=== PATIENT | male | born 1950 | race Caucasian/White ===

== ENCOUNTER 2024-01-02 09:14 | Inpatient (IN) | payer MEDICARE ==
--- NOTE | 2024-01-02 10:50 | ED ---
General Adult HPI - General Chief complaint: Wound/Laceration Stated complaint: L Toe Infection Time Seen by Provider: 01/02/24 10:29 Source: patient, RN notes reviewed Mode of arrival: ambulatory Limitations: no limitations - History of Present Illness Initial comments: 73-year-old male sent in by his bi data architect for left second toe ulcer. He states it has been there for 10 to 11 days. He reports that he has been on Keflex for the past 3 to 4 days. He was evaluated at his bi data architect today and was sent in as X-ray preformed showed possible osteomyelitis of the toe. He denies pain to the area, denies fever, chills. Admits to history of DM. - Related Data Home Medications Medication Instructions Recorded Confirmed Apixaban [Eliquis] 5 mg PO BID 01/02/24 01/02/24 Aspirin EC [Ecotrin Low Dose] 81 mg PO DAILY 01/02/24 01/02/24 Atorvastatin [Lipitor] 80 mg PO HS 01/02/24 01/02/24 Cephalexin [Keflex] 250 mg PO QID 01/02/24 01/02/24 Empagliflozin [Jardiance] 25 mg PO DAILY 01/02/24 01/02/24 Metoprolol Tartrate [Lopressor] 25 mg PO BID 01/02/24 01/02/24 Mirabegron [Myrbetriq] 50 mg PO DAILY 01/02/24 01/02/24 PARoxetine [Paxil] 10 mg PO DAILY 01/02/24 01/02/24 hydroCHLOROthiazide 12.5 mg PO DAILY 01/02/24 01/02/24 Allergies Allergy/AdvReac Type Severity Reaction Status Date / Time No Known Allergies Allergy Verified 01/02/24 14:35 Review of Systems ROS Statement: Those systems with pertinent positive or pertinent negative responses have been documented in the HPI. ROS Other: All systems not noted in ROS Statement are negative. Past Medical History Past Medical History: Cancer, CVA/TIA, Diabetes Mellitus, Myocardial Infarction ([place]), Skin Disorder Additional Past Medical History / Comment(s): prostate cancer, melenoma, Past Surgical History: Heart Catheterization With Stent Additional Past Surgical History / Comment(s): Tripple bypass, 2 heart attacks, 4 stents that failed, radical prostectomy, skin cancer removal, Past Psychological History: No Psychological Hx Reported Smoking Status: Never smoker Past Alcohol Use History: Daily Past Drug Use History: None Reported General Exam Limitations: no limitations General appearance: alert, in no apparent distress Head exam: Present: atraumatic, normocephalic, normal inspection Eye exam: Present: normal appearance, PERRL, EOMI. Absent: scleral icterus, conjunctival injection, periorbital swelling ENT exam: Present: normal exam, mucous membranes moist Respiratory exam: Present: normal lung sounds bilaterally. Absent: respiratory distress, wheezes, rales, rhonchi, stridor Cardiovascular Exam: Present: regular rate, normal rhythm, normal heart sounds. Absent: systolic murmur, diastolic murmur, rubs, gallop, clicks Extremities exam: Present: full ROM, normal capillary refill, other (ulcer left 2nd toe ). Absent: tenderness, pedal edema, joint swelling, calf tenderness Neurological exam: Present: alert, oriented X3 Psychiatric exam: Present: normal affect, normal mood Skin exam: Present: warm, dry, other (Ulcer to the left second toe on the medial aspect). Absent: intact Course Vital Signs 01/02/24 01/02/24 01/02/24 09:25 18:00 20:39 Temperature 97.9 F 98.4 F 98.6 F Pulse Rate 92 82 74 Respiratory 18 17 18 Rate Blood Pressure 151/82 145/86 124/73 O2 Sat by Pulse 99 100 99 Oximetry Medical Decision Making - Medical Decision Making Was pt. sent in by a medical professional or institution (, PA, BEAD SUPERVISOR, urgent care, hospital, or [facility]...) When possible be specific @ -No Did you speak to anyone other than the patient for history (EMS, parent, family, police, friend...)? What history was obtained from this source @ -No Did you review nursing and triage notes (agree or disagree)? Why? @ -I reviewed and agree with nursing and triage notes Were old charts reviewed (outside hosp., previous admission, EMS record, old EKG, old radiological studies, urgent care reports/EKG's, [facility] records)? Report findings @ -No old charts were reviewed Differential Diagnosis (chest pain, altered mental status, abdominal pain women, abdominal pain men, vaginal bleeding, weakness, fever, dyspnea, syncope, headache, dizziness, GI bleed, back pain, seizure, CVA, palpatations, mental health, musculoskeletal)? @ -Differential Musculoskeletal Muscular strain, contusion, ligament sprain, fracture, arthritis, septic arthritis, bursitis, cellulitis, muscle spasm, nerve compression, DVT, arterial occlusion, herpes zoster, electrolyte abnormality, tumor.... This is not meant to be in all inclusive list EKG interpreted by me (3pts min.). @ -None X-rays interpreted by me (1pt min.). @ -X-rays of the toes obtained show poor visualization of the medial proximal portion of the left second digit phalanx which would correlate with osteomyelitis CT interpreted by me (1pt min.). @ -None done U/S interpreted by me (1pt. min.). @ -None done What testing was considered but not performed or refused? (CT, X-rays, U/S, labs)? Why? @ -None What meds were considered but not given or refused? Why? @ -None Did you discuss the management of the patient with other professionals (professionals i.e. , PA, BEAD SUPERVISOR, lab, RT, psych nurse, certified social workers in health care, wireless technician, teacher, real estate officer, catalytic case operator)? Give summary @ -Case discussed with Dr. Rain with [facility] who is accepting of the admission Was smoking cessation discussed for >3mins.? @ -No Was critical care preformed (if so, how long)? @ -No Were there social determinants of health that impacted care today? How? (H omelessness, low income, unemployed, alcoholism, drug addiction, transportation, low edu. Level, literacy, decrease access to med. care, snf, rehab)? @ -No Was there de-escalation of care discussed even if they declined (Discuss DNR or withdrawal of care, Hospice)? DNR status @ -No What co-morbidities impacted this encounter? (DM, HTN, Smoking, COPD, CAD, Cancer, CVA, ARF, Chemo, Hep., AIDS, mental health diagnosis, sleep apnea, morbid obesity)? @ -Vascular disease, diabetes Was patient admitted / discharged? Hospital course, mention meds given and route, prescriptions, significant lab abnormalities, going to OR and other pertinent info. @ -Admitted. Patient presented to the emergency department for evaluation of left second toe ulcer. X-rays obtained which show findings that could be concerning for osteomyelitis. Laboratory studies obtained which showed normal white blood cell count, no lactic acidosis. Patient will be admitted, blood cultures obtained, patient started on vancomycin. Infectious disease and vascular surgery were consulted for the patient. Case was discussed with Dr. Rain who is accepting of the admission. Case discussed with my attending, Dr. Kinsey. Undiagnosed new problem with uncertain prognosis? @ -No Drug Therapy requiring intensive monitoring for toxicity (Heparin, Nitro, Insulin, Cardizem)? @ -No Were any procedures done? @ -No Diagnosis/symptom? @ -Osteomyelitis Acute, or Chronic, or Acute on Chronic? @ -Acute Uncomplicated (without systemic symptoms) or Complicated (systemic symptoms)? @ -Default Side effects of treatment? @ -No Exacerbation, Progression, or Severe Exacerbation? @ -No Poses a threat to life or bodily function? How? (Chest pain, [place], [place], pneumonia, PE, COPD, DKA, ARF, appy, cholecystitis, CVA, Diverticulitis, Homicidal, Suicidal, threat to staff... and all critical care pts) @ -No - Lab Data Result diagrams: 01/02/24 10:22 01/02/24 10:22 Lab Results 01/02/24 01/02/24 01/02/24 Range/Units 10:22 10:22 10:22 WBC 5.9 (3.8-10.6) k/uL RBC 4.65 (4.30-5.90) m/uL Hgb 14.9 (13.0-17.5) gm/dL Hct 45.5 (39.0-53.0) % MCV 97.9 (80.0-100.0) fL MCH 32.1 (25.0-35.0) pg MCHC 32.7 (31.0-37.0) g/dL RDW 12.9 (11.5-15.5) % Plt Count 253 (150-450) k/uL MPV 8.1 Neutrophils % 67 % Lymphocytes % 19 % Monocytes % 9 % Eosinophils % 2 % Basophils % 1 % Neutrophils # 3.9 (1.3-7.7) k/uL Lymphocytes # 1.1 (1.0-4.8) k/uL Monocytes # 0.5 (0-1.0) k/uL Eosinophils # 0.1 (0-0.7) k/uL Basophils # 0.0 (0-0.2) k/uL Sodium 136 L (137-145) mmol/L Potassium 4.9 (3.5-5.1) mmol/L Chloride 102 (98-107) mmol/L Carbon Dioxide 23 (22-30) mmol/L Anion Gap 11 mmol/L BUN 30 H (9-20) mg/dL Creatinine 1.77 H (0.66-1.25) mg/dL Est GFR (CKD-EPI)AfAm 43 (>60 ml/min/1.73 sqM) Est GFR (CKD-EPI)NonAf 37 (>60 ml/min/1.73 sqM) Glucose 338 H (74-99) mg/dL Plasma Lactic Acid Riley 1.1 (0.7-2.0) mmol/L Calcium 9.3 (8.4-10.2) mg/dL Total Bilirubin 1.0 (0.2-1.3) mg/dL AST 22 (17-59) U/L ALT 17 (4-49) U/L Alkaline Phosphatase 215 H (38-126) U/L C-Reactive Protein 6.6 H (<1.0) mg/dL Total Protein 6.8 (6.3-8.2) g/dL Albumin 4.3 (3.5-5.0) g/dL Disposition Clinical Impression: Toe ulcer due to DM, Osteomyelitis Disposition: ADMITTED IP TO THIS HOSP Condition: Stable Is patient prescribed a controlled substance at d/c from ED?: No
[2024-01-02] MEDS ORDERED: VANCOMYCIN IV PER PHARMACY 1 EACH MISC MISCELLANE PRN (10:53)
[2024-01-02 10:55] LABS: ALT 17 U/L (4-49); AST 22 U/L (17-59); African American GFR (CKD) 43 (>60 ml/min/1.73 sqM); Albumin 4.3 g/dL (3.5-5.0); Alkaline Phosphatase 215 U/L (38-126); Anion Gap 11 mmol/L; Blood Urea Nitrogen 30 mg/dL (9-20); Calcium 9.3 mg/dL (8.4-10.2); Carbon Dioxide 23 mmol/L (22-30); Chloride 102 mmol/L (98-107); Glucose 338 mg/dL (74-99); Non-African American GFR(CKD) 37 (>60 ml/min/1.73 sqM); Potassium 4.9 mmol/L (3.5-5.1); Sodium 136 mmol/L (137-145); Total Protein 6.8 g/dL (6.3-8.2)
[2024-01-02 10:59] LABS: Basophils % (A) 1 %; Eosinophils # (A) 0.1 k/uL (0-0.7); Eosinophils % (A) 2 %; HCT 45.5 % (39.0-53.0); HGB 14.9 gm/dL (13.0-17.5); Lymphocytes # (A) 1.1 k/uL (1.0-4.8); Lymphocytes % (A) 19 %; MCH 32.1 pg (25.0-35.0); MCHC 32.7 g/dL (31.0-37.0); MCV 97.9 fL (80.0-100.0); Mean Platelet Volume 8.1; Monocytes # (A) 0.5 k/uL (0-1.0); Monocytes % (A) 9 %; Neutrophils # (A) 3.9 k/uL (1.3-7.7); Neutrophils % (A) 67 %; Platelet Count 253 k/uL (150-450); RBC 4.65 m/uL (4.30-5.90); RDW 12.9 % (11.5-15.5); WBC 5.9 k/uL (3.8-10.6)
--- NOTE | 2024-01-02 11:20 | XR ---
EXAMINATION TYPE: XR toes LT DATE OF EXAM: 01/02/2024 COMPARISON: None HISTORY: Second toe ulcer TECHNIQUE: 3 views second digit left foot FINDINGS: There is some thinning and loss of the cortical margin along the medial aspect proximal por tion distal phalanx second digit. Underlying osteomyelitis should be considered. There is prior fixation through the first metatarsal phalangeal joint space. Diffuse degenerative singh nt changes are within the digits. IMPRESSION: 1. There is poor visualization of the medial proximal portion distal left second digit phalanx which could correlate with osteomyelitis in the proper clinical setting. 3 phase bone scan may be useful f or confirmation.
[2024-01-02] MEDS: VANCOMYCIN 1,500 MG in SODIUM CHLORIDE 0.9% 500 ML 500 ML IVPB STA (11:40)
[2024-01-02] MEDS ORDERED: HYDROmorphone 0.5 MG/0.5 ML SYRINGE IVP PRN (12:26)
[2024-01-02] MEDS ORDERED: ONDANSETRON 4 MG/2 ML VIAL IVP PRN (12:26)
[2024-01-02] MEDS ORDERED: HYDROmorphone 1 MG/ML 1 ML SYRINGE IVP PRN (12:26)
[2024-01-02] MEDS ORDERED: NALOXONE 0.4 MG/ML 1 ML VIAL IV PRN (12:26)
[2024-01-02] MEDS ORDERED: ACETAMINOPHEN TAB 325 MG TAB PO PRN (12:26)
--- NOTE | 2024-01-02 15:53 | P.GSCN ---
History of Present Illness Consult date: 01/02/24 Reason for Consult: Foot ulcer Requesting physician: Tiarra Woods History of present illness: This is a pleasant 73-year-old male with a history of diabetes mellitus who presented to the emergency department with concerns of a wound to his left second toe which she states had started about 10 to 11 days ago and progr essively has gotten worse. He denies any injury to the toe. Denies any pain to the toe. No fever, chills, body aches, nausea or vomiting. No previous diabetic wounds to either of his feet. States he can walk multiple miles without any pain. He does report having some poor blood flow in his lower extremities and has had that monitored while he was living in [place]. States last arterial ultrasound was about a year ago. He has history of bilateral great toe fusions with prior screw in the great toe. Vascular surgery was consulted for foot ulcer. He states he has not seen anybody recently other than [employer] police sergeant who sent him in. He has not had any formal wound care to the toe. States he has been caring for it at home with [facility]. Review of Systems A 14 point review systems was completed all pertinent positives and negatives as stated in the HPI. Past Medical History Past Medical History: Cancer, CVA/TIA, Diabetes Mellitus, Myocardial Infarction ([place]), Skin Disorder Additional Past Medical History / Comment(s): prostate cancer, melenoma, Past Surgical History: Heart Catheterization With Stent Additional Past Surgical History / Comment(s): Tripple bypass, 2 heart attacks, 4 stents that failed, radical prostectomy, skin cancer removal, Past Psychological History: No Psychological Hx Reported Smoking Status: Never smoker Past Alcohol Use History: Daily Past Drug Use History: None Reported Medications and Allergies Home Medications Medication Instructions Recorded Confirmed Type Apixaban [Eliquis] 5 mg PO BID 01/02/24 01/02/24 History Aspirin EC [Ecotrin Low Dose] 81 mg PO DAILY 01/02/24 01/02/24 History Atorvastatin [Lipitor] 80 mg PO HS 01/02/24 01/02/24 History Cephalexin [Keflex] 250 mg PO QID 01/02/24 01/02/24 History Empagliflozin [Jardiance] 25 mg PO DAILY 01/02/24 01/02/24 History Metoprolol Tartrate [Lopressor] 25 mg PO BID 01/02/24 01/02/24 History Mirabegron [Myrbetriq] 50 mg PO DAILY 01/02/24 01/02/24 History PARoxetine [Paxil] 10 mg PO DAILY 01/02/24 01/02/24 History hydroCHLOROthiazide 12.5 mg PO DAILY 01/02/24 01/02/24 History Allergies Allergy/AdvReac Type Severity Reaction Status Date / Time No Known Allergies Allergy Verified 01/02/24 14:35 Surgical - Exam Vital Signs Temp Pulse Resp BP Pulse Ox 97.9 F 92 18 151/82 99 01/02/24 09:25 01/02/24 09:25 01/02/24 09:25 01/02/24 09:25 01/02/24 09:25 General appearance: The patient is alert, oriented, appears in no acute distress. HET: Head is normocephalic and atraumatic. Pupils are equal and reactive. Neck: Supple. Heart: Regular. Lungs: Equal expansion, normal respiratory effort. Abdomen: Soft, nontender, nondistended. Extremities: Normal skin color and turgor. Left lower extremity palpable femoral pulse, popliteal and PT pulse. Nonpalpable DP pulse. Good capillary refill. Left second toe medial aspect with ulcer and open wound to fat layer without any visible bone. Neurological: No focal deficits. Strength and sensation are grossly intact. Results - Labs 01/02/24 10:22 01/02/24 10:22 Abnormal Lab Results - Last 24 Hours (Table) 01/02/24 Range/Units 10:22 Sodium 136 L (137-145) mmol/L BUN 30 H (9-20) mg/dL Creatinine 1.77 H (0.66-1.25) mg/dL Glucose 338 H (74-99) mg/dL Alkaline Phosphatase 215 H (38-126) U/L Diabetes panel 01/02/24 Range/Units 10:22 Sodium 136 L (137-145) mmol/L Potassium 4.9 (3.5-5.1) mmol/L Chloride 102 (98-107) mmol/L Carbon Dioxide 23 (22-30) mmol/L BUN 30 H (9-20) mg/dL Creatinine 1.77 H (0.66-1.25) mg/dL Glucose 338 H (74-99) mg/dL Calcium 9.3 (8.4-10.2) mg/dL AST 22 (17-59) U/L ALT 17 (4-49) U/L Alkaline Phosphatase 215 H (38-126) U/L Total Protein 6.8 (6.3-8.2) g/dL Albumin 4.3 (3.5-5.0) g/dL Calcium panel 01/02/24 Range/Units 10:22 Calcium 9.3 (8.4-10.2) mg/dL Albumin 4.3 (3.5-5.0) g/dL Pituitary panel 01/02/24 Range/Units 10:22 Sodium 136 L (137-145) mmol/L Potassium 4.9 (3.5-5.1) mmol/L Chloride 102 (98-107) mmol/L Carbon Dioxide 23 (22-30) mmol/L BUN 30 H (9-20) mg/dL Creatinine 1.77 H (0.66-1.25) mg/dL Glucose 338 H (74-99) mg/dL Calcium 9.3 (8.4-10.2) mg/dL Adrenal panel 01/02/24 Range/Units 10:22 Sodium 136 L (137-145) mmol/L Potassium 4.9 (3.5-5.1) mmol/L Chloride 102 (98-107) mmol/L Carbon Dioxide 23 (22-30) mmol/L BUN 30 H (9-20) mg/dL Creatinine 1.77 H (0.66-1.25) mg/dL Glucose 338 H (74-99) mg/dL Calcium 9.3 (8.4-10.2) mg/dL Total Bilirubin 1.0 (0.2-1.3) mg/dL AST 22 (17-59) U/L ALT 17 (4-49) U/L Alkaline Phosphatase 215 H (38-126) U/L Total Protein 6.8 (6.3-8.2) g/dL Albumin 4.3 (3.5-5.0) g/dL - Imaging Comments: Left toes x-ray reports poor visualization of the medial proximal portion distal left second digit phalanx which could correlate with osteomyelitis in proper clinical setting. Three-phase bone scan may be useful confirmation. This was independently reviewed by Dr. Baron who states appears just inflammation at the site of the actual wound without evidence of osteomyelitis on x-ray. Assessment and Plan Assessment: 1. Left second toe diabetic ulcer 2. Diabetes mellitus Plan: 1. Recommend formal wound care, will consult [facility] wound [facility] 2. No plans on surgical debridement or amputation at this time 3. Lower extremity arterial ultrasound ordered 4. Continue with recommendations from infectious disease 5. Rest of medical management per primary medical team Thank you for this consultation, we will continue to follow. The impression and plan of care has been dictated as directed. I performed a history and examination of this patient, discussed the same with the dictator. I agree with the dictator's note ,documented as a scribe. Any additional findings or plans will be noted.
[2024-01-02] MEDS: SODIUM CHLORIDE 0.9% 1,000 ML IV SCH (16:19)
[2024-01-02] MEDS ORDERED: DEXTROSE 50% SYRINGE 50 ML IVP PRN ×2 (17:20)
--- NOTE | 2024-01-02 17:22 | P.HPIM ---
History of Present Illness H&P Date: 01/02/24 73 year old M with PMH of CVA, CAD post CABG, DM, Prostate CA, Melanoma presents to the ED for left second toe ulcer after being sent in by his Bridge Expert. Wound has been ongoing for the past 7-10 days. Attempted trial of Keflex without much improvement. Foot XR was ordered which showed concerns of OM. He reports no other complaints. In the ED he underwent extensive evaluation. BP 151/82, HR 92, RR 18, T 97.9F, 99% on RA. CBC, CMP performed significant for Na 136, BUN 30, Cr 1.77, glu 338, alk phos 215. Lactic acid 1.1. Toe XR shows poor visualization of the medial proximal portion distal left second digit. Patient is admitted for further workup and management. General: no distress, appears at stated age Derm: warm, dry Head: atraumatic, normocephalic, symmetric Eyes: EOMI, no lid lag, anicteric sclera Mouth: no lip lesion, mucus membranes moist Cardiovascular: S1S2 reg, no murmur Lungs: CTA bilateral, no rhonchi, no rales , no accessory muscle use Abdominal: soft, nontender to palpation, no guarding, no appreciable organomegaly Ext: no gross muscle atrophy, no edema, no contractures, L 2nd toe medial wound with surrounding erythema no discharge Neuro: no focal neuro deficits Psych: Alert, oriented, appropriate affect Based on my assessment of this patient, this patient meets a high complexity level of care. Left second toe OM: Continue Vancomycin dosed per pharmacy. Monitor renal function and trough. Obtain CRP, ESR, BCx. Vascular Sx recommends arterial duplex. Bone scan would be useful, will discuss with Dr. Alexis. WCx collected by Dr. Alexis. ZAIN versus CKD: No baseline to compare. Start NS at 50 cc/hr. DM with hyperglycemia: ISS. Accuchecks ACHS. Hypoglycemic precautions. CAD status post CABG: ASA 81 mg PO QD. Lipitor 80 mg PO QHS. Metoprolol 25 mg PO BID. h/o CVA: ASA and Lipitor as above. h/o prostate CA: Outpatient follow up. h/o melenoma: Outpatient follow up. CODE STATUS: FULL CODE DVT Prophylaxis: Eliquis. GI Prophylaxis: Designated medical POA if patient is not able to make medical decisions for themselves: I have reviewed the following telesales consultant notes: Vascular, ED note. I have reviewed the results of the following tests: As above I have ordered the following tests: As above I have discussed the care of this patient with the following independent historian: I have independently interpreted the following test below: I have discussed the management of this patient with the following physician: Past Medical History Past Medical History: Cancer, CVA/TIA, Diabetes Mellitus, Myocardial Infarction ([place]), Skin Disorder Additional Past Medical History / Comment(s): prostate cancer, melenoma, Past Surgical History: Heart Catheterization With Stent Additional Past Surgical History / Comment(s): Tripple bypass, 2 heart attacks, 4 stents that failed, radical prostectomy, skin cancer removal, Past Psychological History: No Psychological Hx Reported Smoking Status: Never smoker Past Alcohol Use History: Daily Past Drug Use History: None Reported Medications and Allergies Home Medications Medication Instructions Recorded Confirmed Type Apixaban [Eliquis] 5 mg PO BID 01/02/24 01/02/24 History Aspirin EC [Ecotrin Low Dose] 81 mg PO DAILY 01/02/24 01/02/24 History Atorvastatin [Lipitor] 80 mg PO HS 01/02/24 01/02/24 History Cephalexin [Keflex] 250 mg PO QID 01/02/24 01/02/24 History Empagliflozin [Jardiance] 25 mg PO DAILY 01/02/24 01/02/24 History Metoprolol Tartrate [Lopressor] 25 mg PO BID 01/02/24 01/02/24 History Mirabegron [Myrbetriq] 50 mg PO DAILY 01/02/24 01/02/24 History PARoxetine [Paxil] 10 mg PO DAILY 01/02/24 01/02/24 History hydroCHLOROthiazide 12.5 mg PO DAILY 01/02/24 01/02/24 History Allergies Allergy/AdvReac Type Severity Reaction Status Date / Time No Known Allergies Allergy Verified 01/02/24 14:35 Physical Exam Vitals: Vital Signs Temp Pulse Resp BP Pulse Ox 01/02/24 09:25 97.9 F 92 18 151/82 99 Intake and Output 01/02/24 01/02/24 01/02/24 06:59 14:59 22:59 Other: Weight 90.718 kg Results CBC & Chem 7: 01/02/24 10:22 01/02/24 10:22 Labs: Abnormal Lab Results - Last 24 Hours (Table) 01/02/24 Range/Units 10:22 Sodium 136 L (137-145) mmol/L BUN 30 H (9-20) mg/dL Creatinine 1.77 H (0.66-1.25) mg/dL Glucose 338 H (74-99) mg/dL Alkaline Phosphatase 215 H (38-126) U/L
[2024-01-02] MEDS: INSULIN ASPART (NovoLOG) 100 UNIT/ML VIAL SQ SCH (17:52)
--- NOTE | 2024-01-02 19:38 | US ---
EXAMINATION TYPE: US arterial LE single level DATE OF EXAM: 01/02/2024 4:20 PM CLINICAL INDICATION: Male, 73 years old with history of Left 2nd toe wound, non-palpable DP pulse; No nhealing wound at left toe. Portable inpatient. History of: Smoker: No Hypertension: Yes Diabetic: Yes Hyperlipidemia: Yes TIA/CVA: Yes Previous Vascular Surgery: Yes, vein harvest for bypass CAD: Yes [place]: Yes Vascular Ulcers: Left Claudication: No Gangrene: No Doppler Waveforms: Right: Monophasic waveforms present Left: Monophasic waveforms present Pressure Gradients: Right Brachial Pressure: 151 Left Brachial Pressure: Deferred due to IV Ankle-Brachial Indices: Right: 0.4 Left: 0.7 (Vessel hardening > 1.4; Normal 0.9 - 1.4, Moderate 0.7 - 0.9, Severe 0.5-0.7) Toe Brachial Indices: Right: 0.5 Left: 0.1 IMPRESSION: 1. Very low ratios within the dorsalis pedis and digital arteries compatible with severe arterial nader nosis. Posterior tibial arteries likewise have severe stenosis on the right and more moderate on the left.
[2024-01-02 19:54] LABS: C Reactive Protein 6.6 mg/dL (<1.0)
[2024-01-02 20:24] LABS: Glucose,Whole Blood 238 mg/dL (70-110)
[2024-01-02 21:05] LABS: Glucose,Whole Blood 259 mg/dL (70-110)
[2024-01-02] MEDS: ATORVASTATIN 80 MG TAB PO SCH (21:16)
[2024-01-02] MEDS: APIXABAN 5 MG TAB PO SCH (21:16)
[2024-01-02] MEDS: METOPROLOL TARTRATE 25 MG TAB PO SCH (21:16)
[2024-01-02] MEDS: AMPICILLIN-SULBACTAM 3 GM in SODIUM CHLORIDE 0.9% 100 ML IVPB SCH (23:44)
[2024-01-03 06:02] LABS: Glucose,Whole Blood 170 mg/dL (70-110)
[2024-01-03 08:25] LABS: African American GFR (CKD) 46 (>60 ml/min/1.73 sqM); Non-African American GFR(CKD) 40 (>60 ml/min/1.73 sqM)
[2024-01-03] MEDS: ASPIRIN 81 MG PO SCH (09:04)
[2024-01-03] MEDS: hydroCHLOROthiazide 12.5 MG CAP PO SCH (09:05)
[2024-01-03] MEDS: PARoxetine 10 MG TAB PO SCH (09:05)
[2024-01-03] MEDS: NON FORMULARY DRUG (Mirabegron [Myrbetriq] 50 MG Tab.Er.24h) PO SCH (09:20)
--- NOTE | 2024-01-03 09:46 | P.CONS ---
History of Present Illness - Reason for Consult Consult date: 01/02/24 - History of Present Illness Patient is a 73-year-old male with a past medical history significant for diabetes mellitus [place] CVA TIA history of prostate cancer and melanoma presenting to the hospital for left second toe ulcer with the patient has noticed for about 10 to 11 days before presentation to the hospital patient has been evaluated in the outpatient setting with a podiatry and has been treated with oral Keflex however did not have any improvement patient was reevaluated in the podiatry office today with the patient did have x-ray suggestive of osteomyelitis for the patient was sent to the hospital patient mention possibly the left big toe question on the second toe causing this ulceration on the left second toe patient did have neuropathy denies significant pain to the toe area mostly feels like a pressure main concern is her nonhealing of this second toe with some yellowish slough did have some surrounding swelling redness which seems to be extending to the left foot denies any foul-smelling drainage denies high-grade fever patient on presentation to the hospital was afebrile and no fever has been recorded subsequently patient was not tachycardic hypotensive or hypoxic and no need for supplemental oxygen he did have a white count of 5.9 BUN and creatinine mildly elevated with a creatinine 1.77 liver enzymes are normal CRP 6.6 patient did have 2 x-ray done at this facility showed poor visualization of the medial proximal portion distal left second digit phalanx correlate with osteomyelitis in the proper setting patient was started on vancomycin infectious disease was consulted for further management of antibiotic therapy Past Medical History Past Medical History: Cancer, CVA/TIA, Diabetes Mellitus, Myocardial Infarction ([place]), Skin Disorder Additional Past Medical History / Comment(s): prostate cancer, melenoma, Past Surgical History: Heart Catheterization With Stent Additional Past Surgical History / Comment(s): Tripple bypass, 2 heart attacks, 4 stents that failed, radical prostectomy, skin cancer removal, Past Psychological History: No Psychological Hx Reported Smoking Status: Never smoker Past Alcohol Use History: Daily Past Drug Use History: None Reported Medications and Allergies Home Medications Medication Instructions Recorded Confirmed Type Apixaban [Eliquis] 5 mg PO BID 01/02/24 01/02/24 History Aspirin EC [Ecotrin Low Dose] 81 mg PO DAILY 01/02/24 01/02/24 History Atorvastatin [Lipitor] 80 mg PO HS 01/02/24 01/02/24 History Cephalexin [Keflex] 250 mg PO QID 01/02/24 01/02/24 History Empagliflozin [Jardiance] 25 mg PO DAILY 01/02/24 01/02/24 History Metoprolol Tartrate [Lopressor] 25 mg PO BID 01/02/24 01/02/24 History Mirabegron [Myrbetriq] 50 mg PO DAILY 01/02/24 01/02/24 History PARoxetine [Paxil] 10 mg PO DAILY 01/02/24 01/02/24 History hydroCHLOROthiazide 12.5 mg PO DAILY 01/02/24 01/02/24 History Allergies Allergy/AdvReac Type Severity Reaction Status Date / Time No Known Allergies Allergy Verified 01/02/24 14:35 Physical Exam Vitals: Vital Signs Temp Pulse Resp BP Pulse Ox 01/02/24 09:25 97.9 F 92 18 151/82 99 Intake and Output 01/01/24 01/02/24 01/02/24 22:59 06:59 14:59 Other: Weight 90.718 kg Results CBC & Chem 7: 01/02/24 10:22 01/04/24 06:15 Labs: Abnormal Lab Results - Last 24 Hours (Table) 01/02/24 Range/Units 10:22 Sodium 136 L (137-145) mmol/L BUN 30 H (9-20) mg/dL Creatinine 1.77 H (0.66-1.25) mg/dL Glucose 338 H (74-99) mg/dL Alkaline Phosphatase 215 H (38-126) U/L Assessment and Plan Plan: 1patient presented to hospital with a left second toe ulcer nonhealing that has failed to respond to outpatient oral Keflex therapy with outpatient as well as inpatient x-ray suspicious for osteomyelitis will need to cover for the gram- positive as well as gram-negative pathogen. 2patient with renal insufficiency high risk of nephrotoxicity from vancomycin kidney function need to monitor closely. 3local culture has been obtained to guide further antibiotic therapy. 4patient to continue with the vancomycin however will watch his Vanco trough an d kidney function closely and Unasyn 3 g every 6 hours. We will follow on clinical condition and cultures to further adjust medication if needed Thank you for this consultation we will follow the patient along with you Dictation was produced using [facility] [employer] dictation software. please excuse any grammatical, word or spelling errors. Time with Patient: Greater than 30
--- NOTE | 2024-01-03 11:11 | P.CONS ---
History of Present Illness - Reason for Consult Consult date: 01/03/24 wound care - History of Present Illness This is a 73-year-old patient being seen on 4 S. for nonhealing ulceration to the second digit of the left foot. Patient has ulcerations to the medial and lateral aspect of the second digit. Significant amount of bruising nonviable tissue and slough noted. Minimal granulation. Patient x-ray showed possible osteomyelitis recommendation for a bone scan. Patient does have history of diabetes with neuropathy. He was evaluated by vascular surgery with no surgical debridement or amputation discussed at this time. Patient is recommended to continue with advanced wound care to promote healing. Review Of Systems: Constitutional: No fever, no chills, no night sweats. No weight change. No weakness, fatigue or lethargy. No daytime sleepiness. Integumentary:reports wounds, no lesions. No rash or pruritus. No unusual bruising. No change in hair or nails. Physical exam: General Appearance: Alert, cooperative, no distress, appears stated age. Skin: See HPI all other Skin color, texture, tugor normal, no rashes or lesions. Neurologic: Alert oriented x3 Assessment: 1. Nonhealing ulceration of other part of left foot with bone involvement without necrosis 2. Diabetic foot ulcer Plan: 1. Apply absorptive silver rope moistened cover with gauze secure with tape. Change Saturday. Patient would benefit from advanced wound care and wound care setting. Will be happy to see him upon discharge. Thank you for the consultation any questions please contact the wound care center. DNP note has been reviewed and discussed with Dr. Aguilar and the impression and plan of care has been directed as dictated. Past Medical History Past Medical History: Cancer, CVA/TIA, Diabetes Mellitus, Myocardial Infarction ([place]), Skin Disorder Additional Past Medical History / Comment(s): prostate cancer, melenoma, Last Myocardial Infarction Date:: 2011 History of Any Multi-Drug Resistant Organisms: None Reported Past Surgical History: Heart Catheterization With Stent Additional Past Surgical History / Comment(s): Tripple bypass, 2 heart attacks, 4 stents that failed, radical prostectomy, skin cancer removal, Past Anesthesia/Blood Transfusion Reactions: No Reported Reaction Date of Last Stent Placement:: 2011 Past Psychological History: No Psychological Hx Reported Smoking Status: Never smoker Past Alcohol Use History: Daily Past Drug Use History: None Reported Medications and Allergies Home Medications Medication Instructions Recorded Confirmed Type Apixaban [Eliquis] 5 mg PO BID 01/02/24 01/02/24 History Aspirin EC [Ecotrin Low Dose] 81 mg PO DAILY 01/02/24 01/02/24 History Atorvastatin [Lipitor] 80 mg PO HS 01/02/24 01/02/24 History Cephalexin [Keflex] 250 mg PO QID 01/02/24 01/02/24 History Empagliflozin [Jardiance] 25 mg PO DAILY 01/02/24 01/02/24 History Metoprolol Tartrate [Lopressor] 25 mg PO BID 01/02/24 01/02/24 History Mirabegron [Myrbetriq] 50 mg PO DAILY 01/02/24 01/02/24 History PARoxetine [Paxil] 10 mg PO DAILY 01/02/24 01/02/24 History hydroCHLOROthiazide 12.5 mg PO DAILY 01/02/24 01/02/24 History Allergies Allergy/AdvReac Type Severity Reaction Status Date / Time No Known Allergies Allergy Verified 01/02/24 14:35 Physical Exam Vitals: Vital Signs Temp Pulse Pulse Pulse Resp BP BP 01/03/24 07:29 98.2 F 71 19 01/03/24 01:01 98.9 F 73 15 126/45 01/02/24 20:59 98.2 F 93 16 149/85 01/02/24 20:39 98.6 F 74 18 124/73 01/02/24 18:00 98.4 F 82 17 145/86 BP Pulse Ox 01/03/24 07:29 125/69 100 01/03/24 01:01 98 01/02/24 20:59 100 01/02/24 20:39 99 01/02/24 18:00 100 Intake and Output 01/02/24 01/03/24 01/03/24 22:59 06:59 14:59 Other: Voiding Method Toilet # Voids 1 Weight 90.718 kg Results CBC & Chem 7: 01/02/24 10:22 01/03/24 07:52 Labs: Abnormal Lab Results - Last 24 Hours (Table) 01/02/24 01/02/24 01/02/24 Range/Units 10:22 20:19 21:04 Sodium 136 L (137-145) mmol/L BUN 30 H (9-20) mg/dL Creatinine 1.77 H (0.66-1.25) mg/dL Glucose 338 H (74-99) mg/dL POC Glucose (mg/dL) 238 H 259 H (70-110) mg/dL Alkaline Phosphatase 215 H (38-126) U/L C-Reactive Protein 6.6 H (<1.0) mg/dL 01/03/24 01/03/24 Range/Units 06:00 07:52 Sodium (137-145) mmol/L BUN (9-20) mg/dL Creatinine 1.65 H (0.66-1.25) mg/dL Glucose (74-99) mg/dL POC Glucose (mg/dL) 170 H (70-110) mg/dL Alkaline Phosphatase (38-126) U/L C-Reactive Protein (<1.0) mg/dL Microbiology - Last 24 Hours (Table) 01/02/24 14:45 Gram Stain - Preliminary Foot - Left Assessment and Plan (1) Non-pressure chronic ulcer of other part of left foot with bone involvement without evidence of necrosis Current Visit: Yes Status: Acute Code(s): L97.526 - NON-PRS CHR ULC OTH PRT L FOOT WITH BNE INVL W/O EVD OF NECR SNOMED Code(s): 84153704084094500 (2) Type 2 diabetes mellitus with foot ulcer Current Visit: Yes Status: Acute Code(s): E11.621 - TYPE 2 DIABETES MELLITUS WITH FOOT ULCER; L97.509 - NON-PRESSURE CHRONIC ULCER OTH PRT UNSP FOOT W UNSP SEVERITY SNOMED Code(s): 095381531 (3) Osteomyelitis Current Visit: Yes Status: Acute Code(s): M86.9 - OSTEOMYELITIS, UNSPECIFIED SNOMED Code(s): 01593404
--- NOTE | 2024-01-03 12:10 | P.PN ---
Subjective Progress Note Date: 01/03/24 Principal diagnosis: Diabetic ulcer Patient seen and examined today as a follow-up. He denies any pain in his left foot or toe. He has no fevers, chills or bodyaches. He underwent arterial duplex yesterday which reported RAMBO right 0.4 and left 0.7. Decreased waveforms. Objective - Vital Signs Vital signs: Vital Signs Temp 98.9 F 01/03/24 01:01 Pulse 73 01/03/24 01:01 Resp 15 01/03/24 01:01 BP 126/45 01/03/24 01:01 Pulse Ox 98 01/03/24 01:01 FiO2 Intake & Output 01/02/24 01/03/24 01/03/24 18:59 06:59 18:59 Weight 90.718 kg 90.718 kg Other: Voiding Method Toilet # Voids 1 - Exam General appearance: The patient is alert, oriented, appears in no acute distress. HET: Head is normocephalic and atraumatic. Neck: Supple. Abdomen: Soft, nondistended. Extremities: Normal skin color and turgor. Good capillary refill. Left second toe medial aspect with ulcer and open wound to fat layer without any visible stella ne. Neurological: No focal deficits. Strength and sensation are grossly intact. - Labs CBC & Chem 7: 01/02/24 10:22 01/03/24 07:52 Labs: Abnormal Lab Results - Last 24 Hours (Table) 01/02/24 01/02/24 01/02/24 Range/Units 10:22 20:19 21:04 Sodium 136 L (137-145) mmol/L BUN 30 H (9-20) mg/dL Creatinine 1.77 H (0.66-1.25) mg/dL Glucose 338 H (74-99) mg/dL POC Glucose (mg/dL) 238 H 259 H (70-110) mg/dL Alkaline Phosphatase 215 H (38-126) U/L C-Reactive Protein 6.6 H (<1.0) mg/dL 01/03/24 Range/Units 06:00 Sodium (137-145) mmol/L BUN (9-20) mg/dL Creatinine (0.66-1.25) mg/dL Glucose (74-99) mg/dL POC Glucose (mg/dL) 170 H (70-110) mg/dL Alkaline Phosphatase (38-126) U/L C-Reactive Protein (<1.0) mg/dL Assessment and Plan Assessment: 1. Left second toe diabetic ulcer 2. Diabetes mellitus 3. Peripheral arterial disease Plan: 1. Recommend formal wound care, will consult [facility] wound clinic 2. Local wound care per recommendations from wound care clinic 3. No plans on surgical debridement or amputation at this time 4. Lower extremity arterial ultrasound ordered and reviewed 5. Outpatient follow-up with vascular surgery Thank you for this consultation, patient is cleared from vascular surgery for discharge. The impression and plan of care has been dictated as directed. I performed a history and examination of this patient, discussed the same with the dictator. I agree with the dictator's note ,documented as a scribe. Any additional findings or plans will be noted.
[2024-01-03 12:16] LABS: Glucose,Whole Blood 305 mg/dL (70-110)
[2024-01-03] MEDS: VANCOMYCIN 1,500 MG in SODIUM CHLORIDE 0.9% 500 ML 500 ML IVPB SCH (13:04)
--- NOTE | 2024-01-03 13:14 | P.PN ---
Subjective Progress Note Date: 01/03/24 73 year old M with PMH of CVA, CAD post CABG, DM, Prostate CA, Melanoma presents to the ED for left second toe ulcer after being sent in by his Cad Manager. Wound has been ongoing for the past 7-10 days. Attempted trial of Keflex without much improvement. Foot XR was ordered which showed concerns of OM. He reports no other complaints. In the ED he underwent extensive evaluation. BP 151/82, HR 92, RR 18, T 97.9F, 99% on RA. CBC, CMP performed significant for Na 136, BUN 30, Cr 1.77, glu 338, alk phos 2 15. Lactic acid 1.1. Toe XR shows poor visualization of the medial proximal portion distal left seco nd digit. Patient is admitted for further workup and management. 01/02 Patient was seen and examined. Well controlled pain. Currently on Unasyn and Vancomycin. Discussed with Dr. Baron, plans for no surgery. ID recommends continued antibiotics. Patient will likely need IV antibiotics on discharge. Arterial duplex shows severe PAD. Renal function shows Cr 1.65. General: no distress, appears at stated age Derm: warm, dry Head: atraumatic, normocephalic, symmetric Eyes: EOMI, no lid lag, anicteric sclera Cardiovascular: S1S2 reg, no murmur Lungs: CTA bilateral, no rhonchi, no rales , no accessory muscle use Ext: no gross muscle atrophy, no edema, no contractures, L 2nd toe medial wound with surrounding erythema no discharge Neuro: no focal neuro deficits Psych: Alert, oriented, appropriate affect Based on my assessment of this patient, this patient meets a high complexity level of care. Left second toe OM: Continue Unasyn 3g IV TID and Vancomycin dosed per pharmacy. Monitor renal function and trough. Obtain CRP, ESR, BCx. Vascular Sx recommends arterial duplex. Bone scan would be useful, will discuss with Dr. Alexis. WCx collected by Dr. Alexis. ZAIN versus CKD: No baseline to compare. NS at 50 cc/hr. DM with hyperglycemia: ISS. Accuchecks ACHS. Hypoglycemic precautions. CAD status post CABG: ASA 81 mg PO QD. Lipitor 80 mg PO QHS. Metoprolol 25 mg PO BID. h/o CVA: ASA and Lipitor as above. h/o prostate CA: Outpatient follow up. h/o melenoma: Outpatient follow up. CODE STATUS: FULL CODE DVT Prophylaxis: Eliquis. GI Prophylaxis: Designated medical POA if patient is not able to make medical decisions for themselves: I have reviewed the following organizational development consultant notes: Vascular, ED note. I have reviewed the results of the following tests: Renal function I have ordered the following tests: Renal function I have discussed the care of this patient with the following independent historian: , RN. I have independently interpreted the following test below: I have discussed the management of this patient with the following physician: Dr. Baron Objective - Vital Signs Vital signs: Vital Signs Temp 98.2 F 01/03/24 07:29 Pulse 71 01/03/24 07:29 Resp 19 01/03/24 07:29 BP 125/69 01/03/24 07:29 Pulse Ox 100 01/03/24 07:29 FiO2 Intake & Output 01/02/24 01/03/24 01/03/24 18:59 06:59 18:59 Weight 90.718 kg 90.718 kg Other: Voiding Method Toilet # Voids 1 - Labs CBC & Chem 7: 01/02/24 10:22 01/03/24 07:52 Labs: Abnormal Lab Results - Last 24 Hours (Table) 01/02/24 01/02/24 01/02/24 Range/Units 10:22 20:19 21:04 Creatinine (0.66-1.25) mg/dL POC Glucose (mg/dL) 238 H 259 H (70-110) mg/dL C-Reactive Protein 6.6 H (<1.0) mg/dL 01/03/24 01/03/24 01/03/24 Range/Units 06:00 07:52 12:11 Creatinine 1.65 H (0.66-1.25) mg/dL POC Glucose (mg/dL) 170 H 305 H (70-110) mg/dL C-Reactive Protein (<1.0) mg/dL Microbiology - Last 24 Hours (Table) 01/02/24 14:45 Gram Stain - Preliminary Foot - Left
[2024-01-03] MEDS: AMPICILLIN-SULBACTAM 3 GM in SODIUM CHLORIDE 0.9% 100 ML IVPB SCH (14:30)
[2024-01-03 16:41] LABS: Glucose,Whole Blood 291 mg/dL (70-110)
[2024-01-03 20:50] LABS: Glucose,Whole Blood 283 mg/dL (70-110)
[2024-01-04 06:02] LABS: Glucose,Whole Blood 190 mg/dL (70-110)
[2024-01-04 07:37] LABS: Glucose,Whole Blood 187 mg/dL (70-110)
[2024-01-04 08:13] LABS: African American GFR (CKD) 50 (>60 ml/min/1.73 sqM); Non-African American GFR(CKD) 43 (>60 ml/min/1.73 sqM)
[2024-01-04 11:43] LABS: Glucose,Whole Blood 344 mg/dL (70-110)
--- NOTE | 2024-01-04 12:34 | P.PN ---
Subjective Progress Note Date: 01/04/24 73 year old M with PMH of CVA, CAD post CABG, DM, Prostate CA, Melanoma presents to the ED for left second toe ulcer after being sent in by his Bench Jeweler. Wound has been ongoing for the past 7-10 days. Attempted trial of Keflex without much improvement. Foot XR was ordered which showed concerns of OM. He reports no other complaints. In the ED he underwent extensive evaluation. BP 151/82, HR 92, RR 18, T 97.9F, 99% on RA. CBC, CMP performed significant for Na 136, BUN 30, Cr 1.77, glu 338, alk phos 2 15. Lactic acid 1.1. Toe XR shows poor visualization of the medial proximal portion distal left seco nd digit. Patient is admitted for further workup and management. ID and Vascular Sx consulted, started on Vancomycin and Unasyn. Arterial doppler showed severe PAD. Vascular recommended conservative management with IV antibiotics. 01/02 Patient was seen and examined. Well controlled pain. Currently on Unasyn and Vancomycin. Renal function shows Cr 1.55. BCx negative. WCx group D enterococcus. CRP 6.6. POC glucose 170-291 over the past 24H. General: no distress, appears at stated age Derm: warm, dry Head: atraumatic, normocephalic, symmetric Eyes: EOMI, no lid lag, anicteric sclera Cardiovascular: S1S2 reg, no murmur Lungs: CTA bilateral, no rhonchi, no rales , no accessory muscle use Ext: no gross muscle atrophy, no edema, no contractures, L 2nd toe medial wound with surrounding erythema no discharge Neuro: no focal neuro deficits Psych: Alert, oriented, appropriate affect Based on my assessment of this patient, this patient meets a high complexity level of care. Left second toe OM: Continue Unasyn 3g IV TID and Vancomycin dosed per pharmacy. Monitor renal function and trough. BCx negative. WCx group D enterococcus. Vascular Sx recommends conservative management. Discussed with Dr. Alexis, clinically OM. WCx collected by Dr. Alexis. ZAIN versus CKD: No baseline to compare. NS at 50 cc/hr. DM with hyperglycemia: ISS increased from low dose to medium dose. Accuchecks ACHS. Hypoglycemic precautions. CAD status post CABG: ASA 81 mg PO QD. Lipitor 80 mg PO QHS. Metoprolol 25 mg PO BID. h/o CVA: ASA and Lipitor as above. h/o prostate CA: Outpatient follow up. h/o melenoma: Outpatient follow up. CODE STATUS: FULL CODE DVT Prophylaxis: Eliquis. GI Prophylaxis: Designated medical POA if patient is not able to make medical decisions for themselves: I have reviewed the following salon sales consultant notes: Vascular, Wound care note. I have reviewed the results of the following tests: POC glucose, Renal function, WCx, BCx. I have ordered the following tests: Renal function I have discussed the care of this patient with the following independent historian: I have independently interpreted the following test below: I have discussed the management of this patient with the following physician: Dr. Alexis Objective - Vital Signs Vital signs: Vital Signs Temp 97.6 F 01/04/24 08:00 Pulse 59 L 01/04/24 08:00 Resp 16 01/04/24 08:00 BP 154/91 01/04/24 08:00 Pulse Ox 98 01/04/24 08:00 FiO2 Intake & Output 01/03/24 01/04/24 01/04/24 18:59 06:59 18:59 Intake Total 1200 120 Balance 1200 120 Intake: Intake, IV Titration 1200 Amount Ampicillin-Sulbactam 3 gm 100 In Sodium Chloride 0.9% 100 ml @ 200 mls/hr IVPB Q8H BRUNO Rx#:[id number] Sodium Chloride 0.9% 1, 600 000 ml @ 50 mls/hr IV . Q20H BRUNO Rx#:[id number] Vancomycin 1,500 mg In 500 Sodium Chloride 0.9% 500 ml 500 ml @ 167 mls/hr IVPB Q24H BRUNO Rx#: [id number] Oral 120 Other: Voiding Method Toilet Toilet # Voids 3 1 - Labs CBC & Chem 7: 01/02/24 10:22 01/04/24 06:15 Labs: Abnormal Lab Results - Last 24 Hours (Table) 01/03/24 01/03/24 01/03/24 Range/Units 12:11 16:39 20:48 Creatinine (0.66-1.25) mg/dL POC Glucose (mg/dL) 305 H 291 H 283 H (70-110) mg/dL 01/04/24 01/04/24 01/04/24 Range/Units 06:01 06:15 07:36 Creatinine 1.55 H (0.66-1.25) mg/dL POC Glucose (mg/dL) 190 H 187 H (70-110) mg/dL Microbiology - Last 24 Hours (Table) 01/02/24 14:45 Gram Stain - Preliminary Foot - Left Wound Culture - Preliminary Group D Enterococcus 01/02/24 10:22 Blood Culture - Preliminary Blood 01/02/24 10:22 Blood Culture - Preliminary Blood
[2024-01-04] MEDS: DAPAGLIFLOZIN PROPANEDIOL 10 MG TABLET PO SCH (12:55)
--- NOTE | 2024-01-04 14:58 | P.PN ---
Subjective Progress Note Date: 01/03/24 Principal diagnosis: Reason for follow-up is left second toe wound and osteomyelitis Patient is a 73-year-old male with a past medical history significant for diabetes mellitus [place] CVA TIA history of prostate cancer and melanoma presenting to the hospital for left second toe ulcer with the patient has noticed for about 10 to 11 days before presentation to the hospital with outpatient as well as inpatient x-ray suspicious for osteomyelitis involving the medial border of the second toe. On today's evaluation 01/03/2024,the patient denies any fever or any chills, pat ient is breathing comfortably on room air, the patient denies chest pain shortness of breath and no significant cough, patient denies abdominal pain, no nausea vomiting or diarrhea. Patient denies any worsening pain to his left second toe patient did have a creatinine 1.65 cultures currently pending Objective - Vital Signs Vital signs: Vital Signs Temp 97.6 F 01/03/24 14:00 Pulse 59 L 01/03/24 14:00 Resp 17 01/03/24 14:00 BP 179/68 01/03/24 14:00 Pulse Ox 100 01/03/24 14:00 FiO2 Intake & Output 01/02/24 01/03/24 01/03/24 18:59 06:59 18:59 Weight 90.718 kg 90.718 kg Other: Voiding Method Toilet Toilet # Voids 1 - Exam GENERAL DESCRIPTION: An elderly male up in the chair in no distress RESPIRATORY SYSTEM: Unlabored breathing , decreased breath sounds at bases HEART: S1 S2 regular rate and rhythm , ABDOMEN: Soft , no tenderness EXTREMITIES: Left foot is currently dressed - Labs CBC & Chem 7: 01/02/24 10:22 01/04/24 06:15 Labs: Abnormal Lab Results - Last 24 Hours (Table) 01/02/24 01/02/24 01/02/24 Range/Units 10:22 20:19 21:04 Creatinine (0.66-1.25) mg/dL POC Glucose (mg/dL) 238 H 259 H (70-110) mg/dL C-Reactive Protein 6.6 H (<1.0) mg/dL 01/03/24 01/03/24 01/03/24 Range/Units 06:00 07:52 12:11 Creatinine 1.65 H (0.66-1.25) mg/dL POC Glucose (mg/dL) 170 H 305 H (70-110) mg/dL C-Reactive Protein (<1.0) mg/dL Microbiology - Last 24 Hours (Table) 01/02/24 14:45 Gram Stain - Preliminary Foot - Left Assessment and Plan (1) Toe osteomyelitis, left Current Visit: Yes Status: Acute Code(s): M86.9 - OSTEOMYELITIS, UNSPECIFIED SNOMED Code(s): 092899431 (2) Type 2 diabetes mellitus with foot ulcer Current Visit: Yes Status: Acute Code(s): E11.621 - TYPE 2 DIABETES MELLITUS WITH FOOT ULCER; L97.509 - NON-PRESSURE CHRONIC ULCER OTH PRT UNSP FOOT W UNSP SEVERITY SNOMED Code(s): 556258133 Plan: 1patient presented to hospital with a left second toe ulcer nonhealing that has failed to respond to outpatient oral Keflex therapy with outpatient as well as inpatient x-ray suspicious for osteomyelitis will need to cover for the gram- positive as well as gram-negative pathogen. 2patient with renal insufficiency high risk of nephrotoxicity from vancomycin kidney function need to monitor closely. 3local culture has been obtained which are currently pending 4patient to continue with the vancomycin however will watch his Vanco trough and kidney function closely along with Unasyn 3 g every 8 hours dose adjusted to the kidney function while waiting for the culture to finalize. Dictation was produced using [employer] dictation software. please excuse any grammatical, word or spelling errors. Time with Patient: Less than 30
--- NOTE | 2024-01-04 14:59 | P.PN ---
Subjective Progress Note Date: 01/04/24 Principal diagnosis: Reason for follow-up is left second toe wound and osteomyelitis Patient is a 73-year-old male with a past medical history significant for diabetes mellitus [place] CVA TIA history of prostate cancer and melanoma presenting to the hospital for left second toe ulcer with the patient has noticed for about 10 to 11 days before presentation to the hospital with outpatient as well as inpatient x-ray suspicious for osteomyelitis involving the medial border of the second toe. On today's evaluation 01/04/2024,the patient remains to be afebrile, patient is on room air not requiring supplemental oxygen and denies any shortness of breath no chest pain or cough.Patient denies having any nausea or vomiting, no abdominal pain and no diarrhea has been reported, family reported improvement in his left second toe at the time of dressing change this morning. Patient creatinine is 1.55 local culture growing Enterococcus with sensitivities pending Objective - Vital Signs Vital signs: Vital Signs Temp 97.6 F 01/04/24 08:00 Pulse 59 L 01/04/24 08:00 Resp 16 01/04/24 08:00 BP 154/91 01/04/24 08:00 Pulse Ox 98 01/04/24 08:00 FiO2 Intake & Output 01/03/24 01/04/24 01/04/24 18:59 06:59 18:59 Intake Total 1200 120 Balance 1200 120 Intake: Intake, IV Titration 1200 Amount Ampicillin-Sulbactam 3 gm 100 In Sodium Chloride 0.9% 100 ml @ 200 mls/hr IVPB Q8H BRUNO Rx#:[id number] Sodium Chloride 0.9% 1, 600 000 ml @ 50 mls/hr IV . Q20H BRUNO Rx#:[id number] Vancomycin 1,500 mg In 500 Sodium Chloride 0.9% 500 ml 500 ml @ 167 mls/hr IVPB Q24H BRUNO Rx#: [id number] Oral 120 Other: Voiding Method Toilet Toilet # Voids 3 1 - Exam GENERAL DESCRIPTION: An elderly male up in the chair in no distress RESPIRATORY SYSTEM: Unlabored breathing , decreased breath sounds at bases HEART: S1 S2 regular rate and rhythm , ABDOMEN: Soft , no tenderness EXTREMITIES: Left foot is just got dressed family mention improvement to the left second toe no drainage - Labs CBC & Chem 7: 01/02/24 10:22 01/04/24 06:15 Labs: Abnormal Lab Results - Last 24 Hours (Table) 01/03/24 01/03/24 01/04/24 Range/Units 16:39 20:48 06:01 Creatinine (0.66-1.25) mg/dL POC Glucose (mg/dL) 291 H 283 H 190 H (70-110) mg/dL 01/04/24 01/04/24 01/04/24 Range/Units 06:15 07:36 11:41 Creatinine 1.55 H (0.66-1.25) mg/dL POC Glucose (mg/dL) 187 H 344 H (70-110) mg/dL Microbiology - Last 24 Hours (Table) 01/02/24 14:45 Gram Stain - Preliminary Foot - Left Wound Culture - Preliminary Group D Enterococcus 01/02/24 10:22 Blood Culture - Preliminary Blood 01/02/24 10:22 Blood Culture - Preliminary Blood Assessment and Plan (1) Toe osteomyelitis, left Current Visit: Yes Status: Acute Code(s): M86.9 - OSTEOMYELITIS, UNSPECIFIED SNOMED Code(s): 490877145 (2) Type 2 diabetes mellitus with foot ulcer Current Visit: Yes Status: Acute Code(s): E11.621 - TYPE 2 DIABETES MELLITUS WITH FOOT ULCER; L97.509 - NON-PRESSURE CHRONIC ULCER OTH PRT UNSP FOOT W UNSP SEVERITY SNOMED Code(s): 764154060 Plan: 1patient presented to hospital with a left second toe ulcer nonhealing that has failed to respond to outpatient oral Keflex therapy with outpatient as well as inpatient x-ray suspicious for osteomyelitis will need to cover for the gram- positive as well as gram-negative pathogen. 2patient with renal insufficiency high risk of nephrotoxicity from vancomycin kidney function need to monitor closely. 3local culture has been obtained which are currently growing group D En terococcus with sensitivities pending 4patient to continue with the Unasyn 3 g every 8 hours dose however discontinue vancomycin to decrease risk of nephrotoxicity discharge antibiotics on the basis of final culture and will likely need a PICC line Family the bedside questions were answered Dictation was produced using [employer] dictation software. please excuse any grammatical, word or spelling errors. Time with Patient: Less than 30
[2024-01-04 16:47] LABS: Glucose,Whole Blood 374 mg/dL (70-110)
[2024-01-04 20:06] LABS: Glucose,Whole Blood 305 mg/dL (70-110)
--- NOTE | 2024-01-05 01:15 | P.PN ---
Progress Note - Text Progress Note Date: 01/04/24 Diabetic ulcer Patient seen and examined today. He denies any pain in his left foot or toe. H e has no fevers, chills or bodyaches. States toe looks better today. Objective General appearance: The patient is alert, oriented, appears in no acute distress. HET: Head is normocephalic and atraumatic. Neck: Supple. Abdomen: Soft, nondistended. Extremities: Normal skin color and turgor. Good capillary refill. Left second toe medial aspect with ulcer and open wound to fat layer without any visible bone. Neurological: No focal deficits. Strength and sensation are grossly intact. Assessment and Plan Assessment: 1. Left second toe diabetic ulcer 2. Diabetes mellitus 3. Peripheral arterial disease Plan: 1. Continue local wound care 2. ID recs appreciated. PICC line likely for Saturday 3. Outpatient follow-up with vascular surgery
[2024-01-05 05:05] LABS: African American GFR (CKD) 46 (>60 ml/min/1.73 sqM); Non-African American GFR(CKD) 40 (>60 ml/min/1.73 sqM)
[2024-01-05 06:04] LABS: Glucose,Whole Blood 212 mg/dL (70-110)
[2024-01-05] MEDS ORDERED: VANCOMYCIN TROUGH DUE 1 EACH MISC MISCELLANE ONE (11:00)
--- NOTE | 2024-01-05 12:06 | US ---
EXAMINATION TYPE: US kidneys/renal and bladder DATE OF EXAM: 01/05/2024 COMPARISON: NONE CLINICAL INDICATION: Male, 73 years old with history of elevated scr; diabetic, abn labs, no h/o fiordaliza l issues EXAM MEASUREMENTS: Right Kidney: 11.0 x 5.0 x 5.0 cm Left Kidney: 12.4 x 5.1 x 5.4 cm Right Kidney: No hydronephrosis or masses seen Left Kidney: No hydronephrosis or masses seen Bladder: wnl IMPRESSION: Unremarkable renal ultrasound.
[2024-01-05 12:14] LABS: Glucose,Whole Blood 196 mg/dL (70-110)
--- NOTE | 2024-01-05 14:15 | P.PN ---
Subjective Progress Note Date: 01/05/24 Principal diagnosis: OM was seen and examined. No fever or chills. Pain is controlled. Long discussion was had with him and his , appears he has baseline CKD as he saw [facility]istics [facility] in the past. They are not quite clear of his exact numbers. Objective - Vital Signs Vital signs: Vital Signs Temp 97.9 F 01/05/24 08:00 Pulse 57 L 01/05/24 08:00 Resp 17 01/05/24 08:00 BP 111/62 01/05/24 08:00 Pulse Ox 100 01/05/24 08:00 FiO2 Intake & Output 01/04/24 01/05/24 01/05/24 18:59 06:59 18:59 Intake Total 360 Balance 360 Intake: Oral 360 Other: # Voids 1 1 - Exam Vitals: Reviewed General: No acute distress Cardiovascular: RRR, S1-S2 Lungs: Breath sounds equal and clear to auscultation bilaterally. No wheezing, rhonchi or rales Extremities: No lower extremity edema - Labs CBC & Chem 7: 01/02/24 10:22 01/05/24 04:21 Labs: Abnormal Lab Results - Last 24 Hours (Table) 01/04/24 01/04/24 01/05/24 Range/Units 16:45 20:01 04:21 Creatinine 1.67 H (0.66-1.25) mg/dL POC Glucose (mg/dL) 374 H 305 H (70-110) mg/dL 01/05/24 01/05/24 Range/Units 06:01 12:12 Creatinine (0.66-1.25) mg/dL POC Glucose (mg/dL) 212 H 196 H (70-110) mg/dL Microbiology - Last 24 Hours (Table) 01/02/24 14:45 Gram Stain - Final Foot - Left Wound Culture - Final Enterococcus faecalis 01/02/24 10:22 Blood Culture - Preliminary Blood 01/02/24 10:22 Blood Culture - Preliminary Blood Assessment and Plan Plan: # Left second toe osteomyelitis Blood cultures negative thus far. Wound culture positive for Enterococcus. Previously on Vanco and Unasyn. Now on just Unasyn. Bone scan ordered. ID following. Bone scan ordered. # Elevated creatinine Appears he has known history of CKD. Renal ultrasound unremarkable. Unknown baseline. # DM2 SGLT2 inhibitor and insulin scale insulin. Will make adjustments accordingly. Hemoglobin A1c in AM. # CAD s/p CABG Aspirin, statin and beta-bartolo # History of CVA Aspirin and statin # History of prostate cancer # History of melanoma VTE prophylaxis: On Eliquis
[2024-01-05 17:01] LABS: Glucose,Whole Blood 356 mg/dL (70-110)
[2024-01-05 20:31] LABS: Glucose,Whole Blood 261 mg/dL (70-110)
[2024-01-06 04:29] LABS: African American GFR (CKD) 56 (>60 ml/min/1.73 sqM); Anion Gap 9 mmol/L; Blood Urea Nitrogen 30 mg/dL (9-20); Calcium 8.4 mg/dL (8.4-10.2); Carbon Dioxide 20 mmol/L (22-30); Chloride 107 mmol/L (98-107); Glucose 186 mg/dL (74-99); Non-African American GFR(CKD) 48 (>60 ml/min/1.73 sqM); Potassium 3.6 mmol/L (3.5-5.1); Sodium 136 mmol/L (137-145)
[2024-01-06 06:17] LABS: Glucose,Whole Blood 245 mg/dL (70-110)
[2024-01-06 07:45] VITALS: TEMP 97.8
[2024-01-06 08:24] LABS: Basophils # (A) 0.03 X 10*3/uL (0.00-0.10); Basophils % (A) 0.6 %; Eosinophils # (A) 0.17 X 10*3/uL (0.04-0.35); Eosinophils % (A) 3.6 %; HCT 37.5 % (39.6-50.0); HGB 12.9 g/dL (13.0-17.0); Lymphocytes % (A) 25.5 %; MCH 32.8 pg (27.0-32.0); MCHC 34.4 g/dL (32.0-37.0); MCV 95.4 FL (80.0-97.0); Mean Platelet Volume 10.4 FL (9.5-12.2); Monocytes # (A) 0.61 X 10*3/uL (0.20-1.00); NRBC Per 100 WBC 0 X 10*3/uL (0.00-0.01); Neutrophils # (A) 2.69 X 10*3/uL (1.80-7.70); Neutrophils % (A) 57.1 %; Platelet Count 230 X 10*3/uL (140-440); RBC 3.93 X 10*6/uL (4.40-5.60); RDW 12.4 % (11.5-14.5); WBC 4.71 X 10*3/uL (4.50-10.00)
--- NOTE | 2024-01-06 11:29 | P.PN ---
Subjective Progress Note Date: 01/06/24 Principal diagnosis: OM was seen and examined. No acute complaints. Plan of care discussed with him. Objective - Vital Signs Vital signs: Vital Signs Temp 97.8 F 01/06/24 07:06 Pulse 48 L 01/06/24 07:06 Resp 19 01/06/24 07:06 BP 132/67 01/06/24 07:06 Pulse Ox 96 01/06/24 07:06 FiO2 Intake & Output 01/05/24 01/06/24 01/06/24 18:59 06:59 18:59 Other: # Voids 2 1 # Bowel Movements 1 - Exam Vitals: Reviewed General: No acute distress Cardiovascular: RRR, S1-S2 Lungs: Breath sounds equal and clear to auscultation bilaterally. No wheezing, rhonchi or rales Extremities: No lower extremity edema - Labs CBC & Chem 7: 01/06/24 03:34 01/06/24 03:34 Labs: Abnormal Lab Results - Last 24 Hours (Table) 01/05/24 01/05/24 01/05/24 Range/Units 12:12 16:58 20:29 RBC (4.40-5.60) X 10*6/uL Hgb (13.0-17.0) g/dL Hct (39.6-50.0) % MCH (27.0-32.0) pg Sodium (137-145) mmol/L Carbon Dioxide (22-30) mmol/L BUN (9-20) mg/dL Creatinine (0.66-1.25) mg/dL Glucose (74-99) mg/dL POC Glucose (mg/dL) 196 H 356 H 261 H (70-110) mg/dL Hemoglobin A1c (<=6.0) % 01/06/24 01/06/24 01/06/24 Range/Units 03:34 03:34 03:34 RBC 3.93 L (4.40-5.60) X 10*6/uL Hgb 12.9 L (13.0-17.0) g/dL Hct 37.5 L (39.6-50.0) % MCH 32.8 H (27.0-32.0) pg Sodium 136 L (137-145) mmol/L Carbon Dioxide 20 L (22-30) mmol/L BUN 30 H (9-20) mg/dL Creatinine 1.42 H (0.66-1.25) mg/dL Glucose 186 H (74-99) mg/dL POC Glucose (mg/dL) (70-110) mg/dL Hemoglobin A1c 10.5 H (<=6.0) % 01/06/24 Range/Units 06:15 RBC (4.40-5.60) X 10*6/uL Hgb (13.0-17.0) g/dL Hct (39.6-50.0) % MCH (27.0-32.0) pg Sodium (137-145) mmol/L Carbon Dioxide (22-30) mmol/L BUN (9-20) mg/dL Creatinine (0.66-1.25) mg/dL Glucose (74-99) mg/dL POC Glucose (mg/dL) 245 H (70-110) mg/dL Hemoglobin A1c (<=6.0) % Microbiology - Last 24 Hours (Table) 01/02/24 10:22 Blood Culture - Preliminary Blood 01/02/24 10:22 Blood Culture - Preliminary Blood Assessment and Plan Plan: # Left second toe osteomyelitis Blood cultures negative thus far. Wound culture positive for Enterococcus. Previously on Vanco and Unasyn. Now on just Unasyn. Bone scan ordered. ID following. Bone scan ordered. # Elevated creatinine Appears he has known history of CKD. Renal ultrasound unremarkable. Unknown baseline. # DM2 SGLT2 inhibitor and insulin scale insulin. Will make adjustments accordingly. Hemoglobin A1c above 10 therefore will likely need insulin on discharge. # CAD s/p CABG Aspirin, statin and beta-bartolo # History of CVA Aspirin and statin # History of prostate cancer # History of melanoma # History of A-fib/flutter He is rate controlled but has tendency to go bradycardic into the 40s. Decrease beta-bartolo dose to 12.5 twice daily. Continue with Eliquis. VTE prophylaxis: On Eliquis
[2024-01-06 11:43] VITALS: BMI 28.7
[2024-01-06 12:02] LABS: Glucose,Whole Blood 206 mg/dL (70-110)
[2024-01-06] MEDS: INSULIN DETEMIR (LEVEMIR) 100 UNIT/ML SYR SQ SCH (12:13)
--- NOTE | 2024-01-06 13:11 | P.PN ---
Subjective Progress Note Date: 01/06/24 Principal diagnosis: Diabetic ulcer Patient seen and examined as a follow-up this morning. He is sitting up in the bedside chair. Wound cultures finalized with growth of Enterococcus faecalis. Apparently primary medical team ordered a bone scan this morning. Patient has been afebrile. No leukocytosis. He remains on Unasyn. Objective - Vital Signs Vital signs: Vital Signs Temp 97.8 F 01/06/24 07:06 Pulse 48 L 01/06/24 07:06 Resp 19 01/06/24 07:06 BP 132/67 01/06/24 07:06 Pulse Ox 96 01/06/24 07:06 FiO2 Intake & Output 01/05/24 01/06/24 01/06/24 18:59 06:59 18:59 Other: # Voids 2 1 # Bowel Movements 1 - Exam General appearance: The patient is alert, oriented, appears in no acute distress. HET: Head is normocephalic and atraumatic. Neck: Supple. Abdomen: Soft, nondistended. Extremities: Left lower extremity warm to the touch good capillary refill. Second toe with dressing clean dry and intact. Neurological: No focal deficits. Strength and sensation are grossly intact. - Labs CBC & Chem 7: 01/06/24 03:34 01/06/24 03:34 Labs: Abnormal Lab Results - Last 24 Hours (Table) 01/05/24 01/05/24 01/05/24 Range/Units 12:12 16:58 20:29 RBC (4.40-5.60) X 10*6/uL Hgb (13.0-17.0) g/dL Hct (39.6-50.0) % MCH (27.0-32.0) pg Sodium (137-145) mmol/L Carbon Dioxide (22-30) mmol/L BUN (9-20) mg/dL Creatinine (0.66-1.25) mg/dL Glucose (74-99) mg/dL POC Glucose (mg/dL) 196 H 356 H 261 H (70-110) mg/dL Hemoglobin A1c (<=6.0) % 01/06/24 01/06/24 01/06/24 Range/Units 03:34 03:34 03:34 RBC 3.93 L (4.40-5.60) X 10*6/uL Hgb 12.9 L (13.0-17.0) g/dL Hct 37.5 L (39.6-50.0) % MCH 32.8 H (27.0-32.0) pg Sodium 136 L (137-145) mmol/L Carbon Dioxide 20 L (22-30) mmol/L BUN 30 H (9-20) mg/dL Creatinine 1.42 H (0.66-1.25) mg/dL Glucose 186 H (74-99) mg/dL POC Glucose (mg/dL) (70-110) mg/dL Hemoglobin A1c 10.5 H (<=6.0) % 01/06/24 Range/Units 06:15 RBC (4.40-5.60) X 10*6/uL Hgb (13.0-17.0) g/dL Hct (39.6-50.0) % MCH (27.0-32.0) pg Sodium (137-145) mmol/L Carbon Dioxide (22-30) mmol/L BUN (9-20) mg/dL Creatinine (0.66-1.25) mg/dL Glucose (74-99) mg/dL POC Glucose (mg/dL) 245 H (70-110) mg/dL Hemoglobin A1c (<=6.0) % Microbiology - Last 24 Hours (Table) 01/02/24 10:22 Blood Culture - Preliminary Blood 01/02/24 10:22 Blood Culture - Preliminary Blood Assessment and Plan Assessment: 1. Left second toe diabetic ulcer 2. Diabetes mellitus 3. Peripheral arterial disease Plan: 1. Recommend formal wound care, will consult [facility] wound clinic 2. Local wound care per recommendations from wound care clinic 3. No plans on surgical debridement or amputation at this time 4. Lower extremity arterial ultrasound ordered and reviewed 5. Outpatient follow-up with vascular surgery Thank you for this consultation, patient is cleared from vascular surgery for discharge. The impression and plan of care has been dictated as directed. Dr. Winn I performed a history and examination of this patient, discussed the same with the dictator. I agree with the dictator's note ,documented as a scribe. Any additional findings or plans will be noted.
--- NOTE | 2024-01-06 15:08 | NM ---
EXAMINATION TYPE: NM bone 3 phase DATE OF EXAM: 01/06/2024 COMPARISON: Radiographs 01/02/2024 CLINICAL INDICATION: Male, 73 years old with history of r/o left toe OM; Technique: Triple phase bone scintigraphy was performed following the injection of 23.3 mCi Tc 99m MD P. Immediate images and 3 hours post injection images acquired. Images centered at the distal bilate ral lower cavities. Additional delayed whole body bone scan. FINDINGS: Flow images show asymmetric hyperemia distal aspect of the left lower extremity. This persists on por javi images with focal increased activity at the second toe. Delayed scan also shows focal increased a ctivity distal aspect of the second toe. Whole body scan shows some degenerative tracer activity scattered posteriorly in the thoracic spine. Also at the right shoulder and right sternoclavicular joint. IMPRESSION: Three-phase bone scan positive findings at the left forefoot. Unable to exclude osteomyelitis based o n these findings.
[2024-01-06 15:25] VITALS: BP 197/89; PULSE 80; RESP 17
--- NOTE | 2024-01-06 16:52 | XR ---
EXAMINATION TYPE: XR chest 1V DATE OF EXAM: 01/06/2024 4:34 PM CLINICAL INDICATION:Male, 73 years old with history of For placement of PICC line; [facility] COMPARISON: None TECHNIQUE: XR chest 1V Frontal view of the chest. FINDINGS: Lungs/Pleura: There is no evidence of pleural effusion, focal consolidation, or pneumothorax. Pulmonary vascularity: Unremarkable. Heart/mediastinum: Cardiomediastinal silhouette is unremarkable. Musculoskeletal: No acute osseous pathology. Midline sternotomy wires are noted. Radiopaque is poorly visualized due to overlapping soft tissues. PICC is thought to terminate in the area of the superior vena cava. IMPRESSION: Poor visualization of the right PICC distal tip thought to be terminating at the superior vena cava.
[2024-01-06 17:15] LABS: Glucose,Whole Blood 246 mg/dL (70-110)
--- NOTE | 2024-01-06 17:38 | P.DS ---
Providers Date of admission: 01/02/24 12:01 Attending physician: Joon Rain MD Consults: 01/02/24 12:26 Consult Physician Routine Consulting Provider: Herman Winn Consult Reason/Comments: foot ulcer Do you want consulting provider notified?: Yes Consult Physician Routine Consulting Provider: Lashell Alexis Consult Reason/Comments: osteomyelitis Do you want consulting provider notified?: Yes Primary care physician: [facility] Clinic Assessment: Mr. Del Angel presented with a left toe wound. He has a medical history significant for diabetes mellitus, CAD status post CABG, CVA, prostate cancer, melanoma and A-fib/flutter. Foot x-ray had findings concerning for osteomyelitis. This was followed up with a bone scan which was inconclusive for osteomyelitis. Discussed with ID and felt clinically this is osteomyelitis therefore wish to treat with IV Unasyn for 6 weeks. Wound cultures returned positive for Enterococcus. Blood cultures have been negative. He is to receive 6 weeks of antibiotics and follow-up with surgery and ID outpatient. His blood sugars have been slightly elevated throughout his hospital stay. Hemoglobin A1c returned above 10. I have recommended insulin therapy for home. Him and his are refusing insulin therapy at this time and wish to continue to trial oral agents. Therefore, I have added Januvia. I recommended he keep a log of his blood sugars and follow-up with his PCP outpatient within 1 week. Home care services have been set up for tomorrow. He still has a dose of antibiotics tonight, I have recommended discharge after the dose of antibiotics, he is adamant he is not going to wait in the hospital and wishes to be discharged immediately. Him and his wish to skip tonight's dose. He is visibly upset and states he can no longer stay in the hospital. He has had episodes of bradycardia throughout his hospital stay therefore his metoprolol dose has been decreased to 12.5 mg twice daily. His hydrochlorothiazide has been discontinued as he likely has CKD, amlodipine 5 mg daily has been added. Discharge diagnoses Left second toe osteomyelitis Suspected CKD Diabetes mellitus type 2 CAD status post CABG History of CVA History of prostate cancer History of melanoma History of A-fib/flutter, rate controlled with periods of bradycardia Discharge time greater than 30 minutes Patient Condition at Discharge: Stable Plan - Discharge Summary Discharge Rx Participant: No New Discharge Prescriptions: New sitaGLIPtin [Januvia] 50 mg PO DAILY #30 tab Metoprolol Tartrate [Lopressor] 12.5 mg PO BID tab Acetaminophen Tab [Tylenol] 650 mg PO Q6HR PRN tab PRN Reason: Mild Pain Or Fever > 100.5 Ampicillin-Sulbactam [Unasyn 3 gm vial] 3 gm IVPB Q8H each amLODIPine [Norvasc] 5 mg PO DAILY #30 tab Continue PARoxetine [Paxil] 10 mg PO DAILY Mirabegron [Myrbetriq] 50 mg PO DAILY Atorvastatin [Lipitor] 80 mg PO HS Apixaban [Eliquis] 5 mg PO BID Empagliflozin [Jardiance] 25 mg PO DAILY Aspirin EC [Ecotrin Low Dose] 81 mg PO DAILY Discontinued hydroCHLOROthiazide 12.5 mg PO DAILY Metoprolol Tartrate [Lopressor] 25 mg PO BID Cephalexin [Keflex] 250 mg PO QID Discharge Medication List Apixaban [Eliquis] 5 mg PO BID 01/02/24 [History] Aspirin EC [Ecotrin Low Dose] 81 mg PO DAILY 01/02/24 [History] Atorvastatin [Lipitor] 80 mg PO HS 01/02/24 [History] Empagliflozin [Jardiance] 25 mg PO DAILY 01/02/24 [History] Mirabegron [Myrbetriq] 50 mg PO DAILY 01/02/24 [History] PARoxetine [Paxil] 10 mg PO DAILY 01/02/24 [History] Acetaminophen Tab [Tylenol] 650 mg PO Q6HR PRN tab 01/06/24 [Rx] Ampicillin-Sulbactam [Unasyn 3 gm vial] 3 gm IVPB Q8H each 01/06/24 [Rx] Metoprolol Tartrate [Lopressor] 12.5 mg PO BID tab 01/06/24 [Rx] amLODIPine [Norvasc] 5 mg PO DAILY #30 tab 01/06/24 [Rx] sitaGLIPtin [Januvia] 50 mg PO DAILY #30 tab 01/06/24 [Rx] Follow up Appointment(s)/Referral(s): Patria Baron DO [STAFF PHYSICIAN] - 2 Weeks [facility] [NON-STAFF] - 1 Week Lashell Alexis MD [STAFF PHYSICIAN] - 1 Week [facility] [Primary Care Provider] - 1-2 days Patient Instructions/Handouts: Osteomyelitis (ED) Discharge Disposition: HOME WITH HOME HEALTH SERVICES Plan of Treatment: As we discussed, please keep a log of your blood sugars and presented to your PCP within 1 week Since you do not prefer insulin I have added a new diabetic oral agent called Januvia, please take 50 mg once daily You have been diagnosed with osteomyelitis therefore will receive IV Unasyn for 6 weeks Please return with any fever, chills, worsening pain or any other associated symptoms Please follow-up with infectious disease outpatient Please only take half tablet of your metoprolol 25 mg twice daily therefore you will now be taking 12.5 mg twice daily Please stop taking your hydrochlorothiazide
--- NOTE | 2024-01-06 17:58 | P.PN ---
Subjective Progress Note Date: 01/06/24 Principal diagnosis: Reason for follow-up is left second toe wound and osteomyelitis Patient is a 73-year-old male with a past medical history significant for diabetes mellitus MT CVA TIA history of prostate cancer and melanoma presenting to the hospital for left second toe ulcer with the patient has noticed for about 10 to 11 days before presentation to the hospital with outpatient as well as inpatient x-ray suspicious for osteomyelitis involving the medial border of the second toe. On today's evaluation 01/06/2024, Patient is afebrile patient is currently on ro om air and denies having any shortness of breath, the patient denies any chest pain or cough, the patient denies any nausea vomiting did not have any abdominal pain and no diarrhea, patient feeling better insisting on going home. Patient white count is 4.71, there is 1.42 blood culture negative patient did have a bowel scan unable to exclude osteomyelitis left second toe s Objective - Vital Signs Vital signs: Vital Signs Temp 97.8 F 01/06/24 07:06 Pulse 48 L 01/06/24 07:06 Resp 19 01/06/24 07:06 BP 132/67 01/06/24 07:06 Pulse Ox 96 01/06/24 07:06 FiO2 Intake & Output 01/05/24 01/06/24 01/06/24 18:59 06:59 18:59 Weight 90.718 kg Other: Voiding Method Toilet # Voids 2 1 # Bowel Movements 1 - Exam GENERAL DESCRIPTION: An elderly male up in the chair in no distress RESPIRATORY SYSTEM: Unlabored breathing , decreased breath sounds at bases HEART: S1 S2 regular rate and rhythm , ABDOMEN: Soft , no tenderness EXTREMITIES: Left second toe with a wound overall swelling redness has improved no drainage - Labs CBC & Chem 7: 01/06/24 03:34 01/06/24 03:34 Labs: Abnormal Lab Results - Last 24 Hours (Table) 01/05/24 01/05/24 01/06/24 Range/Units 16:58 20:29 03:34 RBC (4.40-5.60) X 10*6/uL Hgb (13.0-17.0) g/dL Hct (39.6-50.0) % MCH (27.0-32.0) pg Sodium (137-145) mmol/L Carbon Dioxide (22-30) mmol/L BUN (9-20) mg/dL Creatinine (0.66-1.25) mg/dL Glucose (74-99) mg/dL POC Glucose (mg/dL) 356 H 261 H (70-110) mg/dL Hemoglobin A1c 10.5 H (<=6.0) % 01/06/24 01/06/24 01/06/24 Range/Units 03:34 03:34 06:15 RBC 3.93 L (4.40-5.60) X 10*6/uL Hgb 12.9 L (13.0-17.0) g/dL Hct 37.5 L (39.6-50.0) % MCH 32.8 H (27.0-32.0) pg Sodium 136 L (137-145) mmol/L Carbon Dioxide 20 L (22-30) mmol/L BUN 30 H (9-20) mg/dL Creatinine 1.42 H (0.66-1.25) mg/dL Glucose 186 H (74-99) mg/dL POC Glucose (mg/dL) 245 H (70-110) mg/dL Hemoglobin A1c (<=6.0) % 01/06/24 Range/Units 12:00 RBC (4.40-5.60) X 10*6/uL Hgb (13.0-17.0) g/dL Hct (39.6-50.0) % MCH (27.0-32.0) pg Sodium (137-145) mmol/L Carbon Dioxide (22-30) mmol/L BUN (9-20) mg/dL Creatinine (0.66-1.25) mg/dL Glucose (74-99) mg/dL POC Glucose (mg/dL) 206 H (70-110) mg/dL Hemoglobin A1c (<=6.0) % Microbiology - Last 24 Hours (Table) 01/02/24 10:22 Blood Culture - Preliminary Blood 01/02/24 10:22 Blood Culture - Preliminary Blood Assessment and Plan (1) Toe osteomyelitis, left Current Visit: Yes Status: Acute Code(s): M86.9 - OSTEOMYELITIS, UNSPECIFIED SNOMED Code(s): 137952110 (2) Type 2 diabetes mellitus with foot ulcer Current Visit: Yes Status: Acute Code(s): E11.621 - TYPE 2 DIABETES MELLITUS WITH FOOT ULCER; L97.509 - NON-PRESSURE CHRONIC ULCER OTH PRT UNSP FOOT W UNSP SEVERITY SNOMED Code(s): 334520784 Plan: 1patient presented to hospital with a left second toe ulcer nonhealing that has failed to respond to outpatient oral Keflex therapy with outpatient as well as inpatient x-ray suspicious for osteomyelitis will need to cover for the gram- positive as well as gram-negative pathogen. 2patient with renal insufficiency high risk of nephrotoxicity from vancomycin kidney function need to monitor closely. 3local culture has been obtained which are currently growing group D Enterococcus which is penicillin sensitive blood culture has been negative, bone scan suspicious for osteomyelitis 4patient scheduled to get a PICC line plan is for a 6-week course of Unasyn 3 g every 8 hours prescription provided to the case management rn and close outpatient follow-up Dictation was produced using [employer] dictation software. please excuse any grammatical, word or spelling errors. Time with Patient: Less than 30
--- NOTE | 2024-01-06 17:58 | P.PN ---
Subjective Progress Note Date: 01/05/24 Principal diagnosis: Reason for follow-up is left second toe wound and osteomyelitis Patient is a 73-year-old male with a past medical history significant for diabetes mellitus [place] CVA TIA history of prostate cancer and melanoma presenting to the hospital for left second toe ulcer with the patient has noticed for about 10 to 11 days before presentation to the hospital with outpatient as well as inpatient x-ray suspicious for osteomyelitis involving the medial border of the second toe. On today's evaluation 01/05/2024, the patient continues to be afebrile, the mary ann ent is on room air and breathing comfortably, the Pt denies having any chest pain or cough, the patient denies having any abdominal pain no vomiting or any diarrhea, but denies pain to the left second toe. Patient did have a creatinine 1.67 culture with Enterococcus faecalis sensitive to penicillin blood culture negative Objective - Vital Signs Vital signs: Vital Signs Temp 97.9 F 01/05/24 08:00 Pulse 57 L 01/05/24 08:00 Resp 17 01/05/24 08:00 BP 111/62 01/05/24 08:00 Pulse Ox 100 01/05/24 08:00 FiO2 Intake & Output 01/04/24 01/05/24 01/05/24 18:59 06:59 18:59 Intake Total 360 Balance 360 Intake: Oral 360 Other: # Voids 1 1 - Exam GENERAL DESCRIPTION: An elderly male up in the chair in no distress RESPIRATORY SYSTEM: Unlabored breathing , decreased breath sounds at bases HEART: S1 S2 regular rate and rhythm , ABDOMEN: Soft , no tenderness EXTREMITIES: Left second toe with a wound overall swelling redness has improved no drainage - Labs CBC & Chem 7: 01/06/24 03:34 01/06/24 03:34 Labs: Abnormal Lab Results - Last 24 Hours (Table) 01/04/24 01/04/24 01/05/24 Range/Units 16:45 20:01 04:21 Creatinine 1.67 H (0.66-1.25) mg/dL POC Glucose (mg/dL) 374 H 305 H (70-110) mg/dL 01/05/24 01/05/24 Range/Units 06:01 12:12 Creatinine (0.66-1.25) mg/dL POC Glucose (mg/dL) 212 H 196 H (70-110) mg/dL Microbiology - Last 24 Hours (Table) 01/02/24 14:45 Gram Stain - Final Foot - Left Wound Culture - Final Enterococcus faecalis 01/02/24 10:22 Blood Culture - Preliminary Blood 01/02/24 10:22 Blood Culture - Preliminary Blood Assessment and Plan (1) Toe osteomyelitis, left Current Visit: Yes Status: Acute Code(s): M86.9 - OSTEOMYELITIS, UNSPECIFIED SNOMED Code(s): 894545137 (2) Type 2 diabetes mellitus with foot ulcer Current Visit: Yes Status: Acute Code(s): E11.621 - TYPE 2 DIABETES MELLITUS WITH FOOT ULCER; L97.509 - NON-PRESSURE CHRONIC ULCER OTH PRT UNSP FOOT W UNSP SEVERITY SNOMED Code(s): 112476151 Plan: 1patient presented to hospital with a left second toe ulcer nonhealing that has failed to respond to outpatient oral Keflex therapy with outpatient as well as inpatient x-ray suspicious for osteomyelitis will need to cover for the gram- positive as well as gram-negative pathogen. 2patient with renal insufficiency high risk of nephrotoxicity from vancomycin kidney function need to monitor closely. 3local culture has been obtained which are currently growing group D Enterococcus which is penicillin sensitive blood culture has been negative 4patient to continue with the Unasyn 3 g every 8 hours dose will get a PICC line outpatient IV antibiotic therapy Dictation was produced using [employer] dictation software. please excuse any grammatical, word or spelling errors. Time with Patient: Less than 30
[2024-01-06] MEDS ORDERED: METOPROLOL TARTRATE 12.5 MG TAB PO SCH (21:00)
== END 2024-01-06 18:54 | disposition home health service (06) | DRG 638 ==
LOC: EC 09:14 → 5NMEDONC 12:01 → 4SSUR 19:24
PROVIDERS: ADMIT Student in an Organized Health Care Education/Training Program; ATTEND Student in an Organized Health Care Education/Training Program
PROC: 02HV33Z Insertion of Infusion Device into Superior Vena Cava, Percutaneous Approach (ICD-10-PCS; principal; 2024-01-06 15:00)
DX: E11.69 Type 2 diabetes mellitus with other specified complication (principal); L97.526 Non-pressure chronic ulcer of other part of left foot with bone involvement without evidence of necrosis; M86.8X7 Other osteomyelitis, ankle and foot; N17.9 Acute kidney failure, unspecified; E11.22 Type 2 diabetes mellitus with diabetic chronic kidney disease; E11.51 Type 2 diabetes mellitus with diabetic peripheral angiopathy without gangrene; E11.621 Type 2 diabetes mellitus with foot ulcer; E11.622 Type 2 diabetes mellitus with other skin ulcer; E11.65 Type 2 diabetes mellitus with hyperglycemia; L97.529 Non-pressure chronic ulcer of other part of left foot with unspecified severity; I25.10 Atherosclerotic heart disease of native coronary artery without angina pectoris; I48.91 Unspecified atrial fibrillation; N18.9 Chronic kidney disease, unspecified; I25.2 Old myocardial infarction; Z79.01 Long term (current) use of anticoagulants; Z79.82 Long term (current) use of aspirin; Z79.84 Long term (current) use of oral hypoglycemic drugs; Z79.899 Other long term (current) drug therapy; Z85.46 Personal history of malignant neoplasm of prostate; Z85.820 Personal history of malignant melanoma of skin; Z85.828 Personal history of other malignant neoplasm of skin; Z86.73 Personal history of transient ischemic attack (TIA), and cerebral infarction without residual deficits; Z95.1 Presence of aortocoronary bypass graft
CPT/HCPCS: 36415; 36573; 71045; 76770; 78315; 80048; 80053; 82565; 83036; 83605; 85025; 86140; 87040; 87070; 87077; 87186; 87205; 93005; 93923; 96361; 96365; 96366; 99285

== ENCOUNTER → 2024-02-07 | Outpatient (CLI) | payer MEDICARE ==
[2024-02-07 10:24] LABS: ALT 24 U/L (10-49); AST 30 U/L (14-35); Albumin 4.6 g/dL (3.8-4.9); Albumin/Globulin Ratio 2.19 Ratio (1.60-3.17); Alkaline Phosphatase 175 U/L (41-126); BUN/Creat Ratio 15.59 Ratio (12.00-20.00); Blood Urea Nitrogen 26.5 mg/dL (9.0-27.0); Calcium 8.9 mg/dL (8.7-10.3); Carbon Dioxide 24.9 mmol/L (21.6-31.8); Chloride 104 mmol/L (96-109); Chol/HDL Ratio 4.01 Ratio; Globulin 2.1 g/dL (1.6-3.3); Glucose 171 mg/dL (70-110); LDL Cholesterol,Calculated 61.5 mg/dL (0.0-131.0); Potassium 4.2 mmol/L (3.5-5.5); Sodium 141 mmol/L (135-145); Total Bilirubin 0.5 mg/dL (0.3-1.2); Total Protein 6.7 g/dL (6.2-8.2)
== END | disposition home or self-care (01) ==
LOC: LABWHC1 07:30
PROVIDERS: ATTEND Internal Medicine Interventional Cardiology
DX: E78.2 Mixed hyperlipidemia (principal)
CPT/HCPCS: 36415; 80053; 80061

== ENCOUNTER → 2024-02-14 | Outpatient (CLI) | payer OTHER | END | disposition home or self-care (01) | LOC: LABWHC1 11:16 | PROVIDERS: ATTEND Podiatrist | DX: L97.524 Non-pressure chronic ulcer of other part of left foot with necrosis of bone (principal) | CPT/HCPCS: 36415; 84134 ==

== ENCOUNTER → 2024-02-20 07:25 | Day surgery (SDC) | payer MEDICARE, OTHER ==
[~2024-02-20 07:25] MED LIST: HEPARIN SODIUM,PORCINE 10,000 UNIT/ML 1 ML VIAL ONE; IOPAMIDOL-250 50ML BTL ONE; LIDOCAINE 1% INJ 10MG/ML (20 ML MDV) ONE; METOPROLOL TARTRATE 25 MG TAB ONE; MIDAZOLAM 2 MG/2 ML VIAL ONE; SODIUM CHLORIDE 0.9% 1,000 ML BAG ONE; VERAPAMIL 2.5 MG/ML 4 ML VIAL ONE; fentaNYL (PF) 50 MCG/ML 2 ML AMP ONE
[2024-02-20] MEDS: IOPAMIDOL-250 100ML BTL INTRAARTER ONE (10:52)
--- NOTE | 2024-04-13 10:33 | P.OP ---
Date of Procedure: 02/20/24 Description of Procedure: Date of procedure 02/20/2024 preoperative diagnosis: Nonhealing wound lower extremity Postoperative diagnosis: Same Procedure: Ultrasound-guided [left] radial artery access Left upper extremity angiogram Placement of catheter in infrarenal abdominal aorta, selective second order, fro m radial approach Aortogram with bilateral lower extremity runoffs Moderate conscious sedation with personal monitoring certified RN administration and personal hemodynamic monitoring for [33] minutes Surgeon: Patria Baron D.O. EBL: Less than 5 cc IV fluids: See records Urine output: Not measured Drains: None Complications: None immediately apparent Condition: Stable to recovery Operative indication and findings: Patient is [73] a-year-old with peripheral vascular disease and small wounds. On workup and evaluation was found to have abnormal ABIs prompting recommendations for an angiogram. Risks and benefits including but not limited to bleeding, infection, injury to the vessel, stroke, cardiopulmonary risks and ischemic changes to the extremities were discussed. They seemingly understood this willing to proceed. Procedure in detail: Patient was taken to the special suite and placed in supine position. The [left] upper extremity was prepped and draped in usual sterile fashion. A preprocedural timeout was performed, all parties were in agreement. Using the ultrasound, the radial artery was identified. The skin overlying was anesthetized with 1% lidocaine plain. The artery was patent without significant calcific disease and a permanent image was stored. Under direct visualization, the artery was accessed and Seldinger technique was used to place a 5 slender sheath. There was some mild hang up of the wire therefore a left upper extremity angiogram was performed showing widely patent radial and radial arteries. Catheters and wires were then used to selectively place a catheter across the subclavian, into the aortic arch and then selectively in the descending thoracic aorta and down into the abdominal aorta. Aortogram was performed. Catheter was then advanced to the level of the iliac bifurcation. A bilateral lower extremity step-off was performed. After satisfactory images, catheters and wires were removed. The sheath was removed and a TR band was lesly astrid. Angiographic interpretation: The aorta appeared normal in course and caliber. Visualized portions of the celiac, superior mesenteric renal arteries and lumbars were patent without significant disease. Flow did appear sluggish throughout consistent with potential cardiac source. The bilateral common internal and external iliacs appeared widely patent without significant disease. Very minimal calcium identified. Bilateral common femoral arteries appeared patent without significant disease. Bilateral superficial femoral and profundus femoris arteries appeared patent without significant disease. The superficial femoral arteries appeared patent with mild disease. The popliteal arteries appeared patent with mild disease. The infrapopliteal vessels have significant issue bilaterally. On the right, the anterior tibial artery is visualized at its takeoff but no further beyond. Due to this poor visualization selective angiogram performed, catheter was then placed and the catheter and wires in the iliac vessels. An angiogram on the left was performed showing a patent popliteal artery and below-knee pop. There was no visualization of the takeoff of the anterior tibial, the peroneal vessel appeared at the mid calf. No visualized posterior tibial artery. On the right, flow was visualized at the popliteal artery without evidence of significant disease. The anterior tibial again was visualized but occluded shortly after its takeoff. At the level of the mid calf, there is reconstitution of the peroneal vessel. No significant other vessels visualized.
--- NOTE | 2024-04-15 23:51 | IR ---
EXAMINATION TYPE: IR angio abdominal w runoff Intraoperative/procedural fluoroscopic services were pr ovided. CLINICAL INDICATION:Male, 73 years old with history of bilateral leg pain, 7.3min fluoro, 63.8Gycm2; , [facility] Total fluoroscopy time is 7.3 min. DAP: 63.8 Gycm2 uGym2 Please see the operative/procedural note for further details. [facility], , 04/15/2024 11:49 PM
== END | disposition home or self-care (01) ==
LOC: CATHCVL 07:25
PROVIDERS: ATTEND Surgery
DX: I73.9 Peripheral vascular disease, unspecified
CPT/HCPCS: 36247; 75625; 75716

== ENCOUNTER 2024-04-24 16:10 | Inpatient (IN) | payer OTHER, MEDICARE ==
--- NOTE | 2024-04-24 16:39 | ED ---
Skin/Abscess/FB HPI - General Chief complaint: Skin/Abscess/Foreign Body Stated complaint: Diabetic issue Time Seen by Provider: 04/24/24 16:39 Source: patient, family, RN/MD Mode of arrival: ambulatory Limitations: no limitations - History of Present Illness Initial comments: 73-year-old male who presented the ER with a chief complaint of right foot infection. Patient was seen by Dr. Johnson. Patient has a past medical history significant of diabetes, triple bypass, CVA/TIA, and cancer. Patient is not undergoing currently chemo treatments. Patient reports approximately 1 year ago he had a nail go through his shoe injuring his right second MTP joint. He states wound healed and on Saturday he started to notice a wound on the bottom of his foot. It has now spread to include his right second toe. Patient was seen at the [facility] on Saturday and started on Augmentin. Today he followed up with podiatry and was sent to the ER for admission and IV antibiotics. Patient denies any fevers or chills. Denies any paresthesias. No new injuries or complaints. No other complaints. - Related Data Home Medications Medication Instructions Recorded Confirmed Apixaban [Eliquis] 5 mg PO BID 01/02/24 04/24/24 Aspirin EC [Ecotrin Low Dose] 81 mg PO DAILY 01/02/24 04/24/24 Atorvastatin [Lipitor] 80 mg PO HS 01/02/24 04/24/24 Empagliflozin [Jardiance] 25 mg PO DAILY 01/02/24 04/24/24 Mirabegron [Myrbetriq] 50 mg PO DAILY 01/02/24 04/24/24 PARoxetine [Paxil] 10 mg PO DAILY 01/02/24 04/24/24 Amoxic-Pot Clav 875-125Mg 1 tab PO BID 04/24/24 04/24/24 [Augmentin 875-125] Insulin Glargine,Hum.rec.anlog 10 units SQ HS 04/24/24 04/24/24 [Lantus Solostar Pen] Metoprolol Tartrate [Lopressor] 25 mg PO BID 04/24/24 04/24/24 glipiZIDE [Glucotrol] 5 mg PO BID-W/MEALS 04/24/24 04/24/24 hydroCHLOROthiazide 12.5 mg PO DAILY 04/24/24 04/24/24 Allergies Allergy/AdvReac Type Severity Reaction Status Date / Time No Known Allergies Allergy Verified 04/24/24 17:31 Review of Systems ROS Statement: Those systems with pertinent positive or pertinent negative responses have been documented in the HPI. ROS Other: All systems not noted in ROS Statement are negative. Past Medical History Past Medical History: Cancer, CVA/TIA, Diabetes Mellitus, Myocardial Infarction (OR), Skin Disorder Additional Past Medical History / Comment(s): prostate cancer, melenoma, Last Myocardial Infarction Date:: 2011 History of Any Multi-Drug Resistant Organisms: None Reported Past Surgical History: Heart Catheterization With Stent Additional Past Surgical History / Comment(s): Tripple bypass, 2 heart attacks, 4 stents that failed, radical prostectomy, skin cancer removal, Past Anesthesia/Blood Transfusion Reactions: No Reported Reaction Date of Last Stent Placement:: 2011 Past Psychological History: No Psychological Hx Reported Smoking Status: Never smoker Past Alcohol Use History: Daily Past Drug Use History: None Reported General Exam Limitations: no limitations General appearance: alert, in no apparent distress Respiratory exam: Present: normal lung sounds bilaterally. Absent: respiratory distress, wheezes, rales, rhonchi, stridor Cardiovascular Exam: Present: regular rate, normal rhythm, normal heart sounds. Absent: systolic murmur, diastolic murmur, rubs, gallop, clicks Extremities exam: Present: other (There is a 1.5 cm wound to bottom of right foot overlying second MTP joint.) Course Vital Signs 04/24/24 16:16 Temperature 98.6 F Pulse Rate 85 Respiratory 18 Rate Blood Pressure 135/83 O2 Sat by Pulse 99 Oximetry - Reevaluation(s) Reevaluation #1: 04/24/24 18:47 Discussed with sound physician, Dr. Rain, for admission. Medical Decision Making - Medical Decision Making Was pt. sent in by a medical professional or institution (, PA, LIFE SCIENCE RESEARCH ASSISTANT, urgent ca re, hospital, or penitentiary...) When possible be specific @ -Patient sent by Dr. Johnson for evaluation of right foot infection. Did you speak to anyone other than the patient for history (EMS, parent, family, police, friend...)? What history was obtained from this source @ -No Did you review nursing and triage notes (agree or disagree)? Why? @ -I reviewed and agree with nursing and triage notes Were old charts reviewed (outside hosp., previous admission, EMS record, old EKG, old radiological studies, urgent care reports/EKG's, penitentiary records)? Report findings @ -No old charts were reviewed Differential Diagnosis (chest pain, altered mental status, abdominal pain women, abdominal pain men, vaginal bleeding, weakness, fever, dyspnea, syncope, headache, dizziness, GI bleed, back pain, seizure, CVA, palpatations, mental health, musculoskeletal)? @ -Differential Musculoskeletal Muscular strain, contusion, ligament sprain, fracture, arthritis, septic arthritis, bursitis, cellulitis, muscle spasm, nerve compression, DVT, arterial occlusion, herpes zoster, electrolyte abnormality, tumor.... This is not meant to be in all inclusive list EKG interpreted by me (3pts min.). @ -None done X-rays interpreted by me (1pt min.). @ -Right foot x-ray negative for acute evidence of osteolytic changes. No other acute process. CT interpreted by me (1pt min.). @ -None done U/S interpreted by me (1pt. min.). @ -None done What testing was considered but not performed or refused? (CT, X-rays, U/S, labs)? Why? @ -None What meds were considered but not given or refused? Why? @ -None Did you discuss the management of the patient with other professionals (professionals i.e. , PA, LIFE SCIENCE RESEARCH ASSISTANT, lab, RT, psych nurse, adoption social worker, grants specialist, teacher, soil science technical officer, employment evaluator/case manager)? Give summary @ -Yes, case discussed with sound physician, Dr. Rain, for admission. Was smoking cessation discussed for >3mins.? @ -No Was critical care preformed (if so, how long)? @ -No Were there social determinants of health that impacted care today? How? (Homelessness, low income, unemployed, alcoholism, drug addiction, transportation, low edu. Level, literacy, decrease access to med. care, detention, rehab)? @ -No Was there de-escalation of care discussed even if they declined (Discuss DNR or withdrawal of care, Hospice)? DNR status @ -No What co-morbidities impacted this encounter? (DM, HTN, Smoking, COPD, CAD, Cancer, CVA, ARF, Chemo, Hep., AIDS, mental health diagnosis, sleep apnea, morb id obesity)? @ -DM, CKD, cancer Was patient admitted / discharged? Hospital course, mention meds given and route, prescriptions, significant lab abnormalities, going to OR and other pertinent info. @ -Admitted. 73-year-old male presented to ER with a chief complaint of right foot infection. Patient was sent by Dr. Johnson. Recently started on Augmentin without improvement. History physical exam completed. Vitals within normal limits. Patient no signs of acute distress and nontoxic-appearing. Right lower extremity neurovascular intact. There is a 1.5 cm wound to bottom of foot over second MTP joint. Second digit has erythema with purulent drainage present. Proximally spreading erythema to foot. Laboratory studies obtained showing WBC 6.5 lactic of 1.0. Chronic kidney disease with GFR 36 (BUN 36, creatinine 1.80). X-ray negative for acute osseous process. Admission considered and discussed with for IV antibiotics with failed outpatient treatment of diabetic ulcer and infection. Blood cultures and wound cultures obtained. Patient started on IV Zosyn. Admission discussed with Dr. Rain, [facility] physician. ID on consult. Patient is agreeable. Patient admitted in stable condition for further evaluation and treatment. Case discussed with ED attending, Dr. Erwin. Undiagnosed new problem with uncertain prognosis? @ -No Drug Therapy requiring intensive monitoring for toxicity (Heparin, Nitro, Insulin, Cardizem)? @ -No Were any procedures done? @ -No Diagnosis/symptom? @ -Diabetic ulcer/toe infection/failed outpatient treatment Acute, or Chronic, or Acute on Chronic? @ -Acute Uncomplicated (without systemic symptoms) or Complicated (systemic symptoms)? @ -Complicated Side effects of treatment? @ -No Exacerbation, Progression, or Severe Exacerbation? @ -No Poses a threat to life or bodily function? How? (Chest pain, USA, OR, pneumonia, PE, COPD, DKA, ARF, appy, cholecystitis, CVA, Diverticulitis, Homicidal, Suicidal, threat to staff... and all critical care pts) @ -Yes, infection can lead to sepsis and endorgan dysfunction. - Lab Data Result diagrams: 04/24/24 17:40 04/24/24 17:40 Lab Results 04/24/24 04/24/24 04/24/24 Range/Units 17:40 17:40 17:40 WBC 6.5 (3.8-10.6) k/uL RBC 4.67 (4.30-5.90) m/uL Hgb 14.8 (13.0-17.5) gm/dL Hct 44.5 (39.0-53.0) % MCV 95.1 (80.0-100.0) fL MCH 31.8 (25.0-35.0) pg MCHC 33.4 (31.0-37.0) g/dL RDW 13.2 (11.5-15.5) % Plt Count 245 (150-450) k/uL MPV 7.6 Neutrophils % 63 % Lymphocytes % 20 % Monocytes % 11 % Eosinophils % 2 % Basophils % 0 % Neutrophils # 4.1 (1.3-7.7) k/uL Lymphocytes # 1.3 (1.0-4.8) k/uL Monocytes # 0.7 (0-1.0) k/uL Eosinophils # 0.2 (0-0.7) k/uL Basophils # 0.0 (0-0.2) k/uL Sodium 137 (137-145) mmol/L Potassium 4.3 (3.5-5.1) mmol/L Chloride 102 (98-107) mmol/L Carbon Dioxide 23 (22-30) mmol/L Anion Gap 12 mmol/L BUN 36 H (9-20) mg/dL Creatinine 1.80 H (0.66-1.25) mg/dL Est GFR (CKD-EPI)AfAm 42 (>60 ml/min/1.73 sqM) Est GFR (CKD-EPI)NonAf 36 (>60 ml/min/1.73 sqM) Glucose 236 H (74-99) mg/dL Plasma Lactic Acid Riley 1.0 (0.7-2.0) mmol/L Calcium 9.1 (8.4-10.2) mg/dL Total Bilirubin 0.8 (0.2-1.3) mg/dL AST 32 (17-59) U/L ALT 23 (4-49) U/L Alkaline Phosphatase 190 H (38-126) U/L Total Protein 7.2 (6.3-8.2) g/dL Albumin 4.5 (3.5-5.0) g/dL - Radiology Data Radiology results: report reviewed, image reviewed Disposition Clinical Impression: Diabetic ulcer of right foot, CKD (chronic kidney disease), Toe infection, Failure of outpatient treatment Disposition: ADMITTED IP TO THIS HOSP Condition: Stable Time of Disposition: 18:48
--- NOTE | 2024-04-24 17:29 | XR ---
EXAMINATION TYPE: XR foot complete RT DATE OF EXAM: 04/24/2024 CLINICAL HISTORY: pain TECHNIQUE: Frontal, lateral and oblique images of the right foot are obtained. COMPARISON: None. FINDINGS: There is no acute fracture/dislocation evident. The joint spaces appear within normal gusman its. Postoperative fusion at the first metatarsal phalangeal joint screw fixation noted. No bony selwyn tructive process to suggest osteomyelitis. IMPRESSION: There is no acute fracture or dislocation. ICD 10 NO FRACTURE, INITIAL EVALUATION [facility], , 04/24/2024 5:27 PM
[2024-04-24 18:09] LABS: Basophils % (A) 0 %; Eosinophils # (A) 0.2 k/uL (0-0.7); Eosinophils % (A) 2 %; HCT 44.5 % (39.0-53.0); HGB 14.8 gm/dL (13.0-17.5); Lymphocytes # (A) 1.3 k/uL (1.0-4.8); Lymphocytes % (A) 20 %; MCH 31.8 pg (25.0-35.0); MCHC 33.4 g/dL (31.0-37.0); MCV 95.1 fL (80.0-100.0); Mean Platelet Volume 7.6; Monocytes # (A) 0.7 k/uL (0-1.0); Monocytes % (A) 11 %; Neutrophils # (A) 4.1 k/uL (1.3-7.7); Neutrophils % (A) 63 %; Platelet Count 245 k/uL (150-450); RBC 4.67 m/uL (4.30-5.90); RDW 13.2 % (11.5-15.5); WBC 6.5 k/uL (3.8-10.6)
[2024-04-24 18:21] LABS: Potassium 4.3 mmol/L (3.5-5.1)
[2024-04-24 18:22] LABS: ALT 23 U/L (4-49); AST 32 U/L (17-59); African American GFR (CKD) 42 (>60 ml/min/1.73 sqM); Albumin 4.5 g/dL (3.5-5.0); Alkaline Phosphatase 190 U/L (38-126); Anion Gap 12 mmol/L; Blood Urea Nitrogen 36 mg/dL (9-20); Calcium 9.1 mg/dL (8.4-10.2); Carbon Dioxide 23 mmol/L (22-30); Chloride 102 mmol/L (98-107); Glucose 236 mg/dL (74-99); Non-African American GFR(CKD) 36 (>60 ml/min/1.73 sqM); Sodium 137 mmol/L (137-145); Total Bilirubin 0.8 mg/dL (0.2-1.3); Total Protein 7.2 g/dL (6.3-8.2)
[2024-04-24] MEDS ORDERED: NALOXONE 0.4 MG/ML 1 ML VIAL IV PRN (18:41)
[2024-04-24] MEDS ORDERED: ACETAMINOPHEN TAB 325 MG TAB PO PRN (18:41)
[2024-04-24] MEDS: SODIUM CHLORIDE 0.9% 1,000 ML IV SCH (19:28)
[2024-04-24] MEDS: PIPERACILLIN-TAZOBACTAM 3.375 GM in SODIUM CHLORIDE 0.9% 100 ML IVPB ONE (19:29)
[2024-04-24] MEDS: METOPROLOL TARTRATE 25 MG TAB PO SCH (21:12)
[2024-04-24] MEDS ORDERED: DEXTROSE 50% SYRINGE 50 ML IVP PRN ×2 (22:29)
--- NOTE | 2024-04-24 22:38 | P.HPIM ---
History of Present Illness H&P Date: 04/24/24 Patient is a 73-year-old male with a history of insulin-dependent type 2 diabetes, osteomyelitis of left second toe, CAD ([place] x 3 with CABG x 3 caths x 4 that failed), A-fib (on Eliquis 5 mg p.o. twice daily), CKD IIIB, CVA, who came in for assessment of right foot ulcer. Patient recalled 1 year ago he had a nail go through his shoe that injured his right second MTP joint that healed on its own. However on Thursday 04/19, patient noticed foot ulcer on his right foot that started to become red. He was not aware of the ulcer as he did not feel any pain. The following day on 04/20, he sought care from his PCP and prescribed him antibiotics and sent him for podiatry referral. Today, he was sent to the ER by pyrometer operator for further evaluation and for IV antibiotics for the the right foot ulcer. He denied fever, cough, chills, sweats, shortness of breath, or calf pain. In the emergency room, x-ray of foot is negative for fractures, dislocation, or signs of osteomyelitis. WBC 6.5, hemoglobin 14.8, platelet count 245, sodium 137, potassium 4.3, BUN 36, creatinine 1.8, glucose 236, lactic 1, bilirubin 0.8, AST 32, ALT 23, alk phos 190, albumin 4.5. On admission patient was afebrile at 98.6 Fahrenheit heart rate 85 respiratory rate 18 BP 135/83 oxygen saturation 99% on room air ED documentation reviewed. Review of systems: Pertinent positives and negatives as discussed in HPI, a complete review of systems was performed and all other systems are negative. Family history: Mother is with no known significant medical history. Father is from liver cancer Social history: Tobacco: Denies tobacco use Alcohol: 2 beers daily for 55 years Recreational drugs: Denies illicit drug Travel: No recent travel Occupation: Retired Physical examination: Vital signs reviewed General: non toxic, no distress, appears at stated age, normal weight Derm: no unusual rashes/lesions, warm Head: atraumatic, normocephalic, symmetric Eyes: EOMI, no lid lag, anicteric sclera, pupils equal round reactive to light ENT: Nose and ears atraumatic Neck: No cervical lymphadenopathy, trachea midline, supple Mouth: no lip lesion, mucus membranes moist Cardiovascular: S1S2 reg, no murmur Lungs: CTA bilateral, no rhonchi, no rales, no accessory muscle use Abdominal: soft, nontender to palpation, no guarding Ext: muscle strength 5 out of 5 in all 4 extremities grossly, no gross muscle atrophy, range of motion intact for all extremities no contractures, positive dorsalis pedis pulse bilateral, no edema, ulcerated wound below second toe and plantar area with purulent base with discharge, erythema on dorsal area of the right foot that spreads to the toes, dried healed ulcerated wound on right first toe, no crepitus of the right foot Neuro: CN II-XI grossly intact, no gross focal neuro deficits Psych: Alert, oriented, appropriate affect and mood Assessment/Plan: #. R foot diabetic ulcer with surrounding cellulitis -C/w Zosyn 3.375 gm q8h -F/u wound and blood cultures -Tylenol 650 mg p.o. every 6 hours as needed for fever and pain -CBC at a.m. -Consult wound care -Consult infectious disease #. Insulin-dependent diabetes mellitus Glucose 236. Patient on 10 units Lantus daily and glipizide 5 mg p.o. twice daily -Insulin sliding scale low-dose > 70 kg -Levemir 10 units daily -Glucose POC checks ACHS -BMP and A1c at a.m. #. CKD stage IIIb, at baseline -BMP at a.m. Chronic: #. A-fib, controlled - Eliquis 5 mg p.o. twice daily, Lopressor 25 mg p.o. twice daily #. History of CVA - Lipitor 80 mg p.o. OD, aspirin 81 mg p.o. OD DVT prophylaxis: Eliquis 5 mg p.o. twice daily The patient is admitted with an anticipated greater than 2 midnight stay for evaluation of cellulitis of the foot Discussed with: Patient Anticipated discharge place: Home Past Medical History Past Medical History: Cancer, CVA/TIA, Diabetes Mellitus, Myocardial Infarction ([place]), Skin Disorder Additional Past Medical History / Comment(s): prostate cancer, melenoma, Last Myocardial Infarction Date:: 2011 History of Any Multi-Drug Resistant Organisms: None Reported Past Surgical History: Heart Catheterization With Stent Additional Past Surgical History / Comment(s): Tripple bypass, 2 heart attacks, 4 stents that failed, radical prostectomy, skin cancer removal, Past Anesthesia/Blood Transfusion Reactions: No Reported Reaction Date of Last Stent Placement:: 2011 Past Psychological History: No Psychological Hx Reported Smoking Status: Never smoker Past Alcohol Use History: Daily Past Drug Use History: None Reported Medications and Allergies Home Medications Medication Instructions Recorded Confirmed Type Apixaban [Eliquis] 5 mg PO BID 01/02/24 04/24/24 History Aspirin EC [Ecotrin Low Dose] 81 mg PO DAILY 01/02/24 04/24/24 History Atorvastatin [Lipitor] 80 mg PO HS 01/02/24 04/24/24 History Empagliflozin [Jardiance] 25 mg PO DAILY 01/02/24 04/24/24 History Mirabegron [Myrbetriq] 50 mg PO DAILY 01/02/24 04/24/24 History PARoxetine [Paxil] 10 mg PO DAILY 01/02/24 04/24/24 History Amoxic-Pot Clav 875-125Mg 1 tab PO BID 04/24/24 04/24/24 History [Augmentin 875-125] Insulin Glargine,Hum.rec.anlog 10 units SQ HS 04/24/24 04/24/24 History [Lantus Solostar Pen] Metoprolol Tartrate [Lopressor] 25 mg PO BID 04/24/24 04/24/24 History glipiZIDE [Glucotrol] 5 mg PO BID-W/MEALS 04/24/24 04/24/24 History hydroCHLOROthiazide 12.5 mg PO DAILY 04/24/24 04/24/24 History Allergies Allergy/AdvReac Type Severity Reaction Status Date / Time No Known Allergies Allergy Verified 04/24/24 17:31 Physical Exam Vitals: Vital Signs Temp Pulse Resp BP Pulse Ox 04/24/24 19:24 60 16 153/79 100 04/24/24 16:16 98.6 F 85 18 135/83 99 Intake and Output 04/24/24 04/24/24 04/24/24 06:59 14:59 22:59 Other: Weight 90.718 kg Results CBC & Chem 7: 04/24/24 17:40 04/24/24 17:40 Labs: Abnormal Lab Results - Last 24 Hours (Table) 04/24/24 Range/Units 17:40 BUN 36 H (9-20) mg/dL Creatinine 1.80 H (0.66-1.25) mg/dL Glucose 236 H (74-99) mg/dL Alkaline Phosphatase 190 H (38-126) U/L
[2024-04-24] MEDS: PIPERACILLIN-TAZOBACTAM 3.375 GM in SODIUM CHLORIDE 0.9% 100 ML IVPB SCH (23:39)
[2024-04-25 07:21] LABS: Glucose,Whole Blood 142 mg/dL (70-110)
[2024-04-25 08:03] LABS: African American GFR (CKD) 41 (>60 ml/min/1.73 sqM); Anion Gap 7 mmol/L; Blood Urea Nitrogen 32 mg/dL (9-20); Calcium 8.6 mg/dL (8.4-10.2); Carbon Dioxide 26 mmol/L (22-30); Chloride 106 mmol/L (98-107); Glucose 139 mg/dL (74-99); Non-African American GFR(CKD) 36 (>60 ml/min/1.73 sqM); Potassium 4.1 mmol/L (3.5-5.1); Sodium 139 mmol/L (137-145)
[2024-04-25 08:13] LABS: Basophils % (A) 0 %; Eosinophils # (A) 0.1 k/uL (0-0.7); Eosinophils % (A) 3 %; Lymphocytes % (A) 17 %; MCH 30.7 pg (25.0-35.0); MCHC 32.4 g/dL (31.0-37.0); MCV 94.8 fL (80.0-100.0); Mean Platelet Volume 7.4; Monocytes # (A) 0.5 k/uL (0-1.0); Monocytes % (A) 9 %; Neutrophils # (A) 3.8 k/uL (1.3-7.7); Neutrophils % (A) 68 %; Platelet Count 209 k/uL (150-450); RBC 4.22 m/uL (4.30-5.90); RDW 13.3 % (11.5-15.5); WBC 5.6 k/uL (3.8-10.6)
[2024-04-25] MEDS: INSULIN ASPART (NovoLOG) 100 UNIT/ML VIAL SQ SCH (08:43)
[2024-04-25] MEDS: APIXABAN 5 MG TAB PO SCH (08:45)
[2024-04-25] MEDS: PARoxetine 10 MG TAB PO SCH (08:46)
[2024-04-25] MEDS: ASPIRIN 81 MG PO SCH (08:46)
[2024-04-25] MEDS: hydroCHLOROthiazide 12.5 MG CAP PO SCH (08:46)
[2024-04-25] MEDS: NON FORMULARY DRUG (Mirabegron [Myrbetriq] 50 MG Tab.Er.24h) PO SCH (08:46)
[2024-04-25 12:21] LABS: Glucose,Whole Blood 209 mg/dL (70-110)
[2024-04-25] MEDS: AMPICILLIN-SULBACTAM 3 GM in SODIUM CHLORIDE 0.9% 100 ML IVPB SCH ×2 (13:52→23:36)
--- NOTE | 2024-04-25 16:05 | P.PN ---
Subjective Progress Note Date: 04/25/24 HPI: Patient is a 73-year-old male with a history of insulin-dependent type 2 diabetes, osteomyelitis of left second toe, CAD ([place] x 3 with CABG x 3 caths x 4 that failed), A-fib (on Eliquis 5 mg p.o. twice daily), CKD IIIB, CVA, who came in for assessment of right foot ulcer. Patient recalled 1 year ago he had a nail go through his shoe that injured his right second MTP joint that healed on its own. However on Thursday 04/19, patient noticed foot ulcer on his right foot that started to become red. He was not aware of the ulcer as he did not feel any pain. The following day on 04/20, he sought care from his PCP and prescribed him antibiotics and sent him for podiatry referral. Today, he was sent to the ER by window air conditioner installer for further evaluation and for IV antibiotics for the the right foot ulcer. He denied fever, cough, chills, sweats, shortness of breath, or calf pain. In the emergency room, x-ray of foot is negative for fractures, dislocation, or signs of osteomyelitis. WBC 6.5, hemoglobin 14.8, platelet count 245, sodium 137, potassium 4.3, BUN 36, creatinine 1.8, glucose 236, lactic 1, bilirubin 0.8, AST 32, ALT 23, alk phos 190, albumin 4.5. On admission patient was afebrile at 98.6 Fahrenheit heart rate 85 respiratory rate 18 BP 135/83 oxygen saturation 99% on room air Progress note 04/25/2024 No acute events overnight. Patient seen and examined at bedside. Patient with no complaints of pain. Review of systems: Pertinent positives and negatives as discussed in HPI, a complete review of systems was performed and all other systems are negative. Physical examination: Vital signs reviewed General: non toxic, no distress, appears at stated age, normal weight Derm: no unusual rashes/lesions, warm Head: atraumatic, normocephalic, symmetric Eyes: EOMI, no lid lag, anicteric sclera, pupils equal round reactive to light ENT: Nose and ears atraumatic Neck: No cervical lymphadenopathy, trachea midline, supple Mouth: no lip lesion, mucus membranes moist Cardiovascular: S1S2 reg, no murmur Lungs: CTA bilateral, no rhonchi, no rales, no accessory muscle use Abdominal: soft, nontender to palpation, no guarding Ext: muscle strength 5 out of 5 in all 4 extremities grossly, no gross muscle atrophy, range of motion intact for all extremities no contractures, positive dorsalis pedis pulse bilateral, no edema, ulcerated wound below second toe and plantar area with purulent base with discharge, erythema on dorsal area of the right foot that spreads to the toes, dried healed ulcerated wound on right first toe, no crepitus of the right foot Neuro: CN II-XI grossly intact, no gross focal neuro deficits Psych: Alert, oriented, appropriate affect and mood Labs reviewed today WBC 5.6, hemoglobin 13.0, platelets 209, sodium 139, potassium 4.1, bicarb 26, BUN 32, creatinine 1.81, glucose 805179, HbA1c 7.9 Assessment/Plan: #. R foot diabetic ulcer with surrounding cellulitis -C/w Zosyn 3.375 gm q8h, recommended to de-escalate to Unasyn given no prior history of Pseudomonas -F/u wound and blood cultures -Tylenol 650 mg p.o. every 6 hours as needed for fever and pain -CBC at a.m. -Wound care following -ID following #. Insulin-dependent diabetes mellitus Glucose 236. Patient on 10 units Lantus daily and glipizide 5 mg p.o. twice da rub[place] -Insulin sliding scale low-dose > 70 kg -Continue long-acting Levemir 10 units daily -Glucose POC checks ACHS - HbA1c 7.9 -Monitor BMP #. CKD stage IIIb, at baseline -BMP at a.m. Chronic: #. A-fib, controlled - Eliquis 5 mg p.o. twice daily, Lopressor 25 mg p.o. twice daily #. History of CVA - Lipitor 80 mg p.o. OD, aspirin 81 mg p.o. OD DVT prophylaxis: Eliquis 5 mg p.o. twice daily Discussed with: Patient Anticipated discharge place: Home I have seen and evaluated the patient today. Discussed with the resident and agree with the residents finding and plan as documented in the resident's note. Changes highlighted in blue font. Objective - Vital Signs Vital signs: Vital Signs Temp 97.8 F 04/25/24 13:45 Pulse 55 L 04/25/24 13:45 Resp 16 04/25/24 13:45 BP 145/73 04/25/24 13:45 Pulse Ox 99 04/25/24 13:45 FiO2 Intake & Output 04/24/24 04/25/24 04/25/24 18:59 06:59 18:59 Intake Total 590 Balance 590 Weight 90.718 kg 86.5 kg Intake: Oral 590 Other: Voiding Method Toilet Toilet # Voids 2 - Labs CBC & Chem 7: 04/25/24 07:18 04/25/24 07:18 Labs: Abnormal Lab Results - Last 24 Hours (Table) 04/24/24 04/25/24 04/25/24 Range/Units 17:40 07:18 07:18 RBC 4.22 L (4.30-5.90) m/uL BUN 36 H (9-20) mg/dL Creatinine 1.80 H (0.66-1.25) mg/dL Glucose 236 H (74-99) mg/dL POC Glucose (mg/dL) (70-110) mg/dL Hemoglobin A1c 7.9 H (<=6.0) % Alkaline Phosphatase 190 H (38-126) U/L 04/25/24 04/25/24 04/25/24 Range/Units 07:18 07:19 12:20 RBC (4.30-5.90) m/uL BUN 32 H (9-20) mg/dL Creatinine 1.81 H (0.66-1.25) mg/dL Glucose 139 H (74-99) mg/dL POC Glucose (mg/dL) 142 H 209 H (70-110) mg/dL Hemoglobin A1c (<=6.0) % Alkaline Phosphatase (38-126) U/L
[2024-04-25] MEDS: PIPERACILLIN-TAZOBACTAM 3.375 GM in SODIUM CHLORIDE 0.9% 100 ML IVPB SCH (17:27)
[2024-04-25 17:35] LABS: Glucose,Whole Blood 214 mg/dL (70-110)
[2024-04-25 20:17] LABS: Glucose,Whole Blood 131 mg/dL (70-110)
[2024-04-25] MEDS: ATORVASTATIN 80 MG TAB PO SCH (20:46)
[2024-04-25] MEDS: INSULIN DETEMIR (LEVEMIR) 100 UNIT/ML SYR SQ SCH (20:46)
--- NOTE | 2024-04-25 22:47 | P.CONS ---
History of Present Illness - Reason for Consult Consult date: 04/25/24 Foot infection Requesting physician: Nanci Lazo - Chief Complaint Right foot swelling and redness x days - History of Present Illness Patient is a 73-year-old male with a past medical history significant for diabetes mellitus CVA TIA [place] prostate cancer and melanoma patient was admitted to this facility back in December 2023 with a left second toe osteomyelitis local culture positive for Enterococcus faecalis and patient completed course of IV Unasyn and did have resolution of left second toe osteomyelitis patient now presenting to [facility] ER concerning for right foot swelling redness and a wound on the bottom of the right foot that apparently has open and involving his right second toe patient was seen at the [place] [facility] on Saturday and he was started on Augmentin patient did follow-up with podiatry on Saturday who advised the patient to go to the hospital for any antibiotic therapy patient denies high-grade fever or any chills patient did have some neuropathy denies significant pain to the right foot or second toe area he did have minimal bl oodstained drainage no significant purulence, patient on presentation to the hospital was afebrile and no fever have been called subsequently patient was not tachycardic hypotensive or hypoxic patient did have white count of 6.5 BUN and creatinine has been mildly elevated liver enzymes are normal patient did have a foot x-ray no acute fracture or dislocation patient was initially started on Zosyn that was switched over to Unasyn infectious he was consulted for further management of antibiotic therapy Review of Systems Positive point and negatives has been mentioned in the HPI, complete review of systems was performed and all other systems are negative Past Medical History Past Medical History: Cancer, CVA/TIA, Diabetes Mellitus, Myocardial Infarction ([place]), Skin Disorder Additional Past Medical History / Comment(s): prostate cancer, melenoma, Last Myocardial Infarction Date:: 2011 History of Any Multi-Drug Resistant Organisms: None Reported Past Surgical History: Heart Catheterization With Stent Additional Past Surgical History / Comment(s): Tripple bypass, 2 heart attacks, 4 stents that failed, radical prostectomy, skin cancer removal, Past Anesthesia/Blood Transfusion Reactions: No Reported Reaction Date of Last Stent Placement:: 2011 Past Psychological History: No Psychological Hx Reported Smoking Status: Never smoker Past Alcohol Use History: Daily Past Drug Use History: None Reported Medications and Allergies Home Medications Medication Instructions Recorded Confirmed Type Apixaban [Eliquis] 5 mg PO BID 01/02/24 04/24/24 History Aspirin EC [Ecotrin Low Dose] 81 mg PO DAILY 01/02/24 04/24/24 History Atorvastatin [Lipitor] 80 mg PO HS 01/02/24 04/24/24 History Empagliflozin [Jardiance] 25 mg PO DAILY 01/02/24 04/24/24 History Mirabegron [Myrbetriq] 50 mg PO DAILY 01/02/24 04/24/24 History PARoxetine [Paxil] 10 mg PO DAILY 01/02/24 04/24/24 History Amoxic-Pot Clav 875-125Mg 1 tab PO BID 04/24/24 04/24/24 History [Augmentin 875-125] Insulin Glargine,Hum.rec.anlog 10 units SQ HS 04/24/24 04/24/24 History [Lantus Solostar Pen] Metoprolol Tartrate [Lopressor] 25 mg PO BID 04/24/24 04/24/24 History glipiZIDE [Glucotrol] 5 mg PO BID-W/MEALS 04/24/24 04/24/24 History hydroCHLOROthiazide 12.5 mg PO DAILY 04/24/24 04/24/24 History Allergies Allergy/AdvReac Type Severity Reaction Status Date / Time No Known Allergies Allergy Verified 04/24/24 17:31 Physical Exam Vitals: Vital Signs Temp Pulse Pulse Resp BP BP Pulse Ox 04/25/24 08:40 53 L 17 04/25/24 07:18 98.3 F 53 L 17 150/80 96 04/25/24 01:45 98.7 F 65 16 138/69 95 04/24/24 20:22 59 L 18 151/84 99 04/24/24 19:24 60 16 153/79 100 04/24/24 16:16 98.6 F 85 18 135/83 99 Intake and Output 04/24/24 04/25/24 04/25/24 22:59 06:59 14:59 Intake Total 590 Balance 590 Intake: Oral 590 Other: Voiding Method Toilet Toilet # Voids 2 Weight 86.5 kg GENERAL DESCRIPTION: Middle-aged male up in wheelchair, no distress. No tachypnea or accessory muscle of respiration use. HEENT: Shows Pallor , no scleral icterus. Oral mucous membrane is dry. No pharyngeal erythema or thrush NECK: Trachea central, no thyromegaly. LUNGS: Unlabored breathing. Clear to auscultation anteriorly. No wheeze or crackle. HEART: S1, S2, regular rate and rhythm. No loud murmur ABDOMEN: Soft, no tenderness , guarding or rigidity, no organomegaly EXTREMITIES: Right second toe with significant swelling redness he did have a reported wound on the plantar aspect and erythema on the dorsal aspect of the right foot SKIN: No rash, no masses palpable. NEUROLOGICAL: The patient is awake, alert, oriented x3, mood and affect normal. Results CBC & Chem 7: 04/25/24 07:18 04/25/24 07:18 Labs: Abnormal Lab Results - Last 24 Hours (Table) 04/24/24 04/25/24 04/25/24 Range/Units 17:40 07:18 07:18 RBC 4.22 L (4.30-5.90) m/uL BUN 36 H 32 H (9-20) mg/dL Creatinine 1.80 H 1.81 H (0.66-1.25) mg/dL Glucose 236 H 139 H (74-99) mg/dL POC Glucose (mg/dL) (70-110) mg/dL Alkaline Phosphatase 190 H (38-126) U/L 04/25/24 Range/Units 07:19 RBC (4.30-5.90) m/uL BUN (9-20) mg/dL Creatinine (0.66-1.25) mg/dL Glucose (74-99) mg/dL POC Glucose (mg/dL) 142 H (70-110) mg/dL Alkaline Phosphatase (38-126) U/L Assessment and Plan (1) Diabetic ulcer of right foot Current Visit: Yes Status: Acute Code(s): E11.621 - TYPE 2 DIABETES MELLITUS WITH FOOT ULCER; L97.519 - NON-PRS CHRONIC ULCER OTH PRT RIGHT FOOT W UNSP SEVERITY SNOMED Code(s): 104510573 (2) Failure of outpatient treatment Current Visit: Yes Status: Acute Code(s): Z78.9 - OTHER SPECIFIED HEALTH STATUS SNOMED Code(s): 879591925 Plan: 1patient with right diabetic foot infection and this patient likely have infected callus on the bottom of the right foot at the base of the second toe with involvement of the second toe and did have a cellulitis on the dorsal aspect of the right foot likely will need to cover for the polymicrobial alfreda as stated with diabetic foot infection x-rays were negative however need to rule out deep infection. Patient recently did have admission to the hospital with left second toe osteomyelitis culture positive for Enterococcus faecalis that was sensitive to penicillin. 2local culture has been requested unfortunately only anaerobe culture were obtained by the ER physician nursing staff has been advised to obtain aerobic culture. 3we will check bones scan and check inflammatory markers. 4continue with Unasyn while waiting for the culture to finalize We will follow on clinical condition and cultures to further adjust medication if needed Thank you for this consultation we will follow the patient along with you Dictation was produced using [employer] dictation software. please excuse any grammatical, word or spelling errors. Time with Patient: Greater than 30
[2024-04-26 07:17] LABS: Glucose,Whole Blood 105 mg/dL (70-110)
[2024-04-26 09:55] LABS: Basophils # (A) 0.03 X 10*3/uL (0.00-0.10); Basophils % (A) 0.5 %; Eosinophils # (A) 0.16 X 10*3/uL (0.04-0.35); Eosinophils % (A) 2.7 %; HCT 40.6 % (39.6-50.0); HGB 13.7 g/dL (13.0-17.0); Lymphocytes # (A) 1.16 X 10*3/uL (0.90-5.00); Lymphocytes % (A) 19.7 %; MCH 31.6 pg (27.0-32.0); MCHC 33.7 g/dL (32.0-37.0); MCV 93.8 FL (80.0-97.0); Mean Platelet Volume 10.1 FL (9.5-12.2); Monocytes # (A) 0.71 X 10*3/uL (0.20-1.00); Monocytes % (A) 12.1 %; NRBC Per 100 WBC 0 X 10*3/uL (0.00-0.01); Neutrophils # (A) 3.81 X 10*3/uL (1.80-7.70); Neutrophils % (A) 64.8 %; Platelet Count 227 X 10*3/uL (140-440); RBC 4.33 X 10*6/uL (4.40-5.60); RDW 13.1 % (11.5-14.5); WBC 5.88 X 10*3/uL (4.50-10.00)
[2024-04-26 10:11] LABS: BUN/Creat Ratio 14.58 Ratio (12.00-20.00); Blood Urea Nitrogen 27.7 mg/dL (9.0-27.0); Calcium 8.4 mg/dL (8.7-10.3); Chloride 104 mmol/L (96-109); Glucose 106 mg/dL (70-110); Potassium 3.8 mmol/L (3.5-5.5); Sodium 140 mmol/L (135-145)
[2024-04-26 11:17] LABS: Erythrocyte Sedimentation Rate 56 mm/Hr (0-20)
[2024-04-26 12:16] LABS: Glucose,Whole Blood 216 mg/dL (70-110)
--- NOTE | 2024-04-26 13:38 | P.PN ---
Subjective Progress Note Date: 04/26/24 Patient is a 73-year-old male with a history of insulin-dependent type 2 diabetes, osteomyelitis of left second toe, CAD ([place] x 3 with CABG x 3 caths x 4 that failed), A-fib (on Eliquis 5 mg p.o. twice daily), CKD IIIB, CVA, who came in for assessment of right foot ulcer. Patient recalled 1 year ago he had a nail go through his shoe that injured his right second MTP joint that healed on its own. However on Thursday 04/19, patient noticed foot ulcer on his right foot that started to become red. He was not aware of the ulcer as he did not feel any pain. The following day on 04/20, he sought care from his PCP and prescribed him antibiotics and sent him for podiatry referral. Today, he was sent to the ER by deputy sheriff [id number] handler for further evaluation and for IV antibiotics for the the right foot ulcer. He denied fever, cough, chills, sweats, shortness of breath, or calf pain. In the emergency room, x-ray of foot is negative for fractures, dislocation, or signs of osteomyelitis. WBC 6.5, hemoglobin 14.8, platelet count 245, sodium 137, potassium 4.3, BUN 36, creatinine 1.8, glucose 236, lactic 1, bilirubin 0.8, AST 32, ALT 23, alk phos 190, albumin 4.5. On admission patient was afebrile at 98.6 Fahrenheit heart rate 85 respiratory rate 18 BP 135/83 oxygen saturation 99% on room air Subjective: Patient seen and examined at bedside. No acute events overnight. Review of systems: Pertinent positives and negatives as discussed in HPI, a complete review of systems was performed and all other systems are negative. Physical examination: Vital signs reviewed General: non toxic, no distress, appears at stated age, normal weight Derm: no unusual rashes/lesions, warm Head: atraumatic, normocephalic, symmetric Eyes: EOMI, no lid lag, anicteric sclera, pupils equal round reactive to light ENT: Nose and ears atraumatic Neck: No cervical lymphadenopathy, trachea midline, supple Mouth: no lip lesion, mucus membranes moist Cardiovascular: S1S2 reg, no murmur Lungs: CTA bilateral, no rhonchi, no rales, no accessory muscle use Abdominal: soft, nontender to palpation, no guarding Ext: muscle strength 5 out of 5 in all 4 extremities grossly, no gross muscle atrophy, range of motion intact for all extremities no contractures, positive dorsalis pedis pulse bilateral, no edema, ulcerated wound below second toe and plantar area with purulent base with discharge, erythema on dorsal area of the right foot that spreads to the toes, dried healed ulcerated wound on right first toe, no crepitus of the right foot Neuro: CN II-XI grossly intact, no gross focal neuro deficits Psych: Alert, oriented, appropriate affect and mood Labs reviewed today WBC 5.88, hemoglobin 13.7, ESR 56, CRP 6.9, creatinine 1.9, blood sugars range between 10 5-2 16 Assessment/Plan: #. R foot diabetic ulcer with surrounding cellulitis -Continue with Unasyn 3 g IV every 6 hours -ID following, bone scan pending -F/u wound and blood cultures -Tylenol 650 mg p.o. every 6 hours as needed for fever and pain -Wound care following #. Insulin-dependent diabetes mellitus -Continue sliding scale insulin ACH S, monitor for hypoglycemia -Continue long-acting Levemir 10 units daily - HbA1c 7.9 #. CKD stage IIIb, at baseline -BMP at a.m. Chronic: #. A-fib, controlled - Eliquis 5 mg p.o. twice daily, Lopressor 25 mg p.o. twice daily #. History of CVA - Lipitor 80 mg p.o. OD, aspirin 81 mg p.o. OD Depression-paroxetine 10 mg daily DVT prophylaxis: Eliquis 5 mg p.o. twice daily Discussed with: Patient Anticipated discharge place: Home Anticipated discharge time: Pending clinical course Objective - Vital Signs Vital signs: Vital Signs Temp 98.0 F 04/26/24 07:14 Pulse 57 L 04/26/24 08:45 Resp 18 04/26/24 08:45 BP 126/71 04/26/24 07:14 Pulse Ox 98 04/26/24 07:14 FiO2 Intake & Output 04/25/24 04/26/24 04/26/24 18:59 06:59 18:59 Intake Total 540 590 Balance 540 590 Intake: Oral 540 590 Other: Voiding Method Toilet Toilet Toilet # Voids 2 - Labs CBC & Chem 7: 04/26/24 06:18 04/26/24 06:18 Labs: Abnormal Lab Results - Last 24 Hours (Table) 04/25/24 04/25/24 04/25/24 Range/Units 07:18 17:34 20:16 RBC (4.40-5.60) X 10*6/uL ESR (0-20) mm/Hr BUN (9.0-27.0) mg/dL Creatinine (0.6-1.5) mg/dL Est GFR (CKD-EPI) (>=60) POC Glucose (mg/dL) 214 H 131 H (70-110) mg/dL Hemoglobin A1c 7.9 H (<=6.0) % Calcium (8.7-10.3) mg/dL C-Reactive Protein (0.00-0.80) mg/dL 04/26/24 04/26/24 04/26/24 Range/Units 06:18 06:18 12:15 RBC 4.33 L (4.40-5.60) X 10*6/uL ESR 56 H (0-20) mm/Hr BUN 27.7 H (9.0-27.0) mg/dL Creatinine 1.9 H (0.6-1.5) mg/dL Est GFR (CKD-EPI) 36 L (>=60) POC Glucose (mg/dL) 216 H (70-110) mg/dL Hemoglobin A1c (<=6.0) % Calcium 8.4 L (8.7-10.3) mg/dL C-Reactive Protein 6.90 H (0.00-0.80) mg/dL Microbiology - Last 24 Hours (Table) 04/24/24 17:45 Blood Culture - Preliminary Blood
--- NOTE | 2024-04-26 15:57 | P.PN ---
Subjective Progress Note Date: 04/26/24 Principal diagnosis: Reason for follow-up is right diabetic foot infection Patient is a 73-year-old male with a past medical history significant for diabetes mellitus CVA TIA [place] prostate cancer and melanoma recently treated for left second toe osteomyelitis secondary to Enterococcus faecalis presented to the hospital with right second toe and foot swelling redness being admitted to hospital for diabetic foot infection and cellulitis. On today's evaluation that is 04/26/2024,the patient remains to be afebrile, patient is on room air not requiring supplemental oxygen and denies any shortness of breath no chest pain or cough.Patient denies having any nausea or vomiting, no abdominal pain and no diarrhea, patient mention improvement in symptoms to the right foot area. Patient white count is 5.88, sed rate is 56 CRP 6.90 cultures are currently pending Objective - Vital Signs Vital signs: Vital Signs Temp 97.9 F 04/26/24 13:10 Pulse 40 L 04/26/24 13:10 Resp 17 04/26/24 13:10 BP 147/73 04/26/24 13:10 Pulse Ox 96 04/26/24 13:10 FiO2 Intake & Output 04/25/24 04/26/24 04/26/24 18:59 06:59 18:59 Intake Total 540 590 Balance 540 590 Intake: Oral 540 590 Other: Voiding Method Toilet Toilet Toilet # Voids 2 - Exam GENERAL DESCRIPTION: An elderly male lying in bed in no distress RESPIRATORY SYSTEM: Unlabored breathing , decreased breath sounds at bases HEART: S1 S2 regular rate and rhythm , ABDOMEN: Soft , no tenderness EXTREMITIES: Right second toe as well as redness on the dorsum aspect of the right foot is decreased - Labs CBC & Chem 7: 04/26/24 06:18 04/26/24 06:18 Labs: Abnormal Lab Results - Last 24 Hours (Table) 04/25/24 04/25/24 04/26/24 Range/Units 17:34 20:16 06:18 RBC 4.33 L (4.40-5.60) X 10*6/uL ESR 56 H (0-20) mm/Hr BUN (9.0-27.0) mg/dL Creatinine (0.6-1.5) mg/dL Est GFR (CKD-EPI) (>=60) POC Glucose (mg/dL) 214 H 131 H (70-110) mg/dL Calcium (8.7-10.3) mg/dL C-Reactive Protein (0.00-0.80) mg/dL 04/26/24 04/26/24 Range/Units 06:18 12:15 RBC (4.40-5.60) X 10*6/uL ESR (0-20) mm/Hr BUN 27.7 H (9.0-27.0) mg/dL Creatinine 1.9 H (0.6-1.5) mg/dL Est GFR (CKD-EPI) 36 L (>=60) POC Glucose (mg/dL) 216 H (70-110) mg/dL Calcium 8.4 L (8.7-10.3) mg/dL C-Reactive Protein 6.90 H (0.00-0.80) mg/dL Microbiology - Last 24 Hours (Table) 04/24/24 17:45 Blood Culture - Preliminary Blood Assessment and Plan (1) Diabetic ulcer of right foot Current Visit: Yes Status: Acute Code(s): E11.621 - TYPE 2 DIABETES MELLITUS WITH FOOT ULCER; L97.519 - NON-PRS CHRONIC ULCER OTH PRT RIGHT FOOT W UNSP SEVERITY SNOMED Code(s): 482634927 (2) Failure of outpatient treatment Current Visit: Yes Status: Acute Code(s): Z78.9 - OTHER SPECIFIED HEALTH STATUS SNOMED Code(s): 224119292 Plan: 1patient with right diabetic foot infection and this patient likely have infe cted callus on the bottom of the right foot at the base of the second toe with involvement of the second toe and did have a cellulitis on the dorsal aspect of the right foot likely will need to cover for the polymicrobial alfreda as stated with diabetic foot infection x-rays were negative however need to rule out deep infection. Patient recently did have admission to the hospital with left second toe osteomyelitis culture positive for Enterococcus faecalis that was sensitive to penicillin. 2local culture has been obtained and currently did have elevated inflammatory markers 3 bone scan hopefully will be completed tomorrow, for now.continue with Unasyn while waiting for the culture to finalize Dictation was produced using [employer] dictation software. please excuse any grammatical, word or spelling errors. Time with Patient: Less than 30
[2024-04-26 17:12] LABS: Glucose,Whole Blood 200 mg/dL (70-110)
[2024-04-26 20:08] LABS: Glucose,Whole Blood 219 mg/dL (70-110)
[2024-04-27 07:07] LABS: Glucose,Whole Blood 164 mg/dL (70-110)
[2024-04-27 08:35] LABS: HCT 38.3 % (39.6-50.0); MCH 31.9 pg (27.0-32.0); MCHC 33.9 g/dL (32.0-37.0); MCV 94.1 FL (80.0-97.0); Mean Platelet Volume 10.1 FL (9.5-12.2); NRBC Per 100 WBC 0 X 10*3/uL (0.00-0.01); Platelet Count 218 X 10*3/uL (140-440); RBC 4.07 X 10*6/uL (4.40-5.60); RDW 13.1 % (11.5-14.5); WBC 4.78 X 10*3/uL (4.50-10.00)
[2024-04-27 10:03] LABS: Blood Urea Nitrogen 27.9 mg/dL (9.0-27.0); Calcium 8.1 mg/dL (8.7-10.3); Chloride 105 mmol/L (96-109); Glucose 197 mg/dL (70-110); Potassium 3.7 mmol/L (3.5-5.5); Sodium 140 mmol/L (135-145)
--- NOTE | 2024-04-27 12:04 | P.PN ---
Subjective Progress Note Date: 04/27/24 Patient is a 73-year-old male with a history of insulin-dependent type 2 diabetes, osteomyelitis of left second toe, CAD ([place] x 3 with CABG x 3 caths x 4 that failed), A-fib (on Eliquis 5 mg p.o. twice daily), CKD IIIB, CVA, who came in for assessment of right foot ulcer. Patient recalled 1 year ago he had a nail go through his shoe that injured his right second MTP joint that healed on its own. However on Thursday 04/19, patient noticed foot ulcer on his right foot that started to become red. He was not aware of the ulcer as he did not feel any pain. The following day on 04/20, he sought care from his PCP and prescribed him antibiotics and sent him for podiatry referral. 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 He denied fever, cough, chills, sweats, shortness of breath, or calf pain. In the emergency room, x-ray of foot is negative for fractures, dislocation, or signs of osteomyelitis. WBC 6.5, hemoglobin 14.8, platelet count 245, sodium 137, potassium 4.3, BUN 36, creatinine 1.8, glucose 236, lactic 1, bilirubin 0.8, AST 32, ALT 23, alk phos 190, albumin 4.5. On admission patient was afebrile at 98.6 Fahrenheit heart rate 85 respiratory rate 18 BP 135/83 oxygen saturation 99% on room air. Patient continued on IV antibiotics. Pending bone scan today. Subjective: Patient seen and examined at bedside. No acute events overnight. Review of systems: Pertinent positives and negatives as discussed in HPI, a complete review of systems was performed and all other systems are negative. Physical examination: Vital signs reviewed General: non toxic, no distress, appears at stated age, normal weight Derm: no unusual rashes/lesions, warm Head: atraumatic, normocephalic, symmetric Eyes: EOMI, no lid lag, anicteric sclera, pupils equal round reactive to light ENT: Nose and ears atraumatic Neck: No cervical lymphadenopathy, trachea midline, supple Mouth: no lip lesion, mucus membranes moist Cardiovascular: S1S2 reg, no murmur Lungs: CTA bilateral, no rhonchi, no rales, no accessory muscle use Abdominal: soft, nontender to palpation, no guarding Ext: muscle strength 5 out of 5 in all 4 extremities grossly, no gross muscle atrophy, range of motion intact for all extremities no contractures, positive dorsalis pedis pulse bilateral, no edema, ulcerated wound below second toe and plantar area with purulent base with discharge, erythema on dorsal area of the right foot that spreads to the toes, dried healed ulcerated wound on right first toe, no crepitus of the right foot Neuro: CN II-XI grossly intact, no gross focal neuro deficits Psych: Alert, oriented, appropriate affect and mood Labs reviewed today WBC 4.78, hemoglobin 13, creatinine 1.8, blood sugars range between 1 64-2 19 Assessment/Plan: #. R foot diabetic ulcer with surrounding cellulitis -Continue with Unasyn 3 g IV every 6 hours -ID following, bone scan pending -F/u wound and blood cultures -Tylenol 650 mg p.o. every 6 hours as needed for fever and pain -Wound care following #. Insulin-dependent diabetes mellitus -Continue sliding scale insulin ACH S, monitor for hypoglycemia -Continue long-acting Levemir 10 units daily - HbA1c 7.9 #. CKD stage IIIb, at baseline -BMP at a.m. Chronic: #. A-fib, controlled - Eliquis 5 mg p.o. twice daily, Lopressor 25 mg p.o. twice daily #. History of CVA - Lipitor 80 mg p.o. OD, aspirin 81 mg p.o. OD Depression-paroxetine 10 mg daily DVT prophylaxis: Eliquis 5 mg p.o. twice daily Discussed with: Patient Anticipated discharge place: Home Anticipated discharge time: Pending clinical course Patient failed observation status. Will be switched to inpatient status given need for IV antibiotics, possible osteomyelitis. Needs further testing including bone scan. Objective - Vital Signs Vital signs: Vital Signs Temp 97.7 F 04/27/24 06:58 Pulse 58 L 04/27/24 06:58 Resp 16 04/27/24 06:58 BP 117/71 04/27/24 06:58 Pulse Ox 98 04/27/24 06:58 FiO2 Intake & Output 04/26/24 04/27/24 04/27/24 18:59 06:59 18:59 Intake Total 1080 540 Balance 1080 540 Intake: Oral 1080 540 Other: Voiding Method Toilet Toilet - Labs CBC & Chem 7: 04/27/24 04:27 04/27/24 04:27 Labs: Abnormal Lab Results - Last 24 Hours (Table) 04/26/24 04/26/24 04/26/24 Range/Units 12:15 17:10 20:07 RBC (4.40-5.60) X 10*6/uL Hct (39.6-50.0) % Anion Gap (4.00-12.00) mmol/L BUN (9.0-27.0) mg/dL Creatinine (0.6-1.5) mg/dL Est GFR (CKD-EPI) (>=60) Glucose (70-110) mg/dL POC Glucose (mg/dL) 216 H 200 H 219 H (70-110) mg/dL Calcium (8.7-10.3) mg/dL 04/27/24 04/27/24 04/27/24 Range/Units 04:27 04:27 07:06 RBC 4.07 L (4.40-5.60) X 10*6/uL Hct 38.3 L (39.6-50.0) % Anion Gap 13.00 H (4.00-12.00) mmol/L BUN 27.9 H (9.0-27.0) mg/dL Creatinine 1.8 H (0.6-1.5) mg/dL Est GFR (CKD-EPI) 39 L (>=60) Glucose 197 H (70-110) mg/dL POC Glucose (mg/dL) 164 H (70-110) mg/dL Calcium 8.1 L (8.7-10.3) mg/dL Microbiology - Last 24 Hours (Table) 04/24/24 17:45 Blood Culture - Preliminary Blood
[2024-04-27 12:07] LABS: Glucose,Whole Blood 157 mg/dL (70-110)
--- NOTE | 2024-04-27 13:27 | NM ---
EXAMINATION TYPE: NM bone 3 phase DATE OF EXAM: 04/27/2024 COMPARISON: Right foot radiograph 04/24/2024, 02/14/2024, nuclear medicine bone scan 01/06/2024 CLINICAL INDICATION: Male, 73 years old with history of Right diabetic foot ulcer cellulitis R/O oste omyelitis; Triple phase bone scintigraphy was performed following the injection of 25.7 mCi Tc 99m MDP. Immedia te images and 5.25 hours post injection images acquired. FINDINGS: Increased radiotracer uptake within the right foot on blood flow and blood pool imaging. Increased fo hilda uptake identified within the distal aspects of the first and second digits on delayed imaging. IMPRESSION: Three-phase positive bone scan with findings at the distal aspect of the first and second digits of t he right foot. Raises possibility of osteomyelitis. [facility], , 04/27/2024 1:25 PM
[2024-04-27] MEDS: CEFEPIME 2 GM in SODIUM CHLORIDE 0.9% 100 ML IVPB SCH (17:01)
[2024-04-27 17:04] LABS: Glucose,Whole Blood 173 mg/dL (70-110)
[2024-04-27 20:17] LABS: Glucose,Whole Blood 183 mg/dL (70-110)
--- NOTE | 2024-04-27 22:21 | P.PN ---
Subjective Progress Note Date: 04/27/24 Principal diagnosis: Reason for follow-up is right diabetic foot infection Patient is a 73-year-old male with a past medical history significant for diabetes mellitus CVA TIA [place] prostate cancer and melanoma recently treated for left second toe osteomyelitis secondary to Enterococcus faecalis presented to the hospital with right second toe and foot swelling redness being admitted to hospital for diabetic foot infection and cellulitis. On today's evaluation that is 04/27/2024, the patient continues to be afebrile, the patient is on room air and breathing comfortably, the Pt denies having any chest pain or cough, the patient denies having any abdominal pain no vomiting or any diarrhea denies any worsening pain to the right foot daily. Patient white count is 4.78, creatinine is 1.8 cultures are growing a drug- resistant Enterobacter both scan is currently in progress Objective - Vital Signs Vital signs: Vital Signs Temp 97.7 F 04/27/24 06:58 Pulse 58 L 04/27/24 06:58 Resp 16 04/27/24 06:58 BP 117/71 04/27/24 06:58 Pulse Ox 98 04/27/24 06:58 FiO2 Intake & Output 04/26/24 04/27/24 04/27/24 18:59 06:59 18:59 Intake Total 1080 540 Balance 1080 540 Intake: Oral 1080 540 Other: Voiding Method Toilet Toilet - Exam GENERAL DESCRIPTION: An elderly male lying in bed in no distress RESPIRATORY SYSTEM: Unlabored breathing , decreased breath sounds at bases HEART: S1 S2 regular rate and rhythm , ABDOMEN: Soft , no tenderness EXTREMITIES: Right second toe as well as redness on the dorsum aspect of the right foot is decreased - Labs CBC & Chem 7: 04/27/24 04:27 04/27/24 04:27 Labs: Abnormal Lab Results - Last 24 Hours (Table) 04/26/24 04/26/24 04/26/24 Range/Units 06:18 12:15 17:10 RBC (4.40-5.60) X 10*6/uL Hct (39.6-50.0) % ESR 56 H (0-20) mm/Hr Anion Gap (4.00-12.00) mmol/L BUN (9.0-27.0) mg/dL Creatinine (0.6-1.5) mg/dL Est GFR (CKD-EPI) (>=60) Glucose (70-110) mg/dL POC Glucose (mg/dL) 216 H 200 H (70-110) mg/dL Calcium (8.7-10.3) mg/dL 04/26/24 04/27/24 04/27/24 Range/Units 20:07 04:27 04:27 RBC 4.07 L (4.40-5.60) X 10*6/uL Hct 38.3 L (39.6-50.0) % ESR (0-20) mm/Hr Anion Gap 13.00 H (4.00-12.00) mmol/L BUN 27.9 H (9.0-27.0) mg/dL Creatinine 1.8 H (0.6-1.5) mg/dL Est GFR (CKD-EPI) 39 L (>=60) Glucose 197 H (70-110) mg/dL POC Glucose (mg/dL) 219 H (70-110) mg/dL Calcium 8.1 L (8.7-10.3) mg/dL 04/27/24 Range/Units 07:06 RBC (4.40-5.60) X 10*6/uL Hct (39.6-50.0) % ESR (0-20) mm/Hr Anion Gap (4.00-12.00) mmol/L BUN (9.0-27.0) mg/dL Creatinine (0.6-1.5) mg/dL Est GFR (CKD-EPI) (>=60) Glucose (70-110) mg/dL POC Glucose (mg/dL) 164 H (70-110) mg/dL Calcium (8.7-10.3) mg/dL Microbiology - Last 24 Hours (Table) 04/24/24 17:45 Blood Culture - Preliminary Blood Assessment and Plan (1) Diabetic ulcer of right foot Current Visit: Yes Status: Acute Code(s): E11.621 - TYPE 2 DIABETES MELLITUS WITH FOOT ULCER; L97.519 - NON-PRS CHRONIC ULCER OTH PRT RIGHT FOOT W UNSP SEVERITY SNOMED Code(s): 648829781 (2) Failure of outpatient treatment Current Visit: Yes Status: Acute Code(s): Z78.9 - OTHER SPECIFIED HEALTH STATUS SNOMED Code(s): 082493995 Plan: 1patient with right diabetic foot infection and this patient likely have infected callus on the bottom of the right foot at the base of the second toe with involvement of the second toe and did have a cellulitis on the dorsal aspect of the right foot likely will need to cover for the polymicrobial alfreda a s stated with diabetic foot infection x-rays were negative however need to rule out deep infection. Patient recently did have admission to the hospital with left second toe osteomyelitis culture positive for Enterococcus faecalis that was sensitive to penicillin. 2local culture currently growing drug-resistant Enterobacter bone scan is currently pending 3we will discontinue Unasyn start the patient on cefepime await bone scan, will likely need IV antibiotics keeping in mind the sensitivity of this pathogen Dictation was produced using [employer] dictation software. please excuse any grammatical, word or spelling errors. Time with Patient: Less than 30
[2024-04-28 07:06] LABS: Glucose,Whole Blood 134 mg/dL (70-110)
[2024-04-28 09:29] LABS: BUN/Creat Ratio 16.12 Ratio (12.00-20.00); Blood Urea Nitrogen 27.4 mg/dL (9.0-27.0); Calcium 8.1 mg/dL (8.7-10.3); Carbon Dioxide 22.6 mmol/L (21.6-31.8); Chloride 104 mmol/L (96-109); Glucose 134 mg/dL (70-110); Potassium 3.8 mmol/L (3.5-5.5); Sodium 139 mmol/L (135-145)
[2024-04-28 09:34] LABS: HCT 36.7 % (39.6-50.0); HGB 12.5 g/dL (13.0-17.0); MCHC 34.1 g/dL (32.0-37.0); MCV 91.1 FL (80.0-97.0); Mean Platelet Volume 9.8 FL (9.5-12.2); NRBC Per 100 WBC 0 X 10*3/uL (0.00-0.01); Platelet Count 226 X 10*3/uL (140-440); RBC 4.03 X 10*6/uL (4.40-5.60); RDW 13.1 % (11.5-14.5); WBC 4.84 X 10*3/uL (4.50-10.00)
--- NOTE | 2024-04-28 11:00 | P.GSCN ---
History of Present Illness Consult date: 04/28/24 Reason for Consult: Right foot osteomyelitis Requesting physician: Joon Rain History of present illness: This is a pleasant 73-year-old man known to vascular surgery with a history of peripheral vascular disease, diabetes mellitus, and nonhealing lower extremity wounds. He was recommended come to the emergency department for concerns of right foot infection. He underwent a bone scan reporting possible osteomyelitis in the second and third toes on the right foot. Vascular surgery was consulted for osteomyelitis. He was recently seen in the office with Dr. Baron. He had a recent lower extremity angiogram with decreased blood flow bilaterally below popliteal. Apparently about a week ago patient states he had gone hunting he had noticed that his right toe was sore. Continue to get worse then he noted that there was some redness. He was seen at the [facility] where they started him on some oral antibiotics. He then had a follow-up appointment with Dr. Johnson who sent him in for further evaluation and IV antibiotics. He has been seen by infectious disease started on IV antibiotics. Wound cultures growing Enterobacter Cloacae. Patient states his foot is improving. Redness and swelling improving. He is currently on IV cefepime. patient has been afebrile. Patient denies any shortness of breath, chest pain, abdominal pain, nausea or vomiting. No fever, chills, or bodyaches. Review of Systems A 14 point review systems was completed all pertinent positives and negatives as stated in the HPI. Past Medical History Past Medical History: Cancer, CVA/TIA, Diabetes Mellitus, Myocardial Infarction ([place]), Skin Disorder Additional Past Medical History / Comment(s): prostate cancer, melenoma, Last Myocardial Infarction Date:: 2011 History of Any Multi-Drug Resistant Organisms: None Reported Past Surgical History: Heart Catheterization With Stent Additional Past Surgical History / Comment(s): Tripple bypass, 2 heart attacks, 4 stents that failed, radical prostectomy, skin cancer removal, Past Anesthesia/Blood Transfusion Reactions: No Reported Reaction Date of Last Stent Placement:: 2011 Past Psychological History: No Psychological Hx Reported Smoking Status: Never smoker Past Alcohol Use History: Daily Past Drug Use History: None Reported Medications and Allergies Home Medications Medication Instructions Recorded Confirmed Type Apixaban [Eliquis] 5 mg PO BID 01/02/24 04/24/24 History Aspirin EC [Ecotrin Low Dose] 81 mg PO DAILY 01/02/24 04/24/24 History Atorvastatin [Lipitor] 80 mg PO HS 01/02/24 04/24/24 History Empagliflozin [Jardiance] 25 mg PO DAILY 01/02/24 04/24/24 History Mirabegron [Myrbetriq] 50 mg PO DAILY 01/02/24 04/24/24 History PARoxetine [Paxil] 10 mg PO DAILY 01/02/24 04/24/24 History Amoxic-Pot Clav 875-125Mg 1 tab PO BID 04/24/24 04/24/24 History [Augmentin 875-125] Insulin Glargine,Hum.rec.anlog 10 units SQ HS 04/24/24 04/24/24 History [Lantus Solostar Pen] Metoprolol Tartrate [Lopressor] 25 mg PO BID 04/24/24 04/24/24 History glipiZIDE [Glucotrol] 5 mg PO BID-W/MEALS 04/24/24 04/24/24 History hydroCHLOROthiazide 12.5 mg PO DAILY 04/24/24 04/24/24 History Allergies Allergy/AdvReac Type Severity Reaction Status Date / Time No Known Allergies Allergy Verified 04/24/24 17:31 Surgical - Exam Vital Signs Temp Pulse Resp BP Pulse Ox 98.6 F 85 18 135/83 99 04/24/24 16:16 04/24/24 16:16 04/24/24 16:16 04/24/24 16:16 04/24/24 16:16 General appearance: The patient is alert, oriented, appears in no acute distre ss. HET: Head is normocephalic and atraumatic. Pupils are equal and reactive. Neck: Supple. Heart: Regular. Lungs: Equal expansion, normal respiratory effort. Abdomen: Soft, nontender, nondistended. Extremities: Right foot with cellulitis, second toe wounds, with cracking between first and second and second and third toes. Callus on plantar aspect but needs second toe, does not appear infected. Good capillary refill. PT Doppler signal. Left foot previous wound healed. Neurological: No focal deficits. Strength and sensation are grossly intact. Results - Labs 04/28/24 05:00 04/28/24 05:00 Abnormal Lab Results - Last 24 Hours (Table) 04/27/24 04/27/2404/27/24 Range/Units 04:27 12:06 17:02 Anion Gap 13.00 H (4.00-12.00) mmol/L BUN 27.9 H (9.0-27.0) mg/dL Creatinine 1.8 H (0.6-1.5) mg/dL Est GFR (CKD-EPI) 39 L (>=60) Glucose 197 H (70-110) mg/dL POC Glucose (mg/dL) 157 H 173 H (70-110) mg/dL Calcium 8.1 L (8.7-10.3) mg/dL 04/27/24 04/28/24 Range/Units 20:16 07:05 Anion Gap (4.00-12.00) mmol/L BUN (9.0-27.0) mg/dL Creatinine (0.6-1.5) mg/dL Est GFR (CKD-EPI) (>=60) Glucose (70-110) mg/dL POC Glucose (mg/dL) 183 H 134 H (70-110) mg/dL Calcium (8.7-10.3) mg/dL Microbiology - Last 24 Hours (Table) 04/24/24 17:45 Blood Culture - Preliminary Blood 04/24/24 17:40 Anaerobic Culture - Preliminary Foot - Right 04/24/24 17:40 Gram Stain - Final Foot - Right Wound Culture - Final Enterobacter cloacae Diabetes panel 04/27/24 Range/Units 04:27 Sodium 140 (135-145) mmol/L Potassium 3.7 (3.5-5.5) mmol/L Chloride 105 (96-109) mmol/L Carbon Dioxide 22.0 (21.6-31.8) mmol/L BUN 27.9 H (9.0-27.0) mg/dL Creatinine 1.8 H (0.6-1.5) mg/dL Glucose 197 H (70-110) mg/dL Calcium 8.1 L (8.7-10.3) mg/dL Calcium panel 04/27/24 Range/Units 04:27 Calcium 8.1 L (8.7-10.3) mg/dL Pituitary panel 04/27/24 Range/Units 04:27 Sodium 140 (135-145) mmol/L Potassium 3.7 (3.5-5.5) mmol/L Chloride 105 (96-109) mmol/L Carbon Dioxide 22.0 (21.6-31.8) mmol/L BUN 27.9 H (9.0-27.0) mg/dL Creatinine 1.8 H (0.6-1.5) mg/dL Glucose 197 H (70-110) mg/dL Calcium 8.1 L (8.7-10.3) mg/dL Adrenal panel 04/27/24 Range/Units 04:27 Sodium 140 (135-145) mmol/L Potassium 3.7 (3.5-5.5) mmol/L Chloride 105 (96-109) mmol/L Carbon Dioxide 22.0 (21.6-31.8) mmol/L BUN 27.9 H (9.0-27.0) mg/dL Creatinine 1.8 H (0.6-1.5) mg/dL Glucose 197 H (70-110) mg/dL Calcium 8.1 L (8.7-10.3) mg/dL - Imaging Comments: Three-phase bone scan reports positive bone scan with findings at the distal aspect of the first and second digits of the right foot. Raises possibility of osteomyelitis. Assessment and Plan Assessment: 1. Right foot diabetic infection 2. Cellulitis right foot 3. Possible osteomyelitis second/third toes right foot 4. Peripheral arterial disease 5. Diabetes mellitus Plan: 1. Continue with antibiotics per recommendations from infectious disease 2. No plans on any vascular surgical intervention at this time 3. Recommend continued local wound care 4. Recommend outpatient follow-up with vascular surgery in a couple weeks Thank you for this consultation, we will continue to follow. The impression and plan of care has been dictated as directed. Dr. Baron I performed a history and examination of this patient, discussed the same with the dictator. I agree with the dictator's note ,documented as a scribe. Any additional findings or plans will be noted.
--- NOTE | 2024-04-28 11:12 | P.CONS ---
History of Present Illness - Reason for Consult Consult date: 04/28/24 wound care - History of Present Illness This is a pleasant 73-year-old man known to wound care with Dr. Johnson with a history of peripheral vascular disease, diabetes mellitus, and nonhealing lower extremity wounds. He was recommended come to the emergency department for concerns of right foot infection. He underwent a bone scan reporting possible osteomyelitis in the second and third toes on the right foot. Patient has a right plantar ulceration measuring approximately 0.5 x 0.4 x 0.3 cm with undermining noted no tunneling. Slough and nonviable tissue present with minimal granulation seen to the wound bed. Patient also has excoriation and multiple abrasions to the dorsal foot related to swelling and drainage. The distal third digit shows ecchymosis edema and deformity. Review Of Systems: Constitutional: No fever, no chills, no night sweats. No weight change. No weakness, fatigue or lethargy. No daytime sleepiness. Integumentary:reports wounds, no lesions. No rash or pruritus. No unusual bruising. No change in hair or nails. Physical exam: General Appearance: Alert, cooperative, no distress, appears stated age. Skin: See HPI all other Skin color, texture, tugor normal, no rashes or lesions. Neurologic: Alert oriented x3 Assessment: 1. Nonhealing ulceration with bone involvement without necrosis 2. Diabetic foot ulcer 3. Osteomyelitis Plan: 1.Right plantar foot apply absorptive silver, saline moist gauze, dry gauze, rolled gauze and secure with paper tape. Right dorsal foot apply zinc barrier cream. Change Saturday. Patient would benefit from advanced wound care and wound care setting. Would be happy to see him upon discharge. Thank for the consultation any questions please contact the wound care center DNP note has been reviewed and discussed with Dr. Aguilar and the impression and plan of care has been directed as dictated. Past Medical History Past Medical History: Cancer, CVA/TIA, Diabetes Mellitus, Myocardial Infarction ([place]), Skin Disorder Additional Past Medical History / Comment(s): prostate cancer, melenoma, Last Myocardial Infarction Date:: 2011 History of Any Multi-Drug Resistant Organisms: None Reported Past Surgical History: Heart Catheterization With Stent Additional Past Surgical History / Comment(s): Tripple bypass, 2 heart attacks, 4 stents that failed, radical prostectomy, skin cancer removal, Past Anesthesia/Blood Transfusion Reactions: No Reported Reaction Date of Last Stent Placement:: 2011 Past Psychological History: No Psychological Hx Reported Smoking Status: Never smoker Past Alcohol Use History: Daily Past Drug Use History: None Reported Medications and Allergies Home Medications Medication Instructions Recorded Confirmed Type Apixaban [Eliquis] 5 mg PO BID 01/02/24 04/24/24 History Aspirin EC [Ecotrin Low Dose] 81 mg PO DAILY 01/02/24 04/24/24 History Atorvastatin [Lipitor] 80 mg PO HS 01/02/24 04/24/24 History Empagliflozin [Jardiance] 25 mg PO DAILY 01/02/24 04/24/24 History Mirabegron [Myrbetriq] 50 mg PO DAILY 01/02/24 04/24/24 History PARoxetine [Paxil] 10 mg PO DAILY 01/02/24 04/24/24 History Amoxic-Pot Clav 875-125Mg 1 tab PO BID 04/24/24 04/24/24 History [Augmentin 875-125] Insulin Glargine,Hum.rec.anlog 10 units SQ HS 04/24/24 04/24/24 History [Lantus Solostar Pen] Metoprolol Tartrate [Lopressor] 25 mg PO BID 04/24/24 04/24/24 History glipiZIDE [Glucotrol] 5 mg PO BID-W/MEALS 04/24/24 04/24/24 History hydroCHLOROthiazide 12.5 mg PO DAILY 04/24/24 04/24/24 History Allergies Allergy/AdvReac Type Severity Reaction Status Date / Time No Known Allergies Allergy Verified 04/24/24 17:31 Physical Exam Vitals: Vital Signs Temp Pulse Resp BP Pulse Ox 04/28/24 07:01 98 F 56 L 16 142/79 97 04/28/24 02:00 98.5 F 50 L 14 122/60 98 04/27/24 20:59 63 04/27/24 20:00 98.0 F 48 L 14 170/67 99 04/27/24 12:00 98.5 F 77 16 132/77 96 Intake and Output 04/27/24 04/28/24 04/28/24 22:59 06:59 14:59 Intake Total 540 Balance 540 Intake: Oral 540 Other: Voiding Method Toilet # Voids 2 Results CBC & Chem 7: 04/28/24 05:00 04/28/24 05:00 Labs: Abnormal Lab Results - Last 24 Hours (Table) 04/27/24 04/27/24 04/27/24 Range/Units 12:06 17:02 20:16 RBC (4.40-5.60) X 10*6/uL Hgb (13.0-17.0) g/dL Hct (39.6-50.0) % Anion Gap (4.00-12.00) mmol/L BUN (9.0-27.0) mg/dL Creatinine (0.6-1.5) mg/dL Est GFR (CKD-EPI) (>=60) Glucose (70-110) mg/dL POC Glucose (mg/dL) 157 H 173 H 183 H (70-110) mg/dL Calcium (8.7-10.3) mg/dL 04/28/24 04/28/24 04/28/24 Range/Units 05:00 05:00 07:05 RBC 4.03 L (4.40-5.60) X 10*6/uL Hgb 12.5 L (13.0-17.0) g/dL Hct 36.7 L (39.6-50.0) % Anion Gap 12.40 H (4.00-12.00) mmol/L BUN 27.4 H (9.0-27.0) mg/dL Creatinine 1.7 H (0.6-1.5) mg/dL Est GFR (CKD-EPI) 42 L (>=60) Glucose 134 H (70-110) mg/dL POC Glucose (mg/dL) 134 H (70-110) mg/dL Calcium 8.1 L (8.7-10.3) mg/dL Microbiology - Last 24 Hours (Table) 04/24/24 17:45 Blood Culture - Preliminary Blood 04/24/24 17:40 Anaerobic Culture - Preliminary Foot - Right 04/24/24 17:40 Gram Stain - Final Foot - Right Wound Culture - Final Enterobacter cloacae Assessment and Plan (1) Non-pressure chronic ulcer of other part of right foot with necrosis of bone Current Visit: Yes Status: Acute Code(s): L97.514 - NON-PRS CHRONIC ULCER OTH PRT RIGHT FOOT W NECROSIS OF BONE SNOMED Code(s): 47524962900256107 (2) Osteomyelitis Current Visit: No Status: Acute Code(s): M86.9 - OSTEOMYELITIS, UNSPECIFIED SNOMED Code(s): 69392967 (3) Type 2 diabetes mellitus with foot ulcer Current Visit: No Status: Acute Code(s): E11.621 - TYPE 2 DIABETES MELLITUS WITH FOOT ULCER; L97.509 - NON-PRESSURE CHRONIC ULCER OTH PRT UNSP FOOT W UNSP SEVERITY SNOMED Code(s): 7516818619953
[2024-04-28 12:03] LABS: Glucose,Whole Blood 158 mg/dL (70-110)
[2024-04-28] MEDS: ZINC OXIDE PASTE (Z-GUARD) 1 APPLIC TOPICAL SCH (13:10)
--- NOTE | 2024-04-28 13:32 | P.PN ---
Subjective Progress Note Date: 04/28/24 Patient is a 73-year-old male with a history of insulin-dependent type 2 diabetes, osteomyelitis of left second toe, CAD (OH x 3 with CABG x 3 caths x 4 that failed), A-fib (on Eliquis 5 mg p.o. twice daily), CKD IIIB, CVA, who came in for assessment of right foot ulcer. Patient recalled 1 year ago he had a nail go through his shoe that injured his right second MTP joint that healed on its own. However on Thursday 04/19, patient noticed foot ulcer on his right foot that started to become red. He was not aware of the ulcer as he did not feel any pain. The following day on 04/20, he sought care from his PCP and prescribed him antibiotics and sent him for podiatry referral. Today, he was sent to the ER by tar leveler for further evaluation and for IV antibiotics for the the right foot ulcer. He denied fever, cough, chills, sweats, shortness of breath, or calf pain. In the emergency room, x-ray of foot is negative for fractures, dislocation, or signs of osteomyelitis. WBC 6.5, hemoglobin 14.8, platelet count 245, sodium 137, potassium 4.3, BUN 36, creatinine 1.8, glucose 236, lactic 1, bilirubin 0.8, AST 32, ALT 23, alk phos 190, albumin 4.5. On admission patient was afebrile at 98.6 Fahrenheit heart rate 85 respiratory rate 18 BP 135/83 oxygen saturation 99% on room air. Patient continued on IV antibiotics. Bone scan showed possibility of osteomyelitis. Vascular surgery not recommending any intervention. Subjective: Patient seen and examined at bedside. No acute events overnight. Review of systems: Pertinent positives and negatives as discussed in HPI, a complete review of systems was performed and all other systems are negative. Physical examination: Vital signs reviewed General: non toxic, no distress, appears at stated age, normal weight Derm: no unusual rashes/lesions, warm Head: atraumatic, normocephalic, symmetric Eyes: EOMI, no lid lag, anicteric sclera, pupils equal round reactive to light ENT: Nose and ears atraumatic Neck: No cervical lymphadenopathy, trachea midline, supple Mouth: no lip lesion, mucus membranes moist Cardiovascular: S1S2 reg, no murmur Lungs: CTA bilateral, no rhonchi, no rales, no accessory muscle use Abdominal: soft, nontender to palpation, no guarding Ext: muscle strength 5 out of 5 in all 4 extremities grossly, no gross muscle atrophy, range of motion intact for all extremities no contractures, positive dorsalis pedis pulse bilateral, no edema, ulcerated wound below second toe and plantar area with purulent base with discharge, erythema on dorsal area of the right foot that spreads to the toes, dried healed ulcerated wound on right first toe, no crepitus of the right foot Neuro: CN II-XI grossly intact, no gross focal neuro deficits Psych: Alert, oriented, appropriate affect and mood Labs reviewed today WBC 4.84, hemoglobin 12.5, creatinine 1.7, blood sugars range between 1 34-1 83 Assessment/Plan: R foot diabetic ulcer with surrounding cellulitis Osteomyelitis -Started on cefepime 2 g IV every 12 hours -Discussed management with ID, 6 weeks of IV antibiotics, PICC line pending -Tylenol 650 mg p.o. every 6 hours as needed for fever and pain -Wound care following -Vascular surgery note reviewed, no interventions planned Insulin-dependent diabetes mellitus -Continue sliding scale insulin ACH S, monitor for hypoglycemia -Continue long-acting Levemir 10 units daily - HbA1c 7.9 CKD stage IIIb, at baseline -BMP at a.m. Chronic: A-fib, controlled - Eliquis 5 mg p.o. twice daily, Lopressor 25 mg p.o. twice daily History of CVA - Lipitor 80 mg p.o. OD, aspirin 81 mg p.o. OD Depression-paroxetine 10 mg daily DVT prophylaxis: Eliquis 5 mg p.o. twice daily Discussed with: Patient Anticipated discharge place: Home Anticipated discharge time: Pending clinical course Objective - Vital Signs Vital signs: Vital Signs Temp 97.7 F 04/28/24 11:56 Pulse 76 04/28/24 11:56 Resp 16 04/28/24 11:56 BP 115/66 04/28/24 11:56 Pulse Ox 97 04/28/24 11:56 FiO2 Intake & Output 04/27/24 04/28/24 04/28/24 18:59 06:59 18:59 Intake Total 540 Balance 540 Intake: Oral 540 Other: Voiding Method Toilet # Voids 2 - Labs CBC & Chem 7: 04/28/24 05:00 04/28/24 05:00 Labs: Abnormal Lab Results - Last 24 Hours (Table) 04/27/24 04/27/24 04/28/24 Range/Units 17:02 20:16 05:00 RBC 4.03 L (4.40-5.60) X 10*6/uL Hgb 12.5 L (13.0-17.0) g/dL Hct 36.7 L (39.6-50.0) % Anion Gap (4.00-12.00) mmol/L BUN (9.0-27.0) mg/dL Creatinine (0.6-1.5) mg/dL Est GFR (CKD-EPI) (>=60) Glucose (70-110) mg/dL POC Glucose (mg/dL) 173 H 183 H (70-110) mg/dL Calcium (8.7-10.3) mg/dL 04/28/24 04/28/24 04/28/24 Range/Units 05:00 07:05 12:02 RBC (4.40-5.60) X 10*6/uL Hgb (13.0-17.0) g/dL Hct (39.6-50.0) % Anion Gap 12.40 H (4.00-12.00) mmol/L BUN 27.4 H (9.0-27.0) mg/dL Creatinine 1.7 H (0.6-1.5) mg/dL Est GFR (CKD-EPI) 42 L (>=60) Glucose 134 H (70-110) mg/dL POC Glucose (mg/dL) 134 H 158 H (70-110) mg/dL Calcium 8.1 L (8.7-10.3) mg/dL Microbiology - Last 24 Hours (Table) 04/24/24 17:45 Blood Culture - Preliminary Blood 04/24/24 17:40 Anaerobic Culture - Preliminary Foot - Right 04/24/24 17:40 Gram Stain - Final Foot - Right Wound Culture - Final Enterobacter cloacae
--- NOTE | 2024-04-28 16:07 | P.PN ---
Subjective Progress Note Date: 04/28/24 Principal diagnosis: Reason for follow-up is right diabetic foot infection Patient is a 73-year-old male with a past medical history significant for diabetes mellitus CVA TIA [place] prostate cancer and melanoma recently treated for left second toe osteomyelitis secondary to Enterococcus faecalis presented to the hospital with right second toe and foot swelling redness being admitted to hospital for diabetic foot infection and cellulitis. On today's evaluation that is 04/28/2024, Patient is afebrile patient is currently on room air and denies having any shortness of breath, the patient denies any chest pain or cough, the patient denies any nausea vomiting did not have any abdominal pain and no diarrhea, denies pain to the right foot. Patient white count is 4.84, creatinine is 1.7 blood culture has been negative both scan has been suspicious for osteomyelitis Objective - Vital Signs Vital signs: Vital Signs Temp 97.8 F 04/28/24 13:48 Pulse 60 04/28/24 13:48 Resp 18 04/28/24 13:48 BP 136/85 04/28/24 13:48 Pulse Ox 99 04/28/24 13:48 FiO2 Intake & Output 04/27/24 04/28/24 04/28/24 18:59 06:59 18:59 Intake Total 540 Balance 540 Intake: Oral 540 Other: Voiding Method Toilet # Voids 2 - Exam GENERAL DESCRIPTION: An elderly male lying in bed in no distress RESPIRATORY SYSTEM: Unlabored breathing , decreased breath sounds at bases HEART: S1 S2 regular rate and rhythm , ABDOMEN: Soft , no tenderness EXTREMITIES: Right second toe as well as redness on the dorsum aspect of the right foot is decreased - Labs CBC & Chem 7: 04/28/24 05:00 04/28/24 05:00 Labs: Abnormal Lab Results - Last 24 Hours (Table) 04/27/24 04/27/24 04/28/24 Range/Units 17:02 20:16 05:00 RBC 4.03 L (4.40-5.60) X 10*6/uL Hgb 12.5 L (13.0-17.0) g/dL Hct 36.7 L (39.6-50.0) % Anion Gap (4.00-12.00) mmol/L BUN (9.0-27.0) mg/dL Creatinine (0.6-1.5) mg/dL Est GFR (CKD-EPI) (>=60) Glucose (70-110) mg/dL POC Glucose (mg/dL) 173 H 183 H (70-110) mg/dL Calcium (8.7-10.3) mg/dL 04/28/24 04/28/24 04/28/24 Range/Units 05:00 07:05 12:02 RBC (4.40-5.60) X 10*6/uL Hgb (13.0-17.0) g/dL Hct (39.6-50.0) % Anion Gap 12.40 H (4.00-12.00) mmol/L BUN 27.4 H (9.0-27.0) mg/dL Creatinine 1.7 H (0.6-1.5) mg/dL Est GFR (CKD-EPI) 42 L (>=60) Glucose 134 H (70-110) mg/dL POC Glucose (mg/dL) 134 H 158 H (70-110) mg/dL Calcium 8.1 L (8.7-10.3) mg/dL Microbiology - Last 24 Hours (Table) 04/24/24 17:45 Blood Culture - Preliminary Blood 04/24/24 17:40 Anaerobic Culture - Preliminary Foot - Right 04/24/24 17:40 Gram Stain - Final Foot - Right Wound Culture - Final Enterobacter cloacae Assessment and Plan (1) Diabetic ulcer of right foot Current Visit: Yes Status: Acute Code(s): E11.621 - TYPE 2 DIABETES MELLITUS WITH FOOT ULCER; L97.519 - NON-PRS CHRONIC ULCER OTH PRT RIGHT FOOT W UNSP SEVERITY SNOMED Code(s): 716019405 (2) Failure of outpatient treatment Current Visit: Yes Status: Acute Code(s): Z78.9 - OTHER SPECIFIED HEALTH STATUS SNOMED Code(s): 786731958 Plan: 1patient with right diabetic foot infection and this patient likely have infec magdy callus on the bottom of the right foot at the base of the second toe with involvement of the second toe and did have a cellulitis on the dorsal aspect of the right foot likely will need to cover for the polymicrobial alfreda as stated with diabetic foot infection x-rays were negative however need to rule out deep infection. Patient recently did have admission to the hospital with left second toe osteomyelitis culture positive for Enterococcus faecalis that was sensitive to penicillin. 2local culture currently growing drug-resistant Enterobacter bone scan is suspicious for osteomyelitis 3patient to get a PICC line plan is for 6-week course of IV cefepime 2 g every 12 hours and close outpatient follow-up discussed with the admitting physician working on discharge Dictation was produced using [employer] dictation software. please excuse any grammatical, word or spelling errors. Time with Patient: Less than 30
[2024-04-28 17:07] LABS: Glucose,Whole Blood 223 mg/dL (70-110)
--- NOTE | 2024-04-28 18:07 | P.NPCON ---
History of Present Illness - Reason for Consult chronic renal failure - History of Present Illness Patient is a 73-year-old male with chronic kidney disease stage IIIb with baseline creatinine around 1.6 mg/dL. Patient recently moved from [place] about 4 months ago. He stated that he had seen a bell valet in [place] previously. Patient was admitted to the hospital with right foot ulcer and is currently being treated for cellulitis and osteomyelitis. Patient needs a PICC line for outpatient antibiotics and therefore nephrology was consulted. Serum creatinine has been staying 1.6 to 1.8 mg/dL since December 2023. No significant urinary symptoms. No hypotension noted. Maintained on cefepime. Wound culture is growing Enterobacter cloacae. Past Medical History Past Medical History: Cancer, CVA/TIA, Diabetes Mellitus, Myocardial Infarction ([place]), Skin Disorder Additional Past Medical History / Comment(s): prostate cancer, melenoma, Last Myocardial Infarction Date:: 2011 History of Any Multi-Drug Resistant Organisms: None Reported Past Surgical History: Heart Catheterization With Stent Additional Past Surgical History / Comment(s): Tripple bypass, 2 heart attacks, 4 stents that failed, radical prostectomy, skin cancer removal, Past Anesthesia/Blood Transfusion Reactions: No Reported Reaction Date of Last Stent Placement:: 2011 Past Psychological History: No Psychological Hx Reported Smoking Status: Never smoker Past Alcohol Use History: Daily Past Drug Use History: None Reported Medications and Allergies Home Medications Medication Instructions Recorded Confirmed Type Apixaban [Eliquis] 5 mg PO BID 01/02/24 04/24/24 History Aspirin EC [Ecotrin Low Dose] 81 mg PO DAILY 01/02/24 04/24/24 History Atorvastatin [Lipitor] 80 mg PO HS 01/02/24 04/24/24 History Empagliflozin [Jardiance] 25 mg PO DAILY 01/02/24 04/24/24 History Mirabegron [Myrbetriq] 50 mg PO DAILY 01/02/24 04/24/24 History PARoxetine [Paxil] 10 mg PO DAILY 01/02/24 04/24/24 History Amoxic-Pot Clav 875-125Mg 1 tab PO BID 04/24/24 04/24/24 History [Augmentin 875-125] Insulin Glargine,Hum.rec.anlog 10 units SQ HS 04/24/24 04/24/24 History [Lantus Solostar Pen] Metoprolol Tartrate [Lopressor] 25 mg PO BID 04/24/24 04/24/24 History glipiZIDE [Glucotrol] 5 mg PO BID-W/MEALS 04/24/24 04/24/24 History hydroCHLOROthiazide 12.5 mg PO DAILY 04/24/24 04/24/24 History Cefepime [Maxipime] 2 gm IVPB Q12H #70 each 04/28/24 Rx Allergies Allergy/AdvReac Type Severity Reaction Status Date / Time No Known Allergies Allergy Verified 04/24/24 17:31 Physical Exam Vitals: Vital Signs Temp Pulse Resp BP BP Pulse Ox 04/28/24 17:37 44 L 18 142/68 99 04/28/24 13:48 97.8 F 60 18 136/85 99 04/28/24 11:56 97.7 F 76 16 115/66 97 04/28/24 07:01 98 F 56 L 16 142/79 97 04/28/24 02:00 98.5 F 50 L 14 122/60 98 04/27/24 20:59 63 04/27/24 20:00 98.0 F 48 L 14 170/67 99 Intake and Output 04/28/24 04/28/24 04/28/24 06:59 14:59 22:59 Intake Total 540 Balance 540 Intake: Oral 540 Other: # Voids 1 On examination patient is awake, comfortable, alert oriented x 3. No acute distress. Examination of the heart S1 and S2 Examination of the lungs bilateral breath sounds are heard Abdomen is soft nontender Examination of lower extremity shows no significant edema. Right foot is wrapped Results - Lab Results Most recent lab results Calcium 8.1 mg/dL (8.7-10.3) L 04/28/24 05:00 04/28/24 05:00 04/28/24 05:00 Assessment and Plan Assessment: 1. Chronic kidney disease stage IIIb with baseline creatinine 1.6 to 1.8 mg/dL, most likely secondary to diabetic kidney disease and nephrosclerosis. UA is not available. Ultrasound of the kidneys in December 2023 was unremarkable. 2. Right foot diabetic ulcer with osteomyelitis maintained on cefepime with plans for PICC line for outpatient antibiotics 3. Hypertension 4. Type 2 diabetes, maintained on insulin 5. Coronary artery disease with history of coronary stents and coronary artery bypass surgery Plan: Okay to proceed with PICC line Check UA Check ultrasound of the kidneys. Patient will need outpatient follow-up for CKD Thank you for the consultation. We will continue to follow the patient with you.
[2024-04-28 20:13] LABS: Glucose,Whole Blood 151 mg/dL (70-110)
[2024-04-28] MEDS: INSULIN DETEMIR (LEVEMIR) 100 UNIT/ML SYR SQ SCH (20:44)
[2024-04-28 21:28] LABS: Appearance,Urine Clear (Clear); Bilirubin,Urine Negative (Negative); Blood,Urine Negative (Negative); Color,Urine Colorless; Glucose,Urine (UA) 4+ (Negative); Ketones,Urine Negative (Negative); Leukocyte Esterase,Urine Negative (Negative); Nitrite,Urine Negative (Negative); PH, Urine 5.5 (5.0-8.0); Protein,Urine Trace (Negative); Specific Gravity,Urine 1.021 (1.001-1.035); Urobilinogen,Urine <2.0 mg/dL (<2.0)
[2024-04-29 07:01] LABS: Glucose,Whole Blood 118 mg/dL (70-110)
--- NOTE | 2024-04-29 10:09 | P.PN ---
Subjective Progress Note Date: 04/29/24 Principal diagnosis: Right diabetic foot wound Patient is seen and examined today as a follow-up. He is without any complaints. He was seen by nephrology who cleared him for PICC line placement. He is scheduled to get a PICC line placed today. Denies any fevers, chills, body aches. Objective - Vital Signs Vital signs: Vital Signs Temp 98.4 F 04/29/24 07:01 Pulse 50 L 04/29/24 07:01 Resp 18 04/29/24 07:01 BP 139/62 04/29/24 07:01 Pulse Ox 95 04/29/24 07:01 FiO2 Intake & Output 04/28/24 04/29/24 04/29/24 18:59 06:59 18:59 Other: Voiding Method Toilet # Voids 2 3 - Exam General appearance: The patient is alert, oriented, appears in no acute distress. HET: Head is normocephalic and atraumatic. Pupils are equal and reactive. Neck: Supple. Abdomen: Soft, nontender, nondistended. Extremities: Right foot with cellulitis. Dressing clean dry and intact. Good capillary refill. PT Doppler signal. Left foot previous wound healed. Neurological: No focal deficits. Strength and sensation are grossly intact. - Labs CBC & Chem 7: 04/28/24 05:00 04/28/24 05:00 Labs: Abnormal Lab Results - Last 24 Hours (Table) 04/28/24 04/28/24 04/28/24 Range/Units 05:00 05:00 12:02 RBC 4.03 L (4.40-5.60) X 10*6/uL Hgb 12.5 L (13.0-17.0) g/dL Hct 36.7 L (39.6-50.0) % Anion Gap 12.40 H (4.00-12.00) mmol/L BUN 27.4 H (9.0-27.0) mg/dL Creatinine 1.7 H (0.6-1.5) mg/dL Est GFR (CKD-EPI) 42 L (>=60) Glucose 134 H (70-110) mg/dL POC Glucose (mg/dL) 158 H (70-110) mg/dL Calcium 8.1 L (8.7-10.3) mg/dL Urine Protein (Negative) Urine Glucose (UA) (Negative) 04/28/24 04/28/24 04/28/24 Range/Units 17:06 20:12 20:45 RBC (4.40-5.60) X 10*6/uL Hgb (13.0-17.0) g/dL Hct (39.6-50.0) % Anion Gap (4.00-12.00) mmol/L BUN (9.0-27.0) mg/dL Creatinine (0.6-1.5) mg/dL Est GFR (CKD-EPI) (>=60) Glucose (70-110) mg/dL POC Glucose (mg/dL) 223 H 151 H (70-110) mg/dL Calcium (8.7-10.3) mg/dL Urine Protein Trace H (Negative) Urine Glucose (UA) 4+ H (Negative) 04/29/24 Range/Units 07:00 RBC (4.40-5.60) X 10*6/uL Hgb (13.0-17.0) g/dL Hct (39.6-50.0) % Anion Gap (4.00-12.00) mmol/L BUN (9.0-27.0) mg/dL Creatinine (0.6-1.5) mg/dL Est GFR (CKD-EPI) (>=60) Glucose (70-110) mg/dL POC Glucose (mg/dL) 118 H (70-110) mg/dL Calcium (8.7-10.3) mg/dL Urine Protein (Negative) Urine Glucose (UA) (Negative) Microbiology - Last 24 Hours (Table) 04/24/24 17:45 Blood Culture - Preliminary Blood Assessment and Plan Assessment: 1. Right foot diabetic infection 2. Cellulitis right foot 3. Possible osteomyelitis second/third toes right foot 4. Peripheral arterial disease 5. Diabetes mellitus Plan: 1. Continue with antibiotics per recommendations from infectious disease 2. No plans on any vascular surgical intervention at this time 3. Recommend continued local wound care 4. Recommend outpatient follow-up with vascular surgery in a couple weeks Thank you for this consultation, patient is cleared by vascular surgery for discharge. The impression and plan of care has been dictated as directed. Dr. Baron I performed a history and examination of this patient, discussed the same with the dictator. I agree with the dictator's note ,documented as a scribe. Any additional findings or plans will be noted.
--- NOTE | 2024-04-29 12:08 | P.DS ---
Providers Date of admission: 04/24/24 18:33 Expected date of discharge: 04/29/24 Attending physician: Joon Rain Consults: 04/24/24 18:41 Consult Physician Urgent Consulting Provider: Lashell Alexis Consult Reason/Comments: foot infection Do you want consulting provider notified?: Yes 04/27/24 14:51 Consult Physician Routine Consulting Provider: Patria Baron Consult Reason/Comments: right foot osteo Do you want consulting provider notified?: Yes 04/28/24 12:17 Consult Physician Routine Consulting Provider: Flako Frazier Consult Reason/Comments: picc arm clearance, GFR 42. Do you want consulting provider notified?: Yes Primary care physician: [facility] Hospital Course: Discharge Diagnosis: R foot diabetic ulcer with surrounding cellulitis Right foot osteomyelitis Insulin-dependent diabetes mellitus CKD stage IIIb, at baseline A-fib, controlled History of CVA Depression Hospital Course: Patient is a 73-year-old male with a history of insulin-dependent type 2 diabetes, osteomyelitis of left second toe, CAD ([place] x 3 with CABG x 3 caths x 4 that failed), A-fib (on Eliquis 5 mg p.o. twice daily), CKD IIIB, CVA, who came in for assessment of right foot ulcer. Patient recalled 1 year ago he had a nail go through his shoe that injured his right second MTP joint that healed on its own. However on Thursday 04/19, patient noticed foot ulcer on his right foot that started to become red. He was not aware of the ulcer as he did not feel any pain. The following day on 04/20, he sought care from his PCP and prescribed him antibiotics and sent him for podiatry referral. Today, he was sent to the ER by [facility] for further evaluation and for IV antibiotics for the the right foot ulcer. He denied fever, cough, chills, sweats, shortness of breath, or calf pain. In the emergency room, x-ray of foot is negative for fractures, dislocation, or signs of osteomyelitis. WBC 6.5, hemoglobin 14.8, platelet count 245, sodium 137, potassium 4.3, BUN 36, creatinine 1.8, glucose 236, lactic 1, bilirubin 0.8, AST 32, ALT 23, alk phos 190, albumin 4.5. On admission patient was afebrile at 98.6 Fahrenheit heart rate 85 respiratory rate 18 BP 135/83 oxygen saturation 99% on room air. Patient continued on IV antibiotics. Bone scan showed possibility of osteomyelitis. Vascular surgery not recommending any intervention. Patient being discharged on IV cefepime for 6 weeks. Follow-up with PCP, vascular surgery and ID. He will also need to see nephrology in the future. Patient seen and examined at bedside. Vital signs reviewed and stable. General: Nontoxic, no distress, appears at stated age Derm: Warm, dry, right foot covered in dressing clean, dry, intact Head: Atraumatic, normocephalic, symmetric Eyes: EOMI, no lid lag, anicteric sclera Mouth: No lip lesion, mucus membranes moist Cardiovascular: S1S2 reg, no murmur Lungs: CTA bilateral, no rhonchi, no rales, no accessory muscle use Abdominal: Soft, nontender to palpation, no guarding, no appreciable organomegaly Ext: No gross muscle atrophy, no edema, no contractures Neuro: CN II-XI grossly intact, no focal neuro deficits Psych: Alert, oriented, appropriate affect A total of 32 minutes of time were spent preparing this complex discharge summary. Patient was discharged on 04/29/2024 at 1049. Patient Condition at Discharge: Stable Plan - Discharge Summary Discharge Rx Participant: No New Discharge Prescriptions: New Cefepime [Maxipime] 2 gm IVPB Q12H #70 each Continue PARoxetine [Paxil] 10 mg PO DAILY Mirabegron [Myrbetriq] 50 mg PO DAILY Atorvastatin [Lipitor] 80 mg PO HS Apixaban [Eliquis] 5 mg PO BID hydroCHLOROthiazide 12.5 mg PO DAILY Insulin Glargine,Hum.rec.anlog [Lantus Solostar Pen] 10 units SQ HS Metoprolol Tartrate [Lopressor] 25 mg PO BID Empagliflozin [Jardiance] 25 mg PO DAILY Aspirin EC [Ecotrin Low Dose] 81 mg PO DAILY glipiZIDE [Glucotrol] 5 mg PO BID-W/MEALS Discontinued Amoxic-Pot Clav 875-125Mg [Augmentin 875-125] 1 tab PO BID Discharge Medication List Apixaban [Eliquis] 5 mg PO BID 01/02/24 [History] Aspirin EC [Ecotrin Low Dose] 81 mg PO DAILY 01/02/24 [History] Atorvastatin [Lipitor] 80 mg PO HS 01/02/24 [History] Empagliflozin [Jardiance] 25 mg PO DAILY 01/02/24 [History] Mirabegron [Myrbetriq] 50 mg PO DAILY 01/02/24 [History] PARoxetine [Paxil] 10 mg PO DAILY 01/02/24 [History] Insulin Glargine,Hum.rec.anlog [Lantus Solostar Pen] 10 units SQ HS 04/24/24 [History] Metoprolol Tartrate [Lopressor] 25 mg PO BID 04/24/24 [History] glipiZIDE [Glucotrol] 5 mg PO BID-W/MEALS 04/24/24 [History] hydroCHLOROthiazide 12.5 mg PO DAILY 04/24/24 [History] Cefepime [Maxipime] 2 gm IVPB Q12H #70 each 04/28/24 [Rx] Follow up Appointment(s)/Referral(s): Patria Baron DO [STAFF PHYSICIAN] - 05/13/24 1:45 pm [facility], [NON-STAFF] - As Needed (HOME CARE STAFF WILL CONTACT YOU WITH TIME THEY WILL ARRIVE FOR START OF CARE) [facility], [REFERRING] - 04/29/24 6:00 pm (DELIVERY TONIGHT BETWEEN 6PM AND 8PM) Lashell Alexis MD [STAFF PHYSICIAN] - 05/06/24 3:45 pm [facility] [Primary Care Provider] - 05/07/24 3:00 pm Ambulatory/Diagnostic Orders: Basic Metabolic Panel [LAB.AMB] Location: None Selected C Reactive Protein [LAB.AMB] Location: None Selected Complete Blood Count w/diff [LAB.AMB] Location: None Selected Erythrocyte Sedimentation Rate [LAB.AMB] Location: None Selected Patient Instructions/Handouts: Cefepime (By injection), Osteomyelitis (DC), Foot Care for People with Diabetes (DC), Complete Blood Count (GEN), Basic Metabolic Panel (GEN), Diabetic Foot Ulcers (DC), Diabetes and Your Skin (DC), Chronic Wounds (DC) Activity/Diet/Wound Care/Special Instructions: Please see vascular surgeon, PCP, and ID. Discharge Disposition: HOME WITH HOME HEALTH SERVICES
[2024-04-29 12:27] LABS: Glucose,Whole Blood 171 mg/dL (70-110)
[2024-04-29 14:17] VITALS: BP 138/62; PULSE 67; RESP 16; TEMP 97.7
--- NOTE | 2024-04-30 14:57 | P.PN ---
Subjective Progress Note Date: 04/29/24 Principal diagnosis: Reason for follow-up is right diabetic foot infection Patient is a 73-year-old male with a past medical history significant for diabetes mellitus CVA TIA NE prostate cancer and melanoma recently treated for left second toe osteomyelitis secondary to Enterococcus faecalis presented to the hospital with right second toe and foot swelling redness being admitted to hospital for diabetic foot infection and cellulitis. On today's evaluation that is 04/29/2024, patient has been afebrile, patient is breathing comfortably and is currently on room air, patient denies having any significant cough no chest pain, patient denies nausea vomiting or diarrhea and no abdominal pain patient denies pain to his right foot and no further drainage. No new lab has been obtained today blood culture has been negative Objective - Vital Signs Vital signs: Vital Signs Temp 98.4 F 04/29/24 07:01 Pulse 50 L 04/29/24 07:01 Resp 18 04/29/24 07:01 BP 139/62 04/29/24 07:01 Pulse Ox 95 04/29/24 07:01 FiO2 Intake & Output 04/28/24 04/29/24 04/29/24 18:59 06:59 18:59 Other: Voiding Method Toilet # Voids 2 3 - Exam GENERAL DESCRIPTION: An elderly male lying in bed in no distress RESPIRATORY SYSTEM: Unlabored breathing , decreased breath sounds at bases HEART: S1 S2 regular rate and rhythm , ABDOMEN: Soft , no tenderness EXTREMITIES: Right second toe as well as redness on the dorsum aspect of the right foot is decreased - Labs CBC & Chem 7: 04/28/24 05:00 04/28/24 05:00 Labs: Abnormal Lab Results - Last 24 Hours (Table) 04/28/24 04/28/24 04/28/24 Range/Units 12:02 17:06 20:12 POC Glucose (mg/dL) 158 H 223 H 151 H (70-110) mg/dL Urine Protein (Negative) Urine Glucose (UA) (Negative) 04/28/24 04/29/24 Range/Units 20:45 07:00 POC Glucose (mg/dL) 118 H (70-110) mg/dL Urine Protein Trace H (Negative) Urine Glucose (UA) 4+ H (Negative) Assessment and Plan (1) Diabetic ulcer of right foot Status: Acute Code(s): E11.621 - TYPE 2 DIABETES MELLITUS WITH FOOT ULCER; L97.519 - NON-PRS CHRONIC ULCER OTH PRT RIGHT FOOT W UNSP SEVERITY SNOMED Code(s): 997561172 (2) Failure of outpatient treatment Status: Acute Code(s): Z78.9 - OTHER SPECIFIED HEALTH STATUS SNOMED Code(s): 405180371 Plan: 1patient with right diabetic foot infection and this patient likely have infected callus on the bottom of the right foot at the base of the second toe with involvement of the second toe and did have a cellulitis on the dorsal aspect of the right foot likely will need to cover for the polymicrobial alfreda as stated with diabetic foot infection x-rays were negative however need to rule out deep infection. Patient recently did have admission to the hospital with left second toe osteomyelitis culture positive for Enterococcus faecalis that was sensitive to penicillin. 2local culture currently growing drug-resistant Enterobacter bone scan is suspicious for osteomyelitis 3patient to get a PICC line plan is for 6-week course of IV cefepime 2 g every 12 hours, with weekly monitoring of CRP and sed rate and close outpatient follow-up Dictation was produced using [employer] software. please excuse any grammatical, word or spelling errors. Time with Patient: Less than 30
== END 2024-04-29 17:48 | disposition home health service (06) | DRG 638 ==
LOC: EC 16:10 → 5NMEDONC 18:33 → OBSVTOIN 18:33 → 5NMEDONC 19:59
PROVIDERS: ADMIT Student in an Organized Health Care Education/Training Program; ATTEND Student in an Organized Health Care Education/Training Program
PROC: 05HB33Z Insertion of Infusion Device into Right Basilic Vein, Percutaneous Approach (ICD-10-PCS; principal; 2024-04-29 08:30)
DX: E11.621 Type 2 diabetes mellitus with foot ulcer (principal); I48.20 Chronic atrial fibrillation, unspecified; L03.115 Cellulitis of right lower limb; L98.496 Non-pressure chronic ulcer of skin of other sites with bone involvement without evidence of necrosis; M86.8X7 Other osteomyelitis, ankle and foot; E11.22 Type 2 diabetes mellitus with diabetic chronic kidney disease; E11.628 Type 2 diabetes mellitus with other skin complications; E11.69 Type 2 diabetes mellitus with other specified complication; L97.519 Non-pressure chronic ulcer of other part of right foot with unspecified severity; N18.32 Chronic kidney disease, stage 3b; E11.51 Type 2 diabetes mellitus with diabetic peripheral angiopathy without gangrene; L97.514 Non-pressure chronic ulcer of other part of right foot with necrosis of bone; Z95.5 Presence of coronary angioplasty implant and graft; F32.A Depression, unspecified; I25.10 Atherosclerotic heart disease of native coronary artery without angina pectoris; I25.2 Old myocardial infarction; B95.2 Enterococcus as the cause of diseases classified elsewhere; I12.9 Hypertensive chronic kidney disease with stage 1 through stage 4 chronic kidney disease, or unspecified chronic kidney disease; Z79.01 Long term (current) use of anticoagulants; Z79.4 Long term (current) use of insulin; Z79.82 Long term (current) use of aspirin; Z79.84 Long term (current) use of oral hypoglycemic drugs; Z79.899 Other long term (current) drug therapy; Z85.46 Personal history of malignant neoplasm of prostate; Z85.820 Personal history of malignant melanoma of skin; Z86.73 Personal history of transient ischemic attack (TIA), and cerebral infarction without residual deficits; Z95.1 Presence of aortocoronary bypass graft
CPT/HCPCS: 36415; 36573; 78315; 80048; 80053; 81003; 83036; 83605; 85025; 85027; 85652; 86140; 87040; 87070; 87075; 87077; 87186; 87205; 96365; 99285

== ENCOUNTER 2024-07-09 09:03 | Day surgery (SDC) | payer MEDICARE, OTHER ==
[2024-07-03 16:11] VITALS: BMI 28.7
[~2024-07-09 09:03] MED LIST changes: +DEXAMETHASONE SOD PHOSPHATE 4 MG/ML 1 ML VIAL IV ONE; -HEPARIN SODIUM,PORCINE 10,000 UNIT/ML 1 ML VIAL ONE; +HYDROmorphone 0.5 MG/0.5 ML SYRINGE IVP PRN; -IOPAMIDOL-250 50ML BTL ONE; +LIDOCAINE 1% (10MG/ML) FOR IV START INTRADERMA PRN; -LIDOCAINE 1% INJ 10MG/ML (20 ML MDV) ONE; -METOPROLOL TARTRATE 25 MG TAB ONE; -MIDAZOLAM 2 MG/2 ML VIAL ONE; +ONDANSETRON 4 MG/2 ML VIAL IVP ONE; -SODIUM CHLORIDE 0.9% 1,000 ML BAG ONE; -VERAPAMIL 2.5 MG/ML 4 ML VIAL ONE; -fentaNYL (PF) 50 MCG/ML 2 ML AMP ONE
[2024-07-09] MEDS: IV FLUID CONTINUATION 1,000 ML IV ONE (09:55)
[2024-07-09] MEDS: LACTATED RINGERS 1,000 ML IV SCH (09:56)
[2024-07-09 09:57] LABS: Glucose,Whole Blood 231 mg/dL (70-110)
[2024-07-09] MEDS: INSULIN ASPART (NovoLOG) 100 UNIT/ML VIAL SQ ONE (09:57)
[2024-07-09] MEDS ORDERED: PROPOFOL 10 MG/ML 20 ML VIAL IV ONE (10:31)
[2024-07-09] MEDS ORDERED: ePHEDrine 50 MG/ML 1 ML VIAL ONE (10:31)
[2024-07-09] MEDS ORDERED: fentaNYL (PF) 50 MCG/ML 2 ML AMP ONE (10:31)
[2024-07-09] MEDS ORDERED: SUCCINYLCHOLINE CHLORIDE 200 MG/10 ML VIAL IV ONE (10:31)
[2024-07-09] MEDS ORDERED: LIDOCAINE 1% INJ 10MG/ML (20 ML MDV) ONE (10:31)
--- NOTE | 2024-07-09 11:27 | P.OP ---
Date of Procedure: 07/09/24 Description of Procedure: SURGEON: Patria Baron DO MANAGER CLIENT SUPPORT: None PREOPERATIVE DIAGNOSIS: Right second toe nonhealing wound and infection,. POSTOPERATIVE DIAGNOSIS: Same, osteomyelitis with pathologic fracture of the metatarsal head. OPERATION: Right second toe ray amputation. ANESTHESIA: General ESTIMATED BLOOD LOSS: 10 cc SPECIMENS REMOVED: Right second toe COMPLICATIONS: None OPERATIVE FINDINGS: Patient is a 73-year-old male with a nonhealing ulceration on the plantar portion of his right second toe and subsequent second toe infection. Imaging did reveal potential osteomyelitis and due to continuing nonhealing, the options of going forward with a second toe imitation was presented. He seemingly understood and did wish to proceed. At the time of initiation of sedation, the patient did begin with nausea vomiting therefore was intubated to protect his airway. Per the anesthesia team there was no evidence of fluid at the level of the vocal cords. Also during the procedure the patient did begin having a atrial fibrillation versus flutter on the monitor intermittently. Cardiology will be consulted in recovery for this. DESCRIPTION OF PROCEDURE: This patient was brought to the operating room, and given local and IV sedation then transition to endotracheal tube due to above.. The operative foot was prepped and draped in sterile manner. An incision was made at the base of the second toe deep into skin and fascia on plantar and dorsal aspect until we reached the head of the metatarsal bone. This was done to include the plantar wound. This patient had osteomyelitis of the second toe as evidenced by the pathologic fracture at the metatarsal head. Initially the head of the metatarsal was from the second toe the periosteal tissue was then cleaned and after the fractured portion the metatarsal head was removed, rongeur was used to transect further the metatarsal to a point where appropriate feeling cortex was available. The tendons were divided in plantar and dorsal aspects. The second toe was removed. There were minimal bleeding points which were electrocoagulated. Base of the wound looked clean, and the wound was copiously irrigated with saline. Tissue was approximated with 3-0 Vicryl interrupted sutures and skin reapproximated with interrupted sutures of 3-0 nylon. Hemostasis was well controlled and pressure dressing was applied. The patient tolerated the procedure well.
[2024-07-09] MEDS ORDERED: ACETAMINOPHEN TAB 325 MG TAB PO PRN (11:35)
[2024-07-09] MEDS ORDERED: HYDROcodone/APAP 5-325MG 1 EACH TAB PO PRN (11:35)
[2024-07-09 11:56] VITALS: TEMP 97.8
[2024-07-09 12:22] LABS: Glucose,Whole Blood 206 mg/dL (70-110)
--- NOTE | 2024-07-09 12:28 | XR ---
EXAMINATION TYPE: XR chest 1V portable DATE OF EXAM: 07/09/2024 COMPARISON: 01/06/2024 CLINICAL INDICATION: Male, 73 years old with history of possibl aspiration; TECHNIQUE: Single frontal view of the chest is obtained. FINDINGS: There has been prior CABG surgery. There is no focal air space opacity, pleural effusion, or pneumothorax seen. The cardiac silhouette size is within normal limits. The osseous structures are intact. IMPRESSION: No acute cardiopulmonary disease. [facility], , 07/09/2024 12:26 PM
[2024-07-09 13:35] VITALS: RESP 16
[2024-07-09 13:50] VITALS: BP 136/65; PULSE 80
--- NOTE | 2024-07-09 14:20 | P.CRDCN ---
History of Present Illness Consult date: 07/09/24 History of present illness: HISTORY OF PRESENTING ILLNESS 73-year-old with past medical history of hypertension dyslipidemia type 2 diabetes, atrial flutter known to Dr. Herrera. He came in today for an outpatient right second toe amputation surgery for a nonhealing ulcer and concerns of osteomyelitis with Dr. Baron. Intraoperatively he was noticed to have atrial flutter with RVR. Due to this postoperatively he was admitted to 3 S. floor and cardiology was consulted. At the time of evaluation patient denies having any symptoms of palpitations lightheadedness or dizziness. His bedside ECG shows heart rate 80 bpm, 123 is 200 atrial flutter, nonspecific T wave inversions in V5 V6. He denies any symptoms of chest pain chest pressure. He appears euvolumic Social Hx: Family Hx: non contributary to current clinical scenario REVIEW OF SYSTEMS 14 point review of system is negative except what is mentioned above in HPI. PHYSICAL EXAMINATION Neck: Brisk carotid upstroke, no jugular venous distention. Lungs: Clear to auscultation. Heart: Regular rate and rhythm, S1-S2, no S3, no murmur or rub. Abdomen: Soft nontender, positive bowel sounds. Extremities: No edema, intact distal pulses. Neuro: Alert, oritented, no focal deficits. Detailed neuro exam was not performed. ASSESSMENT Atrial flutter, rate controlled at this time. Atrial flutter with RVR intraoperatively while getting right second great toe amputation Status post right second great toe amputation for osteomyelitis PAD Type 2 diabetes Dyslipidemia Essential hypertension Cardiac testing EKG shows atrial flutter with 3-1 conduction, nonspecific T wave inversions in inferolateral leads. Last stress test as per patient was September 2023 which was nonischemic PLAN Patient reports that he has been known about his atrial flutter and his last appointment with Dr. Herrera was in April 2024. He has been maintained on aspirin 81 mg, Eliquis 5 mg twice daily, metoprolol tartrate 25 mg twice daily, HCTZ 12.5 mg daily, Lipitor 80 mg daily, Jardiance 25 mg daily. I think he is on appropriate medical regimen at this time. He is hemodynamically stable at this time with no new cardiovascular symptoms with controlled heart rate with underlying rhythm being atrial flutter. Patient is very eager to go home. I will cleared the patient to go home from cardiovascular standpoint. Recommend outpatient follow-up with Dr. Herrera and consideration for an atrial flutter ablation procedure. No changes were made to his home medical regimen at this time. Also consider comparing old office ECGs from the ECG in the hospital which shows mild T wave inversions in V5 and V6. Joao Benites MD, [facility], [place] Thank you for allowing [facility] to participate in this patient's care. Feel free to reach out in case of any followup questions. Past Medical History Past Medical History: Cancer, CVA/TIA, Diabetes Mellitus, Myocardial Infarction ([place]), Skin Disorder Additional Past Medical History / Comment(s): prostate cancer, melenoma, Last Myocardial Infarction Date:: 2011 History of Any Multi-Drug Resistant Organisms: None Reported Past Surgical History: Heart Catheterization With Stent Additional Past Surgical History / Comment(s): Triple bypass, 2 heart attacks, 4 stents that failed, radical prostectomy, skin cancer removal, Past Anesthesia/Blood Transfusion Reactions: No Reported Reaction Date of Last Stent Placement:: 2011 Smoking Status: Never smoker - Past Family History Mother Family Medical History: No Reported History Father Family Medical History: Cancer Medications and Allergies Home Medications Medication Instructions Recorded Confirmed Type Apixaban [Eliquis] 5 mg PO BID 01/02/24 07/09/24 History Aspirin EC [Ecotrin Low Dose] 81 mg PO DAILY 01/02/24 07/09/24 History Atorvastatin [Lipitor] 80 mg PO HS 01/02/24 07/09/24 History Empagliflozin [Jardiance] 25 mg PO DAILY 01/02/24 07/09/24 History Mirabegron [Myrbetriq] 50 mg PO DAILY 01/02/24 07/09/24 History PARoxetine [Paxil] 10 mg PO DAILY 01/02/24 07/09/24 History Insulin Glargine,Hum.rec.anlog 10 units SQ HS 04/24/24 07/09/24 History [Lantus Solostar Pen] Metoprolol Tartrate [Lopressor] 25 mg PO BID 04/24/24 07/09/24 History glipiZIDE [Glucotrol] 5 mg PO BID-W/MEALS 04/24/24 07/09/24 History hydroCHLOROthiazide 12.5 mg PO HS 04/24/24 07/09/24 History Doxycycline [Vibramycin] 100 mg PO BID 07/03/24 07/09/24 History Doxycycline [Vibramycin] 100 mg PO BID 07/03/24 07/09/24 History Acetaminophen Tab [Tylenol] 650 mg PO Q6HR PRN tab 07/09/24 Rx HYDROcodone/APAP 5-325MG [Bodfish 1 each PO Q4HR PRN 3 Days #18 tab 07/09/24 Rx 5-325] Allergies Allergy/AdvReac Type Severity Reaction Status Date / Time No Known Allergies Allergy Verified 07/09/24 09:22 Physical Exam Vitals: Vital Signs Temp Pulse Pulse Resp BP Pulse Ox 07/09/24 13:48 80 16 136/65 100 07/09/24 13:32 82 16 129/76 100 07/09/24 13:17 80 17 128/75 100 07/09/24 13:02 81 17 118/69 100 07/09/24 12:47 80 17 122/71 100 07/09/24 12:32 81 18 123/72 100 07/09/24 12:18 80 16 117/64 100 07/09/24 12:03 80 16 134/63 100 07/09/24 11:48 80 16 135/66 100 07/09/24 11:33 97.8 F 83 16 150/73 100 07/09/24 09:31 98.1 F 82 18 107/66 99 Intake and Output 07/08/24 07/09/24 07/09/24 22:59 06:59 14:59 Intake Total 750 Output Total 10 Balance 740 Intake: IV 750 Output: Estimated Blood Loss 10 Other: Weight 86.8 kg Results Current Medications Generic Name Dose Route Start Last Admin Trade Name Freq PRN Reason Stop Dose Admin Acetaminophen 650 mg 07/09/24 11:35 Acetaminophen Tab 325 Mg Tab PO 08/08/24 11:34 Q6HR PRN Pain Scale 1 to 5 Hydrocodone Bitart/Acetaminophen 1 each 07/09/24 11:35 Hydrocodone/Apap 5-325mg 1 Each Tab PO 08/08/24 11:34 Q4HR PRN Pain Scale 6 to 7 Hydromorphone HCl 0.5 mg 07/09/24 07:47 Hydromorphone 0.5 Mg/0.5 Ml Syringe IVP 07/10/24 07:46 Q5M PRN Phase 1 or 2 - Pain Control Lactated Ringer's 1,000 mls @ 20 mls/hr 07/09/24 07:47 07/09/24 09:56 Lactated Ringers IV 08/08/24 07:46 20 mls/hr .Q24H BRUNO Administration Clindamycin Phosphate 900 mg/ 56 mls @ 50 mls/hr 07/09/24 16:00 Dextrose/Water IVPB 07/10/24 01:08 Q8HR BRUNO Protocol Lidocaine HCl 0.1 ml 07/09/24 07:47 Lidocaine 1% (10mg/Ml) For Iv Start INTRADERMA 08/08/24 07:46 PER PROTOCOL PRN IV Start Intake and Output 07/08/24 07/09/24 07/09/24 22:59 06:59 14:59 Intake Total 750 Output Total 10 Balance 740 Intake: IV 750 Output: Estimated Blood Loss 10 Other: Weight 86.8 kg Patient Weight 07/10/24 06:59 Weight 86.8 kg
[2024-07-09 15:12] LABS: Glucose,Whole Blood 267 mg/dL (70-110)
[2024-07-09] MEDS ORDERED: CLINDAMYCIN 900 MG in DEXTROSE 5% IN WATER 50 ML IVPB SCH (16:00)
== END 2024-07-09 16:11 | disposition home or self-care (01) ==
LOC: OR 09:03 → 3SCARD 11:33 → 6NMEDSUR 12:54 → 3SCARD 13:02 → OR 16:11
PROVIDERS: ATTEND Surgery
DX: E11.621 Type 2 diabetes mellitus with foot ulcer (principal); L97.519 Non-pressure chronic ulcer of other part of right foot with unspecified severity; M86.8X7 Other osteomyelitis, ankle and foot; M84.474A Pathological fracture, right foot, initial encounter for fracture; L08.9 Local infection of the skin and subcutaneous tissue, unspecified; I97.791 Other intraoperative cardiac functional disturbances during other surgery; I48.92 Unspecified atrial flutter; E11.51 Type 2 diabetes mellitus with diabetic peripheral angiopathy without gangrene; I10 Essential (primary) hypertension; I25.10 Atherosclerotic heart disease of native coronary artery without angina pectoris; E78.5 Hyperlipidemia, unspecified; I25.2 Old myocardial infarction; Z85.46 Personal history of malignant neoplasm of prostate; Z85.820 Personal history of malignant melanoma of skin; Z79.899 Other long term (current) drug therapy; Z79.01 Long term (current) use of anticoagulants; Z79.82 Long term (current) use of aspirin; Z79.4 Long term (current) use of insulin; Z79.84 Long term (current) use of oral hypoglycemic drugs; Z86.73 Personal history of transient ischemic attack (TIA), and cerebral infarction without residual deficits; Z95.5 Presence of coronary angioplasty implant and graft; Z95.1 Presence of aortocoronary bypass graft; Z90.79 Acquired absence of other genital organ(s)
CPT/HCPCS: 28810; 71045; J0690

== ENCOUNTER 2024-09-27 11:24 | Inpatient (IN) | payer OTHER, MEDICARE ==
[2024-09-27] MEDS ORDERED: VANCOMYCIN IV PER PHARMACY 1 EACH MISC MISCELLANE PRN (11:57)
[2024-09-27] MEDS: PIPERACILLIN-TAZOBACTAM 3.375 GM in SODIUM CHLORIDE 0.9% 100 ML IVPB STA (12:26)
[2024-09-27 12:29] LABS: Basophils % (A) 0 %; Eosinophils # (A) 0.1 k/uL (0-0.7); Eosinophils % (A) 1 %; HCT 42.5 % (39.0-53.0); HGB 13.6 gm/dL (13.0-17.5); Lymphocytes # (A) 1.2 k/uL (1.0-4.8); Lymphocytes % (A) 13 %; MCH 29.8 pg (25.0-35.0); MCHC 31.9 g/dL (31.0-37.0); MCV 93.3 fL (80.0-100.0); Mean Platelet Volume 8.6; Monocytes # (A) 0.8 k/uL (0-1.0); Monocytes % (A) 9 %; Neutrophils # (A) 6.7 k/uL (1.3-7.7); Neutrophils % (A) 75 %; Platelet Count 189 k/uL (150-450); RBC 4.55 m/uL (4.30-5.90); RDW 15.7 % (11.5-15.5); WBC 8.9 k/uL (3.8-10.6)
--- NOTE | 2024-09-27 12:34 | ED ---
Recheck HPI - General Chief Complaint: Recheck/Abnormal Lab/Rx Stated Complaint: R small toe blister Time Seen by Provider: 09/27/24 11:27 Source: patient, RN notes reviewed Mode of arrival: ambulatory Limitations: no limitations - History of Present Illness Initial Comments: 74-year-old male presents emergency department with chief complaint of right fo ot fifth digit toe pain, infection. Patient states started last few days. He just had his second toe amputated on the same foot by Dr. Baron. He is followed by Dr. Alexis is a known diabetic. Patient states toe is black, discoloration with spreading redness up his foot. Patient states his blood sugars have been up-and-down but nothing severely elevated. - Related Data Home Medications Medication Instructions Recorded Confirmed Apixaban [Eliquis] 5 mg PO BID 01/02/24 09/27/24 Aspirin EC [Ecotrin Low Dose] 81 mg PO DAILY 01/02/24 09/27/24 Atorvastatin [Lipitor] 80 mg PO HS 01/02/24 09/27/24 Empagliflozin [Jardiance] 25 mg PO DAILY 01/02/24 09/27/24 Mirabegron [Myrbetriq] 50 mg PO DAILY 01/02/24 09/27/24 PARoxetine [Paxil] 10 mg PO DAILY 01/02/24 09/27/24 Insulin Glargine,Hum.rec.anlog 10 units SQ HS 04/24/24 09/27/24 [Lantus Solostar Pen] Metoprolol Tartrate [Lopressor] 25 mg PO BID 04/24/24 09/27/24 glipiZIDE [Glucotrol] 5 mg PO BID-W/MEALS 04/24/24 09/27/24 hydroCHLOROthiazide 12.5 mg PO DAILY 04/24/24 09/27/24 Previous Rx's Medication Instructions Recorded Acetaminophen Tab [Tylenol] 650 mg PO Q6HR PRN tab 07/09/24 Allergies Allergy/AdvReac Type Severity Reaction Status Date / Time No Known Allergies Allergy Verified 09/27/24 15:22 Review of Systems ROS Statement: Those systems with pertinent positive or pertinent negative responses have been documented in the HPI. ROS Other: All systems not noted in ROS Statement are negative. Past Medical History Past Medical History: Cancer, CVA/TIA, Diabetes Mellitus, Myocardial Infarction ([place]), Skin Disorder Additional Past Medical History / Comment(s): prostate cancer, melenoma, Last Myocardial Infarction Date:: 2011 History of Any Multi-Drug Resistant Organisms: None Reported Past Surgical History: Heart Catheterization With Stent Additional Past Surgical History / Comment(s): Triple bypass, 2 heart attacks, 4 stents that failed, radical prostectomy, skin cancer removal, Amputtion of toe Past Anesthesia/Blood Transfusion Reactions: No Reported Reaction Date of Last Stent Placement:: 2011 Past Psychological History: No Psychological Hx Reported Smoking Status: Never smoker Past Alcohol Use History: Daily, Occasional Past Drug Use History: None Reported - Past Family History Mother Family Medical History: No Reported History Father Family Medical History: Cancer General Exam Limitations: no limitations General appearance: alert, in no apparent distress Head exam: Present: atraumatic, normocephalic, normal inspection Eye exam: Present: normal appearance, PERRL, EOMI. Absent: scleral icterus, conjunctival injection, periorbital swelling ENT exam: Present: normal exam, normal oropharynx, mucous membranes moist Neck exam: Present: normal inspection, full ROM. Absent: tenderness, meningismus, lymphadenopathy Respiratory exam: Present: normal lung sounds bilaterally. Absent: respiratory distress, wheezes, rales, rhonchi, stridor Cardiovascular Exam: Present: regular rate, normal rhythm, normal heart sounds. Absent: systolic murmur, diastolic murmur, rubs, gallop, clicks GI/Abdominal exam: Present: soft, normal bowel sounds. Absent: distended, tenderness, guarding, rebound, rigid Extremities exam: Present: other (Right foot fifth digit there is discoloration, gangrene noted, there is erythema to the midfoot and open sore.) Course Vital Signs 09/27/24 09/27/24 11:34 15:49 Temperature 97.3 F L 98.6 F Pulse Rate 82 79 Respiratory 20 18 Rate Blood Pressure 145/87 173/89 O2 Sat by Pulse 98 99 Oximetry Medical Decision Making - Medical Decision Making Was pt. sent in by a medical professional or institution (, PA, [employer]ER, urgent care, hospital, or group home...) When possible be specific @ -No Did you speak to anyone other than the patient for history (EMS, parent, family, police, friend...)? What history was obtained from this source @ -No Did you review nursing and triage notes (agree or disagree)? Why? @ -I reviewed and agree with nursing and triage notes Were old charts reviewed (outside hosp., previous admission, EMS record, old EKG, old radiological studies, urgent care reports/EKG's, group home records)? Report findings @ -No old charts were reviewed Differential Diagnosis (chest pain, altered mental status, abdominal pain women, abdominal pain men, vaginal bleeding, weakness, fever, dyspnea, syncope, headache, dizziness, GI bleed, back pain, seizure, CVA, palpatations, mental hea lth, musculoskeletal)? @ -Gangrene, diabetic foot infection, osteomyelitis, cellulitis EKG interpreted by me (3pts min.). @ -None X-rays interpreted by me (1pt min.). @ -X-ray right foot shows no evidence of osteomyelitis, soft tissue swelling, prior toe amputation CT interpreted by me (1pt min.). @ -None done U/S interpreted by me (1pt. min.). @ -None done What testing was considered but not performed or refused? (CT, X-rays, U/S, labs)? Why? @ -None What meds were considered but not given or refused? Why? @ -None Did you discuss the management of the patient with other professionals (naty guzman iluc Vyas, PA, [employer]ING FINISHER, lab, RT, psych nurse, social worker school, membership advisor, teacher, training systems officer, rehabilitation caseworker)? Give summary @ -Some physician for admission Was smoking cessation discussed for >3mins.? @ -No Was critical care preformed (if so, how long)? @ -No Were there social determinants of health that impacted care today? How? (Homelessness, low income, unemployed, alcoholism, drug addiction, t ransportation, low edu. Level, literacy, decrease access to med. care, half-way, rehab)? @ -No Was there de-escalation of care discussed even if they declined (Discuss DNR or withdrawal of care, Hospice)? DNR status @ -No What co-morbidities impacted this encounter? (DM, HTN, Smoking, COPD, CAD, Cancer, CVA, ARF, Chemo, Hep., AIDS, mental health diagnosis, sleep apnea, morbid obesity)? @ -Diabetes Was patient admitted / discharged? Hospital course, mention meds given and route, prescriptions, significant lab abnormalities, going to OR and other pertinent info. @ -Admitted patient's found to have diabetic ulceration, gangrene, cellulitis patient admitted for IV antibiotics, consult to his physician Dr. Alexis and vascular Undiagnosed new problem with uncertain prognosis? @ -No Drug Therapy requiring intensive monitoring for toxicity (Heparin, Nitro, Insulin, Cardizem)? @ -No Were any procedures done? @ -No Diagnosis/symptom? @ -[Diabetic foot infection, gangrene, cellulitis Acute, or Chronic, or Acute on Chronic? @ -Acute Uncomplicated (without systemic symptoms) or Complicated (systemic symptoms)? @ -Complicated Side effects of treatment? @ -No Exacerbation, Progression, or Severe Exacerbation? @ -No Poses a threat to life or bodily function? How? (Chest pain, [place], [place], pneumonia, PE, COPD, DKA, ARF, appy, cholecystitis, CVA, Diverticulitis, Homicidal, Suicidal, threat to staff... and all critical care pts) @ -Yes could lead to sepsis, endorgan failure - Lab Data Result diagrams: 09/27/24 12:20 09/27/24 12:20 Lab Results 09/27/24 09/27/24 09/27/24 Range/Units 12:20 12:20 12:20 WBC 8.9 (3.8-10.6) k/uL RBC 4.55 (4.30-5.90) m/uL Hgb 13.6 (13.0-17.5) gm/dL Hct 42.5 (39.0-53.0) % MCV 93.3 (80.0-100.0) fL MCH 29.8 (25.0-35.0) pg MCHC 31.9 (31.0-37.0) g/dL RDW 15.7 H (11.5-15.5) % Plt Count 189 (150-450) k/uL MPV 8.6 Neutrophils % 75 % Lymphocytes % 13 % Monocytes % 9 % Eosinophils % 1 % Basophils % 0 % Neutrophils # 6.7 (1.3-7.7) k/uL Lymphocytes # 1.2 (1.0-4.8) k/uL Monocytes # 0.8 (0-1.0) k/uL Eosinophils # 0.1 (0-0.7) k/uL Basophils # 0.0 (0-0.2) k/uL Sodium 135 L (137-145) mmol/L Potassium 4.6 (3.5-5.1) mmol/L Chloride 99 (98-107) mmol/L Carbon Dioxide 24 (22-30) mmol/L Anion Gap 12 mmol/L BUN 35 H (9-20) mg/dL Creatinine 1.48 H (0.66-1.25) mg/dL Est GFR (CKD-EPI)AfAm 53 (>60 ml/min/1.73 sqM) Est GFR (CKD-EPI)NonAf 45 (>60 ml/min/1.73 sqM) Glucose 245 H (74-99) mg/dL Plasma Lactic Acid Riley 1.1 (0.7-2.0) mmol/L Calcium 9.0 (8.4-10.2) mg/dL Total Bilirubin 1.1 (0.2-1.3) mg/dL AST 26 (17-59) U/L ALT 18 (4-49) U/L Alkaline Phosphatase 197 H (38-126) U/L C-Reactive Protein 17.6 H (<1.0) mg/dL Total Protein 6.7 (6.3-8.2) g/dL Albumin 3.9 (3.5-5.0) g/dL Disposition Clinical Impression: Diabetic ulcer of right foot, Toe infection, Cellulitis of foot Disposition: ADMITTED IP TO THIS [facility] Condition: Poor Time of Disposition: 13:56
--- NOTE | 2024-09-27 12:55 | XR ---
EXAMINATION TYPE: XR foot complete RT DATE OF EXAM: 09/27/2024 COMPARISON: Right foot radiograph 04/24/2024, medicine bone scan 04/27/2024 HISTORY: Fifth digit infection TECHNIQUE: Frontal, lateral and oblique images of the right foot are obtained. FINDINGS: No evidence of any acute osseous pathology. Postoperative fusion at the first metatarsophal angeal joint with screw fixation noted. Postamputation changes of the second digit at the distal seco nd metacarpal shaft. Soft tissue swelling of the fifth digit around the MTP joint. No osseous erosion s or subcutaneous gas identified. Incidental note is made of symphalangism of the fifth distal interp halangeal joint. Surgical clips within the distal right lower extremity soft tissues. Moderate size p lantar calcaneal enthesophyte. IMPRESSION: 1. No acute fracture or dislocation. 2. Postsurgical changes from first metatarsophalangeal joint screw fixation and second digit amputat ion changes. 3. Soft tissue swelling around the fifth digit MTP joint without evidence of osseous erosion to sugg est sesamoiditis. [facility], , 09/27/2024 12:53 PM
[2024-09-27 12:57] LABS: ALT 18 U/L (4-49); AST 26 U/L (17-59); African American GFR (CKD) 53 (>60 ml/min/1.73 sqM); Albumin 3.9 g/dL (3.5-5.0); Alkaline Phosphatase 197 U/L (38-126); Anion Gap 12 mmol/L; Blood Urea Nitrogen 35 mg/dL (9-20); Carbon Dioxide 24 mmol/L (22-30); Chloride 99 mmol/L (98-107); Glucose 245 mg/dL (74-99); Non-African American GFR(CKD) 45 (>60 ml/min/1.73 sqM); Potassium 4.6 mmol/L (3.5-5.1); Sodium 135 mmol/L (137-145); Total Bilirubin 1.1 mg/dL (0.2-1.3); Total Protein 6.7 g/dL (6.3-8.2)
[2024-09-27 13:08] LABS: C Reactive Protein 17.6 mg/dL (<1.0)
[2024-09-27] MEDS: VANCOMYCIN 1,500 MG in SODIUM CHLORIDE 0.9% 500 ML 500 ML IVPB ONE (13:14)
[2024-09-27] MEDS ORDERED: HYDROcodone/APAP 5-325MG 1 EACH TAB PO PRN (13:56)
[2024-09-27] MEDS ORDERED: ACETAMINOPHEN TAB 325 MG TAB PO PRN (13:56)
[2024-09-27] MEDS ORDERED: NALOXONE 0.4 MG/ML 1 ML VIAL IV PRN (13:56)
[2024-09-27] MEDS ORDERED: DEXTROSE 50% SYRINGE 50 ML IVP PRN ×2 (14:29)
--- NOTE | 2024-09-27 14:35 | P.HPIM ---
History of Present Illness H&P Date: 09/27/24 Patient is a 74-year-old male with past medical history of type II DM on insulin, history of osteomyelitis of the left second toe, history of right foot osteomyelitis requiring IV antibiotics and now status post right second toe amputation for nonhealing ulcer and osteomyelitis, CAD ([place] x 3 with CABG x 3 caths x 4 that failed), A-fib (on Eliquis 5 mg p.o. twice daily), CKD IIIB, CVA, who presents to the ER with right fifth toe blister, dark discoloration, worsening right foot redness that was present before, symptoms started on Saturday. Denies fever, chills, shortness of breath, chest pain, abdominal pain, changes in bowel habits, dysuria. He states that his blood glucose at home ranges around 120s. On arrival temperature 97.3, heart rate in 80s, BP elevated 145/87, satting well on room air. Lab work significant for unremarkable CBC, sodium 135, potassium and bicarb normal, creatinine 1.47, baseline around 1.7, blood glucose 245, AST and ALT normal, Right foot x-ray showed no acute fracture, postsurgical changes, soft tissue swelling around the fifth digit MTP joint without evidence of osseous erosion Patient will be admitted for right fifth gangrenous digit, diabetic foot infection, cellulitis, vascular surgery and infectious disease consulted. Based on previous cultures, patient will be started on Blood cultures obtained, MRSA swab pending Pertinent positives and negatives as discussed in HPI, a complete review of systems was performed and all other systems are negative. Patient seen and examined at bedside. Vital signs reviewed General: nontoxic, no distress, appears at stated age Derm: warm, dry Head: atraumatic, normocephalic, symmetric Eyes: EOMI, no lid lag, anicteric sclera, pupils equal round reactive to light ENT: Nose and ears atraumatic Neck: No thyromegaly, supple Mouth: no lip lesion, mucus membranes moist Cardiovascular: S1S2 reg, no murmur, no edema Lungs: clear to auscultation bilateral, no rhonchi, no rales, no wheeze, no accessory muscle use Abdominal: soft, nontender to palpation, no guarding, no appreciable organomegaly Ext: Right foot s/p second digit amputation, fifth digit dark blue discoloration, cold to touch, open blister with clear drainage, right foot dorsum with erythema, nontender, warm to touch, dorsalis pedis palpable but weak, Neuro: CN II-XII grossly intact Psych: Alert, oriented, appropriate affect Assessment/Plan: Gangrenous right 5th digit Right 5h digint adn foot cellulitis Status post right second toe amputation due to osteomyelitis 06/2024 PAD -Vascular surgery, ID consulted, appreciate recommendations -Pharmacy to dose vancomycin, currently on 1500 mg every 16 hours, monitor for nephrotoxicity, BMP daily, start cefepime 1 g daily, SOT 09/27. 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 -Hold Eliquis, resume per vascular surgery recommendations Type II DM on insulin -Will continue with Accu-Cheks, SSI, Lantus 8 units daily CAD ([place] x 3 with CABG x 3 caths x 4 that failed) Dyslipidemia Essential hypertension Atrial flutter on eliquis -Continue home medications once reconciled, per chart review patient is on a spirin 81 mg, hold Eliquis 5 mg twice daily for possible intervention, metoprolol tartrate 25 mg twice daily can becontinued, hydrochlorothiazide 12.5 mg daily, Lipitor 80 mg daily, Jardiance 25 mg daily continued CKD stage IIIb at baseline, monitor for BMP daily The patient is admitted with an anticipated [greater] than 2 midnight stay as [inpatient/] status for evaluation of gangrenous toe, cellulitis CODE STATUS: Full code DVT prophylaxis: Heparin Anticipated discharge date: TBD Anticipated discharge place: [facility] A total of 42 minutes was spent on the care of this complex patient more than 50% of the time was spent in counseling and care coordination. Past Medical History Past Medical History: Cancer, CVA/TIA, Diabetes Mellitus, Myocardial Infarction ([place]), Skin Disorder Additional Past Medical History / Comment(s): prostate cancer, melenoma, Last Myocardial Infarction Date:: 2011 History of Any Multi-Drug Resistant Organisms: None Reported Past Surgical History: Heart Catheterization With Stent Additional Past Surgical History / Comment(s): Triple bypass, 2 heart attacks, 4 stents that failed, radical prostectomy, skin cancer removal, Amputtion of toe Past Anesthesia/Blood Transfusion Reactions: No Reported Reaction Date of Last Stent Placement:: 2011 Past Psychological History: No Psychological Hx Reported Smoking Status: Never smoker Past Alcohol Use History: Daily, Occasional Past Drug Use History: None Reported - Past Family History Mother Family Medical History: No Reported History Father Family Medical History: Cancer Medications and Allergies Home Medications Medication Instructions Recorded Confirmed Type Apixaban [Eliquis] 5 mg PO BID 01/02/24 07/09/24 History Aspirin EC [Ecotrin Low Dose] 81 mg PO DAILY 01/02/24 07/09/24 History Atorvastatin [Lipitor] 80 mg PO HS 01/02/24 07/09/24 History Empagliflozin [Jardiance] 25 mg PO DAILY 01/02/24 07/09/24 History Mirabegron [Myrbetriq] 50 mg PO DAILY 01/02/24 07/09/24 History PARoxetine [Paxil] 10 mg PO DAILY 01/02/24 07/09/24 History Insulin Glargine,Hum.rec.anlog 10 units SQ HS 04/24/24 07/09/24 History [Lantus Solostar Pen] Metoprolol Tartrate [Lopressor] 25 mg PO BID 04/24/24 07/09/24 History glipiZIDE [Glucotrol] 5 mg PO BID-W/MEALS 04/24/24 07/09/24 History hydroCHLOROthiazide 12.5 mg PO HS 04/24/24 07/09/24 History Doxycycline [Vibramycin] 100 mg PO BID 07/03/24 07/09/24 History Doxycycline [Vibramycin] 100 mg PO BID 07/03/24 07/09/24 History Acetaminophen Tab [Tylenol] 650 mg PO Q6HR PRN tab 07/09/24 Rx HYDROcodone/APAP 5-325MG [Windfall 1 each PO Q4HR PRN 3 Days #18 tab 07/09/24 Rx 5-325] Allergies Allergy/AdvReac Type Severity Reaction Status Date / Time No Known Allergies Allergy Verified 09/27/24 11:37 Physical Exam Vitals: Vital Signs Temp Pulse Resp BP Pulse Ox 09/27/24 11:34 97.3 F L 82 20 145/87 98 Intake and Output 09/26/24 09/27/24 09/27/24 22:59 06:59 14:59 Other: Weight 86.183 kg Results CBC & Chem 7: 09/27/24 12:20 09/27/24 12:20 Labs: Abnormal Lab Results - Last 24 Hours (Table) 09/27/24 09/27/24 Range/Units 12:20 12:20 RDW 15.7 H (11.5-15.5) % Sodium 135 L (137-145) mmol/L BUN 35 H (9-20) mg/dL Creatinine 1.48 H (0.66-1.25) mg/dL Glucose 245 H (74-99) mg/dL Alkaline Phosphatase 197 H (38-126) U/L C-Reactive Protein 17.6 H (<1.0) mg/dL
[2024-09-27] MEDS: INSULIN LISPRO (HumaLOG) 100 UNIT/ML 10 mL VL SQ SCH (18:29)
[2024-09-27] MEDS: CEFEPIME 1 GM in SODIUM CHLORIDE 0.9% 50 ML IVPB SCH (18:44)
[2024-09-27 20:51] LABS: Glucose,Whole Blood 237 mg/dL (70-110)
[2024-09-27] MEDS: INSULIN GLARGINE (LANTUS) 100 UNIT/ML SYR SQ SCH (21:39)
[2024-09-27] MEDS: METOPROLOL TARTRATE 25 MG TAB PO SCH (21:39)
[2024-09-27] MEDS: ATORVASTATIN 80 MG TAB PO SCH (21:39)
[2024-09-27] MEDS: HEPARIN SODIUM,PORCINE 5,000 UNIT/ML 1 ML VIAL SQ SCH (21:39)
--- NOTE | 2024-09-27 23:16 | P.CONS ---
History of Present Illness - Reason for Consult Consult date: 09/27/24 Right fifth toe gangrene Requesting physician: Quoc Goode - Chief Complaint Discoloration and pain to the right fifth toe x 2 days - History of Present Illness Patient is a 74-year-old male with a past medical history significant for CVA TIA diabetes mellitus [place] prostate cancer history of diabetic foot infection requiring amputation of the second toe presenting to the hospital with a right fifth toe discoloration patient mentioned started on Saturday when he noticed there was a blister on the lateral aspect of the right fifth toe within 24-hour the area has becoming discolored blackish patient did have pain to the right fifth toe area mostly dull aching moderate intensity without radiation with associated swelling discoloration but no foul-smelling drainage on presentation to the hospital patient was afebrile no fever have been recorded subsequently patient was not tachycardic hypotensive or hypoxic did have white count of 8.9 BUN and creatinine has been mildly elevated liver isms are normal CRP 17.6 patient did have a x-ray of the foot no acute fracture postsurgical changes from first metatarsophalangeal joint score and second digit amputation changes soft tissue swelling around the fifth digit MTP joint without bony erosion patient has been started on cefepime and vancomycin infectious disease was consulted for further management of antibiotic therapy Review of Systems Positive point and negatives has been mentioned in the HPI, complete review of systems was performed and all other systems are negative Past Medical History Past Medical History: Cancer, CVA/TIA, Diabetes Mellitus, Myocardial Infarction ([place]), Skin Disorder Additional Past Medical History / Comment(s): prostate cancer, melenoma, Last Myocardial Infarction Date:: 2011 History of Any Multi-Drug Resistant Organisms: None Reported Past Surgical History: Heart Catheterization With Stent Additional Past Surgical History / Comment(s): Triple bypass, 2 heart attacks, 4 stents that failed, radical prostectomy, skin cancer removal, Amputtion of toe Past Anesthesia/Blood Transfusion Reactions: No Reported Reaction Date of Last Stent Placement:: 2011 Past Psychological History: No Psychological Hx Reported Smoking Status: Never smoker Past Alcohol Use History: Daily, Occasional Past Drug Use History: None Reported - Past Family History Mother Family Medical History: No Reported History Father Family Medical History: Cancer Medications and Allergies Home Medications Medication Instructions Recorded Confirmed Type Apixaban [Eliquis] 5 mg PO BID 01/02/24 09/27/24 History Aspirin EC [Ecotrin Low Dose] 81 mg PO DAILY 01/02/24 09/27/24 History Atorvastatin [Lipitor] 80 mg PO HS 01/02/24 09/27/24 History Empagliflozin [Jardiance] 25 mg PO DAILY 01/02/24 09/27/24 History Mirabegron [Myrbetriq] 50 mg PO DAILY 01/02/24 09/27/24 History PARoxetine [Paxil] 10 mg PO DAILY 01/02/24 09/27/24 History Insulin Glargine,Hum.rec.anlog 10 units SQ HS 04/24/24 09/27/24 History [Lantus Solostar Pen] Metoprolol Tartrate [Lopressor] 25 mg PO BID 04/24/24 09/27/24 History glipiZIDE [Glucotrol] 5 mg PO BID-W/MEALS 04/24/24 09/27/24 History hydroCHLOROthiazide 12.5 mg PO DAILY 04/24/24 09/27/24 History Acetaminophen Tab [Tylenol] 650 mg PO Q6HR PRN tab 07/09/24 09/27/24 Rx Allergies Allergy/AdvReac Type Severity Reaction Status Date / Time No Known Allergies Allergy Verified 09/27/24 15:22 Physical Exam Vitals: Vital Signs Temp Pulse Resp BP Pulse Ox 09/27/24 11:34 97.3 F L 82 20 145/87 98 Intake and Output 09/27/24 09/27/24 09/27/24 06:59 14:59 22:59 Other: Weight 86.183 kg GENERAL DESCRIPTION: Elderly male lying in bed, no distress. No tachypnea or accessory muscle of respiration use. HEENT: Shows Pallor , no scleral icterus. Oral mucous membrane is dry. No pharyngeal erythema or thrush NECK: Trachea central, no thyromegaly. LUNGS: Unlabored breathing. Clear to auscultation anteriorly. No wheeze or crackle. HEART: S1, S2, regular rate and rhythm. No loud murmur ABDOMEN: Soft, no tenderness , guarding or rigidity, no organomegaly EXTREMITIES: Right fifth toe with discoloration some swelling redness no foul-s melling drainage SKIN: No rash, no masses palpable. NEUROLOGICAL: The patient is awake, alert, oriented x3, mood and affect normal. Results CBC & Chem 7: 09/27/24 12:20 09/27/24 12:20 Labs: Abnormal Lab Results - Last 24 Hours (Table) 09/27/24 09/27/24 Range/Units 12:20 12:20 RDW 15.7 H (11.5-15.5) % Sodium 135 L (137-145) mmol/L BUN 35 H (9-20) mg/dL Creatinine 1.48 H (0.66-1.25) mg/dL Glucose 245 H (74-99) mg/dL Alkaline Phosphatase 197 H (38-126) U/L C-Reactive Protein 17.6 H (<1.0) mg/dL Assessment and Plan (1) Gangrene of toe of right foot Current Visit: Yes Status: Acute Code(s): I96 - GANGRENE, NOT ELSEWHERE CLASSIFIED SNOMED Code(s): 86901499183197440 (2) Diabetic infection of right foot Current Visit: Yes Status: Acute Code(s): E11.628 - TYPE 2 DIABETES MELLITUS WITH OTHER SKIN COMPLICATIONS; L08.9 - LOCAL INFECTION OF THE SKIN AND SUBCUTANEOUS TISSUE, UNSP SNOMED Code(s): 407708397 (3) Toe infection Current Visit: Yes Status: Acute Code(s): L08.9 - LOCAL INFECTION OF THE SKIN AND SUBCUTANEOUS TISSUE, UNSP SNOMED Code(s): 110057986 Plan: 1patient [facility] ([place], [place]) hospital with discoloration of the right fifth toe concerning for gangrene of the right fifth toe in this patient with underlying history of diabetes mellitus we will need to cover for both gram-positive as well as gram-negative pathogen to be the likely pathogen 2-patient with renal insufficiency high risk of nephrotoxicity from the vancomycin and Vanco trough need to be monitored closely 3-await vascular surgery evaluation for possible amputation and deep culture 4patient is broadly covered with cefepime and vancomycin while waiting for the culture to finalize we will add oral Flagyl to cover for the anaerobes Question concern answered We will follow on clinical condition and cultures to further adjust medication if needed Thank you for this consultation we will follow the patient along with you Dictation was produced using [employer] dictation software. please excuse any grammatical, word or spelling errors. Time with Patient: Greater than 30
[2024-09-28 03:29] LABS: African American GFR (CKD) 53 (>60 ml/min/1.73 sqM); Non-African American GFR(CKD) 46 (>60 ml/min/1.73 sqM)
[2024-09-28] MEDS: VANCOMYCIN 1,500 MG in SODIUM CHLORIDE 0.9% 500 ML 500 ML IVPB SCH (05:48)
[2024-09-28 06:13] LABS: Glucose,Whole Blood 160 mg/dL (70-110)
--- NOTE | 2024-09-28 08:44 | P.GSCN ---
History of Present Illness Consult date: 09/28/24 Reason for Consult: Diabetic infection Requesting physician: Quoc Goode History of present illness: This a pleasant 74-year-old male with diabetes mellitus, previous nonhealing wounds and toe infection with right second toe amputation done and June [address] Baron. Past medical history also includes coronary artery disease status post CABG, atrial fibrillation on Eliquis, chronic kidney disease and history of CVA. Patient continued with wound care at the wound care center up until about a week ago. Second toe amputation site well-healed. States that Saturday he woke up and he had noticed that his fifth toe on the right foot was discolored red and swollen. He continued to have increased redness up his foot and he came in for further evaluation. Vascular surgery was consulted for diabetic infection. Patient states he does have feeling in his feet. He has had a previous angiogram with findings of bilateral severe infra popliteal disease not amenable revascularization. Patient denies any pain in his lower extremities no pain with walking. Does have some discomfort at that toe. Denie s any fevers or chills. No shortness of breath or chest pain, no abdominal pain nausea or vomiting. He has been afebrile. He is currently on IV vancomycin and cefepime. X-ray of the right foot shows no evidence of osteomyelitis of the fifth toe. Review of Systems A 14 point review systems was completed all pertinent positives and negatives as stated in the HPI. Past Medical History Past Medical History: Cancer, CVA/TIA, Diabetes Mellitus, Myocardial Infarction ([place]), Skin Disorder Additional Past Medical History / Comment(s): prostate cancer, melenoma, Last Myocardial Infarction Date:: 2011 History of Any Multi-Drug Resistant Organisms: None Reported Past Surgical History: Heart Catheterization With Stent Additional Past Surgical History / Comment(s): Triple bypass, 2 heart attacks, 4 stents that failed, radical prostectomy, skin cancer removal, Amputtion of toe Past Anesthesia/Blood Transfusion Reactions: No Reported Reaction Date of Last Stent Placement:: 2011 Past Psychological History: No Psychological Hx Reported Smoking Status: Never smoker Past Alcohol Use History: Daily, Occasional Past Drug Use History: None Reported - Past Family History Mother Family Medical History: No Reported History Father Family Medical History: Cancer Medications and Allergies Home Medications Medication Instructions Recorded Confirmed Type Apixaban [Eliquis] 5 mg PO BID 01/02/24 09/27/24 History Aspirin EC [Ecotrin Low Dose] 81 mg PO DAILY 01/02/24 09/27/24 History Atorvastatin [Lipitor] 80 mg PO HS 01/02/24 09/27/24 History Empagliflozin [Jardiance] 25 mg PO DAILY 01/02/24 09/27/24 History Mirabegron [Myrbetriq] 50 mg PO DAILY 01/02/24 09/27/24 History PARoxetine [Paxil] 10 mg PO DAILY 01/02/24 09/27/24 History Insulin Glargine,Hum.rec.anlog 10 units SQ HS 04/24/24 09/27/24 History [Lantus Solostar Pen] Metoprolol Tartrate [Lopressor] 25 mg PO BID 04/24/24 09/27/24 History glipiZIDE [Glucotrol] 5 mg PO BID-W/MEALS 04/24/24 09/27/24 History hydroCHLOROthiazide 12.5 mg PO DAILY 04/24/24 09/27/24 History Acetaminophen Tab [Tylenol] 650 mg PO Q6HR PRN tab 07/09/24 09/27/24 Rx Allergies Allergy/AdvReac Type Severity Reaction Status Date / Time No Known Allergies Allergy Verified 09/27/24 15:22 Surgical - Exam Vital Signs Temp Pulse Resp BP Pulse Ox 97.3 F L 82 20 145/87 98 09/27/24 11:34 09/27/24 11:34 09/27/24 11:34 09/27/24 11:34 09/27/24 11:34 General appearance: The patient is alert, oriented, appears in no acute distress. HET: Head is normocephalic and atraumatic. Pupils are equal and reactive. Neck: Supple. Heart: Regular. Lungs: Equal expansion, normal respiratory effort. Abdomen: Soft, nontender, nondistended. Extremities: Right foot previous second toe amputation well-healed, right fifth toe wound with gangrenous changes. Erythema to dorsal aspect up to the midfoot. Multiphasic PT and DP signals. Good capillary refill. Warm to the touch. Neurological: No focal deficits. Strength and sensation are grossly intact. Results - Labs 09/27/24 12:20 09/28/24 02:32 Abnormal Lab Results - Last 24 Hours (Table) 09/27/24 09/27/24 09/27/24 Range/Units 12:20 12:20 20:47 RDW 15.7 H (11.5-15.5) % Sodium 135 L (137-145) mmol/L BUN 35 H (9-20) mg/dL Creatinine 1.48 H (0.66-1.25) mg/dL Glucose 245 H (74-99) mg/dL POC Glucose (mg/dL) 237 H (70-110) mg/dL Alkaline Phosphatase 197 H (38-126) U/L C-Reactive Protein 17.6 H (<1.0) mg/dL 09/28/24 09/28/24 Range/Units 02:32 06:08 RDW (11.5-15.5) % Sodium (137-145) mmol/L BUN (9-20) mg/dL Creatinine 1.46 H (0.66-1.25) mg/dL Glucose (74-99) mg/dL POC Glucose (mg/dL) 160 H (70-110) mg/dL Alkaline Phosphatase (38-126) U/L C-Reactive Protein (<1.0) mg/dL Diabetes panel 09/27/24 09/28/24 Range/Units 12:20 02:32 Sodium 135 L (137-145) mmol/L Potassium 4.6 (3.5-5.1) mmol/L Chloride 99 (98-107) mmol/L Carbon Dioxide 24 (22-30) mmol/L BUN 35 H (9-20) mg/dL Creatinine 1.48 H 1.46 H (0.66-1.25) mg/dL Glucose 245 H (74-99) mg/dL Calcium 9.0 (8.4-10.2) mg/dL AST 26 (17-59) U/L ALT 18 (4-49) U/L Alkaline Phosphatase 197 H (38-126) U/L Total Protein 6.7 (6.3-8.2) g/dL Albumin 3.9 (3.5-5.0) g/dL Calcium panel 09/27/24 Range/Units 12:20 Calcium 9.0 (8.4-10.2) mg/dL Albumin 3.9 (3.5-5.0) g/dL Pituitary panel 09/27/24 09/28/24 Range/Units 12:20 02:32 Sodium 135 L (137-145) mmol/L Potassium 4.6 (3.5-5.1) mmol/L Chloride 99 (98-107) mmol/L Carbon Dioxide 24 (22-30) mmol/L BUN 35 H (9-20) mg/dL Creatinine 1.48 H 1.46 H (0.66-1.25) mg/dL Glucose 245 H (74-99) mg/dL Calcium 9.0 (8.4-10.2) mg/dL Adrenal panel 09/27/24 09/28/24 Range/Units 12:20 02:32 Sodium 135 L (137-145) mmol/L Potassium 4.6 (3.5-5.1) mmol/L Chloride 99 (98-107) mmol/L Carbon Dioxide 24 (22-30) mmol/L BUN 35 H (9-20) mg/dL Creatinine 1.48 H 1.46 H (0.66-1.25) mg/dL Glucose 245 H (74-99) mg/dL Calcium 9.0 (8.4-10.2) mg/dL Total Bilirubin 1.1 (0.2-1.3) mg/dL AST 26 (17-59) U/L ALT 18 (4-49) U/L Alkaline Phosphatase 197 H (38-126) U/L Total Protein 6.7 (6.3-8.2) g/dL Albumin 3.9 (3.5-5.0) g/dL - Imaging Comments: Right foot x-ray No acute fracture or dislocation. Postsurgical changes from first metatarsal phalangeal joint screw fixation and second digit amputation changes. Soft tissue swelling around the fifth digit MTP joint without evidence of osseous erosion to suggest sesamoiditis Assessment and Plan Assessment: 1. Right fifth toe infected wound 2. Cellulitis of the right foot 3. Severe bilateral infrapopliteal disease not amenable to revascularization 4. History of nonhealing infected toe wound status post right second toe amputation 5. Diabetes mellitus Plan: 1. No evidence of osteomyelitis per x-ray. Recommend continuing IV antibiotics per recommendations from infectious disease 2. No plans for vascular surgical intervention at this time 3. Outpatient follow-up with Dr. Baron Thank you for this consultation, we will continue to follow along. The impression and plan of care has been dictated as directed. Dr. Winn I performed a history and examination of this patient, discussed the same with the dictator. I agree with the dictator's note ,documented as a scribe. Any additional findings or plans will be noted.
[2024-09-28] MEDS: DAPAGLIFLOZIN PROPANEDIOL 10 MG TABLET PO SCH (08:49)
[2024-09-28] MEDS: metroNIDAZOLE 500 MG TAB PO SCH (08:49)
[2024-09-28] MEDS: PARoxetine 20 MG TAB PO SCH (08:49)
[2024-09-28] MEDS: NON FORMULARY DRUG (Mirabegron [Myrbetriq] 50 MG Tab.Er.24h) PO SCH (08:50)
[2024-09-28] MEDS: CEFEPIME 1 GM in SODIUM CHLORIDE 0.9% 50 ML IVPB SCH (10:14)
[2024-09-28 12:19] VITALS: BMI 27.2
[2024-09-28 12:20] LABS: Glucose,Whole Blood 186 mg/dL (70-110)
[2024-09-28 17:05] LABS: Glucose,Whole Blood 201 mg/dL (70-110)
--- NOTE | 2024-09-28 17:37 | P.PN ---
Subjective Progress Note Date: 09/28/24 Principal diagnosis: Reason for follow-up is right fifth toe gangrene/diabetic foot infection Patient is a 74-year-old male with a past medical history significant for CVA TIA diabetes mellitus CA prostate cancer history of diabetic foot infection requiring amputation of the second toe presenting to the hospital with a right fifth toe discoloration has been diagnosed with the right fifth toe gangrene admit to the hospital probably this consultation. On today's evaluation that is 09/28/2024, patient has been afebrile, patient is breathing comfortably and is currently on room air, patient denies having any significant cough no chest pain, patient denies nausea vomiting or diarrhea and no abdominal pain, denies pain to the right fifth toe. Patient did have a creatinine 1.46 no CBC was done today Objective - Vital Signs Vital signs: Vital Signs Temp 98.9 F 09/28/24 07:10 Pulse 77 09/28/24 07:10 Resp 16 09/28/24 07:10 BP 122/67 09/28/24 07:10 Pulse Ox 97 09/28/24 07:10 FiO2 Intake & Output 09/27/24 09/28/24 09/28/24 18:59 06:59 18:59 Intake Total 200 Balance 200 Weight 86.183 kg 86.183 kg Intake: Oral 200 Other: Voiding Method Toilet # Voids 2 - Exam GENERAL DESCRIPTION: An elderly male lying in bed in no distress RESPIRATORY SYSTEM: Unlabored breathing , decreased breath sounds at bases HEART: S1 S2 regular rate and rhythm , ABDOMEN: Soft , no tenderness EXTREMITIES: Right fifth toe is necrotic with some surrounding redness - Labs CBC & Chem 7: 09/27/24 12:20 09/28/24 02:32 Labs: Abnormal Lab Results - Last 24 Hours (Table) 09/27/24 09/27/24 09/28/24 Range/Units 12:20 20:47 02:32 Creatinine 1.46 H (0.66-1.25) mg/dL POC Glucose (mg/dL) 237 H (70-110) mg/dL Hemoglobin A1c 10.8 H (<=6.0) % 09/28/24 09/28/24 Range/Units 06:08 12:19 Creatinine (0.66-1.25) mg/dL POC Glucose (mg/dL) 160 H 186 H (70-110) mg/dL Hemoglobin A1c (<=6.0) % Assessment and Plan (1) Gangrene of toe of right foot Current Visit: Yes Status: Acute Code(s): I96 - GANGRENE, NOT ELSEWHERE CLASSIFIED SNOMED Code(s): 43990674174446058 (2) Diabetic infection of right foot Current Visit: Yes Status: Acute Code(s): E11.628 - TYPE 2 DIABETES MELLITUS WITH OTHER SKIN COMPLICATIONS; L08.9 - LOCAL INFECTION OF THE SKIN AND SUBCUTANEOUS TISSUE, UNSP SNOMED Code(s): 091873274 (3) Toe infection Current Visit: Yes Status: Acute Code(s): L08.9 - LOCAL INFECTION OF THE SKIN AND SUBCUTANEOUS TISSUE, UNSP SNOMED Code(s): 595486808 Plan: 1patient [facility] with discoloration of the right fifth toe concerning for gangrene of the right fifth toe in this patient with underlying history of diabetes mellitus we will need to cover for both gram-positive as well as gram-negative pathogen to be the likely pathogen 2-patient with renal insufficiency high risk of nephrotoxicity from the vancomycin and Vanco trough need to be monitored closely 3-patient will benefit from amputation of the right fifth toe as no antibiotic will reverse this gangrene this was discussed in detail with the admitting physician 4patient is being treated with cefepime vancomycin and Flagyl while waiting for the workup to be completed Dictation was produced using [employer] software. please excuse any grammatical, word or spelling errors. Time with Patient: Less than 30
--- NOTE | 2024-09-28 17:42 | P.PN ---
Subjective Progress Note Date: 09/28/24 Patient was seen and examined. No complaints. Renal function Cr 1.46. CRP 17.6. A1c 10.8. Discussed with Dr. Alexis, recommend amputation. Discussed with Rupinder VARGAS, no plans for amputation, continue IV antibiotics. General: non toxic, no distress, appears at stated age Derm: warm, dry Head: atraumatic, normocephalic, symmetric Mouth: no lip lesion, mucus membranes moist Cardiovascular: S1 S2 reg. No murmurs, rubs, gallops Lungs: Clear to auscultation bilaterally, no accessory muscle use Ext: no gross muscle atrophy, no edema, no contractures Neuro: no focal neuro deficits Psych: Alert and oriented Based on my assessment of this patient, this patient meets a high complexity level of care. Gangrenous right 5th digit: ID and Vascular surgery on board. Continue Vancomycin dosed per pharmacy, Flagyl 500 mg PO TID and Cefepime 1g IV BID. Monitor renal function while on Vancomycin. PAD: Lipitor 80 mg PO QHS. Type II DM on insulin: A1c 10.8. Lantus 8 units SQ QHS. ISS with Accuchecks ACHS along with hypoglycemic precautions. Farxiga 10 mg PO QD. CAD: ASA 81 mg PO QD. Lipitor as above. Dyslipidemia Essential hypertension: Metoprolol 25 mg PO BID. Atrial flutter: Eliquis 5 mg PO BID. Metoprolol as above. CKD stage IIIb: Appears at baseline. CODE STATUS: FULL CODE DVT Prophylaxis: Eliquis. GI Prophylaxis: Designated medical POA if patient is not able to make medical decisions for themselves: I have reviewed the following customer care consultant notes: Vascular, ID note I have reviewed the results of the following tests: Renal function. CRP. A1c. I have ordered the following tests: Vanc trough. CBC and BMP in the AM. I have discussed the care of this patient with the following independent histor eh: I have independently interpreted the following test below: I have discussed the management of this patient with the following physician: Dr. Alexis. Rupinder VARGAS. Objective - Vital Signs Vital signs: Vital Signs Temp 98.5 F 09/28/24 14:00 Pulse 97 09/28/24 14:00 Resp 17 09/28/24 14:00 BP 116/56 09/28/24 14:00 Pulse Ox 100 09/28/24 14:00 FiO2 Intake & Output 09/27/24 09/28/24 09/28/24 18:59 06:59 18:59 Intake Total 200 Balance 200 Weight 86.183 kg 86.183 kg Intake: Oral 200 Other: Voiding Method Toilet # Voids 2 - Labs CBC & Chem 7: 09/27/24 12:20 09/28/24 02:32 Labs: Abnormal Lab Results - Last 24 Hours (Table) 09/27/24 09/27/24 09/28/24 Range/Units 12:20 20:47 02:32 Creatinine 1.46 H (0.66-1.25) mg/dL POC Glucose (mg/dL) 237 H (70-110) mg/dL Hemoglobin A1c 10.8 H (<=6.0) % 09/28/24 09/28/24 09/28/24 Range/Units 06:08 12:19 17:02 Creatinine (0.66-1.25) mg/dL POC Glucose (mg/dL) 160 H 186 H 201 H (70-110) mg/dL Hemoglobin A1c (<=6.0) %
[2024-09-28 20:39] LABS: Glucose,Whole Blood 180 mg/dL (70-110)
[2024-09-28] MEDS: APIXABAN 5 MG TAB PO SCH (21:49)
[2024-09-29] MEDS: ASPIRIN 81 MG PO SCH (08:47)
--- NOTE | 2024-09-29 11:14 | P.PN ---
Subjective Progress Note Date: 09/29/24 Principal diagnosis: Diabetic wound Patient is seen and examined today as a follow-up. He denies any pain to his toe. Redness is improved. He spiked low-grade fever last night, afebrile this morning. Patient had nasal screen for MRSA MS SA which was positive for Staphylococcus aureus not MRSA. Preliminary blood culture with no growth after 24 hours Objective - Vital Signs Vital signs: Vital Signs Temp 97.9 F 09/29/24 08:00 Pulse 91 09/29/24 08:00 Resp 17 09/29/24 08:00 BP 143/78 09/29/24 08:00 Pulse Ox 100 09/29/24 08:00 FiO2 Intake & Output 09/28/24 09/29/24 09/29/24 18:59 06:59 18:59 Intake Total 550 Balance 550 Weight 86.183 kg Intake: Intake, IV Titration 550 Amount Cefepime 1 gm In Sodium 50 Chloride 0.9% 50 ml @ 100 mls/hr IVPB Q12H BRUNO Rx# :[id number] Vancomycin 1,500 mg In 500 Sodium Chloride 0.9% 500 ml 500 ml @ 167 mls/hr IVPB Q16H BRUNO Rx#: [id number] Other: Voiding Method Toilet Toilet # Voids 3 2 - Exam General appearance: The patient is alert, oriented, appears in no acute distress. HET: Head is normocephalic and atraumatic. Neck: Supple. Lungs: Equal expansion, normal respiratory effort. Abdomen: Soft, nondistended. Extremities: Right foot previous second toe amputation well-healed. Fifth toe with swelling, some erythema surrounding, gangrene. Redness to dorsal aspect of foot improved. Nontender. Neurological: No focal deficits. Alert and oriented. - Labs CBC & Chem 7: 09/27/24 12:20 09/28/24 02:32 Labs: Abnormal Lab Results - Last 24 Hours (Table) 09/28/24 09/28/24 09/28/24 Range/Units 12:19 17:02 20:38 POC Glucose (mg/dL) 186 H 201 H 180 H (70-110) mg/dL Microbiology - Last 24 Hours (Table) 09/27/24 16:07 Nasal Screen MRSA/MSSA - Final Nasal Swab Staphylococcus aureus,Not MRSA 09/27/24 12:20 Blood Culture - Preliminary Blood Assessment and Plan Assessment: 1. Right fifth toe infected wound 2. Cellulitis of the right foot 3. Severe bilateral infrapopliteal disease not amenable to revascularization 4. History of nonhealing infected toe wound status post right second toe amputation 5. Diabetes mellitus Plan: 1. No evidence of osteomyelitis per x-ray. Recommend continuing IV antibiotics per recommendations from infectious disease 2. Discussed with patient there is no urgency for amputation however he will likely need 1/5 toe amputation at some point which can be done as an outpatient or can be done as an inpatient. Patient would like amputation as inpatient. 3. Hold Eliquis 4. N.p.o. after midnight 5. Will plan for fifth toe amputation tomorrow with Dr. Baron Thank you for this consultation, we will continue to follow along. The impression and plan of care has been dictated as directed. Dr. Winn I performed a history and examination of this patient, discussed the same with the dictator. I agree with the dictator's note ,documented as a scribe. Any additional findings or plans will be noted.
[2024-09-29 11:31] LABS: MCH 30.5 pg (25.0-35.0); MCHC 31.8 g/dL (31.0-37.0); Mean Platelet Volume 8.4; Platelet Count 199 k/uL (150-450); RBC 4.58 m/uL (4.30-5.90); RDW 15.6 % (11.5-15.5); WBC 7.3 k/uL (3.8-10.6)
[2024-09-29 11:33] LABS: ALT 15 U/L (4-49); AST 21 U/L (17-59); African American GFR (CKD) 44 (>60 ml/min/1.73 sqM); Albumin 3.1 g/dL (3.5-5.0); Albumin/Globulin Ratio 1.2; Alkaline Phosphatase 160 U/L (38-126); Anion Gap 13 mmol/L; Blood Urea Nitrogen 35 mg/dL (9-20); Calcium 8.3 mg/dL (8.4-10.2); Carbon Dioxide 22 mmol/L (22-30); Chloride 97 mmol/L (98-107); Globulin 2.5 g/dL; Glucose 285 mg/dL (74-99); Magnesium 1.9 mg/dL (1.6-2.3); Non-African American GFR(CKD) 38 (>60 ml/min/1.73 sqM); Potassium 4.4 mmol/L (3.5-5.1); Sodium 132 mmol/L (137-145); Total Protein 5.6 g/dL (6.3-8.2)
[2024-09-29] MEDS: VANCOMYCIN TROUGH DUE 1 EACH MISC MISCELLANE ONE (12:22)
[2024-09-29 12:42] LABS: Glucose,Whole Blood 243 mg/dL (70-110)
--- NOTE | 2024-09-29 12:52 | P.PN ---
Subjective Progress Note Date: 09/29/24 Hospital course: Patient is a pleasant 74-year-old male with past medical history of type II DM on insulin, history of osteomyelitis of the left second toe, history of right foot osteomyelitis requiring IV antibiotics and now status post right second toe amputation for nonhealing ulcer and osteomyelitis, CAD ([place] x 3 with CABG x 3 caths x 4 that failed), A-fib (on Eliquis 5 mg p.o. twice daily), CKD IIIB, and CVA. He presented to the hospital on 09/27/2024 secondary to reports of wound on right foot fifth toe. Upon arrival to our facility, patient underwent evaluation in the emergency department. Vital signs upon arrival show blood pressure 145/87, heart rate 82, respiratory rate 20, temp 97.3 degrees. SpO2 of 98% on room air. X-ray right foot showing postsurgical changes from the first metatarsal phalangeal joint screw fixation and second digit amputation changes with soft tissue swelling around the fifth digit MTP joint without evidence of osseous erosion to suggest osteomyelitis. Labs completed and reviewed. CBC unremarkable. BMP showing sodium 135 and renal function consistent with known CKD stage IIIb with BUN of 35, creatinine 1.48, GFR 45. Blood glucose elevated at 245. Hemoglobin A1c 10.8%. Lactic acid 1.1. Liver profile showing elevated alkaline phosphatase of 197. Patient admitted under services with consultation to infectious disease and vascular surgery. Physical exam: Patient seen and fully evaluated at bedside this morning. He currently denies having any pain or complaints at this time. States foot never caused him any pain just concerned with discoloration. Vital signs reviewed and stable. General: Nontoxic, no distress and appears stated age. Derm: Skin warm and dry, normal coloration for ethnicity. Head: Atraumatic, normocephalic and symmetric. Eyes: EOM's intact, no lid lag, and anicteric sclera Mouth: no lip lesions, mucus membranes moist Cardiovascular: regular rate and rhythm with normal S1S2, no murmur, positive posterior tibial pulses bilaterally Lungs: Respirations even, regular, and unlabored on room air. Lungs CTA bilaterally, no rhonchi, no rales, no wheezing, and no accessory muscle usage. Abdominal: soft, nontender to palpation, no guarding, no appreciable organomegaly Ext: No gross muscle atrophy, no edema, no contractures. When intact. Right foot second toe amputation site appears to be healing well. Right foot fifth toe with moderate swelling, Manuel/purplish discoloration, and black necrosis/gangrene present with surrounding erythema extending up the dorsal surface of the foot. Neuro: Speech clear, face symmetrical and CN II-XII grossly intact with no noted focal neuro deficits Psych: Alert and oriented to person, place, time, and situation. Appropriate and pleasant affect. Assessment and Plan of Care: Gangrenous right 5th toe PAD: -Vascular surgery following, discussed with vascular surgery BILLET EXAMINER stating plans for right foot fifth toe amputation tomorrow with Dr. Baron. -Infectious disease following. -Continue IV antibiotics with cefepime 1 g every 12 hours, Flagyl 500 mg 3 times daily and vancomycin 1500 mg every 16 hours. Continue close monitoring of renal function and vancomycin trough to monitor for any signs of vancomycin associated renal toxicity. -Blood cultures showing no growth to date. -Nasal screen positive for Staphylococcus aureus but negative for MRSA. -Continue Lipitor 80 mg PO QHS. Type 2 insulin-dependent diabetes mellitus with hyperglycemia: -Hemoglobin A1c 10.8. -Continue Lantus 8 units SQ QHS along with glycemic protocol and Humalog sliding scale and Farxiga 10 mg PO QD. CAD status post CABG x 3 followed by stenting: -Continue cardiac medication regimen with aspirin 81 mg daily, atorvastatin 80 mg nightly, Farxiga 10 mg daily, and metoprolol 25 mg twice daily. -Telemetry monitoring. Dyslipidemia -Continue atorvastatin 80 mg nightly. Essential hypertension: -Continue Metoprolol 25 mg PO BID. Paroxysmal atrial flutter: -Eliquis held secondary to pending right fifth toe amputation. Recommend resumption of Eliquis 5 mg PO BID once cleared by vascular surgery team to resum e. CKD stage IIIb: -Appears at baseline with baseline creatinine around 1.7 and currently 1.72. Data and imaging reviewed: -Morning labs reviewed. CBC unremarkable. BMP showing hypochloremic hyponatremia with sodium of 132 and chloride of 97 and renal function consistent with known CKD stage IIIb with BUN of 35, creatinine 1.72, GFR of 38. Glucose elevated at 285. Magnesium 1.9. Liver profile showing elevated alkaline phosphatase of 160 and low albumin of 3.1 with total protein of 5.6. Vancomycin trough therapeutic at 18.5. -Signs reviewed. Blood pressure 143/78, heart rate 91, respiratory rate 17, temp 97.9 F, and SpO2 100% on room air. Patient did have low-grade temp overnight of 100.0 F. CODE STATUS: Full code DVT prophylaxis: Eliquis Anticipated discharge date: Pending clinical course Anticipated discharge place: Pending clinical course, likely home Patient was seen independently by Nurse Pracitioner. This document was prepared using [employer] dictation software. Please allow for er rors in encoding clerk, while rare they do occur. Magdiel Calderon NP rendered care for this patient independently, reviewed the findings and plan as documented in the note above and agree with plan. I did not physically speak with or examine the patient on this date. Objective - Vital Signs Vital signs: Vital Signs Temp 97.9 F 09/29/24 08:00 Pulse 91 09/29/24 08:00 Resp 17 09/29/24 08:00 BP 143/78 09/29/24 08:00 Pulse Ox 100 09/29/24 08:00 FiO2 Intake & Output 09/28/24 09/29/24 09/29/24 18:59 06:59 18:59 Intake Total 550 Balance 550 Weight 86.183 kg Intake: Intake, IV Titration 550 Amount Cefepime 1 gm In Sodium 50 Chloride 0.9% 50 ml @ 100 mls/hr IVPB Q12H BRUNO Rx# :[id number] Vancomycin 1,500 mg In 500 Sodium Chloride 0.9% 500 ml 500 ml @ 167 mls/hr IVPB Q16H BRUNO Rx#: [id number] Other: Voiding Method Toilet Toilet # Voids 3 2 - Labs CBC & Chem 7: 09/29/24 10:40 09/29/24 10:40 Labs: Abnormal Lab Results - Last 24 Hours (Table) 09/27/24 09/28/24 09/28/24 Range/Units 12:20 12:19 17:02 POC Glucose (mg/dL) 186 H 201 H (70-110) mg/dL Hemoglobin A1c 10.8 H (<=6.0) % 09/28/24 Range/Units 20:38 POC Glucose (mg/dL) 180 H (70-110) mg/dL Hemoglobin A1c (<=6.0) % Microbiology - Last 24 Hours (Table) 09/27/24 16:07 Nasal Screen MRSA/MSSA - Final Nasal Swab Staphylococcus aureus,Not MRSA 09/27/24 12:20 Blood Culture - Preliminary Blood
--- NOTE | 2024-09-29 15:09 | P.PN ---
Subjective Progress Note Date: 09/29/24 Principal diagnosis: Reason for follow-up is right fifth toe gangrene/diabetic foot infection Patient is a 74-year-old male with a past medical history significant for CVA TIA diabetes mellitus [place] prostate cancer history of diabetic foot infection requiring amputation of the second toe presenting to the hospital with a right fifth toe discoloration has been diagnosed with the right fifth toe gangrene admit to the hospital probably this consultation. On today's evaluation that is 09/29/2024, Patient is afebrile this morning patient denies having any chest pain shortness of breath or cough, the patient is currently on room air, patient denies any abdominal pain no diarrhea no nausea no vomiting or pain to the right foot area. Patient white count 7.3, creatinine is 1.72 nasal MRSA screen was negative Objective - Vital Signs Vital signs: Vital Signs Temp 98.4 F 09/29/24 13:03 Pulse 78 09/29/24 13:03 Resp 19 09/29/24 13:03 BP 120/71 09/29/24 13:03 Pulse Ox 99 09/29/24 13:03 FiO2 Intake & Output 09/28/24 09/29/24 09/29/24 18:59 06:59 18:59 Intake Total 550 540 Balance 550 540 Weight 86.183 kg Intake: Intake, IV Titration 550 Amount Cefepime 1 gm In Sodium 50 Chloride 0.9% 50 ml @ 100 mls/hr IVPB Q12H [facility] Rx# :[id number] Vancomycin 1,500 mg In 500 Sodium Chloride 0.9% 500 ml 500 ml @ 167 mls/hr IVPB Q16H [facility] Rx#: [id number] Oral 540 Other: Voiding Method Toilet Toilet Toilet # Voids 3 2 2 - Exam GENERAL DESCRIPTION: An elderly male lying in bed in no distress RESPIRATORY SYSTEM: Unlabored breathing , decreased breath sounds at bases HEART: S1 S2 regular rate and rhythm , ABDOMEN: Soft , no tenderness EXTREMITIES: Right fifth toe is necrotic with some surrounding redness - Labs CBC & Chem 7: 09/29/24 10:40 09/29/24 10:40 Labs: Abnormal Lab Results - Last 24 Hours (Table) 09/28/24 09/28/24 09/29/24 Range/Units 17:02 20:38 10:40 RDW 15.6 H (11.5-15.5) % Sodium (137-145) mmol/L Chloride (98-107) mmol/L BUN (9-20) mg/dL Creatinine (0.66-1.25) mg/dL Glucose (74-99) mg/dL POC Glucose (mg/dL) 201 H 180 H (70-110) mg/dL Calcium (8.4-10.2) mg/dL Alkaline Phosphatase (38-126) U/L Total Protein (6.3-8.2) g/dL Albumin (3.5-5.0) g/dL 09/29/24 09/29/24 Range/Units 10:40 12:15 RDW (11.5-15.5) % Sodium 132 L (137-145) mmol/L Chloride 97 L (98-107) mmol/L BUN 35 H (9-20) mg/dL Creatinine 1.72 H (0.66-1.25) mg/dL Glucose 285 H (74-99) mg/dL POC Glucose (mg/dL) 243 H (70-110) mg/dL Calcium 8.3 L (8.4-10.2) mg/dL Alkaline Phosphatase 160 H (38-126) U/L Total Protein 5.6 L (6.3-8.2) g/dL Albumin 3.1 L (3.5-5.0) g/dL Microbiology - Last 24 Hours (Table) 09/27/24 16:07 Nasal Screen MRSA/MSSA - Final Nasal Swab Staphylococcus aureus,Not MRSA 09/27/24 12:20 Blood Culture - Preliminary Blood Assessment and Plan (1) Gangrene of toe of right foot Current Visit: Yes Status: Acute Code(s): I96 - GANGRENE, NOT ELSEWHERE CLASSIFIED SNOMED Code(s): 02307211419953886 (2) Diabetic infection of right foot Current Visit: Yes Status: Acute Code(s): E11.628 - TYPE 2 DIABETES MELLITUS WITH OTHER SKIN COMPLICATIONS; L08.9 - LOCAL INFECTION OF THE SKIN AND SUBCUTANEOUS TISSUE, UNSP SNOMED Code(s): 869109939 (3) Toe infection Current Visit: Yes Status: Acute Code(s): L08.9 - LOCAL INFECTION OF THE SKIN AND SUBCUTANEOUS TISSUE, UNSP SNOMED Code(s): 733305634 Plan: 1patient presented hospital with discoloration of the right fifth toe concerning for gangrene of the right fifth toe in this patient with underlying history of diabetes mellitus we will need to cover for both gram-positive as well as gram-negative pathogen to be the likely pathogen 2-patient with renal insufficiency high risk of nephrotoxicity from the vancomycin and Vanco trough need to be monitored closely 3-patient is scheduled for amputation of right fifth toe by vascular surgery tomorrow. 4patient MRSA nasal screen is negative with slight worsening of his creatinine, I will discontinue vancomycin continue cefepime and Flagyl. at the bedside question concern answered Dictation was produced using [employer] dictation software. please excuse any grammatical, word or spelling errors. Time with Patient: Less than 30
[2024-09-29 17:07] LABS: Glucose,Whole Blood 304 mg/dL (70-110)
[2024-09-29 20:19] LABS: Glucose,Whole Blood 258 mg/dL (70-110)
[2024-09-30 07:28] LABS: Glucose,Whole Blood 188 mg/dL (70-110)
[2024-09-30 08:45] LABS: Basophils # (A) 0.01 X 10*3/uL (0.00-0.10); Basophils % (A) 0.1 %; Eosinophils # (A) 0.28 X 10*3/uL (0.04-0.35); Eosinophils % (A) 3.2 %; HCT 41.7 % (39.6-50.0); HGB 14.4 g/dL (13.0-17.0); Lymphocytes # (A) 0.53 X 10*3/uL (0.90-5.00); MCHC 34.5 g/dL (32.0-37.0); MCV 89.7 FL (80.0-97.0); Monocytes # (A) 0.83 X 10*3/uL (0.20-1.00); Monocytes % (A) 9.4 %; NRBC Per 100 WBC 0 X 10*3/uL (0.00-0.01); Neutrophils # (A) 7.14 X 10*3/uL (1.80-7.70); Neutrophils % (A) 81.1 %; Platelet Count 220 X 10*3/uL (140-440); RBC 4.65 X 10*6/uL (4.40-5.60); WBC 8.81 X 10*3/uL (4.50-10.00)
[2024-09-30 08:48] LABS: BUN/Creat Ratio 18.94 Ratio (12.00-20.00); Blood Urea Nitrogen 32.2 mg/dL (9.0-27.0); Calcium 8.5 mg/dL (8.7-10.3); Carbon Dioxide 19.5 mmol/L (21.6-31.8); Chloride 102 mmol/L (96-109); Glucose 143 mg/dL (70-110); Potassium 4.1 mmol/L (3.5-5.5); Sodium 136 mmol/L (135-145)
[2024-09-30 12:39] LABS: Glucose,Whole Blood 120 mg/dL (70-110)
[2024-09-30] MEDS: LACTATED RINGERS 1,000 ML BAG IV STA (14:06)
[2024-09-30] MEDS: IV FLUID CONTINUATION 1,000 ML IV ONE (14:07)
--- NOTE | 2024-09-30 14:15 | P.PN ---
Subjective Progress Note Date: 09/30/24 74-year-old male with past medical history of type II DM on insulin, history of osteomyelitis of the left second toe, history of right foot osteomyelitis requiring IV antibiotics and now status post right second toe amputation for nonhealing ulcer and osteomyelitis, CAD (MD x 3 with CABG x 3 caths x 4 that failed), A-fib (on Eliquis 5 mg p.o. twice daily), CKD IIIB, and CVA. He presented to the hospital on 09/27/2024 secondary to reports of wound on right foot fifth toe. Upon arrival to our facility, patient underwent evaluation in the emergency department. Vital signs upon arrival show blood pressure 145/87, heart rate 82, respiratory rate 20, temp 97.3 degrees. SpO2 of 98% on room air. X-ray right foot showing postsurgical changes from the first metatarsal phalangeal joint screw fixation and second digit amputation changes with soft tissue swelling around the fifth digit MTP joint without evidence of osseous erosion to suggest osteomyelitis. Labs completed and reviewed. CBC unremarka ble. BMP showing sodium 135 and renal function consistent with known CKD stage IIIb with BUN of 35, creatinine 1.48, GFR 45. Blood glucose elevated at 245. Hemoglobin A1c 10.8%. Lactic acid 1.1. Liver profile showing elevated alkaline phosphatase of 197. Patient admitted under services with consultation to infectious disease and vascular surgery. 09/30 Patient was seen and examined. No complaints. Plans for amputation today. Antibiotics include Cefepime and Flagyl. Vancomycin discontinued due to ZAIN. CBC and BMP significant for bicarb 19.5, AG 14.5, BUN 32.2, Cr 1.7, glu 143, Ca 8.5. General: non toxic, no distress, appears at stated age Derm: warm, dry Head: atraumatic, normocephalic, symmetric Mouth: no lip lesion, mucus membranes moist Cardiovascular: S1 S2 reg. No murmurs, rubs, gallops Lungs: Clear to auscultation bilaterally, no accessory muscle use Ext: no gross muscle atrophy, no edema, no contractures Neuro: no focal neuro deficits Psych: Alert and oriented Based on my assessment of this patient, this patient meets a high complexity level of care. Gangrenous right 5th digit: ID and Vascular surgery on board. Continue Flagyl 500 mg PO TID and Cefepime 1g IV BID. ZAIN on CKD stage IIIb with AG metabolic acidosis: Likely due to Vancomycin which has been discontinued. Stop Fargixa. Monitor renal function. Start LR at 50 cc/hr. PAD: Lipitor 80 mg PO QHS. Type II DM on insulin: A1c 10.8. Lantus 8 units SQ QHS. ISS with Accuchecks ACHS along with hypoglycemic precautions. CAD: ASA 81 mg PO QD. Lipitor as above. Dyslipidemia Essential hypertension: Metoprolol 25 mg PO BID. Atrial flutter: Eliquis held for surgery. Metoprolol as above. CKD stage IIIb: Appears at baseline. CODE STATUS: FULL CODE DVT Prophylaxis: Eliquis. GI Prophylaxis: Designated medical POA if patient is not able to make medical decisions for themselves: I have reviewed the following technical healthcare consultant notes: Vascular, ID note I have reviewed the results of the following tests: BMP, CBC. I have ordered the following tests: BMP in the AM. I have discussed the care of this patient with the following independent historian: I have independently interpreted the following test below: I have discussed the management of this patient with the following physician: Objective - Vital Signs Vital signs: Vital Signs Temp 98.1 F 09/30/24 13:53 Pulse 80 09/30/24 13:53 Resp 16 09/30/24 13:53 BP 130/72 09/30/24 13:53 Pulse Ox 100 09/30/24 13:53 FiO2 Intake & Output 09/29/24 09/30/24 09/30/24 18:59 06:59 18:59 Intake Total 2033 50 Balance 2033 50 Intake: Intake, IV Titration 50 Amount Cefepime 1 gm In Sodium 50 Chloride 0.9% 50 ml @ 100 mls/hr IVPB Q12H [facility] Rx# :[id number] Oral 2033 Other: Voiding Method Toilet Toilet Toilet # Voids 2 1 # Bowel Movements 1 - Labs CBC & Chem 7: 09/30/24 03:20 09/30/24 03:20 Labs: Abnormal Lab Results - Last 24 Hours (Table) 09/29/24 09/29/24 09/30/24 Range/Units 17:05 20:17 03:20 RDW 15.0 H (11.5-14.5) % Lymphocytes # 0.53 L (0.90-5.00) X 10*3/uL Carbon Dioxide (21.6-31.8) mmol/L Anion Gap (4.00-12.00) mmol/L BUN (9.0-27.0) mg/dL Creatinine (0.6-1.5) mg/dL Est GFR (CKD-EPI) (>=60) Glucose (70-110) mg/dL POC Glucose (mg/dL) 304 H 258 H (70-110) mg/dL Calcium (8.7-10.3) mg/dL 09/30/24 09/30/24 09/30/24 Range/Units 03:20 07:20 12:32 RDW (11.5-14.5) % Lymphocytes # (0.90-5.00) X 10*3/uL Carbon Dioxide 19.5 L (21.6-31.8) mmol/L Anion Gap 14.50 H (4.00-12.00) mmol/L BUN 32.2 H (9.0-27.0) mg/dL Creatinine 1.7 H (0.6-1.5) mg/dL Est GFR (CKD-EPI) 41 L (>=60) Glucose 143 H (70-110) mg/dL POC Glucose (mg/dL) 188 H 120 H (70-110) mg/dL Calcium 8.5 L (8.7-10.3) mg/dL Microbiology - Last 24 Hours (Table) 09/27/24 12:20 Blood Culture - Preliminary Blood
[2024-09-30] MEDS: ONDANSETRON 4 MG/2 ML VIAL IVP STA (14:26)
[2024-09-30] MEDS ORDERED: fentaNYL (PF) 50 MCG/ML 2 ML AMP ONE (14:34)
[2024-09-30] MEDS ORDERED: SUCCINYLCHOLINE CHLORIDE 200 MG/10 ML VIAL IV ONE (14:34)
[2024-09-30] MEDS ORDERED: PROPOFOL 10 MG/ML 20 ML VIAL IV ONE (14:34)
[2024-09-30] MEDS ORDERED: MIDAZOLAM 2 MG/2 ML VIAL ONE (14:34)
[2024-09-30] MEDS ORDERED: LIDOCAINE 1% INJ 10MG/ML (20 ML MDV) ONE (14:34)
[2024-09-30] MEDS: LACTATED RINGERS 1,000 ML IV SCH (15:33)
[2024-09-30 16:11] LABS: Glucose,Whole Blood 133 mg/dL (70-110)
--- NOTE | 2024-09-30 16:41 | P.PN ---
Subjective Progress Note Date: 09/30/24 Principal diagnosis: Reason for follow-up is right fifth toe gangrene/diabetic foot infection Patient is a 74-year-old male with a past medical history significant for CVA TIA diabetes mellitus [place] prostate cancer history of diabetic foot infection requiring amputation of the second toe presenting to the hospital with a right fifth toe discoloration has been diagnosed with the right fifth toe gangrene admit to the hospital probably this consultation. On today's evaluation that is 09/30/2024,the patient denies any fever or any chills, patient is breathing comfortably on room air, the patient denies chest pain shortness of breath and no significant cough, patient denies abdominal pain, no nausea vomiting or diarrhea. Or pain to the right foot area. Patient white count is 8.1 creat is 1.7 blood culture negative Objective - Vital Signs Vital signs: Vital Signs Temp 98.9 F 09/30/24 08:00 Pulse 87 09/30/24 08:00 Resp 19 09/30/24 08:00 BP 134/73 09/30/24 08:00 Pulse Ox 98 09/30/24 08:00 FiO2 Intake & Output 09/29/24 09/30/24 09/30/24 18:59 06:59 18:59 Intake Total 2033 50 Balance 2033 50 Intake: Intake, IV Titration 50 Amount Cefepime 1 gm In Sodium 50 Chloride 0.9% 50 ml @ 100 mls/hr IVPB Q12H [facility] Rx# :[id number] Oral 2033 Other: Voiding Method Toilet Toilet Toilet # Voids 2 1 # Bowel Movements 1 - Exam GENERAL DESCRIPTION: An elderly male lying in bed in no distress RESPIRATORY SYSTEM: Unlabored breathing , decreased breath sounds at bases HEART: S1 S2 regular rate and rhythm , ABDOMEN: Soft , no tenderness EXTREMITIES: Right fifth toe is necrotic with some surrounding redness - Labs CBC & Chem 7: 09/30/24 03:20 09/30/24 03:20 Labs: Abnormal Lab Results - Last 24 Hours (Table) 09/29/24 09/29/24 09/30/24 Range/Units 17:05 20:17 03:20 RDW 15.0 H (11.5-14.5) % Lymphocytes # 0.53 L (0.90-5.00) X 10*3/uL Carbon Dioxide (21.6-31.8) mmol/L Anion Gap (4.00-12.00) mmol/L BUN (9.0-27.0) mg/dL Creatinine (0.6-1.5) mg/dL Est GFR (CKD-EPI) (>=60) Glucose (70-110) mg/dL POC Glucose (mg/dL) 304 H 258 H (70-110) mg/dL Calcium (8.7-10.3) mg/dL 09/30/24 09/30/24 09/30/24 Range/Units 03:20 07:20 12:32 RDW (11.5-14.5) % Lymphocytes # (0.90-5.00) X 10*3/uL Carbon Dioxide 19.5 L (21.6-31.8) mmol/L Anion Gap 14.50 H (4.00-12.00) mmol/L BUN 32.2 H (9.0-27.0) mg/dL Creatinine 1.7 H (0.6-1.5) mg/dL Est GFR (CKD-EPI) 41 L (>=60) Glucose 143 H (70-110) mg/dL POC Glucose (mg/dL) 188 H 120 H (70-110) mg/dL Calcium 8.5 L (8.7-10.3) mg/dL Microbiology - Last 24 Hours (Table) 09/27/24 12:20 Blood Culture - Preliminary Blood 09/27/24 16:07 Nasal Screen MRSA/MSSA - Final Nasal Swab Staphylococcus aureus,Not MRSA Assessment and Plan (1) Gangrene of toe of right foot Current Visit: Yes Status: Acute Code(s): I96 - GANGRENE, NOT ELSEWHERE CLASSIFIED SNOMED Code(s): 49976120491535516 (2) Diabetic infection of right foot Current Visit: Yes Status: Acute Code(s): E11.628 - TYPE 2 DIABETES MELLITUS WITH OTHER SKIN COMPLICATIONS; L08.9 - LOCAL INFECTION OF THE SKIN AND SUBCUTANEOUS TISSUE, UNSP SNOMED Code(s): 357305563 (3) Toe infection Current Visit: Yes Status: Acute Code(s): L08.9 - LOCAL INFECTION OF THE SKIN AND SUBCUTANEOUS TISSUE, UNSP SNOMED Code(s): 048439681 Plan: 1patient presented hospital with discoloration of the right fifth toe concerning for gangrene of the right fifth toe in this patient with underlying history of diabetes mellitus we will need to cover for both gram-positive as well as gram-negative pathogen to be the likely pathogen 2-patient with renal insufficiency high risk of nephrotoxicity from the vancomycin and Vanco trough need to be monitored closely 3-patient is scheduled for amputation of right fifth toe by vascular surgery this afternoon 4patient MRSA nasal screen is negative blood negative 5will continue the patient on cefepime and Flagyl hopefully they will obtain culture at the time of amputation with a discharge antibiotic on the basis of those culture Dictation was produced using [employer] dictation software. please excuse any grammatical, word or spelling errors. Time with Patient: Less than 30
[2024-09-30 17:11] LABS: Glucose,Whole Blood 120 mg/dL (70-110)
[2024-09-30 20:48] LABS: Glucose,Whole Blood 257 mg/dL (70-110)
[2024-10-01 07:19] LABS: Glucose,Whole Blood 278 mg/dL (70-110)
[2024-10-01 07:45] VITALS: RESP 18
[2024-10-01 08:28] LABS: Basophils # (A) 0.02 X 10*3/uL (0.00-0.10); Basophils % (A) 0.3 %; Eosinophils # (A) 0.31 X 10*3/uL (0.04-0.35); Eosinophils % (A) 4.4 %; HCT 37.7 % (39.6-50.0); HGB 12.6 g/dL (13.0-17.0); Lymphocytes # (A) 0.53 X 10*3/uL (0.90-5.00); Lymphocytes % (A) 7.5 %; MCH 30.7 pg (27.0-32.0); MCHC 33.4 g/dL (32.0-37.0); MCV 91.7 FL (80.0-97.0); Mean Platelet Volume 10.4 FL (9.5-12.2); Monocytes # (A) 1.02 X 10*3/uL (0.20-1.00); Monocytes % (A) 14.4 %; NRBC Per 100 WBC 0 X 10*3/uL (0.00-0.01); Neutrophils # (A) 5.18 X 10*3/uL (1.80-7.70); Neutrophils % (A) 73.3 %; Platelet Count 197 X 10*3/uL (140-440); RBC 4.11 X 10*6/uL (4.40-5.60); RDW 15.2 % (11.5-14.5); WBC 7.07 X 10*3/uL (4.50-10.00)
--- NOTE | 2024-10-01 08:42 | P.OP ---
Date of Procedure: 09/30/24 Description of Procedure: SURGEON: Patria Baron DO JOB TRACER: None PREOPERATIVE DIAGNOSIS: Right fifth toe gangrene, diabetes, cellulitis POSTOPERATIVE DIAGNOSIS: Same OPERATION: Right fifth toe amputation. ANESTHESIA: General ESTIMATED BLOOD LOSS: 5 cc SPECIMENS REMOVED: Right fifth toe for disposal COMPLICATIONS: None immediately apparent OPERATIVE FINDINGS: Patient is a 74-year-old male with known infrapopliteal vascular disease and previous toe amputations for diabetic infections osteomyelitis. He presents with increasing rapid worsening of his right fifth toe coloration changes and cellulitis. The plan is to go forward with a toe amputation. Risk and benefits were discussed. He seemed understood and was willing to proceed. DESCRIPTION OF PROCEDURE: This patient was brought to the operating room, and given anesthetic per the anesthesia team. The operative foot was prepped and bertram ped in sterile manner. An incision was made at the base of the fifth toe deep into skin and fascia on plantar and dorsal aspect until we reached the head of the metatarsal bone. The head of the metatarsal was from the fifth toe. The tendons were divided in plantar and dorsal aspects. The fifth toe was removed. A rongeur was used to remove the fifth metatarsal distal portion. The bone was healthy and strong at this level. There is no purulent drainage. There were minimal bleeding points which were electrocoagulated. Base of the wound looked clean, and the wound was copiously irrigated with saline. Tissue was approximated with 3-0 Vicryl and 3-0 nylon with partial closure. The area left open was treated with a wet-to-dry dressing. Hemostasis was well controlled and dressing was applied. The patient tolerated the procedure well.
[2024-10-01 09:30] LABS: BUN/Creat Ratio 20.12 Ratio (12.00-20.00); Blood Urea Nitrogen 34.2 mg/dL (9.0-27.0); Calcium 8.1 mg/dL (8.7-10.3); Carbon Dioxide 20.8 mmol/L (21.6-31.8); Chloride 103 mmol/L (96-109); Glucose 292 mg/dL (70-110); Potassium 4.1 mmol/L (3.5-5.5); Sodium 137 mmol/L (135-145)
[2024-10-01] MEDS: APIXABAN 5 MG TAB PO SCH (11:47)
--- NOTE | 2024-10-01 11:52 | P.PN ---
Subjective Progress Note Date: 10/01/24 Principal diagnosis: Diabetic wound Seen and examined today as a follow-up. He is postop day #1 for right fifth toe amputation. He denies any pain. Denies any fevers or chills, no abdominal pain nausea or vomiting. He has been afebrile. He remains on IV antibiotics. Objective - Vital Signs Vital signs: Vital Signs Temp 98.2 F 10/01/24 07:07 Pulse 79 10/01/24 07:07 Resp 18 10/01/24 07:07 BP 146/80 10/01/24 07:07 Pulse Ox 98 10/01/24 07:07 FiO2 Intake & Output 09/30/24 10/01/24 10/01/24 18:59 06:59 18:59 Intake Total 950 Output Total 5 Balance 945 Weight 86.183 kg Intake: IV 950 Output: Estimated Blood Loss 5 Other: Voiding Method Toilet Toilet # Voids 2 3 - Exam General appearance: The patient is alert, oriented, appears in no acute distress. HET: Head is normocephalic and atraumatic. Neck: Supple. Lungs: Equal expansion, normal respiratory effort. Abdomen: Soft, nondistended. Extremities: Right foot previous second toe amputation well-healed. Fifth toe amputation site with 2 sutures lateral aspect of incision with medial aspect open. Minimal bleeding. Mild erythema to dorsal aspect of foot. Neurological: No focal deficits. Alert and oriented. - Labs CBC & Chem 7: 10/01/24 05:31 10/01/24 05:31 Labs: Abnormal Lab Results - Last 24 Hours (Table) 09/30/24 09/30/24 09/30/24 Range/Units 12:32 16:09 17:01 RBC (4.40-5.60) X 10*6/uL Hgb (13.0-17.0) g/dL Hct (39.6-50.0) % RDW (11.5-14.5) % Lymphocytes # (0.90-5.00) X 10*3/uL Monocytes # (0.20-1.00) X 10*3/uL Carbon Dioxide (21.6-31.8) mmol/L Anion Gap (4.00-12.00) mmol/L BUN (9.0-27.0) mg/dL Creatinine (0.6-1.5) mg/dL Est GFR (CKD-EPI) (>=60) BUN/Creatinine Ratio (12.00-20.00) Ratio Glucose (70-110) mg/dL POC Glucose (mg/dL) 120 H 133 H 120 H (70-110) mg/dL Calcium (8.7-10.3) mg/dL 09/30/24 10/01/24 10/01/24 Range/Units 20:34 05:31 05:31 RBC 4.11 L (4.40-5.60) X 10*6/uL Hgb 12.6 L (13.0-17.0) g/dL Hct 37.7 L (39.6-50.0) % RDW 15.2 H (11.5-14.5) % Lymphocytes # 0.53 L (0.90-5.00) X 10*3/uL Monocytes # 1.02 H (0.20-1.00) X 10*3/uL Carbon Dioxide 20.8 L (21.6-31.8) mmol/L Anion Gap 13.20 H (4.00-12.00) mmol/L BUN 34.2 H (9.0-27.0) mg/dL Creatinine 1.7 H (0.6-1.5) mg/dL Est GFR (CKD-EPI) 41 L (>=60) BUN/Creatinine Ratio 20.12 H (12.00-20.00) Ratio Glucose 292 H (70-110) mg/dL POC Glucose (mg/dL) 257 H (70-110) mg/dL Calcium 8.1 L (8.7-10.3) mg/dL 10/01/24 Range/Units 07:17 RBC (4.40-5.60) X 10*6/uL Hgb (13.0-17.0) g/dL Hct (39.6-50.0) % RDW (11.5-14.5) % Lymphocytes # (0.90-5.00) X 10*3/uL Monocytes # (0.20-1.00) X 10*3/uL Carbon Dioxide (21.6-31.8) mmol/L Anion Gap (4.00-12.00) mmol/L BUN (9.0-27.0) mg/dL Creatinine (0.6-1.5) mg/dL Est GFR (CKD-EPI) (>=60) BUN/Creatinine Ratio (12.00-20.00) Ratio Glucose (70-110) mg/dL POC Glucose (mg/dL) 278 H (70-110) mg/dL Calcium (8.7-10.3) mg/dL Microbiology - Last 24 Hours (Table) 09/27/24 12:20 Blood Culture - Preliminary Blood Assessment and Plan Assessment: 1. Right fifth toe infected wound status post fifth toe amputation 2. Cellulitis of the right foot 3. Severe bilateral infrapopliteal disease not amenable to revascularization 4. History of nonhealing infected toe wound status post right second toe amputation 5. Diabetes mellitus Plan: 1. Postop shoe ordered 2. Offload weight to ball of foot, heel walk only 3. May resume Eliquis 4. Dressing changes Saturday with [employer] 5. Patient may shower, no tub bathing or soaking 6. Follow-up with Dr. Baron in 3 weeks Thank you for this consultation, patient is cleared from vascular surgery for discharge. The impression and plan of care has been dictated as directed. Dr. Baron I performed a history and examination of this patient, discussed the same with the dictator. I agree with the dictator's note ,documented as a scribe. Any additional findings or plans will be noted.
[2024-10-01 13:04] LABS: Glucose,Whole Blood 201 mg/dL (70-110)
[2024-10-01 13:08] VITALS: BP 154/78; PULSE 54; TEMP 98.7
--- NOTE | 2024-10-01 14:28 | P.DS ---
Providers Date of admission: 09/27/24 14:05 Expected date of discharge: 10/01/24 Attending physician: Rachelle Ortiz MD Consults: 09/27/24 13:07 Consult Physician Urgent Consulting Provider: Lashell Alexis Consult Reason/Comments: Right foot infection, gangrene Do you want consulting provider notified?: Yes 09/27/24 13:56 Consult Physician Routine Consulting Provider: Herman Winn Consult Reason/Comments: Diabetic infection Do you want consulting provider notified?: Yes Primary care physician: [facility] Course: 74-year-old male with past medical history of type II DM on insulin, history of osteomyelitis of the left second toe, history of right foot osteomyelitis requiring IV antibiotics and now status post right second toe amputation for nonhealing ulcer and osteomyelitis, CAD (VA x 3 with CABG x 3 caths x 4 that failed), A-fib (on Eliquis 5 mg p.o. twice daily), CKD IIIB, and CVA. He presented to the hospital on 09/27/2024 secondary to reports of wound on right foot fifth toe. Upon arrival to our facility, patient underwent evaluation in the emergency department. Vital signs upon arrival show blood pressure 145/87, heart rate 82, respiratory rate 20, temp 97.3 degrees. SpO2 of 98% on room air. X-ray right foot showing postsurgical changes from the first metatarsal phalangeal joint screw fixation and second digit amputation changes with soft tissue swelling around the fifth digit MTP joint without evidence of osseous erosion to suggest osteomyelitis. Labs completed and reviewed. CBC unremarkable. BMP showing sodium 135 and renal function consistent with known CKD stage IIIb with BUN of 35, creatinine 1.48, GFR 45. Blood glucose elevated at 245. Hemoglobin A1c 10.8%. Lactic acid 1.1. Liver profile showing elevated alkaline phosphatase of 197. Patient admitted under services with consultation to infectious disease and vascular surgery. 09/30 Patient was seen and examined. No complaints. Plans for amputation today. A ntibiotics include Cefepime and Flagyl. Vancomycin discontinued due to ZAIN. CBC and BMP significant for bicarb 19.5, AG 14.5, BUN 32.2, Cr 1.7, glu 143, Ca 8.5. 10/01 Patient was seen and examined. Underwent Right fifth toe amputation with Dr. Baron on 09/30. He reports no pain. Cleared for discharge by Vascular surgery. ID recommends Augmentin x 1 week. CBC and BMP significant for RBC 4.11, Hg 12.6, Hct 37.7, bicarb 20.8, AG 13.2, BUN 34.2, Cr 1.7, glu 292, Ca 8.1. Discharge Plan: Repeat BMP in 3 days to be followed up with PCP. Augmentin x 1 week per ID. Hold hydrochlorothiazide, Jardiance and Glipizide. Medications to be resumed by PCP depending on the results of the BMP. Follow up with Dr. Baron within 3 week of discharge. May shower, no tub bathing. Opticell alginate Saturday to open area of right surgical wound. Offload walking and forefoot. Heel walk only. Wear postop shoe when ambulating General: non toxic, no distress, appears at stated age Derm: warm, dry Head: atraumatic, normocephalic, symmetric Mouth: no lip lesion, mucus membranes moist Cardiovascular: S1 S2 reg. No murmurs, rubs, gallops Lungs: Clear to auscultation bilaterally, no accessory muscle use Ext: no gross muscle atrophy, no edema, no contractures Neuro: no focal neuro deficits Psych: Alert and oriented Discharge Diagnosis: Gangrenous right 5th digit Acute blood loss anemia ZAIN on CKD stage IIIb with AG metabolic acidosis PAD Type II DM on insulin CAD Dyslipidemia Essential hypertension Atrial flutter This complex discharge took 35 minutes to complete. Patient Condition at Discharge: Stable Plan - Discharge Summary Discharge Rx Participant: No New Discharge Prescriptions: New HYDROcodone/APAP 5-325MG [[place] 5-325] 1 each PO Q6HR PRN #12 tab PRN Reason: Moderate Pain (Scale 4 To 6) Amoxic-Pot Clav 875-125Mg [Augmentin 875-125] 1 tab PO Q12HR 7 Days #14 tab Continue PARoxetine [Paxil] 10 mg PO DAILY Mirabegron [Myrbetriq] 50 mg PO DAILY Atorvastatin [Lipitor] 80 mg PO HS Apixaban [Eliquis] 5 mg PO BID Insulin Glargine,Hum.rec.anlog [Lantus Solostar Pen] 10 units SQ HS Metoprolol Tartrate [Lopressor] 25 mg PO BID Acetaminophen Tab [Tylenol] 650 mg PO Q6HR PRN tab PRN Reason: Pain Scale 1 To 5 Aspirin EC [Ecotrin Low Dose] 81 mg PO DAILY Discontinued hydroCHLOROthiazide 12.5 mg PO DAILY Empagliflozin [Jardiance] 25 mg PO DAILY glipiZIDE [Glucotrol] 5 mg PO BID-W/MEALS Discharge Medication List Apixaban [Eliquis] 5 mg PO BID 01/02/24 [History] Aspirin EC [Ecotrin Low Dose] 81 mg PO DAILY 01/02/24 [History] Atorvastatin [Lipitor] 80 mg PO HS 01/02/24 [History] Mirabegron [Myrbetriq] 50 mg PO DAILY 01/02/24 [History] PARoxetine [Paxil] 10 mg PO DAILY 01/02/24 [History] Insulin Glargine,Hum.rec.anlog [Lantus Solostar Pen] 10 units SQ HS 04/24/24 [History] Metoprolol Tartrate [Lopressor] 25 mg PO BID 04/24/24 [History] Acetaminophen Tab [Tylenol] 650 mg PO Q6HR PRN tab 07/09/24 [Rx] Amoxic-Pot Clav 875-125Mg [Augmentin 875-125] 1 tab PO Q12HR 7 Days #14 tab 10/01/24 [Rx] HYDROcodone/APAP 5-325MG [[place] 5-325] 1 each PO Q6HR PRN #12 tab 10/01/24 [Rx] Follow up Appointment(s)/Referral(s): Patria Parra DO [STAFF PHYSICIAN] - 10/19/24 11:45 am [facility] [NON-STAFF] - 1 Week (Wound Center will be in contact you next week with appt. time. ) Quoc Be DO [Primary Care Provider] - 10/15/24 3:00 pm (at the [facility]) Lashell Alexis MD [STAFF PHYSICIAN] - 10/12/24 2:15 pm Ambulatory/Diagnostic Orders: Basic Metabolic Panel [LAB.AMB] Time Frame: 3 Days, Location: None Selected Patient Instructions/Handouts: Hydrocodone/Acetaminophen (By mouth), Amoxicillin/Clavulanate Potassium (By mouth), Foot Care for People with Diabetes (DC), Toe Amputation (DC) Activity/Diet/Wound Care/Special Instructions: Repeat BMP in 3 days to be followed up with PCP. Hold hydrochlorothiazide, Jardiance and Glipizide. Medications to be resumed by PCP depending on the results of the BMP. Follow up with Dr. Baron within 3 week of discharge. May shower, no tub bathing. Opticell alginate Saturday to open area of right surgical wound. Offload walking and forefoot. Heel walk only. Wear postop shoe when ambulating Discharge Disposition: HOME SELF-CARE
--- NOTE | 2024-10-01 15:00 | P.PN ---
Subjective Progress Note Date: 10/01/24 Principal diagnosis: Reason for follow-up is right fifth toe gangrene/diabetic foot infection Patient is a 74-year-old male with a past medical history significant for CVA TIA diabetes mellitus [place] prostate cancer history of diabetic foot infection requiring amputation of the second toe presenting to the hospital with a right fifth toe discoloration has been diagnosed with the right fifth toe gangrene admit to the hospital probably this consultation. On today's evaluation that is 10/01/2024,the patient remains to be afebrile, patient is on room air not requiring supplemental oxygen and denies any shortness of breath no chest pain or cough.Patient denies having any nausea or vomiting, no abdominal pain and no diarrhea or pain to the right foot. The patient white count 7.07, creatinine is 1.7 blood culture negative Objective - Vital Signs Vital signs: Vital Signs Temp 98.2 F 10/01/24 07:07 Pulse 79 10/01/24 07:07 Resp 18 10/01/24 07:07 BP 146/80 10/01/24 07:07 Pulse Ox 98 10/01/24 07:07 FiO2 Intake & Output 09/30/24 10/01/24 10/01/24 18:59 06:59 18:59 Intake Total 950 Output Total 5 Balance 945 Weight 86.183 kg Intake: IV 950 Output: Estimated Blood Loss 5 Other: Voiding Method Toilet Toilet Toilet # Voids 2 3 - Exam GENERAL DESCRIPTION: An elderly male lying in bed in no distress RESPIRATORY SYSTEM: Unlabored breathing , decreased breath sounds at bases HEART: S1 S2 regular rate and rhythm , ABDOMEN: Soft , no tenderness EXTREMITIES: Right fifth toe amputation site with minimal swelling no drainage - Labs CBC & Chem 7: 10/01/24 05:31 10/01/24 05:31 Labs: Abnormal Lab Results - Last 24 Hours (Table) 09/30/24 09/30/24 09/30/24 Range/Units 12:32 16:09 17:01 RBC (4.40-5.60) X 10*6/uL Hgb (13.0-17.0) g/dL Hct (39.6-50.0) % RDW (11.5-14.5) % Lymphocytes # (0.90-5.00) X 10*3/uL Monocytes # (0.20-1.00) X 10*3/uL Carbon Dioxide (21.6-31.8) mmol/L Anion Gap (4.00-12.00) mmol/L BUN (9.0-27.0) mg/dL Creatinine (0.6-1.5) mg/dL Est GFR (CKD-EPI) (>=60) BUN/Creatinine Ratio (12.00-20.00) Ratio Glucose (70-110) mg/dL POC Glucose (mg/dL) 120 H 133 H 120 H (70-110) mg/dL Calcium (8.7-10.3) mg/dL 09/30/24 10/01/24 10/01/24 Range/Units 20:34 05:31 05:31 RBC 4.11 L (4.40-5.60) X 10*6/uL Hgb 12.6 L (13.0-17.0) g/dL Hct 37.7 L (39.6-50.0) % RDW 15.2 H (11.5-14.5) % Lymphocytes # 0.53 L (0.90-5.00) X 10*3/uL Monocytes # 1.02 H (0.20-1.00) X 10*3/uL Carbon Dioxide 20.8 L (21.6-31.8) mmol/L Anion Gap 13.20 H (4.00-12.00) mmol/L BUN 34.2 H (9.0-27.0) mg/dL Creatinine 1.7 H (0.6-1.5) mg/dL Est GFR (CKD-EPI) 41 L (>=60) BUN/Creatinine Ratio 20.12 H (12.00-20.00) Ratio Glucose 292 H (70-110) mg/dL POC Glucose (mg/dL) 257 H (70-110) mg/dL Calcium 8.1 L (8.7-10.3) mg/dL 10/01/24 Range/Units 07:17 RBC (4.40-5.60) X 10*6/uL Hgb (13.0-17.0) g/dL Hct (39.6-50.0) % RDW (11.5-14.5) % Lymphocytes # (0.90-5.00) X 10*3/uL Monocytes # (0.20-1.00) X 10*3/uL Carbon Dioxide (21.6-31.8) mmol/L Anion Gap (4.00-12.00) mmol/L BUN (9.0-27.0) mg/dL Creatinine (0.6-1.5) mg/dL Est GFR (CKD-EPI) (>=60) BUN/Creatinine Ratio (12.00-20.00) Ratio Glucose (70-110) mg/dL POC Glucose (mg/dL) 278 H (70-110) mg/dL Calcium (8.7-10.3) mg/dL Microbiology - Last 24 Hours (Table) 09/27/24 12:20 Blood Culture - Preliminary Blood Assessment and Plan (1) Gangrene of toe of right foot Status: Acute Code(s): I96 - GANGRENE, NOT ELSEWHERE CLASSIFIED SNOMED Code( s): 04692012631265282 (2) Diabetic infection of right foot Status: Acute Code(s): E11.628 - TYPE 2 DIABETES MELLITUS WITH OTHER SKIN COMPLICATIONS; L08.9 - LOCAL INFECTION OF THE SKIN AND SUBCUTANEOUS TISSUE, UNSP SNOMED Code(s): 726319018 (3) Toe infection Status: Acute Code(s): L08.9 - LOCAL INFECTION OF THE SKIN AND SUBCUTANEOUS TISSUE, UNSP SNOMED Code(s): 335607491 Plan: 1patient [facility] with discoloration of the right fifth toe concerning for gangrene of the right fifth toe in this patient with underlying history of diabetes mellitus we will need to cover for both gram-positive as well as gram-negative pathogen to be the likely pathogen 2-patient with renal insufficiency high risk of nephrotoxicity from the vancomycin and Vanco trough need to be monitored closely 3-patient is scheduled for amputation of right fifth toe by vascular surgery this afternoon 4patient MRSA nasal screen is negative blood negative 5per discussion with the vascular surgeon there was no evidence of any purulent drainage and the bones look healthy at the time of amputation will recommend a short course of oral Augmentin on discharge for the cellulitis as clinically not behaving as osteomyelitis Dictation was produced using [employer] dictation software. please excuse any grammatical, word or spelling errors. Time with Patient: Less than 30
== END 2024-10-01 14:12 | disposition home or self-care (01) | DRG 256 ==
LOC: EC 11:24 → 4SSUR 14:05 → 5NMEDONC 09-28 20:49
PROVIDERS: ADMIT Student in an Organized Health Care Education/Training Program; ATTEND Student in an Organized Health Care Education/Training Program
PROC: 0Y6X0Z0 Detachment at Right 5th Toe, Complete, Open Approach (ICD-10-PCS; principal; 2024-09-30 14:30)
DX: E11.52 Type 2 diabetes mellitus with diabetic peripheral angiopathy with gangrene (principal); D62 Acute posthemorrhagic anemia; E87.20 Acidosis, unspecified; I48.92 Unspecified atrial flutter; N17.9 Acute kidney failure, unspecified; E11.621 Type 2 diabetes mellitus with foot ulcer; N18.32 Chronic kidney disease, stage 3b; I12.9 Hypertensive chronic kidney disease with stage 1 through stage 4 chronic kidney disease, or unspecified chronic kidney disease; L03.115 Cellulitis of right lower limb; E11.22 Type 2 diabetes mellitus with diabetic chronic kidney disease; E11.628 Type 2 diabetes mellitus with other skin complications; E11.65 Type 2 diabetes mellitus with hyperglycemia; I48.91 Unspecified atrial fibrillation; Z79.4 Long term (current) use of insulin; L97.519 Non-pressure chronic ulcer of other part of right foot with unspecified severity; Z79.01 Long term (current) use of anticoagulants; E78.5 Hyperlipidemia, unspecified; I25.10 Atherosclerotic heart disease of native coronary artery without angina pectoris; I25.2 Old myocardial infarction; S90.424A Blister (nonthermal), right lesser toe(s), initial encounter; T36.8X5A Adverse effect of other systemic antibiotics, initial encounter; Z79.82 Long term (current) use of aspirin; Z79.84 Long term (current) use of oral hypoglycemic drugs; Z79.899 Other long term (current) drug therapy; Z85.46 Personal history of malignant neoplasm of prostate; Z85.828 Personal history of other malignant neoplasm of skin; Z86.73 Personal history of transient ischemic attack (TIA), and cerebral infarction without residual deficits; Z95.1 Presence of aortocoronary bypass graft; B95.61 Methicillin susceptible Staphylococcus aureus infection as the cause of diseases classified elsewhere
CPT/HCPCS: 36415; 80048; 80053; 80202; 82565; 83036; 83605; 83735; 85025; 85027; 86140; 86850; 86900; 86901; 87040; 87070; 96365; 96366; 96367; 99285

== ENCOUNTER → 2024-10-06 | Outpatient (CLI) | payer OTHER, MEDICARE ==
[2024-10-06 22:37] LABS: BUN/Creat Ratio 20.81 Ratio (12.00-20.00); Blood Urea Nitrogen 33.3 mg/dL (9.0-27.0); Calcium 8.8 mg/dL (8.7-10.3); Carbon Dioxide 23.1 mmol/L (21.6-31.8); Chloride 102 mmol/L (96-109); Glucose 351 mg/dL (70-110); Potassium 4.9 mmol/L (3.5-5.5); Sodium 137 mmol/L (135-145)
== END | disposition home or self-care (01) ==
LOC: LABWHC1 10:32
PROVIDERS: ATTEND Family Medicine
DX: N18.9 Chronic kidney disease, unspecified (principal)
CPT/HCPCS: 36415; 80048

== ENCOUNTER 2024-10-26 15:28 | Inpatient (IN) | payer OTHER, MEDICARE ==
--- NOTE | 2024-10-26 16:55 | ED ---
Skin/Abscess/FB HPI - General Chief complaint: Skin/Abscess/Foreign Body Stated complaint: R Toe Issues-Post OP Time Seen by Provider: 10/26/24 16:47 Source: patient, RN notes reviewed Mode of arrival: wheelchair Limitations: no limitations - History of Present Illness Initial comments: 74-year-old male presenting for right toe infection. Patient was sent by Dr. Alexis's office for admission with IV antibiotics. Patient recently underwent right fifth toe amputation 3 weeks ago. Patient finished course of Augmentin. 3 days ago, site of amputation started becoming purulent and red. Patient's explains that Dr. Alexis requested patient to come to the ER for IV antibiotics and admission with consultation to infectious disease and Dr. Baron as they will likely perform another surgery tomorrow for osteomyelitis. Patient has history of type 2 diabetes on insulin. Denies fevers, chills, nausea, vomiting. Wound cultures were taken at office per . - Related Data Home Medications Medication Instructions Recorded Confirmed Apixaban [Eliquis] 5 mg PO BID 01/02/24 10/26/24 Aspirin EC [Ecotrin Low Dose] 81 mg PO DAILY 01/02/24 10/26/24 Mirabegron [Myrbetriq] 50 mg PO DAILY 01/02/24 10/26/24 PARoxetine [Paxil] 10 mg PO DAILY 01/02/24 10/26/24 Insulin Glargine,Hum.rec.anlog 15 units SQ HS 04/24/24 10/26/24 [Lantus Solostar Pen] Metoprolol Tartrate [Lopressor] 25 mg PO BID 04/24/24 10/26/24 Atorvastatin [Lipitor] 80 mg PO HS 10/26/24 10/26/24 Empagliflozin [Jardiance] 25 mg PO DAILY 10/26/24 10/26/24 glipiZIDE [Glucotrol] 5 mg PO BID-W/MEALS 10/26/24 10/26/24 lisinopriL [Prinivil] 10 mg PO DAILY 10/26/24 10/26/24 Previous Rx's Medication Instructions Recorded Acetaminophen Tab [Tylenol] 650 mg PO Q6HR PRN tab 07/09/24 Allergies Allergy/AdvReac Type Severity Reaction Status Date / Time No Known Allergies Allergy Verified 10/26/24 18:17 Review of Systems ROS Statement: Those systems with pertinent positive or pertinent negative responses have been documented in the HPI. ROS Other: All systems not noted in ROS Statement are negative. Past Medical History Past Medical History: Cancer, CVA/TIA, Diabetes Mellitus, Myocardial Infarction ([place]), Skin Disorder Additional Past Medical History / Comment(s): prostate cancer, melenoma, Last Myocardial Infarction Date:: 2011 History of Any Multi-Drug Resistant Organisms: None Reported Past Surgical History: Heart Catheterization With Stent Additional Past Surgical History / Comment(s): Triple bypass, 2 heart attacks, 4 stents that failed, radical prostectomy, skin cancer removal, Amputtion of toe Past Anesthesia/Blood Transfusion Reactions: No Reported Reaction Date of Last Stent Placement:: 2011 Past Psychological History: No Psychological Hx Reported Smoking Status: Never smoker Past Alcohol Use History: Daily, Occasional Past Drug Use History: None Reported - Past Family History Mother Family Medical History: No Reported History Father Family Medical History: Cancer General Exam Limitations: no limitations General appearance: alert, in no apparent distress Head exam: Present: atraumatic, normocephalic, normal inspection Right Lower Leg exam: Present: normal inspection, full ROM. Absent: tenderness, swelling Ankle exam: Present: normal inspection, full ROM. Absent: tenderness, swelling Foot/Toe exam: Present: tenderness, swelling, erythema, amputation. Absent: normal inspection (There is erythema, purulence, and bone exposure present at site of amputation of right fifth digit. There is old amputation of second digit.), full ROM Neurovascular tendon exam: Present: no vascular compromise. Absent: pulse deficit, abnormal cap refill Neurological exam: Present: alert, oriented X3 Psychiatric exam: Present: normal affect, normal mood Skin exam: Present: warm, dry, intact, normal color. Absent: rash Course Vital Signs 10/26/24 15:31 Temperature 97.9 F Pulse Rate 82 Respiratory 18 Rate Blood Pressure 126/80 O2 Sat by Pulse 96 Oximetry Medical Decision Making - Medical Decision Making Was pt. sent in by a medical professional or institution (, [facility], TACTICAL DEBRIEFER, urgent care, hospital, or [facility]...) When possible be specific @ -Sent by Dr. Alexis for right foot infection for admission with IV antibiotics Did you speak to anyone other than the patient for history (EMS, parent, family, police, friend...)? What history was obtained from this source @ -Patient's supplemented history Did you review nursing and triage notes (agree or disagree)? Why? @ -I reviewed and agree with nursing and triage notes Were old charts reviewed (outside hosp., previous admission, EMS record, old EKG, old radiological studies, urgent care reports/EKG's, [facility] records)? Report findings @ -No old charts were reviewed Differential Diagnosis (chest pain, altered mental status, abdominal pain women, abdominal pain men, vaginal bleeding, weakness, fever, dyspnea, syncope, headache, dizziness, GI bleed, back pain, seizure, CVA, palpatations, mental health, musculoskeletal)? @ -Differential Musculoskeletal Muscular strain, contusion, ligament sprain, fracture, arthritis, septic arthritis, bursitis, cellulitis, muscle spasm, nerve compression, DVT, arterial occlusion, herpes zoster, electrolyte abnormality, tumor.... This is not meant to be in all inclusive list EKG interpreted by me (3pts min.). @ -None X-rays interpreted by me (1pt min.). @ -X-ray right foot reveals lucency involving fifth metatarsal head concerning for osteomyelitis CT interpreted by me (1pt min.). @ -None done U/S interpreted by me (1pt. min.). @ -None done What testing was considered but not performed or refused? (CT, X-rays, U/S, labs)? Why? @ -None What meds were considered but not given or refused? Why? @ -None Did you discuss the management of the patient with other professionals (professionals i.e. DrJeremiah, PA, TACTICAL DEBRIEFER, lab, RT, psych nurse, social services, director physical, teacher, surveillance sensor officer, case filler)? Give summary @ -I spoke with [facility] [place] [facility] who accepts admission with consultation to infectious disease and vascular services. Dr. Alexis spoke with Dr. Hernandez regarding case and requested admission with IV antibiotics of Ceftin and daptomycin with consultation to Dr. Baron and Dr. Alexis. Was smoking cessation discussed for >3mins.? @ -No Was critical care preformed (if so, how long)? @ -No Were there social determinants of health that impacted care today? How? (Ho melessness, low income, unemployed, alcoholism, drug addiction, transportation, low edu. Level, literacy, decrease access to med. care, halfway, rehab)? @ -No Was there de-escalation of care discussed even if they declined (Discuss DNR or withdrawal of care, Hospice)? DNR status @ -No What co-morbidities impacted this encounter? (DM, HTN, Smoking, COPD, CAD, Cancer, CVA, ARF, Chemo, Hep., AIDS, mental health diagnosis, sleep apnea, morbid obesity)? @ -DM Was patient admitted / discharged? Hospital course, mention meds given and route, prescriptions, significant lab abnormalities, going to OR and other pertinent info. @ -admitted. 74-year-old male sent by Dr. Alexis for right foot infection status post fifth digit amputation 3 weeks ago. Patient is afebrile, nontachycardic. Patient is well-appearing. There is purulence and erythema at site of right fifth digit amputation. Blood cultures were taken and patient was started on IV antibiotics Ceftin and daptomycin per request from Dr. Alexis. Lab work remarkable for normal white count of 9, lactic elevated at 2.4. X-ray right foot reveals lucency involving fifth metatarsal head concerning for osteomyelitis. Patient will be admitted to medicine with consultation to infectious disease and vascular services. Case was discussed with the ED attending Dr. Varela. Undiagnosed new problem with uncertain prognosis? @ -No Drug Therapy requiring intensive monitoring for toxicity (Heparin, Nitro, Insulin, Cardizem)? @ -No Were any procedures done? @ -No Diagnosis/symptom? @ -Right foot wound Acute, or Chronic, or Acute on Chronic? @ -Acute Uncomplicated (without systemic symptoms) or Complicated (systemic symptoms)? @ -Uncomplicated Side effects of treatment? @ -No Exacerbation, Progression, or Severe Exacerbation? @ -No Poses a threat to life or bodily function? How? (Chest pain, [place], [place], pneumonia, PE, COPD, DKA, ARF, appy, cholecystitis, CVA, Diverticulitis, Homicidal, Suicidal, threat to staff... and all critical care pts) @ -Yes - Lab Data Result diagrams: 10/26/24 16:49 10/26/24 16:49 Lab Results 10/26/24 10/26/24 10/26/24 Range/Units 16:49 16:49 17:01 WBC 9.53 (4.50-10.00) 10*3/uL RBC 3.91 L (4.40-5.60) 10*6/uL Hgb 12.2 L (13.0-17.0) g/dL Hct 35.0 L (39.6-50.0) % MCV 89.5 (80.0-97.0) fL MCH 31.2 (27.0-32.0) pg MCHC 34.9 (32.0-37.0) g/dL Plt Count 312 (140-440) 10*3/uL MPV 10.7 (9.5-12.2) fL Immature Gran % (Auto) 0.6 % Neutrophils % 67.1 % Lymphocytes % 19.0 % Monocytes % 11.6 % Eosinophils % 1.3 % Basophils % 0.4 % Immature Gran # 0.06 H (0.00-0.04) 10*3/uL Neutrophils # 6.39 (1.80-7.70) 10*3/uL Lymphocytes # 1.81 (0.90-5.00) 10*3/uL Monocytes # 1.11 H (0.20-1.00) 10*3/uL Eosinophils # 0.12 (0.04-0.35) 10*3/uL Basophils # 0.04 (0.00-0.10) 10*3/uL Sodium 133 L (137-145) mmol/L Potassium 5.4 H (3.5-5.1) mmol/L Chloride 98 (98-107) mmol/L Carbon Dioxide 21 L (22-30) mmol/L Anion Gap 14 mmol/L BUN 37 H (9-20) mg/dL Creatinine 1.44 H (0.66-1.25) mg/dL Est GFR (CKD-EPI)AfAm 54 (>60 ml/min/1.73 sqM) Est GFR (CKD-EPI)NonAf 47 (>60 ml/min/1.73 sqM) Glucose 253 H (74-99) mg/dL Plasma Lactic Acid Riley 2.4 H* (0.7-2.0) mmol/L Calcium 9.0 (8.4-10.2) mg/dL Total Bilirubin 0.9 (0.2-1.3) mg/dL AST 24 (17-59) U/L ALT 15 (4-49) U/L Alkaline Phosphatase 225 H (38-126) U/L Total Protein 7.0 (6.3-8.2) g/dL Albumin 3.7 (3.5-5.0) g/dL Disposition Clinical Impression: Cellulitis of right foot Disposition: ADMITTED IP TO THIS HOSP Referrals: Quoc Be DO [Primary Care Provider] - 1-2 days Time of Disposition: 18:30
[2024-10-26 17:08] LABS: ALT 15 U/L (4-49); African American GFR (CKD) 54 (>60 ml/min/1.73 sqM); Anion Gap 14 mmol/L; Blood Urea Nitrogen 37 mg/dL (9-20); Carbon Dioxide 21 mmol/L (22-30); Chloride 98 mmol/L (98-107); Glucose 253 mg/dL (74-99); Non-African American GFR(CKD) 47 (>60 ml/min/1.73 sqM); Sodium 133 mmol/L (137-145); Total Bilirubin 0.9 mg/dL (0.2-1.3)
[2024-10-26 17:11] LABS: AST 24 U/L (17-59); Albumin 3.7 g/dL (3.5-5.0); Potassium 5.4 mmol/L (3.5-5.1)
[2024-10-26 17:12] LABS: Alkaline Phosphatase 225 U/L (38-126)
[2024-10-26 17:22] LABS: Basophils # (A) 0.04 10*3/uL (0.00-0.10); Basophils % (A) 0.4 %; Eosinophils # (A) 0.12 10*3/uL (0.04-0.35); Eosinophils % (A) 1.3 %; HGB 12.2 g/dL (13.0-17.0); Lymphocytes # (A) 1.81 10*3/uL (0.90-5.00); MCH 31.2 pg (27.0-32.0); MCHC 34.9 g/dL (32.0-37.0); MCV 89.5 fL (80.0-97.0); Mean Platelet Volume 10.7 fL (9.5-12.2); Monocytes # (A) 1.11 10*3/uL (0.20-1.00); Monocytes % (A) 11.6 %; Neutrophils # (A) 6.39 10*3/uL (1.80-7.70); Neutrophils % (A) 67.1 %; Platelet Count 312 10*3/uL (140-440); RBC 3.91 10*6/uL (4.40-5.60); RDW 15.2 % (11.5-14.5); WBC 9.53 10*3/uL (4.50-10.00)
--- NOTE | 2024-10-26 17:25 | XR ---
EXAMINATION TYPE: XR foot complete RT DATE OF EXAM: 10/26/2024 COMPARISON: Right foot radiograph 09/27/2024, nuclear medicine bone scan 04/27/2024 HISTORY: Pain, right foot infection status post fifth digit amputation. TECHNIQUE: Frontal, lateral and oblique images of the right foot are obtained. FINDINGS: No evidence of any acute osseous pathology. Postoperative fusion at the first metatarsophal angeal joint with screw fixation noted. Postamputation changes of the second digit at the distal seco nd metacarpal shaft. Postamputation changes of the fifth digit at the MTP joint. There is some lucenc y involving the fifth metatarsal head. Surgical clips within the distal right lower extremity soft ti ssues. Moderate size plantar calcaneal enthesophyte. IMPRESSION: 1. No acute fracture or dislocation. 2. Postsurgical changes from second and fifth digit amputations. There is some lucency involving the fifth metatarsal head concerning for possible osteomyelitis. Correlate clinically. [facility], , 10/26/2024 5:23 PM
[2024-10-26] MEDS: SODIUM CHLORIDE 0.9% 1,000 ML IV STA (17:51)
[2024-10-26] MEDS: CEFUROXIME 1,500 MG in SODIUM CHLORIDE 0.9% 100 ML IVPB STA (17:51)
[2024-10-26] MEDS ORDERED: NALOXONE 0.4 MG/ML 1 ML VIAL IV PRN (18:23)
[2024-10-26] MEDS ORDERED: HYDROmorphone 0.5 MG/0.5 ML SYRINGE IVP PRN (18:27)
[2024-10-26] MEDS ORDERED: ONDANSETRON 4 MG/2 ML VIAL IVP PRN (18:27)
[2024-10-26] MEDS ORDERED: HYDROmorphone 1 MG/ML 1 ML SYRINGE IVP PRN (18:27)
[2024-10-26] MEDS: SODIUM CHLORIDE 0.9% 1,000 ML IV SCH (18:38)
[2024-10-26] MEDS: DAPTOmycin 500 MG in SODIUM CHLORIDE 0.9% 50 ML IVPB SCH (18:38)
[2024-10-26 22:23] LABS: Glucose,Whole Blood 121 mg/dL (70-110)
[2024-10-27] MEDS ORDERED: HYDROmorphone 2 MG/ML 1 ML SYRINGE IVP PRN (00:12)
--- NOTE | 2024-10-27 00:23 | P.HPIM ---
History of Present Illness H&P Date: 10/26/24 Chief Complaint: Right toe infection Patient is a 74 year old male with past medical history of CAD with CABG and prior stenting, prostate cancer S/p radical prostatectomy, melanoma, type 2 insulin-dependent diabetes mellitus, osteomyelitis, amputation of toe presented to the ED with right toe infection. Patient recently underwent a right fifth toe amputation 3 weeks ago and he finished his course of Augmentin. 3 days ago he started noticing purulence and redness at the site of amputation. The patient follows up with Dr. Alexis outpatient. Dr. Alexis requested the patient to come to the ER for admission for IV antibiotics. Dr. Tobar requested consultation to infectious disease as well as vascular surgery as the patient would likely undergo another surgery for os teomyelitis. Reportedly wound cultures were obtained outpatient. The patient has multiple admissions in the past for diabetic foot ulcer as well as failed outpatient treatment. He has undergone right fifth and right second toe amputation for osteomyelitis. He states that his long acting insulin dose was recently increased from 10 to 15 units. Additonally patient mentions having a poor appetite and thus his oral intake has reduced. He also states that he has undergone cardioversion for atrial fibrillation in the past but was unsuccessful and his marine specialist Dr. Herrera advised him against undergoing another cardioversion. Denies fever, chills, shortness of breath, cough, chest pain, palpitations, abdominal pain, nausea, vomiting, hematuria, dysuria, hematochezia, melena, headache, slurred speech, numbness, tingling, dizziness, lightheadedness, blurred vision, double vision. ED documentation reviewed. In the ED patient was treated with cefuroxime 1500 mg, 0.9 normal sitting bolus. Vitals on admission T 97.9 F, VT 82 bpm, RR 18, BP 126/80, oxygen saturation 96% on room air Foot x-ray shows no acute fracture dislocation, postsurgical changes from the 2nd and 5th digit amputations, some lucency involving the fifth metatarsal head concerning for possible osteomyelitis Labs on admission show WBC 9.53, hemoglobin 12.2, platelet count 312, sodium 133, potassium 5.4, bicarb 21, BUN 37, creatinine 1.44, glucose 253, lactic acid 2.4, alkaline phosphatase 225, total bilirubin 0.9 Patient admitted to internal medicine service Review of systems: Pertinent positives and negatives as discussed in HPI, a complete review of systems was performed and all other systems are negative. Physical examination: Vital signs reviewed General: nontoxic, no distress, appears at stated age Derm: warm, dry, intact Head: atraumatic, normocephalic, symmetric Cardiovascular: S1 S2 reg, no murmur Lungs: CTA bilateral, no rhonchi, no rales, no accessory muscle use Abdominal: soft, non-tender to palpation Extremities: right foot is bandaged Neuro: Alert, Oriented, Gross neurological examination did not reveal any focal deficits. Psych: well appearing, appropriate affect Assessment/Plan: Patient is a 74 year old male with past medical history of CAD with CABG and prior stenting, prostate cancer S/p radical prostatectomy, melanoma, type 2 insulin-dependent diabetes mellitus, osteomyelitis, amputation of toe presented to the ED with right toe infection. Active: #. Right fifth metatarsal osteomyelitis #. 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 History of right second toe nonhealing wound with osteomyelitis secondary to Enterococcus fecalis and pathologic fracture of metatarsal head, s/p right second toe amputation on 07/09/2024 Foot x-ray shows no acute fracture dislocation, postsurgical changes from the 2nd and 5th digit amputations, some lucency involving the fifth metatarsal head concerning for possible osteomyelitis Received cefuroxime 1500 mg IVPB once in the ED Continue daptomycin 5 mg IV every 24 hours continue with cefepime Continue Dilaudid 0.5 mg IV every 3 hours as needed, 1 mg IV every 3 hours as needed for pain management Obtain blood culture, lactic acid Consult ID Consult vascular surgery #. Lactic acidosis, resolved Elevated lactic acid 2.4 on admission repeat lactic acid 1.0 Received 1L bolus of normal saline in the ED Continue 0.9 normal saline at 20 ml/hr #. Hyponatremia, due to poor solute intake Na 133 on admission Received 1L bolus of normal saline in the ED Continue 0.9 normal saline at 20 ml/hr Monitor BMP #. Hyperkalemia K 5.4 on admission Monitor BMP #. Nausea and vomiting Continue ondansetron 4 mg IVP every 8 hours as needed #. Hyperglycemia #. Type 2 diabetes mellitus Lantus 15 units and Insulin sliding scale Chronic: #. History of CAD with CABG and prior stenting #. CKD stage IIIa, baseline creatinine 1.6-1.7 #. Chronic normocytic anemia #. Atrial fibrillation, on anticoagulation, [id number] score 5 Continue aspirin 80 mg p.o. daily, Lipitor 80 mg p.o. at bedtime, empagliflozin 25 mg p.o. daily, lisinopril 10 mg p.o. daily, metoprolol tartrate 25 mg p.o. twice daily, mirabegron 50 mg p.o. daily, paroxetine 10 mg p.o. daily Hold Eliquis for possible surgery tomorrow F: 0.9 normal saline at 20 mL/h E: Replete sodium N: N.p.o. after midnight GI prophylaxis: Pantoprazole 40 mg p.o. daily The patient is admitted with an anticipated more than 2 midnight stay for evaluation of right toe infection CODE STATUS: Full code Discussed with: Patient Anticipated discharge place: Pending clinical course Dictation was produced using [employer] dictation software. please excuse any grammatical, word or spelling errors. Lila Blunt MD PGY-1 IM I have seen and evaluated the patient today. I Discussed the case with the resident and agree with the resident's findings I edited the assessment and plan as necessary as documented in the resident's note. Past Medical History Past Medical History: Cancer, CVA/TIA, Diabetes Mellitus, Myocardial Infarction ([place]), Skin Disorder Additional Past Medical History / Comment(s): prostate cancer, melenoma, Last Myocardial Infarction Date:: 2011 History of Any Multi-Drug Resistant Organisms: None Reported Past Surgical History: Heart Catheterization With Stent Additional Past Surgical History / Comment(s): Triple bypass, 2 heart attacks, 4 stents that failed, radical prostectomy, skin cancer removal, Amputtion of toe Past Anesthesia/Blood Transfusion Reactions: No Reported Reaction Date of Last Stent Placement:: 2011 Past Psychological History: No Psychological Hx Reported Smoking Status: Never smoker Past Alcohol Use History: Daily, Occasional Past Drug Use History: None Reported - Past Family History Mother Family Medical History: No Reported History Father Family Medical History: Cancer Medications and Allergies Home Medications Medication Instructions Recorded Confirmed Type Apixaban [Eliquis] 5 mg PO BID 01/02/24 10/26/24 History Aspirin EC [Ecotrin Low Dose] 81 mg PO DAILY 01/02/24 10/26/24 History Mirabegron [Myrbetriq] 50 mg PO DAILY 01/02/24 10/26/24 History PARoxetine [Paxil] 10 mg PO DAILY 01/02/24 10/26/24 History Insulin Glargine,Hum.rec.anlog 15 units SQ HS 04/24/24 10/26/24 History [Lantus Solostar Pen] Metoprolol Tartrate [Lopressor] 25 mg PO BID 04/24/24 10/26/24 History Acetaminophen Tab [Tylenol] 650 mg PO Q6HR PRN tab 07/09/24 10/26/24 Rx Atorvastatin [Lipitor] 80 mg PO HS 10/26/24 10/26/24 History Empagliflozin [Jardiance] 25 mg PO DAILY 10/26/24 10/26/24 History glipiZIDE [Glucotrol] 5 mg PO BID-W/MEALS 10/26/24 10/26/24 History lisinopriL [Prinivil] 10 mg PO DAILY 10/26/24 10/26/24 History Allergies Allergy/AdvReac Type Severity Reaction Status Date / Time No Known Allergies Allergy Verified 10/26/24 18:17 Physical Exam Vitals: Vital Signs Temp Pulse Resp BP Pulse Ox 10/26/24 18:44 83 16 149/81 99 10/26/24 15:31 97.9 F 82 18 126/80 96 Intake and Output 10/26/24 10/26/24 10/26/24 06:59 14:59 22:59 Other: Weight 81.647 kg Results CBC & Chem 7: 10/26/24 16:49 10/26/24 16:49 Labs: Abnormal Lab Results - Last 24 Hours (Table) 10/26/24 10/26/24 10/26/24 Range/Units 16:49 16:49 17:01 RBC 3.91 L (4.40-5.60) 10*6/uL Hgb 12.2 L (13.0-17.0) g/dL Hct 35.0 L (39.6-50.0) % Immature Gran # 0.06 H (0.00-0.04) 10*3/uL Monocytes # 1.11 H (0.20-1.00) 10*3/uL Sodium 133 L (137-145) mmol/L Potassium 5.4 H (3.5-5.1) mmol/L Carbon Dioxide 21 L (22-30) mmol/L BUN 37 H (9-20) mg/dL Creatinine 1.44 H (0.66-1.25) mg/dL Glucose 253 H (74-99) mg/dL Plasma Lactic Acid Riley 2.4 H* (0.7-2.0) mmol/L Alkaline Phosphatase 225 H (38-126) U/L
[2024-10-27] MEDS: METOPROLOL TARTRATE 25 MG TAB PO SCH (00:45)
[2024-10-27] MEDS: CEFEPIME 2 GM in SODIUM CHLORIDE 0.9% 100 ML IVPB SCH (00:45)
[2024-10-27] MEDS ORDERED: DEXTROSE 50% SYRINGE 50 ML IVP PRN ×2 (01:53)
[2024-10-27 03:38] LABS: HCT 37.1 % (39.6-50.0); HGB 12.5 g/dL (13.0-17.0); MCH 30.1 pg (27.0-32.0); MCHC 33.7 g/dL (32.0-37.0); MCV 89.4 fL (80.0-97.0); Mean Platelet Volume 9.7 fL (9.5-12.2); Platelet Count 304 10*3/uL (140-440); RBC 4.15 10*6/uL (4.40-5.60); RDW 13.4 % (11.5-14.5); WBC 8.14 10*3/uL (4.50-10.00)
[2024-10-27 03:59] LABS: African American GFR (CKD) 57 (>60 ml/min/1.73 sqM); Anion Gap 10 mmol/L; Blood Urea Nitrogen 31 mg/dL (9-20); Calcium 8.8 mg/dL (8.4-10.2); Carbon Dioxide 24 mmol/L (22-30); Chloride 101 mmol/L (98-107); Glucose 136 mg/dL (74-99); Non-African American GFR(CKD) 49 (>60 ml/min/1.73 sqM); Potassium 3.9 mmol/L (3.5-5.1); Sodium 135 mmol/L (137-145)
[2024-10-27 06:54] LABS: Glucose,Whole Blood 177 mg/dL (70-110)
[2024-10-27] MEDS: PANTOPRAZOLE 40 MG TABLET PO SCH (06:59)
[2024-10-27] MEDS: INSULIN LISPRO (HumaLOG) 100 UNIT/ML 10 mL VL SQ SCH (06:59)
[2024-10-27] MEDS: HEPARIN SODIUM,PORCINE 5,000 UNIT/ML 1 ML VIAL SQ SCH (08:29)
[2024-10-27] MEDS: lisinopriL 10 MG TAB PO SCH (08:29)
[2024-10-27] MEDS: DAPAGLIFLOZIN PROPANEDIOL 10 MG TABLET PO SCH (08:29)
[2024-10-27] MEDS: ASPIRIN 81 MG PO SCH (08:29)
[2024-10-27] MEDS: PARoxetine 10 MG TAB PO SCH (08:30)
[2024-10-27] MEDS: MYRBETRIQ 50MG TABLET PO SCH (09:14)
--- NOTE | 2024-10-27 09:57 | P.GSCN ---
History of Present Illness Consult date: 10/27/24 Reason for Consult: Osteomyelitis, right foot wound Requesting physician: Aleta Chang History of present illness: This a pleasant 74-year-old male with diabetes mellitus, coronary artery disease status post CABG, atrial fibrillation on Eliquis, chronic kidney disease, history of CVA and previous nonhealing wounds and toe infection with right second toe amputation done and June 2024 and right fifth toe amputation on 09/30/[address] Baron. Patient states his has been caring for his foot at home and he was seen at Dr. Alexis's office yesterday. Dr. Spain was concern for cellulitis and infection so sent him over to the hospital for admission for antibiotics. Patient states he has an appointment with the wound clinic on the of this month. He denied any fevers or chills at home. States he does have some discomfort in that foot. He does state that he now has been shivering and feels like he just cannot get warm. He has been afebrile since admission. No leukocytosis. Wound cultures are currently collected and pending. Right foot x-ray reports lucency involving fifth metatarsal head concerning for possible osteomyelitis. Review of Systems A 14 point review systems was completed all pertinent positives and negatives as stated in the HPI. Past Medical History Past Medical History: Cancer, CVA/TIA, Diabetes Mellitus, Myocardial Infarction ([place]), Skin Disorder Additional Past Medical History / Comment(s): prostate cancer, melenoma, Last Myocardial Infarction Date:: 2011 History of Any Multi-Drug Resistant Organisms: None Reported Past Surgical History: Heart Catheterization With Stent Additional Past Surgical History / Comment(s): Triple bypass, 2 heart attacks, 4 stents that failed, radical prostectomy, skin cancer removal, Amputtion of toe Past Anesthesia/Blood Transfusion Reactions: No Reported Reaction Date of Last Stent Placement:: 2011 Past Psychological History: No Psychological Hx Reported Smoking Status: Never smoker Past Alcohol Use History: Daily, Occasional Past Drug Use History: None Reported - Past Family History Mother Family Medical History: No Reported History Father Family Medical History: Cancer Medications and Allergies Home Medications Medication Instructions Recorded Confirmed Type Apixaban [Eliquis] 5 mg PO BID 01/02/24 10/26/24 History Aspirin EC [Ecotrin Low Dose] 81 mg PO DAILY 01/02/24 10/26/24 History Mirabegron [Myrbetriq] 50 mg PO DAILY 01/02/24 10/26/24 History PARoxetine [Paxil] 10 mg PO DAILY 01/02/24 10/26/24 History Insulin Glargine,Hum.rec.anlog 15 units SQ HS 04/24/24 10/26/24 History [Lantus Solostar Pen] Metoprolol Tartrate [Lopressor] 25 mg PO BID 04/24/24 10/26/24 History Acetaminophen Tab [Tylenol] 650 mg PO Q6HR PRN tab 07/09/24 10/26/24 Rx Atorvastatin [Lipitor] 80 mg PO HS 10/26/24 10/26/24 History Empagliflozin [Jardiance] 25 mg PO DAILY 10/26/24 10/26/24 History glipiZIDE [Glucotrol] 5 mg PO BID-W/MEALS 10/26/24 10/26/24 History lisinopriL [Prinivil] 10 mg PO DAILY 10/26/24 10/26/24 History Allergies Allergy/AdvReac Type Severity Reaction Status Date / Time No Known Allergies Allergy Verified 10/26/24 18:17 Surgical - Exam Vital Signs Temp Pulse Resp BP Pulse Ox 97.9 F 82 18 126/80 96 10/26/24 15:31 10/26/24 15:31 10/26/24 15:31 10/26/24 15:31 10/26/24 15:31 General appearance: The patient is alert, oriented, appears in no acute distress. HET: Head is normocephalic and atraumatic. Pupils are equal and reactive. Neck: Supple. Heart: Irregularly irregular. Lungs: Equal expansion, normal respiratory effort. Abdomen: Soft, nontender, nondistended. Extremities: Palpable bilateral femoral pulses. Right foot dorsal aspect with erythema, second toe amputation site well-healed, fifth toe amputation site with wound with nonviable tissue surrounding erythema and some purulent drainage. Neurological: No focal deficits. Alert and oriented. Results - Labs 10/27/24 02:58 10/27/24 02:58 Abnormal Lab Results - Last 24 Hours (Table) 10/26/24 10/26/24 10/26/24 Range/Units 16:49 16:49 17:01 RBC 3.91 L (4.40-5.60) 10*6/uL Hgb 12.2 L (13.0-17.0) g/dL Hct 35.0 L (39.6-50.0) % Immature Gran # 0.06 H (0.00-0.04) 10*3/uL Monocytes # 1.11 H (0.20-1.00) 10*3/uL Sodium 133 L (137-145) mmol/L Potassium 5.4 H (3.5-5.1) mmol/L Carbon Dioxide 21 L (22-30) mmol/L BUN 37 H (9-20) mg/dL Creatinine 1.44 H (0.66-1.25) mg/dL Glucose 253 H (74-99) mg/dL POC Glucose (mg/dL) (70-110) mg/dL Plasma Lactic Acid Riley 2.4 H* (0.7-2.0) mmol/L Alkaline Phosphatase 225 H (38-126) U/L 10/26/24 10/27/24 10/27/24 Range/Units 22:12 02:58 02:58 RBC 4.15 L (4.40-5.60) 10*6/uL Hgb 12.5 L (13.0-17.0) g/dL Hct 37.1 L (39.6-50.0) % Immature Gran # (0.00-0.04) 10*3/uL Monocytes # (0.20-1.00) 10*3/uL Sodium 135 L (137-145) mmol/L Potassium (3.5-5.1) mmol/L Carbon Dioxide (22-30) mmol/L BUN 31 H (9-20) mg/dL Creatinine 1.39 H (0.66-1.25) mg/dL Glucose 136 H (74-99) mg/dL POC Glucose (mg/dL) 121 H (70-110) mg/dL Plasma Lactic Acid Riley (0.7-2.0) mmol/L Alkaline Phosphatase (38-126) U/L 10/27/24 Range/Units 06:52 RBC (4.40-5.60) 10*6/uL Hgb (13.0-17.0) g/dL Hct (39.6-50.0) % Immature Gran # (0.00-0.04) 10*3/uL Monocytes # (0.20-1.00) 10*3/uL Sodium (137-145) mmol/L Potassium (3.5-5.1) mmol/L Carbon Dioxide (22-30) mmol/L BUN (9-20) mg/dL Creatinine (0.66-1.25) mg/dL Glucose (74-99) mg/dL POC Glucose (mg/dL) 177 H (70-110) mg/dL Plasma Lactic Acid Riley (0.7-2.0) mmol/L Alkaline Phosphatase (38-126) U/L Diabetes panel 10/26/24 10/27/24 Range/Units 16:49 02:58 Sodium 133 L 135 L (137-145) mmol/L Potassium 5.4 H 3.9 (3.5-5.1) mmol/L Chloride 98 101 (98-107) mmol/L Carbon Dioxide 21 L 24 (22-30) mmol/L BUN 37 H 31 H (9-20) mg/dL Creatinine 1.44 H 1.39 H (0.66-1.25) mg/dL Glucose 253 H 136 H (74-99) mg/dL Calcium 9.0 8.8 (8.4-10.2) mg/dL AST 24 (17-59) U/L ALT 15 (4-49) U/L Alkaline Phosphatase 225 H (38-126) U/L Total Protein 7.0 (6.3-8.2) g/dL Albumin 3.7 (3.5-5.0) g/dL Calcium panel 10/26/24 10/27/24 Range/Units 16:49 02:58 Calcium 9.0 8.8 (8.4-10.2) mg/dL Albumin 3.7 (3.5-5.0) g/dL Pituitary panel 10/26/24 10/27/24 Range/Units 16:49 02:58 Sodium 133 L 135 L (137-145) mmol/L Potassium 5.4 H 3.9 (3.5-5.1) mmol/L Chloride 98 101 (98-107) mmol/L Carbon Dioxide 21 L 24 (22-30) mmol/L BUN 37 H 31 H (9-20) mg/dL Creatinine 1.44 H 1.39 H (0.66-1.25) mg/dL Glucose 253 H 136 H (74-99) mg/dL Calcium 9.0 8.8 (8.4-10.2) mg/dL Adrenal panel 10/26/24 10/27/24 Range/Units 16:49 02:58 Sodium 133 L 135 L (137-145) mmol/L Potassium 5.4 H 3.9 (3.5-5.1) mmol/L Chloride 98 101 (98-107) mmol/L Carbon Dioxide 21 L 24 (22-30) mmol/L BUN 37 H 31 H (9-20) mg/dL Creatinine 1.44 H 1.39 H (0.66-1.25) mg/dL Glucose 253 H 136 H (74-99) mg/dL Calcium 9.0 8.8 (8.4-10.2) mg/dL Total Bilirubin 0.9 (0.2-1.3) mg/dL AST 24 (17-59) U/L ALT 15 (4-49) U/L Alkaline Phosphatase 225 H (38-126) U/L Total Protein 7.0 (6.3-8.2) g/dL Albumin 3.7 (3.5-5.0) g/dL Assessment and Plan Assessment: 1. Right fifth toe amputation site infected wound 2. Osteomyelitis right fifth metatarsal head 3. Cellulitis 4. Severe bilateral infrapopliteal disease not amenable to revascularization 5. Diabetes mellitus Plan: 1. Antibiotics per recommendations from infectious disease 2. Wound cultures currently pending 3. N.p.o. after midnight 4. Plan for excisional debridement tomorrow of right foot with possible wound VAC application 5. Hold anticoagulation 6. Rest of medical management per primary medical team Thank you for this consultation, we will continue to follow. The impression and plan of care has been dictated as directed. Dr. Baron I performed a history and examination of this patient, discussed the same with the dictator. I agree with the dictator's note ,documented as a scribe. Any additional findings or plans will be noted.
[2024-10-27 10:55] LABS: Glucose,Whole Blood 169 mg/dL (70-110)
[2024-10-27] MEDS: ACETAMINOPHEN TAB 325 MG TAB PO PRN (14:10)
--- NOTE | 2024-10-27 15:44 | P.PN ---
Subjective Progress Note Date: 10/27/24 74-year-old male with past medical history of type II DM on insulin, history of osteomyelitis of the left second toe, history of right foot osteomyelitis requiring IV antibiotics and now status post right second toe amputation for nonhealing ulcer and osteomyelitis, CAD ([place] x 3 with CABG x 3 caths x 4 that failed), A-fib (on Eliquis 5 mg p.o. twice daily), CKD IIIB, and CVA. He presented to the ED for purulent discharge and erythema at the site of amputation. Upon arrival to our facility, patient underwent evaluation in the emergency department. Vital signs upon arrival show blood pressure 126/80, heart rate 82, respiratory rate 18, temp 97.9 degrees. SpO2 of 96% on room air. X-ray right foot showing postsurgical changes from the 2nd and 5th digit amputation with some lucency involving the 5th metatarsal concerning for OM. CBC, CMP significant for RBC 3.91, Hg 12.2, Hct 35, Na 133, K 5.4, bicarb 21, BUN 37, Cr 1.44, glu 253, alk phos 225. Lactic acid 2.4-1.0. Patient admitted under services with consultation to infectious disease and vascular surgery. 10/27 Patient was seen and examined. No complaints. Plans for amputation today. Antibiotics include Cefepime and Flagyl. Vancomycin discontinued due to ZAIN. CBC and BMP significant for bicarb 19.5, AG 14.5, BUN 32.2, Cr 1.7, glu 143, Ca 8.5. General: non toxic, no distress, appears at stated age Derm: warm, dry Head: atraumatic, normocephalic, symmetric Mouth: no lip lesion, mucus membranes moist Cardiovascular: S1 S2 reg. No murmurs, rubs, gallops Lungs: Clear to auscultation bilaterally, no accessory muscle use Ext: no gross muscle atrophy, no edema, no contractures Neuro: no focal neuro deficits Psych: Alert and oriented Based on my assessment of this patient, this patient meets a high complexity level of care. Right 5th digit OM: ID and Vascular surgery on board. Continue Daptomycin 500 mg IV QD and Cefepime 2g IV BID. Plans for debridement tomorrow. Hyponatremia: Improving with IV hydration. Continue NS at 20 cc/hr. Normocytic anemia likely AOCD from CKD: Stable. No signs of active bleeding. Type II DM on insulin: A1c 10.8. Lantus 15 units SQ QHS. ISS with Accuchecks ACHS along with hypoglycemic precautions. Farxiga 10 mg PO QD. CAD and PAD: ASA 81 mg PO QD. Lipitor 80 mg PO QHS. Essential hypertension: Metoprolol 25 mg PO BID. Lisinopril 10 mg PO QD. Atrial flutter: Eliquis held for surgery. Metoprolol as above. CKD stage IIIb: Appears at baseline. Resolved: Lactic acidosis. CODE STATUS: FULL CODE DVT Prophylaxis: Heparin SQ GI Prophylaxis: Protonix Designated medical POA if patient is not able to make medical decisions for themselves: I have reviewed the following data center consultant notes: Vascular note I have reviewed the results of the following tests: BMP, CBC. I have ordered the following tests: I have discussed the care of this patient with the following independent historian: I have independently interpreted the following test below: I have discussed the management of this patient with the following physician: Objective - Vital Signs Vital signs: Vital Signs Temp 100.4 F H 10/27/24 13:20 Pulse 88 10/27/24 13:20 Resp 18 10/27/24 13:20 BP 105/63 10/27/24 13:20 Pulse Ox 99 10/27/24 13:20 FiO2 Intake & Output 10/26/24 10/27/24 10/27/24 18:59 06:59 18:59 Intake Total 0 Balance 0 Weight 81.647 kg 81.647 kg Intake: Oral 0 Other: Voiding Method Toilet Toilet - Labs CBC & Chem 7: 10/27/24 02:58 10/27/24 02:58 Labs: Abnormal Lab Results - Last 24 Hours (Table) 10/26/24 10/26/24 10/26/24 Range/Units 16:49 16:49 17:01 RBC 3.91 L (4.40-5.60) 10*6/uL Hgb 12.2 L (13.0-17.0) g/dL Hct 35.0 L (39.6-50.0) % Immature Gran # 0.06 H (0.00-0.04) 10*3/uL Monocytes # 1.11 H (0.20-1.00) 10*3/uL Sodium 133 L (137-145) mmol/L Potassium 5.4 H (3.5-5.1) mmol/L Carbon Dioxide 21 L (22-30) mmol/L BUN 37 H (9-20) mg/dL Creatinine 1.44 H (0.66-1.25) mg/dL Glucose 253 H (74-99) mg/dL POC Glucose (mg/dL) (70-110) mg/dL Plasma Lactic Acid Riley 2.4 H* (0.7-2.0) mmol/L Alkaline Phosphatase 225 H (38-126) U/L 10/26/24 10/27/24 10/27/24 Range/Units 22:12 02:58 02:58 RBC 4.15 L (4.40-5.60) 10*6/uL Hgb 12.5 L (13.0-17.0) g/dL Hct 37.1 L (39.6-50.0) % Immature Gran # (0.00-0.04) 10*3/uL Monocytes # (0.20-1.00) 10*3/uL Sodium 135 L (137-145) mmol/L Potassium (3.5-5.1) mmol/L Carbon Dioxide (22-30) mmol/L BUN 31 H (9-20) mg/dL Creatinine 1.39 H (0.66-1.25) mg/dL Glucose 136 H (74-99) mg/dL POC Glucose (mg/dL) 121 H (70-110) mg/dL Plasma Lactic Acid Riley (0.7-2.0) mmol/L Alkaline Phosphatase (38-126) U/L 10/27/24 10/27/24 Range/Units 06:52 10:54 RBC (4.40-5.60) 10*6/uL Hgb (13.0-17.0) g/dL Hct (39.6-50.0) % Immature Gran # (0.00-0.04) 10*3/uL Monocytes # (0.20-1.00) 10*3/uL Sodium (137-145) mmol/L Potassium (3.5-5.1) mmol/L Carbon Dioxide (22-30) mmol/L BUN (9-20) mg/dL Creatinine (0.66-1.25) mg/dL Glucose (74-99) mg/dL POC Glucose (mg/dL) 177 H 169 H (70-110) mg/dL Plasma Lactic Acid Riley (0.7-2.0) mmol/L Alkaline Phosphatase (38-126) U/L
[2024-10-27 16:50] LABS: Glucose,Whole Blood 289 mg/dL (70-110)
[2024-10-27 20:41] LABS: Glucose,Whole Blood 350 mg/dL (70-110)
[2024-10-27] MEDS: SODIUM CHLORIDE 0.9% 1,000 ML IV ONE (20:59)
[2024-10-27] MEDS: INSULIN GLARGINE (LANTUS) 100 UNIT/ML SYR SQ SCH (22:35)
[2024-10-27] MEDS: ATORVASTATIN 80 MG TAB PO SCH (22:35)
--- NOTE | 2024-10-27 22:52 | P.CONS ---
History of Present Illness - Reason for Consult Consult date: 10/27/24 Right foot cellulitis Requesting physician: Aleta Chang - Chief Complaint Worsening wound to the right foot x days - History of Present Illness Patient is a 74-year-old male with a past medical history significant for CVA TIA diabetes mellitus [place] in this patient who is status post recent right fifth toe amputation completed on 09/30/[address] Baron operative report did not mention any purulent drainage no culture were done and per the surgeon the bones look normal hence the patient after getting treated with IV divided therapy was sent home on short course of oral antibiotic patient was brought into the office yesterday concerning for worsening wound to the right fifth toe amputation site that apparently has been getting worse over the last few days before the patient has been brought to the hospital patient denies high-grade fever or any chills he did have diabetic neuropathy and denies significant pain to the right foot area more concern was worsening of the wound with some discoloration and some foul-smelling drainage patient was directed to the ER for admission for IV antibiotic therapy and Case was also discussed with the surgeon for surgical debridement as well as deep culture on presentation to the hospital patient was afebrile he did have a low-grade fever of 100.4 degrees following hide today patient was not tachycardic hypotensive or hypoxic he did have white count of 8.14 creatinine is 1.39 x-ray of the foot did shows no acute fracture does location postsurgical changes from the 2nd and 5th toe amputation some lucency involving the fifth metatarsal head concerning for possible osteomyelitis Review of Systems Positive point and negatives has been mentioned in the HPI, complete review of systems was performed and all other systems are negative Past Medical History Past Medical History: Cancer, CVA/TIA, Diabetes Mellitus, Myocardial Infarction ([place]), Skin Disorder Additional Past Medical History / Comment(s): prostate cancer, melenoma, Last Myocardial Infarction Date:: 2011 History of Any Multi-Drug Resistant Organisms: None Reported Past Surgical History: Heart Catheterization With Stent Additional Past Surgical History / Comment(s): Triple bypass, 2 heart attacks, 4 stents that failed, radical prostectomy, skin cancer removal, Amputtion of toe Past Anesthesia/Blood Transfusion Reactions: No Reported Reaction Date of Last Stent Placement:: 2011 Past Psychological History: No Psychological Hx Reported Smoking Status: Never smoker Past Alcohol Use History: Daily, Occasional Past Drug Use History: None Reported - Past Family History Mother Family Medical History: No Reported History Father Family Medical History: Cancer Medications and Allergies Home Medications Medication Instructions Recorded Confirmed Type Apixaban [Eliquis] 5 mg PO BID 01/02/24 10/26/24 History Aspirin EC [Ecotrin Low Dose] 81 mg PO DAILY 01/02/24 10/26/24 History Mirabegron [Myrbetriq] 50 mg PO DAILY 01/02/24 10/26/24 History PARoxetine [Paxil] 10 mg PO DAILY 01/02/24 10/26/24 History Insulin Glargine,Hum.rec.anlog 15 units SQ HS 04/24/24 10/26/24 History [Lantus Solostar Pen] Metoprolol Tartrate [Lopressor] 25 mg PO BID 04/24/24 10/26/24 History Acetaminophen Tab [Tylenol] 650 mg PO Q6HR PRN tab 07/09/24 10/26/24 Rx Atorvastatin [Lipitor] 80 mg PO HS 10/26/24 10/26/24 History Empagliflozin [Jardiance] 25 mg PO DAILY 10/26/24 10/26/24 History glipiZIDE [Glucotrol] 5 mg PO BID-W/MEALS 10/26/24 10/26/24 History lisinopriL [Prinivil] 10 mg PO DAILY 10/26/24 10/26/24 History Allergies Allergy/AdvReac Type Severity Reaction Status Date / Time No Known Allergies Allergy Verified 10/26/24 18:17 Physical Exam Vitals: Vital Signs Temp Pulse Pulse Resp BP BP BP 10/27/24 08:07 70 148/66 137/71 10/27/24 00:30 97.5 F L 80 17 160/78 10/27/24 00:00 80 17 10/26/24 21:48 85 18 121/79 10/26/24 18:44 83 16 149/81 10/26/24 15:31 97.9 F 82 18 126/80 Pulse Ox 10/27/24 08:07 10/27/24 00:30 100 10/27/24 00:00 10/26/24 21:48 97 10/26/24 18:44 99 10/26/24 15:31 96 Intake and Output 04/10/27/24 10/27/24 22:59 06:59 14:59 Intake Total 0 Balance 0 Intake: Oral 0 Other: Voiding Method Toilet Weight 81.647 kg 81.647 kg GENERAL DESCRIPTION: Elderly male lying in bed, no distress. No tachypnea or accessory muscle of respiration use. HEENT: Shows Pallor , no scleral icterus. Oral mucous membrane is dry. No pharyngeal erythema or thrush NECK: Trachea central, no thyromegaly. LUNGS: Unlabored breathing. Clear to auscultation anteriorly. No wheeze or crackle. HEART: S1, S2, regular rate and rhythm. No loud murmur ABDOMEN: Soft, no tenderness , guarding or rigidity, no organomegaly EXTREMITIES: Right fifth toe amputation site did have a wound with some necrotic base sloughing and surrounding redness SKIN: No rash, no masses palpable. NEUROLOGICAL: The patient is awake, alert, oriented x3, mood and affect normal. Results CBC & Chem 7: 10/27/24 02:58 10/27/24 02:58 Labs: Abnormal Lab Results - Last 24 Hours (Table) 10/26/24 10/26/24 10/26/24 Range/Units 16:49 16:49 17:01 RBC 3.91 L (4.40-5.60) 10*6/uL Hgb 12.2 L (13.0-17.0) g/dL Hct 35.0 L (39.6-50.0) % Immature Gran # 0.06 H (0.00-0.04) 10*3/uL Monocytes # 1.11 H (0.20-1.00) 10*3/uL Sodium 133 L (137-145) mmol/L Potassium 5.4 H (3.5-5.1) mmol/L Carbon Dioxide 21 L (22-30) mmol/L BUN 37 H (9-20) mg/dL Creatinine 1.44 H (0.66-1.25) mg/dL Glucose 253 H (74-99) mg/dL POC Glucose (mg/dL) (70-110) mg/dL Plasma Lactic Acid Riley 2.4 H* (0.7-2.0) mmol/L Alkaline Phosphatase 225 H (38-126) U/L 10/26/24 10/27/24 10/27/24 Range/Units 22:12 02:58 02:58 RBC 4.15 L (4.40-5.60) 10*6/uL Hgb 12.5 L (13.0-17.0) g/dL Hct 37.1 L (39.6-50.0) % Immature Gran # (0.00-0.04) 10*3/uL Monocytes # (0.20-1.00) 10*3/uL Sodium 135 L (137-145) mmol/L Potassium (3.5-5.1) mmol/L Carbon Dioxide (22-30) mmol/L BUN 31 H (9-20) mg/dL Creatinine 1.39 H (0.66-1.25) mg/dL Glucose 136 H (74-99) mg/dL POC Glucose (mg/dL) 121 H (70-110) mg/dL Plasma Lactic Acid Riley (0.7-2.0) mmol/L Alkaline Phosphatase (38-126) U/L 10/27/24 10/27/24 Range/Units 06:52 10:54 RBC (4.40-5.60) 10*6/uL Hgb (13.0-17.0) g/dL Hct (39.6-50.0) % Immature Gran # (0.00-0.04) 10*3/uL Monocytes # (0.20-1.00) 10*3/uL Sodium (137-145) mmol/L Potassium (3.5-5.1) mmol/L Carbon Dioxide (22-30) mmol/L BUN (9-20) mg/dL Creatinine (0.66-1.25) mg/dL Glucose (74-99) mg/dL POC Glucose (mg/dL) 177 H 169 H (70-110) mg/dL Plasma Lactic Acid Riley (0.7-2.0) mmol/L Alkaline Phosphatase (38-126) U/L Assessment and Plan (1) Cellulitis of right foot Current Visit: Yes Status: Acute Code(s): L03.115 - CELLULITIS OF RIGHT LOWER LIMB SNOMED Code(s): 93482874440706162 (2) Diabetic infection of right foot Current Visit: No Status: Acute Code(s): E11.628 - TYPE 2 DIABETES MELLITUS WITH OTHER SKIN COMPLICATIONS; L08.9 - LOCAL INFECTION OF THE SKIN AND SUBCUTANEOUS TISSUE, UNSP SNOMED Code(s): 396211417 (3) Diabetic ulcer of right foot Current Visit: No Status: Acute Code(s): E11.621 - TYPE 2 DIABETES MELLITUS WITH FOOT ULCER; L97.519 - NON-PRS CHRONIC ULCER OTH PRT RIGHT FOOT W UNSP SEVERITY SNOMED Code(s): 269954965 (4) Failure of outpatient treatment Current Visit: No Status: Acute Code(s): Z78.9 - OTHER SPECIFIED HEALTH STATUS SNOMED Code(s): 384022227 Plan: 1patient being admitted to the hospital with a worsening wound to the right fifth toe amputation site concerning for osteomyelitis on the basis of abnormality seen on the x-ray and will need to cover for resistant gram-positive as well as gram-negative as the patient has been out of the hospital 2-await surgical debridement and deep culture scheduled for tomorrow 3-we will empirically treat with the daptomycin and cefepime because of his kidney function while waiting for the culture to finalize 4would likely need a PICC line and outpatient IV antibiotic therapy on discharge We will follow on clinical condition and cultures to further adjust medication if needed Thank you for this consultation we will follow the patient along with you Dictation was produced using [employer] dictation software. please excuse any grammatical, word or spelling errors. Time with Patient: Greater than 30
[2024-10-28 00:30] LABS: Glucose,Whole Blood 300 mg/dL (70-110)
[2024-10-28] MEDS: SODIUM CHLORIDE 0.9% 1,000 ML IV ONE ×3 (01:38→15:45)
[2024-10-28 02:09] LABS: Glucose,Whole Blood 306 mg/dL (70-110)
[2024-10-28] MEDS: INSULIN LISPRO (HumaLOG) 100 UNIT/ML 10 mL VL SQ ONE (02:29)
[2024-10-28 02:56] LABS: African American GFR (CKD) 43 (>60 ml/min/1.73 sqM); Anion Gap 9 mmol/L; Blood Urea Nitrogen 40 mg/dL (9-20); Calcium 8.1 mg/dL (8.4-10.2); Carbon Dioxide 19 mmol/L (22-30); Chloride 99 mmol/L (98-107); Glucose 233 mg/dL (74-99); Non-African American GFR(CKD) 37 (>60 ml/min/1.73 sqM); Potassium 4.4 mmol/L (3.5-5.1); Sodium 127 mmol/L (137-145)
[2024-10-28] MEDS: METOPROLOL TARTRATE 25 MG TAB PO STA (03:35)
--- NOTE | 2024-10-28 03:56 | P.EN ---
Patient admitted for osteomyelitis of the right fifth metatarsal head, diabetic ulcer of the right foot Received page from RN at 8:42 PM on 10/27/24 that the patient's blood pressure was 84/44 with a pulse of 81 bpm, temperature 98.4 F, oxygen saturation 97% on room air 1 L of normal saline bolus was administered. The patient's blood pressure improved to 135/71 with a pulse rate of 81 bpm 1 AM on 10/28/24 Received another page from RN -the patient was febrile with a temperature of 100 F, pulse 122 bpm, BP 151/62 and oxygen saturation of 99% on room air. The patient was shivering and had red skin all over and was hot to touch with slow cap refill. There was also concern for altered mental status as the patient was slower than usual to answer. The patient was also incontinent and had not alerted the staff. He is usually continent Upon examination the patient was alert and oriented Another 1 liter of normal saline bolus was administered. EKG was obtained that showed diffuse T wave inversions that seem to be chronic with rate 107 bpm and QTc [address] head obtained for concerns of altered mental status. BMP and lactic acid ordered. Will continue to monitor I Discussed the case with the resident and agree with the resident's findings I edited the assessment and plan as necessary as documented in the resident's note.
--- NOTE | 2024-10-28 04:02 | CT ---
EXAM: CT Head Without Intravenous Contrast CLINICAL HISTORY: ITS.REASON CT Reason: altered mental status TECHNIQUE: Axial computed tomography images of the head/brain without intravenous contrast. CTDI is 49.2 mGy and DLP is 1199.9 mGy-cm. This CT exam was performed using one or more of the following dose reduction techniques: automated exposure control, adjustment of the mA and/or kV according to patient size, and/or use of iterative reconstruction technique. COMPARISON: No relevant prior studies available. FINDINGS: Brain: No hemorrhage or mass effect. Right frontal encephalomalacia Ventricles: No hydrocephalus. Bones/joints: Unremarkable. Soft tissues: Unremarkable. Sinuses: No air fluid level. Mastoid air cells: Clear. IMPRESSION: No acute hemorrhage, hydrocephalus, or mass effect.
[2024-10-28 06:07] LABS: Glucose,Whole Blood 186 mg/dL (70-110)
[2024-10-28] MEDS: INSULIN LISPRO (HumaLOG) 100 UNIT/ML 10 mL VL SQ SCH (06:37)
[2024-10-28 08:09] LABS: Basophils # (A) 0.02 10*3/uL (0.00-0.10); Basophils % (A) 0.1 %; Eosinophils # (A) 0.19 10*3/uL (0.04-0.35); Eosinophils % (A) 1.2 %; HCT 34.2 % (39.6-50.0); HGB 11.6 g/dL (13.0-17.0); Lymphocytes # (A) 0.39 10*3/uL (0.90-5.00); Lymphocytes % (A) 2.5 %; MCH 30.7 pg (27.0-32.0); MCHC 33.9 g/dL (32.0-37.0); MCV 90.5 fL (80.0-97.0); Mean Platelet Volume 10.2 fL (9.5-12.2); Monocytes # (A) 0.66 10*3/uL (0.20-1.00); Monocytes % (A) 4.2 %; Neutrophils # (A) 14.38 10*3/uL (1.80-7.70); Neutrophils % (A) 91.6 %; Platelet Count 293 10*3/uL (140-440); RBC 3.78 10*6/uL (4.40-5.60); RDW 13.5 % (11.5-14.5); WBC 15.71 10*3/uL (4.50-10.00)
--- NOTE | 2024-10-28 09:01 | P.PN ---
Progress Note - Text Progress Note Date: 10/28/24 It was noted that there was any event note in patient's chart. Apparently through the night patient had spiked a fever up to 101.0 degrees Fahrenheit was reported that he had altered mental status changes. Patient was noted to be hypotensive. He had 2 L of fluid given yesterday evening as well as through the night. He had a CT of the brain that showed no acute findings. Patient has alert and oriented x 3 this morning. Last temp was 99.1. Last reported blood pressure 84/45. He denies any shortness of breath, chest pain, abdominal pain, nausea or vomiting. Denies any chills or bodyaches. He is scheduled today to undergo right foot wound debridement however concerns for possible sepsis, blood culture has no growth at 24 hours. Patient's case was discussed with primary medical team following patient. They will see and evaluate patient for medical clearance. Also discussed with patient concerns for sepsis and infection that could be further up his foot and leg with the possibility of a need for guillotine amputation. Patient verbalizes understanding and is willing to con sent for possible guillotine amputation if needed. Nursing notified there will be a change in patient's consent form and to obtain new consent. The impression and plan of care has been dictated as directed. Dr. Tod Durand I performed a history and examination of this patient, discussed the same with the dictator. I agree with the dictator's note ,documented as a scribe. Any additional findings or plans will be noted.
[2024-10-28 11:37] LABS: Glucose,Whole Blood 103 mg/dL (70-110)
[2024-10-28] MEDS: IV FLUID CONTINUATION 1,000 ML IV ONE ×2 (13:43→13:44)
[2024-10-28 13:48] LABS: Glucose,Whole Blood 103 mg/dL (70-110)
--- NOTE | 2024-10-28 14:25 | P.PN ---
Subjective Progress Note Date: 10/28/24 74-year-old male with past medical history of type II DM on insulin, history of osteomyelitis of the left second toe, history of right foot osteomyelitis requiring IV antibiotics and now status post right second toe amputation for nonhealing ulcer and osteomyelitis, CAD ([place] x 3 with CABG x 3 caths x 4 that failed), A-fib (on Eliquis 5 mg p.o. twice daily), CKD IIIB, and CVA. He presented to the ED for purulent discharge and erythema at the site of amputation. Upon arrival to our facility, patient underwent evaluation in the emergency department. Vital signs upon arrival show blood pressure 126/80, heart rate 82, respiratory rate 18, temp 97.9 degrees. SpO2 of 96% on room air. X-ray right foot showing postsurgical changes from the 2nd and 5th digit amputation with some lucency involving the 5th metatarsal concerning for OM. CBC, CMP significant for RBC 3.91, Hg 12.2, Hct 35, Na 133, K 5.4, bicarb 21, BUN 37, Cr 1.44, glu 253, alk phos 225. Lactic acid 2.4-1.0. Patient admitted under services with consultation to infectious disease and vascular surgery. 10/27 Patient was seen and examined. No complaints. Plans for amputation today. Antibiotics include Cefepime and Flagyl. Vancomycin discontinued due to ZAIN. CBC and BMP significant for bicarb 19.5, AG 14.5, BUN 32.2, Cr 1.7, glu 143, Ca 8.5. 10/28 Patient was seen and examined. Overnight, patient became hypotensive and confused. BP as low as 85/43. He was bolused 2L NC. Head CT showed no acute findings. Patient reports no complaints this morning. His BP is 94/51 HR 83. CBC and BMP significant for WBC 15.71, RBC 3.78, Hg 11.6, Hct 34.2, Na 127, bicarb 19, BUN 40, Cr 1.74, glu 233, Ca 8.1. Antibiotics include Cefepime 2g IV BID and Daptomycin 500 mg IV QD. BCx neg so far. WCx presumptive staph aureus. Discussed with the patient that he is septic. Source of infection is likely from the right foot. Patient is high risk for surgery at his current state, however source control is imperative in resolving his sepsis. Patient is agreeable for surgery and understands the risks involved. He is alert and oriented x 3. Case was discussed with Dr. Baron and Rupinder VARGAS, plans for OR today. May need ICU after surgery. General: non toxic, no distress, appears at stated age Derm: warm, dry Head: atraumatic, normocephalic, symmetric Mouth: no lip lesion, mucus membranes moist Cardiovascular: S1 S2 tachy. No murmurs, rubs, gallops Lungs: Decreased BS bilaterally, no accessory muscle use Ext: no gross muscle atrophy, no edema, no contractures Neuro: no focal neuro deficits Psych: Alert and oriented Based on my assessment of this patient, this patient meets a high complexity level of care. Sepsis secondary to right 5th digit OM: ID and Vascular surgery on board. Continue Daptomycin 500 mg IV QD and Cefepime 2g IV BID. Increase NS to 125 cc/hr. Maintain MAP > 65. Telemetry monitoring. Follow final cultures. Plans for debridement today. ZAIN on CKD stage IIIb with metabolic acidosis: Prerenal from sepsis. IV hydration as above. Hyponatremia: Possible hypervolemic given 2L NS bolus. May need diuresis later. Normocytic anemia likely AOCD from CKD: Stable. No signs of active bleeding. Type II DM on insulin: A1c 10.8. Lantus 15 units SQ QHS. ISS with Accuchecks ACHS along with hypoglycemic precautions. Farxiga 10 mg PO QD. CAD and PAD: ASA 81 mg PO QD. Lipitor 80 mg PO QHS. Essential hypertension: Stop Metoprolol and Lisinopril given hypotension. Atrial flutter: Eliquis held for surgery. Resolved: Lactic acidosis. CODE STATUS: FULL CODE DVT Prophylaxis: Heparin SQ GI Prophylaxis: Protonix Designated medical POA if patient is not able to make medical decisions for themselves: I have reviewed the following ergonomics consultant notes: Vascular note I have reviewed the results of the following tests: BMP, CBC, Lactic acid, BCx, WCx, Head CT. I have ordered the following tests: CBC and BMP in the AM. I have discussed the care of this patient with the following independent historian: POLA. I have independently interpreted the following test below: I have discussed the management of this patient with the following physician: Rupinder VARGAS and Dr. Baron. Objective - Vital Signs Vital signs: Vital Signs Temp 98.2 F 10/28/24 13:49 Pulse 80 10/28/24 13:45 Resp 16 10/28/24 13:45 BP 114/56 10/28/24 13:45 Pulse Ox 99 10/28/24 13:45 FiO2 Intake & Output 10/27/24 10/28/24 10/28/24 18:59 06:59 18:59 Intake Total 0 Balance 0 Intake: IV 0 Other: Voiding Method Toilet Toilet Toilet Incontinent # Voids 1 1 # Bowel Movements 1 - Labs CBC & Chem 7: 10/28/24 02:27 10/28/24 02:27 Labs: Abnormal Lab Results - Last 24 Hours (Table) 10/27/24 10/27/24 10/27/24 Range/Units 02:58 16:46 20:40 WBC (4.50-10.00) 10*3/uL RBC (4.40-5.60) 10*6/uL Hgb (13.0-17.0) g/dL Hct (39.6-50.0) % Immature Gran # (0.00-0.04) 10*3/uL Neutrophils # (1.80-7.70) 10*3/uL Lymphocytes # (0.90-5.00) 10*3/uL Sodium (137-145) mmol/L Carbon Dioxide (22-30) mmol/L BUN (9-20) mg/dL Creatinine (0.66-1.25) mg/dL Glucose (74-99) mg/dL POC Glucose (mg/dL) 289 H 350 H (70-110) mg/dL Hemoglobin A1c 11.5 H (<=6.0) % Calcium (8.4-10.2) mg/dL 10/28/24 10/28/24 10/28/24 Range/Units 00:29 02:07 02:27 WBC (4.50-10.00) 10*3/uL RBC (4.40-5.60) 10*6/uL Hgb (13.0-17.0) g/dL Hct (39.6-50.0) % Immature Gran # (0.00-0.04) 10*3/uL Neutrophils # (1.80-7.70) 10*3/uL Lymphocytes # (0.90-5.00) 10*3/uL Sodium 127 L (137-145) mmol/L Carbon Dioxide 19 L (22-30) mmol/L BUN 40 H (9-20) mg/dL Creatinine 1.74 H (0.66-1.25) mg/dL Glucose 233 H (74-99) mg/dL POC Glucose (mg/dL) 300 H 306 H (70-110) mg/dL Hemoglobin A1c (<=6.0) % Calcium 8.1 L (8.4-10.2) mg/dL 10/28/24 10/28/24 Range/Units 02:27 06:05 WBC 15.71 H (4.50-10.00) 10*3/uL RBC 3.78 L (4.40-5.60) 10*6/uL Hgb 11.6 L (13.0-17.0) g/dL Hct 34.2 L (39.6-50.0) % Immature Gran # 0.07 H (0.00-0.04) 10*3/uL Neutrophils # 14.38 H (1.80-7.70) 10*3/uL Lymphocytes # 0.39 L (0.90-5.00) 10*3/uL Sodium (137-145) mmol/L Carbon Dioxide (22-30) mmol/L BUN (9-20) mg/dL Creatinine (0.66-1.25) mg/dL Glucose (74-99) mg/dL POC Glucose (mg/dL) 186 H (70-110) mg/dL Hemoglobin A1c (<=6.0) % Calcium (8.4-10.2) mg/dL Microbiology - Last 24 Hours (Table) 10/27/24 01:39 Gram Stain - Preliminary Foot - Right Wound Culture - Preliminary Presumptive Staph aureus 10/26/24 16:49 Blood Culture - Preliminary Blood
[2024-10-28 14:46] LABS: African American GFR (CKD) 39 (>60 ml/min/1.73 sqM); Anion Gap 7 mmol/L; Blood Urea Nitrogen 42 mg/dL (9-20); Calcium 8.2 mg/dL (8.4-10.2); Carbon Dioxide 22 mmol/L (22-30); Chloride 102 mmol/L (98-107); Glucose 107 mg/dL (74-99); Non-African American GFR(CKD) 34 (>60 ml/min/1.73 sqM); Sodium 131 mmol/L (137-145)
[2024-10-28] MEDS ORDERED: KETAMINE HCL IN 0.9 % NACL 50 MG/5 ML SYRINGE ONE (15:04)
[2024-10-28] MEDS ORDERED: fentaNYL (PF) 50 MCG/ML 2 ML AMP ONE (15:04)
[2024-10-28] MEDS ORDERED: PROPOFOL 10 MG/ML 20 ML VIAL IV ONE (15:04)
[2024-10-28] MEDS ORDERED: MIDAZOLAM 2 MG/2 ML VIAL ONE (15:04)
[2024-10-28] MEDS: LIDOCAINE 1% INJ 10MG/ML (20 ML MDV) SQ ONE (15:34)
[2024-10-28 17:29] LABS: Glucose,Whole Blood 74 mg/dL (70-110)
[2024-10-28 20:51] LABS: Glucose,Whole Blood 182 mg/dL (70-110)
[2024-10-29 05:39] LABS: HCT 34.8 % (39.6-50.0); HGB 11.5 g/dL (13.0-17.0); MCH 30.3 pg (27.0-32.0); MCV 91.8 fL (80.0-97.0); Platelet Count 270 10*3/uL (140-440); RBC 3.79 10*6/uL (4.40-5.60); RDW 13.7 % (11.5-14.5); WBC 9.79 10*3/uL (4.50-10.00)
[2024-10-29 06:14] LABS: Glucose,Whole Blood 248 mg/dL (70-110)
[2024-10-29 06:51] LABS: ALT 15 U/L (4-49); AST 22 U/L (17-59); African American GFR (CKD) 37 (>60 ml/min/1.73 sqM); Albumin 2.9 g/dL (3.5-5.0); Alkaline Phosphatase 216 U/L (38-126); Anion Gap 13 mmol/L; Blood Urea Nitrogen 36 mg/dL (9-20); Calcium 8.3 mg/dL (8.4-10.2); Carbon Dioxide 17 mmol/L (22-30); Chloride 102 mmol/L (98-107); Globulin 2.8 g/dL; Glucose 183 mg/dL (74-99); Non-African American GFR(CKD) 32 (>60 ml/min/1.73 sqM); Potassium 4.2 mmol/L (3.5-5.1); Sodium 132 mmol/L (137-145); Total Bilirubin 0.6 mg/dL (0.2-1.3); Total Protein 5.7 g/dL (6.3-8.2)
--- NOTE | 2024-10-29 08:14 | P.OP ---
Date of Procedure: 10/28/24 Description of Procedure: Preoperative diagnosis: Previous right fifth toe amputation, nonhealing wound, osteomyelitis clinically, plantar wound Postoperative diagnosis: Same Procedure: Sharp excisional debridement right foot lateral 5 x 3 x 1 to bone Sharp excisional debridement right plantar 1 x 1.2 x 0.1 to subcutaneous tissue Initiation of negative pressure wound VAC therapy Surgeon: Patria Baron D.O. EBL: 10 cc IV fluids: See records Urine output: Not measured Drains: None Complications: None immediately apparent Condition: Stable to recovery Operative indication and findings: Patient is a 74-year-old male with peripheral vascular disease who previously had 5 toe amputation. It has been nonhealing with area of bone exposure therefore he presents today for debridement of this Procedure in detail: Patient was taken to the operative suite placed in supine position. The right lower extremity was prepped and draped in usual sterile fashion. A preprocedural timeout was performed. All parties were in agreement. Starting with the area of the callus on the plantar wound, the callus was removed with a scalpel. Underneath the callus was a small area of wound. The debridement size is measured as above. There was no obvious purulent drainage or infection at this level identified. Attention was then turned towards the lateral foot. The devitalized tissue was excised. The area of necrotic bone was excised to its base appearing good healthy bone. There is no purulent drainage or tracking. There was appearance of adequate bleeding. This time decision was made to place a wound VAC. The area was cleansed and a small black sponge was utilized and placed in standard fashion with good seal. A dressing was placed on the plantar wound. The patient was awakened from anesthesia and transferred to recovery in stable condition having tolerated the procedure well.
--- NOTE | 2024-10-29 09:23 | P.PN ---
Subjective Progress Note Date: 10/29/24 Principal diagnosis: Infected wound Patient is seen and examined today as a follow-up. Resting comfortably. Dressing to right foot had become saturated actually yesterday afternoon following surgery. Bleeding had improved through the night. Wound VAC is intact with serosanguineous drainage. Patient has been afebrile, here BP 120/73 heart rate 93 oxygen saturation 97% on room air. Blood cultures with no growth at 48 hours. Wound culture preliminary presumptive Staph aureus. WBC 9.7 hemoglobin 11.5 sodium 132 potassium 4.2 BUN 36 creatinine 1.98 glucose 183 Objective - Vital Signs Vital signs: Vital Signs Temp 98.6 F 10/29/24 07:15 Pulse 93 10/29/24 07:15 Resp 17 10/29/24 07:15 BP 120/73 10/29/24 07:15 Pulse Ox 97 10/29/24 07:15 FiO2 Intake & Output 10/28/24 10/29/24 10/29/24 18:59 06:59 18:59 Intake Total 1550 Output Total 10 975 Balance 1540 -975 Intake: IV 1250 Oral 300 Output: Urine 975 Estimated Blood Loss 10 Other: Voiding Method Toilet Toilet Toilet Incontinent Bedside Commode Bedside Commode Incontinent Incontinent # Voids 1 1 - Exam General appearance: The patient is alert, oriented, appears in no acute distress. HET: Head is normocephalic and atraumatic. Pupils are equal and reactive. Neck: Supple. Heart: Irregularly irregular. Lungs: Equal expansion, normal respiratory effort. Abdomen: Soft, nontender, nondistended. Extremities: Right foot with dressing clean dry and intact, wound VAC in place with good suction. Neurological: No focal deficits. Strength and sensation are grossly intact. - Labs CBC & Chem 7: 10/29/24 04:39 10/29/24 04:39 Labs: Abnormal Lab Results - Last 24 Hours (Table) 10/28/24 10/28/24 10/29/24 Range/Units 14:09 20:50 04:39 RBC 3.79 L (4.40-5.60) 10*6/uL Hgb 11.5 L (13.0-17.0) g/dL Hct 34.8 L (39.6-50.0) % Sodium 131 L (137-145) mmol/L Carbon Dioxide (22-30) mmol/L BUN 42 H (9-20) mg/dL Creatinine 1.90 H (0.66-1.25) mg/dL Glucose 107 H (74-99) mg/dL POC Glucose (mg/dL) 182 H (70-110) mg/dL Calcium 8.2 L (8.4-10.2) mg/dL Alkaline Phosphatase (38-126) U/L Total Protein (6.3-8.2) g/dL Albumin (3.5-5.0) g/dL 10/29/24 10/29/24 Range/Units 04:39 06:12 RBC (4.40-5.60) 10*6/uL Hgb (13.0-17.0) g/dL Hct (39.6-50.0) % Sodium 132 L (137-145) mmol/L Carbon Dioxide 17 L (22-30) mmol/L BUN 36 H (9-20) mg/dL Creatinine 1.98 H (0.66-1.25) mg/dL Glucose 183 H (74-99) mg/dL POC Glucose (mg/dL) 248 H (70-110) mg/dL Calcium 8.3 L (8.4-10.2) mg/dL Alkaline Phosphatase 216 H (38-126) U/L Total Protein 5.7 L (6.3-8.2) g/dL Albumin 2.9 L (3.5-5.0) g/dL Microbiology - Last 24 Hours (Table) 10/26/24 16:49 Blood Culture - Preliminary Blood 10/27/24 01:39 Gram Stain - Preliminary Foot - Right Wound Culture - Preliminary Presumptive Staph aureus Assessment and Plan Assessment: 1. Right fifth toe amputation site infected wound status post excisional debridement with wound VAC application 2. Osteomyelitis right fifth metatarsal head 3. Cellulitis 4. Severe bilateral infrapopliteal disease not amenable to revascularization 5. Diabetes mellitus Plan: 1. Antibiotics per recommendations from infectious disease 2. Wound cultures currently pending 3. Continue with wound VAC application, change Wednesdays and Fridays 4. May resume anticoagulation 5. Heel walk only on right foot 6. Rest of medical management per primary medical team Thank you for this consultation, we will continue to follow. The impression and plan of care has been dictated as directed. Dr. Tod Durand I performed a history and examination of this patient, discussed the same with the dictator. I agree with the dictator's note ,documented as a scribe. Any additional findings or plans will be noted.
[2024-10-29 12:05] LABS: Glucose,Whole Blood 142 mg/dL (70-110)
--- NOTE | 2024-10-29 13:16 | P.PN ---
Subjective Progress Note Date: 10/29/24 74-year-old male with past medical history of type II DM on insulin, history of osteomyelitis of the left second toe, history of right foot osteomyelitis requiring IV antibiotics and now status post right second toe amputation for nonhealing ulcer and osteomyelitis, CAD ([place] x 3 with CABG x 3 caths x 4 that failed), A-fib (on Eliquis 5 mg p.o. twice daily), CKD IIIB, and CVA. He presented to the ED for purulent discharge and erythema at the site of amputation. Upon arrival to our facility, patient underwent evaluation in the emergency department. Vital signs upon arrival show blood pressure 126/80, heart rate 82, respiratory rate 18, temp 97.9 degrees. SpO2 of 96% on room air. X-ray right foot showing postsurgical changes from the 2nd and 5th digit amputation with some lucency involving the 5th metatarsal concerning for OM. CBC, CMP significant for RBC 3.91, Hg 12.2, Hct 35, Na 133, K 5.4, bicarb 21, BUN 37, Cr 1.44, glu 253, alk phos 225. Lactic acid 2.4-1.0. Patient admitted under services with consultation to infectious disease and vascular surgery. 10/27 Patient was seen and examined. No complaints. Plans for amputation today. Antibiotics include Cefepime and Flagyl. Vancomycin discontinued due to ZAIN. CBC and BMP significant for bicarb 19.5, AG 14.5, BUN 32.2, Cr 1.7, glu 143, Ca 8.5. 10/28 Patient was seen and examined. Overnight, patient became hypotensive and confused. BP as low as 85/43. He was bolused 2L NC. Head CT showed no acute findings. Patient reports no complaints this morning. His BP is 94/51 HR 83. CBC and BMP significant for WBC 15.71, RBC 3.78, Hg 11.6, Hct 34.2, Na 127, bicarb 19, BUN 40, Cr 1.74, glu 233, Ca 8.1. Antibiotics include Cefepime 2g IV BID and Daptomycin 500 mg IV QD. BCx neg so far. WCx presumptive staph aureus. Discussed with the patient that he is septic. Source of infection is likely from the right foot. Patient is high risk for surgery at his current state, however source control is imperative in resolving his sepsis. Patient is agreeable for surgery and understands the risks involved. He is alert and oriented x 3. Case was discussed with Dr. Baron and Rupinder HAND DRILLER, plans for OR today. 10/29 Patient was seen and examined. Underwent debridement yesterday with wound vac. Pain well controlled. Urinating freely. CBC and CMP significant for RBC 3.79, Hg 11.5, Hct 34.8, Na 132, bicarb 17, BUN 36, Cr 1.98, glu 183, Ca 8.3, alk phos 216, alb 2.9. General: non toxic, no distress, appears at stated age Derm: warm, dry Head: atraumatic, normocephalic, symmetric Mouth: no lip lesion, mucus membranes moist Cardiovascular: S1 S2 tachy. No murmurs, rubs, gallops Lungs: Decreased BS bilaterally, no accessory muscle use Ext: no gross muscle atrophy, no edema, no contractures Neuro: no focal neuro deficits Psych: Alert and oriented Based on my assessment of this patient, this patient meets a high complexity level of care. Sepsis secondary to right 5th digit OM: Status post debridement with Dr. Baron on 10/28. ID and Vascular surgery on board. Continue Daptomycin 500 mg IV QD and Cefepime 2g IV BID. Continue NS to 125 cc/hr. Maintain MAP > 65. Telemetry monitoring. Follow final cultures. ZAIN on CKD stage IIIb with metabolic acidosis: Prerenal from sepsis. IV hydration as above. Obtain UA and renal US. Nephrology consulted. Hyponatremia: Stable. Monitor daily. Normocytic anemia likely AOCD from CKD: Stable. No signs of active bleeding. Transfuse if Hg < 7. Type II DM on insulin: A1c 10.8. Lantus 15 units SQ QHS. ISS with Accuchecks ACHS along with hypoglycemic precautions. CAD and PAD: ASA 81 mg PO QD. Lipitor 80 mg PO QHS. Metoprolol 25 mg PO BID. Essential hypertension: Restart Metoprolol but hold Lisinopril as BP has improved. Atrial flutter: Metoprolol as above. Eliquis 5 mg PO BID restarted. Resolved: Lactic acidosis. CODE STATUS: FULL CODE DVT Prophylaxis: Heparin SQ GI Prophylaxis: Protonix Designated medical POA if patient is not able to make medical decisions for themselves: I have reviewed the following labor relations consultant notes: Vascular note I have reviewed the results of the following tests: CBC, CMP. I have ordered the following tests: CBC and BMP in the AM. Renal US and bladder scan. I have discussed the care of this patient with the following independent historian: I have independently interpreted the following test below: I have discussed the management of this patient with the following physician: Objective - Vital Signs Vital signs: Vital Signs Temp 98.6 F 10/29/24 07:15 Pulse 93 10/29/24 07:15 Resp 17 10/29/24 07:15 BP 120/73 10/29/24 07:15 Pulse Ox 97 10/29/24 07:15 FiO2 Intake & Output 10/28/24 10/29/24 10/29/24 18:59 06:59 18:59 Intake Total 1550 240 Output Total 10 975 Balance 1540 -975 240 Intake: IV 1250 Oral 300 240 Output: Urine 975 Estimated Blood Loss 10 Other: Voiding Method Toilet Toilet Toilet Incontinent Bedside Commode Bedside Commode Incontinent Incontinent # Voids 1 1 # Bowel Movements 1 - Labs CBC & Chem 7: 10/29/24 04:39 10/29/24 04:39 Labs: Abnormal Lab Results - Last 24 Hours (Table) 10/28/24 10/28/24 10/29/24 Range/Units 14:09 20:50 04:39 RBC 3.79 L (4.40-5.60) 10*6/uL Hgb 11.5 L (13.0-17.0) g/dL Hct 34.8 L (39.6-50.0) % Sodium 131 L (137-145) mmol/L Carbon Dioxide (22-30) mmol/L BUN 42 H (9-20) mg/dL Creatinine 1.90 H (0.66-1.25) mg/dL Glucose 107 H (74-99) mg/dL POC Glucose (mg/dL) 182 H (70-110) mg/dL Calcium 8.2 L (8.4-10.2) mg/dL Alkaline Phosphatase (38-126) U/L Total Protein (6.3-8.2) g/dL Albumin (3.5-5.0) g/dL 10/29/24 10/29/24 10/29/24 Range/Units 04:39 06:12 12:03 RBC (4.40-5.60) 10*6/uL Hgb (13.0-17.0) g/dL Hct (39.6-50.0) % Sodium 132 L (137-145) mmol/L Carbon Dioxide 17 L (22-30) mmol/L BUN 36 H (9-20) mg/dL Creatinine 1.98 H (0.66-1.25) mg/dL Glucose 183 H (74-99) mg/dL POC Glucose (mg/dL) 248 H 142 H (70-110) mg/dL Calcium 8.3 L (8.4-10.2) mg/dL Alkaline Phosphatase 216 H (38-126) U/L Total Protein 5.7 L (6.3-8.2) g/dL Albumin 2.9 L (3.5-5.0) g/dL Microbiology - Last 24 Hours (Table) 10/27/24 01:39 Gram Stain - Final Foot - Right Wound Culture - Final Staphylococcus aureus 10/26/24 16:49 Blood Culture - Preliminary Blood
--- NOTE | 2024-10-29 15:14 | P.PN ---
Subjective Progress Note Date: 10/28/24 Principal diagnosis: Reason for follow-up is right foot wound infection/osteo Patient is a 74-year-old male with a past medical history significant for CVA TIA diabetes mellitus NC in this patient who is status post recent right fifth toe amputation completed on 09/30/2024, presented to hospital with worsening wound to the right fifth toe amputation site On today's evaluation that is 10/28/2024,the patient denies any fever or any chills, patient is breathing comfortably on room air, the patient denies chest pain shortness of breath and no significant cough, patient denies abdominal pain, no nausea vomiting or diarrhea. Pain to the right foot is currently contr olled Patient white count is 15.71, creatinine is 1.90 culture growing Staph aureus sensitivities pending Objective - Vital Signs Vital signs: Vital Signs Temp 98.6 F 10/28/24 06:45 Pulse 76 10/28/24 11:04 Resp 17 10/28/24 06:45 BP 94/51 10/28/24 11:38 Pulse Ox 98 10/28/24 06:45 FiO2 Intake & Output 10/27/24 10/28/24 10/28/24 18:59 06:59 18:59 Other: Voiding Method Toilet Toilet Toilet Incontinent # Voids 1 1 # Bowel Movements 1 - Exam GENERAL DESCRIPTION: An elderly male lying in bed in no distress RESPIRATORY SYSTEM: Unlabored breathing , decreased breath sounds at bases HEART: S1 S2 regular rate and rhythm , ABDOMEN: Soft , no tenderness EXTREMITIES: Right foot is currently dressed - Labs CBC & Chem 7: 10/29/24 04:39 10/29/24 04:39 Labs: Abnormal Lab Results - Last 24 Hours (Table) 10/27/24 10/27/24 10/27/24 Range/Units 02:58 16:46 20:40 WBC (4.50-10.00) 10*3/uL RBC (4.40-5.60) 10*6/uL Hgb (13.0-17.0) g/dL Hct (39.6-50.0) % Immature Gran # (0.00-0.04) 10*3/uL Neutrophils # (1.80-7.70) 10*3/uL Lymphocytes # (0.90-5.00) 10*3/uL Sodium (137-145) mmol/L Carbon Dioxide (22-30) mmol/L BUN (9-20) mg/dL Creatinine (0.66-1.25) mg/dL Glucose (74-99) mg/dL POC Glucose (mg/dL) 289 H 350 H (70-110) mg/dL Hemoglobin A1c 11.5 H (<=6.0) % Calcium (8.4-10.2) mg/dL 10/28/24 10/28/24 10/28/24 Range/Units 00:29 02:07 02:27 WBC (4.50-10.00) 10*3/uL RBC (4.40-5.60) 10*6/uL Hgb (13.0-17.0) g/dL Hct (39.6-50.0) % Immature Gran # (0.00-0.04) 10*3/uL Neutrophils # (1.80-7.70) 10*3/uL Lymphocytes # (0.90-5.00) 10*3/uL Sodium 127 L (137-145) mmol/L Carbon Dioxide 19 L (22-30) mmol/L BUN 40 H (9-20) mg/dL Creatinine 1.74 H (0.66-1.25) mg/dL Glucose 233 H (74-99) mg/dL POC Glucose (mg/dL) 300 H 306 H (70-110) mg/dL Hemoglobin A1c (<=6.0) % Calcium 8.1 L (8.4-10.2) mg/dL 10/28/24 10/28/24 Range/Units 02:27 06:05 WBC 15.71 H (4.50-10.00) 10*3/uL RBC 3.78 L (4.40-5.60) 10*6/uL Hgb 11.6 L (13.0-17.0) g/dL Hct 34.2 L (39.6-50.0) % Immature Gran # 0.07 H (0.00-0.04) 10*3/uL Neutrophils # 14.38 H (1.80-7.70) 10*3/uL Lymphocytes # 0.39 L (0.90-5.00) 10*3/uL Sodium (137-145) mmol/L Carbon Dioxide (22-30) mmol/L BUN (9-20) mg/dL Creatinine (0.66-1.25) mg/dL Glucose (74-99) mg/dL POC Glucose (mg/dL) 186 H (70-110) mg/dL Hemoglobin A1c (<=6.0) % Calcium (8.4-10.2) mg/dL Microbiology - Last 24 Hours (Table) 10/27/24 01:39 Gram Stain - Preliminary Foot - Right Wound Culture - Preliminary Presumptive Staph aureus 10/26/24 16:49 Blood Culture - Preliminary Blood Assessment and Plan (1) Cellulitis of right foot Current Visit: Yes Status: Acute Code(s): L03.115 - CELLULITIS OF RIGHT LOWER LIMB SNOMED Code(s): 65094613342430765 (2) Diabetic infection of right foot Current Visit: No Status: Acute Code(s): E11.628 - TYPE 2 DIABETES MELLITUS WITH OTHER SKIN COMPLICATIONS; L08.9 - LOCAL INFECTION OF THE SKIN AND SUBCUTANEOUS TISSUE, UNSP SNOMED Code(s): 746532886 (3) Diabetic ulcer of right foot Current Visit: No Status: Acute Code(s): E11.621 - TYPE 2 DIABETES MELLITUS WITH FOOT ULCER; L97.519 - NON-PRS CHRONIC ULCER OTH PRT RIGHT FOOT W UNSP SEVERITY SNOMED Code(s): 142270706 (4) Failure of outpatient treatment Current Visit: No Status: Acute Code(s): Z78.9 - OTHER SPECIFIED HEALTH STATUS SNOMED Code(s): 798073695 Plan: 1patient being admitted to the hospital with a worsening wound to the right fifth toe amputation site concerning for osteomyelitis on the basis of abnormality seen on the x-ray and will need to cover for resistant gram-positive as well as gram-negative as the patient has been out of the hospital 2-await surgical debridement and deep culture scheduled for this afternoon 3-patient currently being treated with daptomycin and cefepime pending finalization of the culture Dictation was produced using [employer] dictation software. please excuse any grammatical, word or spelling errors. Time with Patient: Less than 30
--- NOTE | 2024-10-29 15:15 | P.PN ---
Subjective Progress Note Date: 10/29/24 Principal diagnosis: Reason for follow-up is right foot wound infection/osteo Patient is a 74-year-old male with a past medical history significant for CVA TIA diabetes mellitus DC in this patient who is status post recent right fifth toe amputation completed on 09/30/2024, presented to hospital with worsening wound to the right fifth toe amputation site. Patient is status post sharp excisional debridement of the right foot lateral border wound down to the border along with a wound VAC application on 10/28/2024 On today's evaluation that is 10/29/2024,the patient remains to be afebrile, patient is on room air not requiring supplemental oxygen and denies any short ness of breath no chest pain or cough.Patient denies having any nausea or vomiting, no abdominal pain and no diarrhea has been reported denies pain to the right foot at this point. Patient white count is 9.79, creatinine is 1.98 cultures with MSSA Objective - Vital Signs Vital signs: Vital Signs Temp 98.4 F 10/29/24 14:20 Pulse 84 10/29/24 14:20 Resp 16 10/29/24 14:20 BP 136/79 10/29/24 14:20 Pulse Ox 99 10/29/24 14:20 FiO2 Intake & Output 10/28/24 10/29/24 10/29/24 18:59 06:59 18:59 Intake Total 1550 240 Output Total 10 975 Balance 1540 -975 240 Intake: IV 1250 Oral 300 240 Output: Urine 975 Estimated Blood Loss 10 Other: Voiding Method Toilet Toilet Toilet Incontinent Bedside Commode Bedside Commode Incontinent Incontinent # Voids 1 1 # Bowel Movements 1 - Exam GENERAL DESCRIPTION: An elderly male lying in bed in no distress RESPIRATORY SYSTEM: Unlabored breathing , decreased breath sounds at bases HEART: S1 S2 regular rate and rhythm , ABDOMEN: Soft , no tenderness EXTREMITIES: Right foot wound is covered with a wound VAC - Labs CBC & Chem 7: 10/29/24 04:39 10/29/24 04:39 Labs: Abnormal Lab Results - Last 24 Hours (Table) 10/28/24 10/29/24 10/29/24 Range/Units 20:50 04:39 04:39 RBC 3.79 L (4.40-5.60) 10*6/uL Hgb 11.5 L (13.0-17.0) g/dL Hct 34.8 L (39.6-50.0) % Sodium 132 L (137-145) mmol/L Carbon Dioxide 17 L (22-30) mmol/L BUN 36 H (9-20) mg/dL Creatinine 1.98 H (0.66-1.25) mg/dL Glucose 183 H (74-99) mg/dL POC Glucose (mg/dL) 182 H (70-110) mg/dL Calcium 8.3 L (8.4-10.2) mg/dL Alkaline Phosphatase 216 H (38-126) U/L Total Protein 5.7 L (6.3-8.2) g/dL Albumin 2.9 L (3.5-5.0) g/dL 10/29/24 10/29/24 Range/Units 06:12 12:03 RBC (4.40-5.60) 10*6/uL Hgb (13.0-17.0) g/dL Hct (39.6-50.0) % Sodium (137-145) mmol/L Carbon Dioxide (22-30) mmol/L BUN (9-20) mg/dL Creatinine (0.66-1.25) mg/dL Glucose (74-99) mg/dL POC Glucose (mg/dL) 248 H 142 H (70-110) mg/dL Calcium (8.4-10.2) mg/dL Alkaline Phosphatase (38-126) U/L Total Protein (6.3-8.2) g/dL Albumin (3.5-5.0) g/dL Microbiology - Last 24 Hours (Table) 10/27/24 01:39 Gram Stain - Final Foot - Right Wound Culture - Final Staphylococcus aureus 10/26/24 16:49 Blood Culture - Preliminary Blood Assessment and Plan (1) Cellulitis of right foot Current Visit: Yes Status: Acute Code(s): L03.115 - CELLULITIS OF RIGHT LOWER LIMB SNOMED Code(s): 98876072293845109 (2) Diabetic infection of right foot Current Visit: No Status: Acute Code(s): E11.628 - TYPE 2 DIABETES MELLITUS WITH OTHER SKIN COMPLICATIONS; L08.9 - LOCAL INFECTION OF THE SKIN AND SUBCUTANEOUS TISSUE, UNSP SNOMED Code(s): 022856010 (3) Diabetic ulcer of right foot Current Visit: No Status: Acute Code(s): E11.621 - TYPE 2 DIABETES MELLITUS WITH FOOT ULCER; L97.519 - NON-PRS CHRONIC ULCER OTH PRT RIGHT FOOT W UNSP SEVERITY SNOMED Code(s): 276933775 (4) Failure of outpatient treatment Current Visit: No Status: Acute Code(s): Z78.9 - OTHER SPECIFIED HEALTH ST ATUS SNOMED Code(s): 937836223 Plan: 1patient being admitted to the hospital with a worsening wound to the right fifth toe amputation site concerning for osteomyelitis on the basis of abnormality seen on the x-ray and will need to cover for resistant gram-positive as well as gram-negative as the patient has been out of the hospital 2-patient is status post surgical debridement of the right foot lateral border wound down to the bone confirming osteomyelitis 3-patient culture done on admission positive for MSSA we will discontinue daptom ycin and cefepime start the patient on cefazolin will order PICC line for outpatient antibiotic therapy Dictation was produced using [employer] dictation software. please excuse any grammatical, word or spelling errors. Time with Patient: Less than 30
[2024-10-29 15:36] VITALS: BMI 23.1
[2024-10-29 17:08] LABS: Glucose,Whole Blood 183 mg/dL (70-110)
[2024-10-29] MEDS: ceFAZolin 2 GM in DEXTROSE 5% IN WATER 50 ML IVPB SCH (17:19)
[2024-10-29 18:41] LABS: INR 1.1 (<1.2); Prothrombin Time 12.2 sec (10.0-12.5)
[2024-10-29 20:19] LABS: Glucose,Whole Blood 276 mg/dL (70-110)
[2024-10-29] MEDS: APIXABAN 5 MG TAB PO SCH (22:09)
[2024-10-29] MEDS: METOPROLOL TARTRATE 25 MG TAB PO SCH (22:10)
[2024-10-30 06:16] LABS: Glucose,Whole Blood 240 mg/dL (70-110)
[2024-10-30 10:07] LABS: HCT 33.2 % (39.6-50.0); HGB 10.9 g/dL (13.0-17.0); MCH 30.4 pg (27.0-32.0); MCHC 32.8 g/dL (32.0-37.0); MCV 92.7 fL (80.0-97.0); Mean Platelet Volume 9.9 fL (9.5-12.2); Platelet Count 215 10*3/uL (140-440); RBC 3.58 10*6/uL (4.40-5.60); RDW 13.9 % (11.5-14.5); WBC 5.75 10*3/uL (4.50-10.00)
[2024-10-30 10:26] LABS: African American GFR (CKD) 53 (>60 ml/min/1.73 sqM); Anion Gap 11 mmol/L; Blood Urea Nitrogen 28 mg/dL (9-20); Calcium 8.8 mg/dL (8.4-10.2); Carbon Dioxide 17 mmol/L (22-30); Chloride 108 mmol/L (98-107); Glucose 192 mg/dL (74-99); Non-African American GFR(CKD) 46 (>60 ml/min/1.73 sqM); Potassium 4.3 mmol/L (3.5-5.1); Sodium 136 mmol/L (137-145)
--- NOTE | 2024-10-30 11:03 | P.NPCON ---
History of Present Illness - Reason for Consult acute renal failure - History of Present Illness Patient is a 74-year-old male with history of coronary artery disease status post coronary artery bypass surgery, prostatic cancer status post radical prostatectomy, type 2 diabetes and chronic kidney disease stage IIIa/IIIb with baseline creatinine around 1.4 mg/dL. Patient was admitted to the hospital with redness around the site of recent right fifth toe amputation. Status post debridement of right foot wound on 10/28/2024. Currently maintained on IV antibiotics, cefazolin. Blood pressure is noted to be significantly low with systolic in the low 80s on 10/27/2024 Serum creatinine increased from 1.4 on admission to 1.9 yesterday. Patient is voiding well. Past Medical History Past Medical History: Cancer, CVA/TIA, Diabetes Mellitus, Myocardial Infarction (SD), Skin Disorder Additional Past Medical History / Comment(s): prostate cancer, melenoma, Last Myocardial Infarction Date:: 2011 History of Any Multi-Drug Resistant Organisms: None Reported Past Surgical History: Heart Catheterization With Stent Additional Past Surgical History / Comment(s): Triple bypass, 2 heart attacks, 4 stents that failed, radical prostectomy, skin cancer removal, Amputtion of toe Past Anesthesia/Blood Transfusion Reactions: No Reported Reaction Date of Last Stent Placement:: 2011 Past Psychological History: No Psychological Hx Reported Smoking Status: Never smoker Past Alcohol Use History: Daily, Occasional Past Drug Use History: None Reported - Past Family History Mother Family Medical History: No Reported History Father Family Medical History: Cancer Medications and Allergies Home Medications Medication Instructions Recorded Confirmed Type Apixaban [Eliquis] 5 mg PO BID 01/02/24 10/26/24 History Aspirin EC [Ecotrin Low Dose] 81 mg PO DAILY 01/02/24 10/26/24 History Mirabegron [Myrbetriq] 50 mg PO DAILY 01/02/24 10/26/24 History PARoxetine [Paxil] 10 mg PO DAILY 01/02/24 10/26/24 History Insulin Glargine,Hum.rec.anlog 15 units SQ HS 04/24/24 10/26/24 History [Lantus Solostar Pen] Metoprolol Tartrate [Lopressor] 25 mg PO BID 04/24/24 10/26/24 History Acetaminophen Tab [Tylenol] 650 mg PO Q6HR PRN tab 07/09/24 10/26/24 Rx Atorvastatin [Lipitor] 80 mg PO HS 10/26/24 10/26/24 History Empagliflozin [Jardiance] 25 mg PO DAILY 10/26/24 10/26/24 History glipiZIDE [Glucotrol] 5 mg PO BID-W/MEALS 10/26/24 10/26/24 History lisinopriL [Prinivil] 10 mg PO DAILY 10/26/24 10/26/24 History Allergies Allergy/AdvReac Type Severity Reaction Status Date / Time No Known Allergies Allergy Verified 10/26/24 18:17 Physical Exam Vitals: Vital Signs Temp Pulse Pulse Resp BP Pulse Ox 10/30/24 06:59 98.1 F 74 19 111/66 99 10/30/24 03:00 98.3 F 10/30/24 01:25 99.6 F 84 20 153/76 98 10/29/24 19:20 98.5 F 93 20 132/81 100 10/29/24 16:20 97.9 F 88 17 133/66 99 10/29/24 14:20 98.4 F 84 16 136/79 99 Intake and Output 10/29/24 10/30/24 10/30/24 22:59 06:59 14:59 Intake Total 500 340 Balance 500 340 Intake: Oral 500 340 Other: Voiding Method Bedside Commode Incontinent # Voids 3 4 # Bowel Movements 3 1 Weight 81.647 kg On examination patient is comfortable awake alert oriented x 3 Examination of the heart S1 and S2 Examination of the lungs bilateral breath sounds are heard Abdomen is soft nontender Examination of lower extremities shows trace edema right lower extremity with right foot currently wrapped Examination of the left leg does not show any edema AUTO BODY REPAIR TECHNICIAN exam grossly intact Results - Lab Results Most recent lab results Calcium 8.8 mg/dL (8.4-10.2) 10/30/24 09:46 10/30/24 09:46 10/30/24 09:46 Assessment and Plan Assessment: 1. Acute kidney injury ATN secondary to hypotension and underlying infection, currently improved with creatinine back to 1.4 mg/dL. Previous UA in April 2024 showed trace protein. Ultrasound of the kidneys in December 2023 did not show any evidence of obstruction. 2. Recent right fifth toe amputation with cellulitis maintained on antibiotics 3. Chronic kidney disease stage IIIa/IIIb with baseline creatinine around 1.4 mg/dL secondary to nephrosclerosis. Patient has seen a plant operator control room operator about 1-1/2 years ago in [place] when he was living in [place]. 4. History of A-fib Plan: Continue with IV fluids, decrease rate Hold KLEVER inhibitors for now Repeat labs in a.m. Patient needs follow-up as outpatient for chronic kidney disease. Thank you for the consultation. We will continue to follow the patient with you during his hospitalization.
[2024-10-30 11:29] LABS: Glucose,Whole Blood 230 mg/dL (70-110)
--- NOTE | 2024-10-30 11:45 | P.PN ---
Subjective Principal diagnosis: Infected wound Patient is seen and examined today as a follow-up. He is status post excisional debridement in the operating room with wound VAC application to his right foot. Patient has remained afebrile. Vital signs have been stable. No leukocytosis. Currently on IV cefazolin for wound culture growing MSSA. Patient has artificial urinary sphincter and has been having difficulty with use and assistance from staff. Patient is requesting that he be able to get up to use the bathroom. Objective - Vital Signs Vital signs: Vital Signs Temp 98.1 F 10/30/24 06:59 Pulse 74 10/30/24 06:59 Resp 19 10/30/24 06:59 BP 111/66 10/30/24 06:59 Pulse Ox 99 10/30/24 06:59 FiO2 Intake & Output 10/29/24 10/30/24 10/30/24 18:59 06:59 18:59 Intake Total 740 340 Balance 740 340 Weight 81.647 kg Intake: Oral 740 340 Other: Voiding Method Bedside Commode Incontinent # Voids 3 4 # Bowel Movements 3 1 - Exam General appearance: The patient is alert, oriented, appears in no acute distress. HET: Head is normocephalic and atraumatic. Pupils are equal and reactive. Neck: Supple. Abdomen: Soft, nondistended. Extremities: Right foot with dressing clean dry and intact, wound VAC in place with good suction. Diabetic ulcer to plantar aspect to subcutaneous fat layer with active bleeding. Neurological: No focal deficits. Strength and sensation are grossly intact. - Labs CBC & Chem 7: 10/30/24 09:46 10/30/24 09:46 Labs: Abnormal Lab Results - Last 24 Hours (Table) 10/29/24 10/29/24 10/29/24 Range/Units 12:03 17:06 20:17 POC Glucose (mg/dL) 142 H 183 H 276 H (70-110) mg/dL 10/30/24 Range/Units 06:15 POC Glucose (mg/dL) 240 H (70-110) mg/dL Microbiology - Last 24 Hours (Table) 10/26/24 16:49 Blood Culture - Preliminary Blood 10/27/24 01:39 Anaerobic Culture - Preliminary Foot - Right 10/27/24 01:39 Gram Stain - Final Foot - Right Wound Culture - Final Staphylococcus aureus Assessment and Plan Assessment: 1. Right fifth toe amputation site infected wound status post excisional debridement with wound VAC application 2. Osteomyelitis right fifth metatarsal head 3. Cellulitis 4. Severe bilateral infrapopliteal disease not amenable to revascularization 5. Diabetes mellitus 6. Artificial urinary sphincter Plan: 1. Antibiotics per recommendations from infectious disease 2. Nonweightbearing to right lower extremity. While in hospital use wheelchair to get to the bathroom then patient may use heel to balance while going to the bathroom. 3. Continue with wound VAC application, change Wednesdays and Fridays 4. Opticell silver to right plantar wound, change Saturday 5. Rest of medical management per primary medical team 6. Patient is cleared from vascular surgery for discharge. Follow-up with Dr. Baron in 2 weeks. Thank you for this consultation. The impression and plan of care has been dictated as directed. Dr. Gaona I performed a history and examination of this patient, discussed the same with the dictator. I agree with the dictator's note ,documented as a scribe. Any additional findings or plans will be noted.
--- NOTE | 2024-10-30 12:46 | P.PN ---
Subjective Progress Note Date: 10/30/24 74-year-old male with past medical history of type II DM on insulin, history of osteomyelitis of the left second toe, history of right foot osteomyelitis requiring IV antibiotics and now status post right second toe amputation for nonhealing ulcer and osteomyelitis, CAD ([place] x 3 with CABG x 3 caths x 4 that failed), A-fib (on Eliquis 5 mg p.o. twice daily), CKD IIIB, and CVA. He presented to the ED for purulent discharge and erythema at the site of amputation. Upon arrival to our facility, patient underwent evaluation in the emergency department. Vital signs upon arrival show blood pressure 126/80, heart rate 82, respiratory rate 18, temp 97.9 degrees. SpO2 of 96% on room air. X-ray right foot showing postsurgical changes from the 2nd and 5th digit amputation with some lucency involving the 5th metatarsal concerning for OM. CBC, CMP significant for RBC 3.91, Hg 12.2, Hct 35, Na 133, K 5.4, bicarb 21, BUN 37, Cr 1.44, glu 253, alk phos 225. Lactic acid 2.4-1.0. Patient admitted under services with consultation to infectious disease and vascular surgery. 10/27 Patient was seen and examined. No complaints. Plans for amputation today. Antibiotics include Cefepime and Flagyl. Vancomycin discontinued due to ZAIN. CBC and BMP significant for bicarb 19.5, AG 14.5, BUN 32.2, Cr 1.7, glu 143, Ca 8.5. 10/28 Patient was seen and examined. Overnight, patient became hypotensive and confused. BP as low as 85/43. He was bolused 2L NC. Head CT showed no acute findings. Patient reports no complaints this morning. His BP is 94/51 HR 83. CBC and BMP significant for WBC 15.71, RBC 3.78, Hg 11.6, Hct 34.2, Na 127, bicarb 19, BUN 40, Cr 1.74, glu 233, Ca 8.1. Antibiotics include Cefepime 2g IV BID and Daptomycin 500 mg IV QD. BCx neg so far. WCx presumptive staph aureus. Discussed with the patient that he is septic. Source of infection is likely from the right foot. Patient is high risk for surgery at his current state, however source control is imperative in resolving his sepsis. Patient is agreeable for surgery and understands the risks involved. He is alert and oriented x 3. Case was discussed with Dr. Baron and Rupinder VARGAS, plans for OR today. 10/29 Patient was seen and examined. Underwent debridement yesterday with wound vac. Pain well controlled. Urinating freely. CBC and CMP significant for RBC 3.79, Hg 11.5, Hct 34.8, Na 132, bicarb 17, BUN 36, Cr 1.98, glu 183, Ca 8.3, alk phos 216, alb 2.9. 10/30 Patient was seen and examined. Patient reports feeling well. Looking forwar d to going home. Plans for IV antibiotics on discharge, PICC line order placed, case management working on insurance auth. CBC and BMP significant for RBC 3.58, Hg 10.9, Hct 33.2, Na 136, Cl 108, bicarb 17, BUN 28, Cr 1.47, glu 192. Discussed with Rupinder VARGAS, cleared from Vascular perspective for discharge. Nephrology recommends holding ACEi and decreasing IV fluid rate. BP 111/66, HR 74, RR 19, T 98.1F, 99% on RA. General: non toxic, no distress, appears at stated age Derm: warm, dry Head: atraumatic, normocephalic, symmetric Mouth: no lip lesion, mucus membranes moist Cardiovascular: S1 S2 reg. No murmurs, rubs, gallops Lungs: Decreased BS bilaterally, no accessory muscle use Ext: no gross muscle atrophy, no edema, no contractures, R foot dressing c/d/i Neuro: no focal neuro deficits Psych: Alert and oriented Based on my assessment of this patient, this patient meets a high complexity level of care. Sepsis secondary to right 5th digit OM: Status post debridement with Dr. Baron on 10/28. ID and Vascular surgery on board. Continue Daptomycin 500 mg IV QD and Cefepime 2g IV BID. NS decreased from 125 to 70 cc/hr. Telemetry monitoring. Follow OR cultures. Plans for IV antibiotics on discharge, PICC line order placed, case management working on insurance auth. ZAIN on CKD stage IIIb with metabolic acidosis: Improving. Prerenal from sepsis. IV hydration as above. Hold Lisinopril. Neprology on board. Hyponatremia: Stable. Monitor daily. Normocytic anemia likely AOCD from CKD: Stable. No signs of active bleeding. Transfuse if Hg < 7. Type II DM on insulin: A1c 10.8. Lantus 15 units SQ QHS. ISS with Accuchecks ACHS along with hypoglycemic precautions. CAD and PAD: ASA 81 mg PO QD. Lipitor 80 mg PO QHS. Metoprolol 25 mg PO BID. Essential hypertension: Metoprolol 25 mg PO BID. Hold Lisinopril due to ZAIN. Atrial flutter: Metoprolol as above. Eliquis 5 mg PO BID. Resolved: Lactic acidosis. Plans for discharge home after insurance authorization for IV antibiotics at home. CODE STATUS: FULL CODE DVT Prophylaxis: Heparin SQ GI Prophylaxis: Protonix Designated medical POA if patient is not able to make medical decisions for themselves: I have reviewed the following decorating consultant notes: Vascular, Nephrology note I have reviewed the results of the following tests: CBC, BMP. I have ordered the following tests: BMP in the AM. I have discussed the care of this patient with the following independent historian: Case management. I have independently interpreted the following test below: I have discussed the management of this patient with the following physician: Rupinder VARGAS. Objective - Vital Signs Vital signs: Vital Signs Temp 98.1 F 10/30/24 06:59 Pulse 74 10/30/24 06:59 Resp 19 10/30/24 06:59 BP 111/66 10/30/24 06:59 Pulse Ox 99 10/30/24 06:59 FiO2 Intake & Output 10/29/24 10/30/24 10/30/24 18:59 06:59 18:59 Intake Total 740 340 Balance 740 340 Weight 81.647 kg Intake: Oral 740 340 Other: Voiding Method Bedside Commode Incontinent # Voids 3 4 # Bowel Movements 3 1 - Labs CBC & Chem 7: 10/30/24 09:46 10/30/24 09:46 Labs: Abnormal Lab Results - Last 24 Hours (Table) 10/29/24 10/29/24 10/30/24 Range/Units 17:06 20:17 06:15 RBC (4.40-5.60) 10*6/uL Hgb (13.0-17.0) g/dL Hct (39.6-50.0) % Sodium (137-145) mmol/L Chloride (98-107) mmol/L Carbon Dioxide (22-30) mmol/L BUN (9-20) mg/dL Creatinine (0.66-1.25) mg/dL Glucose (74-99) mg/dL POC Glucose (mg/dL) 183 H 276 H 240 H (70-110) mg/dL 10/30/24 10/30/24 10/30/24 Range/Units 09:46 09:46 11:28 RBC 3.58 L (4.40-5.60) 10*6/uL Hgb 10.9 L (13.0-17.0) g/dL Hct 33.2 L (39.6-50.0) % Sodium 136 L (137-145) mmol/L Chloride 108 H (98-107) mmol/L Carbon Dioxide 17 L (22-30) mmol/L BUN 28 H (9-20) mg/dL Creatinine 1.47 H (0.66-1.25) mg/dL Glucose 192 H (74-99) mg/dL POC Glucose (mg/dL) 230 H (70-110) mg/dL Microbiology - Last 24 Hours (Table) 10/26/24 16:49 Blood Culture - Preliminary Blood 10/27/24 01:39 Anaerobic Culture - Preliminary Foot - Right 10/27/24 01:39 Gram Stain - Final Foot - Right Wound Culture - Final Staphylococcus aureus
--- NOTE | 2024-10-30 16:09 | P.PN ---
Subjective Progress Note Date: 10/30/24 Principal diagnosis: Reason for follow-up is right foot wound infection/osteo Patient is a 74-year-old male with a past medical history significant for CVA TIA diabetes mellitus ND in this patient who is status post recent right fifth toe amputation completed on 09/30/2024, presented to hospital with worsening wound to the right fifth toe amputation site. Patient is status post sharp excisional debridement of the right foot lateral border wound down to the border along with a wound VAC application on 10/28/2024 On today's evaluation that is 10/30/2024, the patient continues to be afebrile, the patient is on room air and breathing comfortably, the Pt denies having any chest pain or cough, the patient denies having any abdominal pain no vomiting or any diarrhea has been reported by the nursing staff. Patient went manage 5.75, creatinine 1.47, culture with MSSA also showing Kell and Prevotella Objective - Vital Signs Vital signs: Vital Signs Temp 98.1 F 10/30/24 06:59 Pulse 74 10/30/24 06:59 Resp 19 10/30/24 06:59 BP 111/66 10/30/24 06:59 Pulse Ox 99 10/30/24 06:59 FiO2 Intake & Output 10/29/24 10/30/24 10/30/24 18:59 06:59 18:59 Intake Total 740 340 Balance 740 340 Weight 81.647 kg Intake: Oral 740 340 Other: Voiding Method Bedside Commode Incontinent # Voids 3 4 # Bowel Movements 3 1 - Exam GENERAL DESCRIPTION: An elderly male lying in bed in no distress RESPIRATORY SYSTEM: Unlabored breathing , decreased breath sounds at bases HEART: S1 S2 regular rate and rhythm , ABDOMEN: Soft , no tenderness EXTREMITIES: Right foot wound is covered with a wound VAC - Labs CBC & Chem 7: 10/30/24 09:46 10/30/24 09:46 Labs: Abnormal Lab Results - Last 24 Hours (Table) 10/29/24 10/29/24 10/29/24 Range/Units 12:03 17:06 20:17 RBC (4.40-5.60) 10*6/uL Hgb (13.0-17.0) g/dL Hct (39.6-50.0) % Sodium (137-145) mmol/L Chloride (98-107) mmol/L Carbon Dioxide (22-30) mmol/L BUN (9-20) mg/dL Creatinine (0.66-1.25) mg/dL Glucose (74-99) mg/dL POC Glucose (mg/dL) 142 H 183 H 276 H (70-110) mg/dL 10/30/24 10/30/24 10/30/24 Range/Units 06:15 09:46 09:46 RBC 3.58 L (4.40-5.60) 10*6/uL Hgb 10.9 L (13.0-17.0) g/dL Hct 33.2 L (39.6-50.0) % Sodium 136 L (137-145) mmol/L Chloride 108 H (98-107) mmol/L Carbon Dioxide 17 L (22-30) mmol/L BUN 28 H (9-20) mg/dL Creatinine 1.47 H (0.66-1.25) mg/dL Glucose 192 H (74-99) mg/dL POC Glucose (mg/dL) 240 H (70-110) mg/dL 10/30/24 Range/Units 11:28 RBC (4.40-5.60) 10*6/uL Hgb (13.0-17.0) g/dL Hct (39.6-50.0) % Sodium (137-145) mmol/L Chloride (98-107) mmol/L Carbon Dioxide (22-30) mmol/L BUN (9-20) mg/dL Creatinine (0.66-1.25) mg/dL Glucose (74-99) mg/dL POC Glucose (mg/dL) 230 H (70-110) mg/dL Microbiology - Last 24 Hours (Table) 10/26/24 16:49 Blood Culture - Preliminary Blood 10/27/24 01:39 Anaerobic Culture - Preliminary Foot - Right 10/27/24 01:39 Gram Stain - Final Foot - Right Wound Culture - Final Staphylococcus aureus Assessment and Plan (1) Cellulitis of right foot Current Visit: Yes Status: Acute Code(s): L03.115 - CELLULITIS OF RIGHT LOWER LIMB SNOMED Code(s): 59563870662041712 (2) Diabetic infection of right foot Current Visit: No Status: Acute Code(s): E11.628 - TYPE 2 DIABETES MELLITUS WITH OTHER SKIN COMPLICATIONS; L08.9 - LOCAL INFECTION OF THE SKIN AND SUBCUTANEOUS TISSUE, UNSP SNOMED Code(s): 112076768 (3) Diabetic ulcer of right foot Current Visit: No Status: Acute Code(s): E11.621 - TYPE 2 DIABETES MELLITUS WITH FOOT ULCER; L97.519 - NON-PRS CHRONIC ULCER OTH PRT RIGHT FOOT W UNSP SEVERITY SNOMED Code(s): 313546522 (4) Failure of outpatient treatment Current Visit: No Status: Acute Code(s): Z78.9 - SNOMED Code(s): 643508489 Plan: 1patient being admitted to the hospital with a worsening wound to the right fif th toe amputation site concerning for osteomyelitis on the basis of abnormality seen on the x-ray and will need to cover for resistant gram-positive as well as gram-negative as the patient has been out of the hospital 2-patient is status post surgical debridement of the right foot lateral border wound down to the bone confirming osteomyelitis 3-patient culture done on admission positive for MSSA also growing Prevotella and Kell 4we will keep the patient on cefazolin will add oral Flagyl and voriconazole Dictation was produced using Rapid [employer] software. please excuse any grammatical, word or spelling errors.
[2024-10-30 16:12] LABS: Glucose,Whole Blood 165 mg/dL (70-110)
[2024-10-30] MEDS: metroNIDAZOLE 500 MG TAB PO SCH (17:29)
[2024-10-30 20:17] LABS: Glucose,Whole Blood 241 mg/dL (70-110)
[2024-10-30] MEDS: VORICONAZOLE 200 MG TAB PO SCH (22:07)
[2024-10-31 04:13] LABS: Glucose 108 mg/dL (74-99); Potassium 4.4 mmol/L (3.5-5.1); Sodium 136 mmol/L (137-145)
[2024-10-31 04:14] LABS: African American GFR (CKD) 58 (>60 ml/min/1.73 sqM); Anion Gap 10 mmol/L; Blood Urea Nitrogen 24 mg/dL (9-20); Calcium 8.8 mg/dL (8.4-10.2); Carbon Dioxide 18 mmol/L (22-30); Chloride 108 mmol/L (98-107); Non-African American GFR(CKD) 50 (>60 ml/min/1.73 sqM)
[2024-10-31 06:52] LABS: Glucose,Whole Blood 133 mg/dL (70-110)
--- NOTE | 2024-10-31 10:56 | P.PN ---
Subjective Patient is seen in follow-up for acute kidney injury and chronic kidney disease. Renal function stable. Oral intake is good. On IV fluids. Has been voiding. Vital signs are stable. General: No acute distress. HEENT: Head exam is unremarkable. LUNGS: No audible rhonchi or wheezes. HEART: Rate and Rhythm are regular. ABDOMEN: Nontender. EXTREMITITES: No edema. Wound VAC noted. Objective - Vital Signs Vital signs: Vital Signs Temp 98.0 F 10/31/24 01:30 Pulse 85 10/31/24 01:30 Resp 17 10/31/24 01:30 BP 121/69 10/31/24 01:30 Pulse Ox 96 10/31/24 01:30 FiO2 Intake & Output 10/30/24 10/31/24 10/31/24 18:59 06:59 18:59 Output Total 700 Balance -700 Output: Urine 700 Other: # Voids 1 3 - Labs CBC & Chem 7: 10/30/24 09:46 10/31/24 03:14 Labs: Abnormal Lab Results - Last 24 Hours (Table) 10/30/24 10/30/24 10/30/24 Range/Units 11:28 16:11 20:10 Sodium (137-145) mmol/L Chloride (98-107) mmol/L Carbon Dioxide (22-30) mmol/L BUN (9-20) mg/dL Creatinine (0.66-1.25) mg/dL Glucose (74-99) mg/dL POC Glucose (mg/dL) 230 H 165 H 241 H (70-110) mg/dL 10/31/24 10/31/24 Range/Units 03:14 06:41 Sodium 136 L (137-145) mmol/L Chloride 108 H (98-107) mmol/L Carbon Dioxide 18 L (22-30) mmol/L BUN 24 H (9-20) mg/dL Creatinine 1.37 H (0.66-1.25) mg/dL Glucose 108 H (74-99) mg/dL POC Glucose (mg/dL) 133 H (70-110) mg/dL Microbiology - Last 24 Hours (Table) 10/27/24 01:39 Anaerobic Culture - Final Foot - Right Kell glabrata Prevotella timonensis Assessment and Plan Plan: Assessment: 1. Acute kidney injury secondary to ATN secondary to severe sepsis. Renal function improving. Creatinine 1.37 today. Ultrasound from December 2023 showed no evidence of hydronephrosis. 2. Chronic kidney disease stage IIIb with baseline creatinine 1.4-1.5 secondary to nephrosclerosis. 3. History of A-fib. 4. Recent right fifth toe amputation with cellulitis/OM on antibiotics. 5. Metabolic acidosis secondary to IV fluids. Plan: Hep-Lock IV fluids. Encouraged oral intake. Avoid nephrotoxins.
--- NOTE | 2024-10-31 11:03 | P.PN ---
Subjective Progress Note Date: 10/31/24 74-year-old male with past medical history of type II DM on insulin, history of osteomyelitis of the left second toe, history of right foot osteomyelitis requiring IV antibiotics and now status post right second toe amputation for nonhealing ulcer and osteomyelitis, CAD ([place] x 3 with CABG x 3 caths x 4 that failed), A-fib (on Eliquis 5 mg p.o. twice daily), CKD IIIB, and CVA. He presented to the ED for purulent discharge and erythema at the site of amputation. Upon arrival to our facility, patient underwent evaluation in the emergency department. Vital signs upon arrival show blood pressure 126/80, heart rate 82, respiratory rate 18, temp 97.9 degrees. SpO2 of 96% on room air. X-ray right foot showing postsurgical changes from the 2nd and 5th digit amputation with some lucency involving the 5th metatarsal concerning for OM. CBC, CMP significant for RBC 3.91, Hg 12.2, Hct 35, Na 133, K 5.4, bicarb 21, BUN 37, Cr 1.44, glu 253, alk phos 225. Lactic acid 2.4-1.0. Patient admitted under services with consultation to infectious disease and vascular surgery. 10/27 Patient was seen and examined. No complaints. Plans for amputation today. Antibiotics include Cefepime and Flagyl. Vancomycin discontinued due to ZAIN. CBC and BMP significant for bicarb 19.5, AG 14.5, BUN 32.2, Cr 1.7, glu 143, Ca 8.5. 10/28 Patient was seen and examined. Overnight, patient became hypotensive and confused. BP as low as 85/43. He was bolused 2L NC. Head CT showed no acute findings. Patient reports no complaints this morning. His BP is 94/51 HR 83. CBC and BMP significant for WBC 15.71, RBC 3.78, Hg 11.6, Hct 34.2, Na 127, bicarb 19, BUN 40, Cr 1.74, glu 233, Ca 8.1. Antibiotics include Cefepime 2g IV BID and Daptomycin 500 mg IV QD. BCx neg so far. WCx presumptive staph aureus. Discussed with the patient that he is septic. Source of infection is likely from the right foot. Patient is high risk for surgery at his current state, however source control is imperative in resolving his sepsis. Patient is agreeable for surgery and understands the risks involved. He is alert and oriented x 3. Case was discussed with Dr. Baron and Rupinder VARGAS, plans for OR today. 10/29 Patient was seen and examined. Underwent debridement yesterday with wound vac. Pain well controlled. Urinating freely. CBC and CMP significant for RBC 3.79, Hg 11.5, Hct 34.8, Na 132, bicarb 17, BUN 36, Cr 1.98, glu 183, Ca 8.3, alk phos 216, alb 2.9. 10/30 Patient was seen and examined. Patient reports feeling well. Looking forwar d to going home. Plans for IV antibiotics on discharge, PICC line order placed, case management working on insurance auth. CBC and BMP significant for RBC 3.58, Hg 10.9, Hct 33.2, Na 136, Cl 108, bicarb 17, BUN 28, Cr 1.47, glu 192. Discussed with Rupinder VARGAS, cleared from Vascular perspective for discharge. Nephrology recommends holding ACEi and decreasing IV fluid rate. 10/31 Patient was seen and examined. No complaints. OR cultures growing kell glabarata and prevotella timonensis. Plans for PICC on Saturday. Dr. Alexis recommends Cefzolin 2g IV TID, Flagyl 500 mg PO TID, Voriconazole 200 mg PO BID on discharge. BMP shows Na 136, Cl 108, bicarb 18, BUN 24, Cr 1.37, glu 108. BP 119/67, HR 85, RR 18, T 97.5F, 96% on RA. General: non toxic, no distress, appears at stated age Derm: warm, dry Head: atraumatic, normocephalic, symmetric Mouth: no lip lesion, mucus membranes moist Cardiovascular: S1 S2 reg. No murmurs, rubs, gallops Lungs: Decreased BS bilaterally, no accessory muscle use Ext: no gross muscle atrophy, no edema, no contractures, R foot dressing c/d/i Neuro: no focal neuro deficits Psych: Alert and oriented Based on my assessment of this patient, this patient meets a high complexity level of care. Sepsis secondary to right 5th digit OM: Status post debridement with Dr. Baron on 10/28. ID and Vascular surgery on board. OR cultures growing kell glabarata and prevotella timonensis Continue Cefepime 2g IV TID. Flagyl 500 mg PO TID, Voriconazole 200 mg PO BID added. Telemetry monitoring. Plans for PICC line on Saturday, IV antibiotics on discharge, case management working on insurance auth. Hyponatremia: Stable. Monitor daily. Normocytic anemia likely AOCD from CKD: Stable. No signs of active bleeding. Transfuse if Hg < 7. CKD stage IIIb with metabolic acidosis: Improving. Prerenal from sepsis. Hold Lisinopril. Neprology on board. Type II DM on insulin: A1c 10.8. Lantus 15 units SQ QHS. ISS with Accuchecks ACHS along with hypoglycemic precautions. CAD and PAD: ASA 81 mg PO QD. Lipitor 80 mg PO QHS. Metoprolol 25 mg PO BID. Essential hypertension: Metoprolol 25 mg PO BID. Hold Lisinopril due to ZAIN. Atrial flutter: Metoprolol as above. Eliquis 5 mg PO BID. Resolved: Lactic acidosis. ZAIN. Plans for discharge home after insurance authorization for IV antibiotics at home. CODE STATUS: FULL CODE DVT Prophylaxis: Heparin SQ GI Prophylaxis: Protonix Designated medical POA if patient is not able to make medical decisions for themselves: I have reviewed the following it security consultant notes: Nephrology note I have reviewed the results of the following tests: OR cultures, BMP. I have ordered the following tests: I have discussed the care of this patient with the following independent historian: I have independently interpreted the following test below: I have discussed the management of this patient with the following physician: Objective - Vital Signs Vital signs: Vital Signs Temp 97.5 F L 10/31/24 07:15 Pulse 85 10/31/24 07:15 Resp 18 10/31/24 07:15 BP 119/67 10/31/24 07:15 Pulse Ox 96 10/31/24 07:15 FiO2 Intake & Output 10/30/24 10/31/24 10/31/24 18:59 06:59 18:59 Output Total 700 Balance -700 Output: Urine 700 Other: # Voids 1 3 - Labs CBC & Chem 7: 10/30/24 09:46 10/31/24 03:14 Labs: Abnormal Lab Results - Last 24 Hours (Table) 10/30/24 10/30/24 10/30/24 Range/Units 11:28 16:11 20:10 Sodium (137-145) mmol/L Chloride (98-107) mmol/L Carbon Dioxide (22-30) mmol/L BUN (9-20) mg/dL Creatinine (0.66-1.25) mg/dL Glucose (74-99) mg/dL POC Glucose (mg/dL) 230 H 165 H 241 H (70-110) mg/dL 10/31/24 10/31/24 Range/Units 03:14 06:41 Sodium 136 L (137-145) mmol/L Chloride 108 H (98-107) mmol/L Carbon Dioxide 18 L (22-30) mmol/L BUN 24 H (9-20) mg/dL Creatinine 1.37 H (0.66-1.25) mg/dL Glucose 108 H (74-99) mg/dL POC Glucose (mg/dL) 133 H (70-110) mg/dL Microbiology - Last 24 Hours (Table) 10/27/24 01:39 Anaerobic Culture - Final Foot - Right Kell glabrata Prevotella timonensis
[2024-10-31 12:16] LABS: Glucose,Whole Blood 424 mg/dL (70-110)
--- NOTE | 2024-10-31 14:17 | P.PN ---
Subjective Progress Note Date: 10/31/24 Principal diagnosis: Reason for follow-up is right foot wound infection/osteo Patient is a 74-year-old male with a past medical history significant for CVA TIA diabetes mellitus [place] in this patient who is status post recent right fifth toe amputation completed on 09/30/2024, presented to hospital with worsening wound to the right fifth toe amputation site. Patient is status post sharp excisional debridement of the right foot lateral border wound down to the border along with a wound VAC application on 10/28/2024 On today's evaluation that is 10/31/2024, patient did not have any fever and denies any chills, patient is breathing comfortably on room air, patient with no chest pain or cough patient did not have any abdominal pain nausea vomiting or any loose stools, pain to the right foot is currently controlled. Patient did have a creatinine 1.37 Objective - Vital Signs Vital signs: Vital Signs Temp 97.5 F L 10/31/24 07:15 Pulse 85 10/31/24 07:15 Resp 18 10/31/24 07:15 BP 119/67 10/31/24 07:15 Pulse Ox 96 10/31/24 07:15 FiO2 Intake & Output 10/30/24 10/31/24 10/31/24 18:59 06:59 18:59 Output Total 700 500 Balance -700 -500 Output: Urine 700 500 Other: # Voids 1 3 - Exam GENERAL DESCRIPTION: An elderly male lying in bed in no distress RESPIRATORY SYSTEM: Unlabored breathing , decreased breath sounds at bases HEART: S1 S2 regular rate and rhythm , ABDOMEN: Soft , no tenderness EXTREMITIES: Right foot wound is covered with a wound VAC - Labs CBC & Chem 7: 10/30/24 09:46 10/31/24 03:14 Labs: Abnormal Lab Results - Last 24 Hours (Table) 10/30/24 10/30/24 10/31/24 Range/Units 16:11 20:10 03:14 Sodium 136 L (137-145) mmol/L Chloride 108 H (98-107) mmol/L Carbon Dioxide 18 L (22-30) mmol/L BUN 24 H (9-20) mg/dL Creatinine 1.37 H (0.66-1.25) mg/dL Glucose 108 H (74-99) mg/dL POC Glucose (mg/dL) 165 H 241 H (70-110) mg/dL 10/31/24 10/31/24 Range/Units 06:41 12:15 Sodium (137-145) mmol/L Chloride (98-107) mmol/L Carbon Dioxide (22-30) mmol/L BUN (9-20) mg/dL Creatinine (0.66-1.25) mg/dL Glucose (74-99) mg/dL POC Glucose (mg/dL) 133 H 424 H (70-110) mg/dL Microbiology - Last 24 Hours (Table) 10/27/24 01:39 Anaerobic Culture - Final Foot - Right Kell glabrata Prevotella timonensis Assessment and Plan (1) Cellulitis of right foot Current Visit: Yes Status: Acute Code(s): L03.115 - CELLULITIS OF RIGHT LOWER LIMB SNOMED Code(s): 90085596546230398 (2) Diabetic infection of right foot Current Visit: No Status: Acute Code(s): E11.628 - TYPE 2 DIABETES MELLITUS WITH OTHER SKIN COMPLICATIONS; L08.9 - LOCAL INFECTION OF THE SKIN AND SUBCUTANEOUS TISSUE, UNSP SNOMED Code(s): 824924715 (3) Diabetic ulcer of right foot Current Visit: No Status: Acute Code(s): E11.621 - TYPE 2 DIABETES MELLITUS WITH FOOT ULCER; L97.519 - NON-PRS CHRONIC ULCER OTH PRT RIGHT FOOT W UNSP SEVERITY SNOMED Code(s): 104204437 (4) Failure of outpatient treatment Current Visit: No Status: Acute Code(s): Z78.9 - OTHER SPECIFIED HEALTH STATUS SNOMED Code(s): 845790803 Plan: 1patient being admitted to the hospital with a worsening wound to the right fifth toe amputation site concerning for osteomyelitis on the basis of abnormality seen on the x-ray and will need to cover for resistant gram-positive as well as gram-negative as the patient has been out of the hospital 2-patient is status post surgical debridement of the right foot lateral border wound down to the bone confirming osteomyelitis 3-patient culture done on admission positive for MSSA also growing Prevotella and Kell 4patient is currently being treated with cefazolin, oral Flagyl and voriconazole waiting for outpatient IV antibiotic arrangement Dictation was produced using [employer] dictation software. please excuse any grammatical, word or spelling errors. Time with Patient: Less than 30
[2024-10-31] MEDS: MYRBETRIQ 50MG TABLET PO SCH (16:28)
[2024-10-31 16:42] LABS: Glucose,Whole Blood 269 mg/dL (70-110)
[2024-10-31 21:06] LABS: Glucose,Whole Blood 183 mg/dL (70-110)
[2024-11-01 06:18] LABS: Glucose,Whole Blood 148 mg/dL (70-110)
--- NOTE | 2024-11-01 11:27 | P.PN ---
Subjective Patient is seen in follow-up for acute kidney injury and chronic kidney disease. Renal function stable. Oral intake is good. Off IV fluids. Has been voiding. No active complaints. Vital signs are stable. General: No acute distress. HEENT: Head exam is unremarkable. LUNGS: No audible rhonchi or wheezes. HEART: Rate and Rhythm are regular. ABDOMEN: Nontender. EXTREMITITES: No edema. Wound VAC noted. Objective - Vital Signs Vital signs: Vital Signs Temp 98 F 11/01/24 06:47 Pulse 84 11/01/24 06:47 Resp 18 11/01/24 06:47 BP 129/65 11/01/24 06:47 Pulse Ox 96 11/01/24 06:47 FiO2 Intake & Output 10/31/24 11/01/24 11/01/24 18:59 06:59 18:59 Output Total 500 Balance -500 Output: Urine 500 Other: Voiding Method Bedside Commode Incontinent # Voids 2 - Labs CBC & Chem 7: 10/30/24 09:46 10/31/24 03:14 Labs: Abnormal Lab Results - Last 24 Hours (Table) 10/31/24 10/31/24 10/31/24 Range/Units 12:15 16:40 21:04 POC Glucose (mg/dL) 424 H 269 H 183 H (70-110) mg/dL 11/01/24 Range/Units 06:17 POC Glucose (mg/dL) 148 H (70-110) mg/dL Microbiology - Last 24 Hours (Table) 10/26/24 16:49 Blood Culture - Final Blood Assessment and Plan Plan: Assessment: 1. Acute kidney injury secondary to ATN secondary to severe sepsis. Renal function improving. Creatinine 1.37 yesterday. Ultrasound from December 2023 showed no evidence of hydronephrosis. 2. Chronic kidney disease stage IIIb with baseline creatinine 1.4-1.5 secondary to nephrosclerosis. 3. History of A-fib. 4. Recent right fifth toe amputation with cellulitis/OM on antibiotics. 5. Metabolic acidosis secondary to IV fluids. Plan: Remains off IV fluids. Encouraged oral intake. Avoid nephrotoxins.
--- NOTE | 2024-11-01 11:56 | P.PN ---
Subjective Progress Note Date: 11/01/24 74-year-old male with past medical history of type II DM on insulin, history of osteomyelitis of the left second toe, history of right foot osteomyelitis requiring IV antibiotics and now status post right second toe amputation for nonhealing ulcer and osteomyelitis, CAD (LA x 3 with CABG x 3 caths x 4 that failed), A-fib (on Eliquis 5 mg p.o. twice daily), CKD IIIB, and CVA. He presented to the ED for purulent discharge and erythema at the site of amputation. Upon arrival to our facility, patient underwent evaluation in the emergency department. Vital signs upon arrival show blood pressure 126/80, heart rate 82, respiratory rate 18, temp 97.9 degrees. SpO2 of 96% on room air. X-ray right foot showing postsurgical changes from the 2nd and 5th digit amputation with some lucency involving the 5th metatarsal concerning for OM. CBC, CMP significant for RBC 3.91, Hg 12.2, Hct 35, Na 133, K 5.4, bicarb 21, BUN 37, Cr 1.44, glu 253, alk phos 225. Lactic acid 2.4-1.0. Patient admitted under services with consultation to infectious disease and vascular surgery. Started on Cefepime, Flagyl and Vancomycin. WCx presumptive staph aureus. ID consulted, Vancomycin switched to Daptomycin discontinued due to ZAIN. Patient became confused and hypotensive overnight on 10/27, he was bolused 2L NS and CT head was obtained which was negative for acute process. He underwent debridement with Dr. Baron on 10/28. Nephrology was consulted for ZAIN on CKD due to sepsis which has been improving with IV hydration. OR cultures growing marcel glabarata and prevotella timonensis. Dr. Alexis recommends Cefzolin 2g IV TID, Flagyl 500 mg PO TID, Voriconazole 200 mg PO BID on discharge. 11/01 Patient was seen and examined. No complaints. Plans for PICC on Saturday. Dr. Alexis recommends Cefzolin 2g IV TID, Flagyl 500 mg PO TID, Voriconazole 200 mg PO BID on discharge. No new labs done today. BP 129/65, HR 84, RR 18, T 98F, 96% on RA. General: non toxic, no distress, appears at stated age Derm: warm, dry Head: atraumatic, normocephalic, symmetric Mouth: no lip lesion, mucus membranes moist Cardiovascular: good distal perfusion in all 4 extremities Lungs: breathing comfortably, no accessory muscle use Ext: no gross muscle atrophy, no edema, no contractures, R foot dressing c/d/i Neuro: no focal neuro deficits Psych: Alert and oriented Based on my assessment of this patient, this patient meets a high complexity level of care. Sepsis secondary to right 5th digit OM: Status post debridement with Dr. Baron on 10/28. ID and Vascular surgery on board. OR cultures growing marcel glabarata and prevotella timonensis Continue Cefepime 2g IV TID, Flagyl 500 mg PO TID, Voriconazole 200 mg PO BID. Telemetry monitoring. Plans for PICC line on Saturday, IV antibiotics on discharge, case management working [facility]. Hyponatremia: Stable and mild. Monitor. Normocytic anemia likely AOCD from CKD: Stable. No signs of active bleeding. Transfuse if Hg < 7. CKD stage IIIb with metabolic acidosis: Improving. Prerenal from sepsis. Holding Lisinopril. Neprology on board. Type II DM on insulin: A1c 10.8. Lantus 15 units SQ QHS. ISS with Accuchecks ACHS along with hypoglycemic precautions. CAD and PAD: ASA 81 mg PO QD. Lipitor 80 mg PO QHS. Metoprolol 25 mg PO BID. Essential hypertension: Metoprolol 25 mg PO BID. Hold Lisinopril due to ZAIN. Atrial flutter: Metoprolol as above. Eliquis 5 mg PO BID. Resolved: Lactic acidosis. ZAIN. Plans for discharge home after insurance authorization for IV antibiotics. CODE STATUS: FULL CODE DVT Prophylaxis: Heparin SQ GI Prophylaxis: Protonix Designated medical POA if patient is not able to make medical decisions for themselves: I have reviewed the following cognos consultant notes: Nephrology note I have reviewed the results of the following tests: I have ordered the following tests: I have discussed the care of this patient with the following independent historian: Family at bedside. I have independently interpreted the following test below: I have discussed the management of this patient with the following physician: Objective - Vital Signs Vital signs: Vital Signs Temp 98 F 11/01/24 06:47 Pulse 84 11/01/24 06:47 Resp 18 11/01/24 06:47 BP 129/65 04/20/25 06:47 Pulse Ox 96 11/01/24 06:47 FiO2 Intake & Output 10/31/24 11/01/24 11/01/24 18:59 06:59 18:59 Output Total 500 Balance -500 Output: Urine 500 Other: Voiding Method Bedside Commode Incontinent # Voids 2 - Labs CBC & Chem 7: 10/30/24 09:46 10/31/24 03:14 Labs: Abnormal Lab Results - Last 24 Hours (Table) 10/31/24 10/31/24 10/31/24 Range/Units 12:15 16:40 21:04 POC Glucose (mg/dL) 424 H 269 H 183 H (70-110) mg/dL 11/01/24 Range/Units 06:17 POC Glucose (mg/dL) 148 H (70-110) mg/dL Microbiology - Last 24 Hours (Table) 10/26/24 16:49 Blood Culture - Final Blood
[2024-11-01 12:00] LABS: Glucose,Whole Blood 229 mg/dL (70-110)
--- NOTE | 2024-11-01 15:31 | P.PN ---
Subjective Progress Note Date: 11/01/24 Principal diagnosis: Reason for follow-up is right foot wound infection/osteo Patient is a 74-year-old male with a past medical history significant for CVA TIA diabetes mellitus [place] in this patient who is status post recent right fifth toe amputation completed on 09/30/2024, presented to hospital with worsening wound to the right fifth toe amputation site. Patient is status post sharp excisional debridement of the right foot lateral border wound down to the border along with a wound VAC application on 10/28/2024 On today's evaluation that is 11/01/2024, Patient is afebrile patient is currently on room air and denies having any shortness of breath, the patient denies any chest pain or cough, the patient denies any nausea vomiting did not have any abdominal pain and no diarrhea. No new lab has been obtained today Objective - Vital Signs Vital signs: Vital Signs Temp 97 F L 11/01/24 14:17 Pulse 85 11/01/24 15:00 Resp 18 11/01/24 14:17 BP 154/77 11/01/24 15:00 Pulse Ox 98 11/01/24 14:17 FiO2 Intake & Output 10/31/24 11/01/24 11/01/24 18:59 06:59 18:59 Output Total 500 Balance -500 Output: Urine 500 Other: Voiding Method Bedside Commode Incontinent # Voids 2 - Labs CBC & Chem 7: 10/30/24 09:46 10/31/24 03:14 Labs: Abnormal Lab Results - Last 24 Hours (Table) 10/31/24 10/31/24 11/01/24 Range/Units 16:40 21:04 06:17 POC Glucose (mg/dL) 269 H 183 H 148 H (70-110) mg/dL 11/01/24 Range/Units 11:58 POC Glucose (mg/dL) 229 H (70-110) mg/dL Microbiology - Last 24 Hours (Table) 10/26/24 16:49 Blood Culture - Final Blood Assessment and Plan (1) Cellulitis of right foot Current Visit: Yes Status: Acute Code(s): L03.115 - CELLULITIS OF RIGHT LOWER LIMB SNOMED Code(s): 01366676950619118 (2) Diabetic infection of right foot Current Visit: No Status: Acute Code(s): E11.628 - TYPE 2 DIABETES MELLITUS WITH OTHER SKIN COMPLICATIONS; L08.9 - LOCAL INFECTION OF THE SKIN AND SUBCUTANEOUS TISSUE, UNSP SNOMED Code(s): 995189677 (3) Diabetic ulcer of right foot Current Visit: No Status: Acute Code(s): E11.621 - TYPE 2 DIABETES MELLITUS WITH FOOT ULCER; L97.519 - NON-PRS CHRONIC ULCER OTH PRT RIGHT FOOT W UNSP SEVERITY SNOMED Code(s): 607006008 (4) Failure of outpatient treatment Current Visit: No Status: Acute Code(s): Z78.9 - OTHER SPECIFIED HEALTH STATUS SNOMED Code(s): 539335157 Plan: 1patient being admitted to the hospital with a worsening wound to the right fifth toe amputation site concerning for osteomyelitis on the basis of abnormality seen on the x-ray and will need to cover for resistant gram-positive as well as gram-negative as the patient has been out of the hospital 2-patient is status post surgical debridement of the right foot lateral border wound down to the bone confirming osteomyelitis 3-patient culture done on admission positive for MSSA also growing Prevotella and Kell 4patient currently waiting for outpatient IV antibiotic authorization before discharge to continue cefazolin, oral Flagyl and voriconazole, at the bedside updated about his care Dictation was produced using [employer] dictation software. please excuse any grammatical, word or spelling errors. Time with Patient: Less than 30
[2024-11-01] MEDS ORDERED: ZINC OXIDE PASTE (Z-GUARD) 1 APPLIC TOPICAL PRN (16:31)
[2024-11-01 16:54] LABS: Glucose,Whole Blood 265 mg/dL (70-110)
[2024-11-01 20:25] LABS: Glucose,Whole Blood 220 mg/dL (70-110)
[2024-11-02 06:26] LABS: Glucose,Whole Blood 180 mg/dL (70-110)
--- NOTE | 2024-11-02 08:16 | US ---
EXAMINATION TYPE: US kidneys/renal and bladder DATE OF EXAM: 11/02/2024 COMPARISON: US 2023 CLINICAL INDICATION: Male, 74 years old with history of ZIAN; ZAIN TECHNIQUE: Grayscale imaging of the bilateral kidneys and urinary bladder: FINDINGS: EXAM MEASUREMENTS: Right Kidney: 12.7 x 6.2 x 5.5 cm Left Kidney: 11.5 x 5.4 x 5.9 cm Right Kidney: Slightly enlarged. No hydronephrosis or masses seen Left Kidney: *Hyperechoic focus seen lower pole: 0.3 x 0.2 x 0.2 cm. Bladder: Appears wnl Bilateral Jets seen: Only right jet seen during exam. Incidental finding: There appears to be a probable left pleural effusion seen in LUQ imaging. Slight enlargement of the right kidney. No right hydronephrosis or solid renal mass identified. No sh adowing calculus. Left kidney demonstrates no hydronephrosis or solid mass. There is a nonobstructing calculus within the lower pole. Corticomedullary differentiation is maintained bilaterally. The urin ana rosa bladder appears within normal limits and is anechoic. Only the right ureteral jet identified. Lef t pleural effusion suggested. IMPRESSION: 1. No hydronephrosis. 2. Nonobstructive left renal calculus. 3. Suggested left pleural effusion. [facility], , 11/02/2024 8:14 AM
[2024-11-02] MEDS: LACTATED RINGERS 1,000 ML IV SCH (08:47)
[2024-11-02 09:16] LABS: BUN/Creat Ratio 14.93 Ratio (12.00-20.00); Blood Urea Nitrogen 22.4 mg/dL (9.0-27.0); Calcium 8.3 mg/dL (8.7-10.3); Chloride 109 mmol/L (96-109); Glucose 207 mg/dL (70-110); Potassium 4.5 mmol/L (3.5-5.5); Sodium 139 mmol/L (135-145)
[2024-11-02 09:37] LABS: Magnesium 1.5 mg/dL (1.5-2.4)
[2024-11-02 10:57] LABS: Glucose,Whole Blood 368 mg/dL (70-110)
--- NOTE | 2024-11-02 11:21 | P.PN ---
Subjective Patient is seen in follow-up for acute kidney injury and chronic kidney disease. Renal function stable. Oral intake is good. Off IV fluids. Has been voiding. No active complaints. Vital signs are stable. General: No acute distress. HEENT: Head exam is unremarkable. LUNGS: No audible rhonchi or wheezes. HEART: Rate and Rhythm are regular. ABDOMEN: Nontender. EXTREMITITES: No edema. Wound VAC noted. Objective - Vital Signs Vital signs: Vital Signs Temp 98.5 F 11/02/24 07:06 Pulse 77 11/02/24 07:06 Resp 17 11/02/24 07:06 BP 129/41 11/02/24 07:06 Pulse Ox 96 11/02/24 07:06 FiO2 Intake & Output 11/01/24 11/02/24 11/02/24 18:59 06:59 18:59 Other: Voiding Method Bedside Commode Bedside Commode # Voids 2 3 - Labs CBC & Chem 7: 10/30/24 09:46 11/02/24 02:21 Labs: Abnormal Lab Results - Last 24 Hours (Table) 11/01/24 11/01/24 11/01/24 Range/Units 11:58 16:48 20:24 Carbon Dioxide (21.6-31.8) mmol/L Est GFR (CKD-EPI) (>=60) Glucose (70-110) mg/dL POC Glucose (mg/dL) 229 H 265 H 220 H (70-110) mg/dL Calcium (8.7-10.3) mg/dL 11/02/24 11/02/24 11/02/24 Range/Units 02:21 06:24 10:56 Carbon Dioxide 19.0 L (21.6-31.8) mmol/L Est GFR (CKD-EPI) 48 L (>=60) Glucose 207 H (70-110) mg/dL POC Glucose (mg/dL) 180 H 368 H (70-110) mg/dL Calcium 8.3 L (8.7-10.3) mg/dL Assessment and Plan Plan: Assessment: 1. Acute kidney injury secondary to ATN secondary to severe sepsis. Renal function improv fairly stable with creatinine 1.5. Ultrasound from December 2023 showed no evidence of hydronephrosis. 2. Chronic kidney disease stage IIIb with baseline creatinine 1.4-1.5 secondary to nephrosclerosis. 3. History of A-fib. 4. Recent right fifth toe amputation with cellulitis/OM on antibiotics. 5. Metabolic acidosis secondary to IV fluids. 6. Hypomagnesemia from PPI and further worsened with the use of voriconazole. Plan: Remains off IV fluids. Encouraged oral intake. Avoid nephrotoxins. Add oral bicarb. Add oral magnesium oxide.
[2024-11-02] MEDS: SODIUM BICARBONATE TAB 650 MG TAB PO SCH (11:40)
[2024-11-02] MEDS: MAGNESIUM OXIDE 400 MG TAB PO SCH (11:40)
--- NOTE | 2024-11-02 12:30 | XR ---
EXAMINATION TYPE: XR chest 1V portable DATE OF EXAM: 11/02/2024 12:20 PM COMPARISON: Chest radiographs from 07/09/2024 TECHNIQUE: XR chest 1V portable Portable AP radiograph of the chest. CLINICAL INDICATION:Male, 74 years old with history of PICC PLACEMENT; FINDINGS: Lungs/Pleura: There is no evidence of pleural effusion, focal consolidation, or pneumothorax. Pulmonary vascularity: Unremarkable. Heart/mediastinum: Cardiomediastinal silhouette is enlarged and stable. Postoperative changes are pr esent in the mediastinum. Musculoskeletal: No acute osseous pathology. Midline sternotomy wires are noted and stable.Bilateral shoulder arthropathy Other findings: Surgical clips within the left neck. Lines/Tubes: Right-sided PICC line with distal tip at the superior cavoatrial junction. IMPRESSION: Right-sided PICC line with distal tip at the superior cavoatrial junction. No pneumothorax. [facility], , 11/02/2024 12:27 PM
--- NOTE | 2024-11-02 15:26 | P.PN ---
Subjective Progress Note Date: 11/02/24 74-year-old male with past medical history of type II DM on insulin, history of osteomyelitis of the left second toe, history of right foot osteomyelitis requiring IV antibiotics and now status post right second toe amputation for nonhealing ulcer and osteomyelitis, CAD ([place] x 3 with CABG x 3 caths x 4 that failed), A-fib (on Eliquis 5 mg p.o. twice daily), CKD IIIB, and CVA. He presented to the ED for purulent discharge and erythema at the site of amputation. Upon arrival to our facility, patient underwent evaluation in the emergency department. Vital signs upon arrival show blood pressure 126/80, heart rate 82, respiratory rate 18, temp 97.9 degrees. SpO2 of 96% on room air. X-ray right foot showing postsurgical changes from the 2nd and 5th digit amputation with some lucency involving the 5th metatarsal concerning for OM. CBC, CMP significant for RBC 3.91, Hg 12.2, Hct 35, Na 133, K 5.4, bicarb 21, BUN 37, Cr 1.44, glu 253, alk phos 225. Lactic acid 2.4-1.0. Patient admitted under services with consultation to infectious disease and vascular surgery. Started on Cefepime, Flagyl and Vancomycin. WCx presumptive staph aureus. ID consulted, Vancomycin switched to Daptomycin discontinued due to ZAIN. Patient became confused and hypotensive overnight on 10/27, he was bolused 2L NS and CT head was obtained which was negative for acute process. He underwent debridement with Dr. Baron on 10/28. Nephrology was consulted for ZAIN on CKD due to sepsis which has been improving with IV hydration. OR cultures growing marcel glabarata and prevotella timonensis. Dr. Alexis recommends Cefzolin 2g IV TID, Flagyl 500 mg PO TID, Voriconazole 200 mg PO BID on discharge. 11/02: Doing well, no active complaints, patient's present at bedside during exam, updated, PICC line in place. Continue cefazolin 2 g every 8 hours IV, Flagyl 500 mg p.o. 3 times daily voriconazole 200 mg p.o. every 12 hours Subjective: No new complaints Pertinent positives and negatives as discussed above, a complete review of systems was performed and all other systems are negative. Vitals Signs Reviewed. General: [nontoxic], [no distress], [appears at stated age] Derm: [warm], [dry] Head: [atraumatic], [normocephalic], [symmetric] Eyes: [EOMI], [no lid lag], [anicteric sclera] Mouth: [no lip lesion], [mucus membranes moist] Cardiovascular: [S1S2 reg], [no murmur] Lungs: [CTA bilateral], [no rhonchi, no rales] , [no accessory muscle use] Abdominal: [soft], [ nontender to palpation], [no guarding], [no appreciable organomegaly] Ext: [no gross muscle atrophy], [no edema], [no contractures] R foot dressing c/d/i Neuro: [ CN II-XI grossly intact], [no focal neuro deficits] Psych: [Alert], [oriented], [appropriate affect] Assessment and Plan: Sepsis secondary to right 5th digit OM Status post debridement with Dr. Baron on 10/28 ID and Vascular surgery on board OR cultures growing marcel glabarata and prevotella timonensis Continue cefazolin 2 g every 8 hours IV, Flagyl 500 mg p.o. 3 times daily voriconazole 200 mg p.o. every 12 hours Telemetry monitoring. Status postICC line on Saturday, IV antibiotics on discharge, CM working [facility] insurance auth [facility]. Hyponatremia, resolved Normocytic anemia likely AOCD from CKD: Stable. No signs of active bleeding. Transfuse if Hg < 7. CKD stage IIIb with metabolic acidosis: Improving. Prerenal from sepsis. Holding Lisinopril. Neprology on board. Added magnesium 400 p.o. daily, sodium bicarb 650 p.o. twice daily Type II DM on insulin A1c 10.8. Lantus 15 units SQ QHS. ISS with Accuchecks ACHS along with hypoglycemic precautions. CAD and PAD ASA 81 mg PO QD. Lipitor 80 mg PO QHS. Metoprolol 25 mg PO BID. Essential hypertension Metoprolol 25 mg PO BID. Hold Lisinopril due to ZAIN. Atrial flutter Metoprolol as above. Eliquis 5 mg PO BID. Resolved Lactic acidosis. ZAIN. I have reviewed the following portrait consultant notes: ID, nephro I have reviewed the results of the following tests: Normal sodium and potassium, bicarb 19, creatinine 1.5, stable, glucose 207, magnesium 1.5 I have ordered the following tests: I have discussed the care of this patient with the following independent historian: Patient's I have independently interpreted the following test below: BMP I have discussed the management of this patient with the following physician: DVT ppx: Heparin subcu Code status: Full code Anticipated discharge place: [facility] Anticipated discharge time: Medically stable for discharge, [facility] Objective - Vital Signs Vital signs: Vital Signs Temp 97.6 F 11/02/24 13:49 Pulse 69 11/02/24 13:49 Resp 16 11/02/24 13:49 BP 145/64 11/02/24 13:49 Pulse Ox 98 11/02/24 13:49 FiO2 Intake & Output 11/01/24 11/02/24 11/02/24 18:59 06:59 18:59 Other: Voiding Method Bedside Commode Bedside Commode # Voids 2 3 - Labs CBC & Chem 7: 10/30/24 09:46 11/02/24 02:21 Labs: Abnormal Lab Results - Last 24 Hours (Table) 11/01/24 11/01/24 11/02/24 Range/Units 16:48 20:24 02:21 Carbon Dioxide 19.0 L (21.6-31.8) mmol/L Est GFR (CKD-EPI) 48 L (>=60) Glucose 207 H (70-110) mg/dL POC Glucose (mg/dL) 265 H 220 H (70-110) mg/dL Calcium 8.3 L (8.7-10.3) mg/dL 11/02/24 11/02/24 Range/Units 06:24 10:56 Carbon Dioxide (21.6-31.8) mmol/L Est GFR (CKD-EPI) (>=60) Glucose (70-110) mg/dL POC Glucose (mg/dL) 180 H 368 H (70-110) mg/dL Calcium (8.7-10.3) mg/dL
[2024-11-02 15:49] LABS: Glucose,Whole Blood 211 mg/dL (70-110)
[2024-11-02 20:22] LABS: Glucose,Whole Blood 280 mg/dL (70-110)
[2024-11-02] MEDS: cloNIDine HCL 0.1 MG TAB PO STA (21:18)
[2024-11-03 06:10] LABS: Glucose,Whole Blood 140 mg/dL (70-110)
[2024-11-03 11:16] LABS: Glucose,Whole Blood 251 mg/dL (70-110)
--- NOTE | 2024-11-03 11:32 | P.PN ---
Subjective Patient is seen in follow-up for acute kidney injury and chronic kidney disease. Renal function stable. Creatinine 1.5 yesterday. Oral intake is good. Has been voiding. No active complaints. Vital signs are stable. General: No acute distress. HEENT: Head exam is unremarkable. LUNGS: No audible rhonchi or wheezes. HEART: Rate and Rhythm are regular. ABDOMEN: Nontender. EXTREMITITES: No edema. Wound VAC noted. Objective - Vital Signs Vital signs: Vital Signs Temp 98.6 F 11/03/24 07:17 Pulse 64 11/03/24 07:17 Resp 17 11/03/24 07:17 BP 142/65 11/03/24 07:17 Pulse Ox 97 11/03/24 07:17 FiO2 Intake & Output 11/02/24 11/03/24 11/03/24 18:59 06:59 18:59 Other: Voiding Method Bedside Commode # Voids 3 2 - Labs CBC & Chem 7: 10/30/24 09:46 11/02/24 02:21 Labs: Abnormal Lab Results - Last 24 Hours (Table) 11/02/24 11/02/24 11/03/24 Range/Units 15:47 20:21 06:08 POC Glucose (mg/dL) 211 H 280 H 140 H (70-110) mg/dL 11/03/24 Range/Units 11:14 POC Glucose (mg/dL) 251 H (70-110) mg/dL Assessment and Plan Plan: Assessment: 1. Acute kidney injury secondary to ATN secondary to severe sepsis. Renal function fairly stable with creatinine 1.5. Ultrasound from December 2023 showed no evidence of hydronephrosis. 2. Chronic kidney disease stage IIIb with baseline creatinine 1.4-1.5 secondary to nephrosclerosis. 3. History of A-fib. 4. Recent right fifth toe amputation with cellulitis/OM on antibiotics. 5. Metabolic acidosis secondary to IV fluids. On oral bicarb. 6. Hypomagnesemia from PPI and further worsened with the use of voriconazole. On oral magnesium oxide. Plan: Remains off IV fluids. Encouraged oral intake. Avoid nephrotoxins. Repeat labs in the morning.
--- NOTE | 2024-11-03 13:21 | P.PN ---
Subjective Progress Note Date: 11/02/24 Principal diagnosis: Reason for follow-up is right foot wound infection/osteo Patient is a 74-year-old male with a past medical history significant for CVA TIA diabetes mellitus [place] in this patient who is status post recent right fifth toe amputation completed on 09/30/2024, presented to hospital with worsening wound to the right fifth toe amputation site. Patient is status post sharp excisional debridement of the right foot lateral border wound down to the border along with a wound VAC application on 10/28/2024 On today's evaluation that is 11/02/2024, patient has been afebrile, patient is breathing comfortably and is currently on room air, patient denies having any chest pain and cough, patient denies nausea vomiting or diarrhea and no abdominal pain denies pain to the right foot wound area. Patient did have a creatinine 1.5 no CBC was done today culture with MSSA Prevotella and Kell Objective - Vital Signs Vital signs: Vital Signs Temp 98.5 F 11/02/24 07:06 Pulse 77 11/02/24 07:06 Resp 17 11/02/24 07:06 BP 129/41 11/02/24 07:06 Pulse Ox 96 11/02/24 07:06 FiO2 Intake & Output 11/01/24 11/02/24 11/02/24 18:59 06:59 18:59 Other: Voiding Method Bedside Commode Bedside Commode # Voids 2 3 - Exam GENERAL DESCRIPTION: An elderly male lying in bed in no distress RESPIRATORY SYSTEM: Unlabored breathing , decreased breath sounds at bases HEART: S1 S2 regular rate and rhythm , ABDOMEN: Soft , no tenderness EXTREMITIES: Right foot wound is covered with a wound VAC - Labs CBC & Chem 7: 10/30/24 09:46 11/02/24 02:21 Labs: Abnormal Lab Results - Last 24 Hours (Table) 11/01/24 11/01/24 11/01/24 Range/Units 11:58 16:48 20:24 Carbon Dioxide (21.6-31.8) mmol/L Est GFR (CKD-EPI) (>=60) Glucose (70-110) mg/dL POC Glucose (mg/dL) 229 H 265 H 220 H (70-110) mg/dL Calcium (8.7-10.3) mg/dL 11/02/24 11/02/2425 Range/Units 02:21 06:24 10:56 Carbon Dioxide 19.0 L (21.6-31.8) mmol/L Est GFR (CKD-EPI) 48 L (>=60) Glucose 207 H (70-110) mg/dL POC Glucose (mg/dL) 180 H 368 H (70-110) mg/dL Calcium 8.3 L (8.7-10.3) mg/dL Assessment and Plan (1) Cellulitis of right foot Current Visit: Yes Status: Acute Code(s): L03.115 - CELLULITIS OF RIGHT LOWER LIMB SNOMED Code(s): 03451636459201199 (2) Diabetic infection of right foot Current Visit: No Status: Acute Code(s): E11.628 - TYPE 2 DIABETES MELLITUS WITH OTHER SKIN COMPLICATIONS; L08.9 - LOCAL INFECTION OF THE SKIN AND SUBCUTANEOUS TISSUE, UNSP SNOMED Code(s): 906385682 (3) Diabetic ulcer of right foot Current Visit: No Status: Acute Code(s): E11.621 - TYPE 2 DIABETES MELLITUS WITH FOOT ULCER; L97.519 - NON-PRS CHRONIC ULCER OTH PRT RIGHT FOOT W UNSP SEVERITY SNOMED Code(s): 805833129 (4) Failure of outpatient treatment Current Visit: No Status: Acute Code(s): Z78.9 - OTHER SPECIFIED HEALTH STATUS SNOMED Code(s): 648218308 Plan: 1patient being admitted to the hospital with a worsening wound to the right fifth toe amputation site concerning for osteomyelitis on the basis of abnormality seen on the x-ray and will need to cover for resistant gram-positive as well as gram-negative as the patient has been out of the hospital 2-patient is status post surgical debridement of the right foot lateral border wound down to the bone confirming osteomyelitis 3-patient culture done on admission positive for MSSA also growing Prevotella and Kell glabrata 4patient is currently waiting for outpatient IV antibiotic authorization before discharge 5-will treat with cefazolin, oral Flagyl and voriconazole, and monitor clinical course closely Dictation was produced using [employer] software. please excuse any grammatical, word or spelling errors. Time with Patient: Less than 30
--- NOTE | 2024-11-03 13:23 | P.PN ---
Subjective Progress Note Date: 11/03/24 Principal diagnosis: Reason for follow-up is right foot wound infection/osteo Patient is a 74-year-old male with a past medical history significant for CVA TIA diabetes mellitus [place] in this patient who is status post recent right fifth toe amputation completed on 09/30/2024, presented to hospital with worsening wound to the right fifth toe amputation site. Patient is status post sharp excisional debridement of the right foot lateral border wound down to the border along with a wound VAC application on 10/28/2024 On today's evaluation that is 11/03/2024, Patient is afebrile this morning patient denies having any chest pain shortness of breath or cough, the patient is currently on room air, patient denies any abdominal pain no diarrhea no nausea no vomiting No new lab has been obtained today Objective - Vital Signs Vital signs: Vital Signs Temp 98.6 F 11/03/24 07:17 Pulse 64 11/03/24 07:17 Resp 17 11/03/24 07:17 BP 142/65 11/03/24 07:17 Pulse Ox 97 11/03/24 07:17 FiO2 Intake & Output 11/02/24 11/03/24 11/03/24 18:59 06:59 18:59 Other: Voiding Method Bedside Commode # Voids 3 2 - Exam GENERAL DESCRIPTION: An elderly male lying in bed in no distress RESPIRATORY SYSTEM: Unlabored breathing , decreased breath sounds at bases HEART: S1 S2 regular rate and rhythm , ABDOMEN: Soft , no tenderness EXTREMITIES: Right foot wound is covered with a wound VAC SKIN: Generalized desquamative rash - Labs CBC & Chem 7: 10/30/24 09:46 11/02/24 02:21 Labs: Abnormal Lab Results - Last 24 Hours (Table) 11/02/24 11/02/24 11/03/24 Range/Units 15:47 20:21 06:08 POC Glucose (mg/dL) 211 H 280 H 140 H (70-110) mg/dL 11/03/24 Range/Units 11:14 POC Glucose (mg/dL) 251 H (70-110) mg/dL Assessment and Plan (1) Cellulitis of right foot Current Visit: Yes Status: Acute Code(s): L03.115 - CELLULITIS OF RIGHT LOWER LIMB SNOMED Code(s): 07458875710562429 (2) Diabetic infection of right foot Current Visit: No Status: Acute Code(s): E11.628 - TYPE 2 DIABETES MELLITUS WITH OTHER SKIN COMPLICATIONS; L08.9 - LOCAL INFECTION OF THE SKIN AND SUBCUTANEOUS TISSUE, UNSP SNOMED Code(s): 122864121 (3) Diabetic ulcer of right foot Current Visit: No Status: Acute Code(s): E11.621 - TYPE 2 DIABETES MELLITUS WITH FOOT ULCER; L97.519 - NON-PRS CHRONIC ULCER OTH PRT RIGHT FOOT W UNSP SEVERITY SNOMED Code(s): 690005181 (4) Failure of outpatient treatment Current Visit: No Status: Acute Code(s): Z78.9 - OTHER SPECIFIED HEALTH STATUS SNOMED Code(s): 424788094 (5) Drug rash Current Visit: Yes Status: Acute Code(s): L27.0 - GEN SKIN ERUPTION DUE TO DRUGS AND MEDS TAKEN INTERNALLY SNOMED Code(s): 88612255 Plan: 1patient being admitted to the hospital with a worsening wound to the right fifth toe amputation site concerning for osteomyelitis on the basis of a bnormality seen on the x-ray and will need to cover for resistant gram-positive as well as gram-negative as the patient has been out of the hospital 2-patient is status post surgical debridement of the right foot lateral border wound down to the bone confirming osteomyelitis 3-patient culture done on admission positive for MSSA also growing Prevotella and Kell glabrata 4patient has developed desquamative rash could be related to cefazolin which will be discontinued 5-I will start the patient on daptomycin and continue with oral Flagyl and voriconazole, discharge prescription has been updated Dictation was produced using [employer] dictation software. please excuse any grammatical, word or spelling errors. Time with Patient: Less than 30
--- NOTE | 2024-11-03 15:38 | P.PN ---
Subjective Progress Note Date: 11/03/24 74-year-old male with past medical history of type II DM on insulin, history of osteomyelitis of the left second toe, history of right foot osteomyelitis requiring IV antibiotics and now status post right second toe amputation for nonhealing ulcer and osteomyelitis, CAD (PR x 3 with CABG x 3 caths x 4 that failed), A-fib (on Eliquis 5 mg p.o. twice daily), CKD IIIB, and CVA. He presented to the ED for purulent discharge and erythema at the site of amputation. Upon arrival to our facility, patient underwent evaluation in the emergency department. Vital signs upon arrival show blood pressure 126/80, heart rate 82, respiratory rate 18, temp 97.9 degrees. SpO2 of 96% on room air. X-ray right foot showing postsurgical changes from the 2nd and 5th digit amputation with some lucency involving the 5th metatarsal concerning for OM. CBC, CMP significant for RBC 3.91, Hg 12.2, Hct 35, Na 133, K 5.4, bicarb 21, BUN 37, Cr 1.44, glu 253, alk phos 225. Lactic acid 2.4-1.0. Patient admitted under services with consultation to infectious disease and vascular surgery. Started on Cefepime, Flagyl and Vancomycin. WCx presumptive staph aureus. ID consulted, Vancomycin switched to Daptomycin discontinued due to ZAIN. Patient became confused and hypotensive overnight on 10/27, he was bolused 2L NS and CT head was obtained which was negative for acute process. He underwent debridement with Dr. Baron on 10/28. Nephrology was consulted for ZAIN on CKD due to sepsis which has been improving with IV hydration. OR cultures growing marcel glabarata and prevotella timonensis. Dr. Alexis recommends Cefzolin 2g IV TID, Flagyl 500 mg PO TID, Voriconazole 200 mg PO BID on discharge. 11/02: Doing well, no active complaints, patient's present at bedside during exam, updated, PICC line in place. Continue cefazolin 2 g every 8 hours IV, Flagyl 500 mg p.o. 3 times daily voriconazole 200 mg p.o. every 12 hours 11/03 Home care supplies not ready, antibiotics ordered by ID, cefazoline was switched to daptomycin due to desquamative moss. Discussed with case management, Luann Sox, [facility] Subjective: No new complaints, case management is working on IV antibiotics for home infusions, pending [facility] approval Pertinent positives and negatives as discussed above, a complete review of systems was performed and all other systems are negative. Vitals Signs Reviewed. General: [nontoxic], [no distress], [appears at stated age] Derm: [warm], [very dry skin Head: [atraumatic], [normocephalic], [symmetric] Eyes: [EOMI], [no lid lag], [anicteric sclera] Mouth: [no lip lesion], [mucus membranes moist] Cardiovascular: [S1S2 reg], [no murmur] Lungs: [CTA bilateral], [no rhonchi, no rales] , [no accessory muscle use] Abdominal: [soft], [ nontender to palpation], [no guarding], [no appreciable organomegaly] Ext: [no gross muscle atrophy], [no edema], [no contractures] R foot dressing c/d/i Neuro: [ CN II-XI grossly intact], [no focal neuro deficits] Psych: [Alert], [oriented], [appropriate affect] Assessment and Plan: Sepsis secondary to right 5th digit OM Status post debridement with Dr. Baron on 10/28 ID and Vascular surgery on board OR cultures growing marcel glabarata and prevotella timonensis , Flagyl 500 mg p.o. 3 times daily voriconazole 200 mg p.o. every 12 hours, ID switched to cefazolin to daptomycin due to desquamative rash caused possibly by cefazolin Telemetry monitoring. Status postICC line on Saturday, IV antibiotics on discharge, CM working on insurance auth through the [facility]. Hyponatremia, resolved Normocytic anemia likely AOCD from CKD: Stable. No signs of active bleeding. Transfuse if Hg < 7. CKD stage IIIb with metabolic acidosis: Improving. Prerenal from sepsis. Holding Lisinopril. Neprology on board. Added magnesium 400 p.o. daily, sodium bicarb 650 p.o. twice daily Type II DM on insulin A1c 10.8. Lantus 15 units SQ QHS. ISS with Accuchecks ACHS along with hypoglycemic precautions. CAD and PAD ASA 81 mg PO QD. Lipitor 80 mg PO QHS. Metoprolol 25 mg PO BID. Essential hypertension Metoprolol 25 mg PO BID. Hold Lisinopril due to ZAIN. Atrial flutter Metoprolol as above. Eliquis 5 mg PO BID. Resolved Lactic acidosis. ZAIN. I have reviewed the following behavioral consultant notes: ID, nephro I have reviewed the results of the following tests: Normal sodium and potassium, bicarb 19, creatinine 1.5, stable, glucose 207, magnesium 1.5 I have ordered the following tests: I have discussed the care of this patient with the following independent historian: I have independently interpreted the following test below: I have discussed the management of this patient with the following physician: Case management as above DVT ppx: Heparin subcu Code status: Full code Anticipated discharge place: [facility] Anticipated discharge time: Medically stable for discharge, pending home care through [place] Objective - Vital Signs Vital signs: Vital Signs Temp 97.6 F 11/03/24 15:15 Pulse 44 L 11/03/24 15:15 Resp 16 11/03/24 15:15 BP 159/78 11/03/24 15:15 Pulse Ox 100 11/03/24 15:15 FiO2 Intake & Output 11/02/24 11/03/24 11/03/24 18:59 06:59 18:59 Other: Voiding Method Bedside Commode # Voids 3 2 - Labs CBC & Chem 7: 10/30/24 09:46 11/02/24 02:21 Labs: Abnormal Lab Results - Last 24 Hours (Table) 11/02/24 11/02/24 11/03/24 Range/Units 15:47 20:21 06:08 POC Glucose (mg/dL) 211 H 280 H 140 H (70-110) mg/dL 11/03/24 Range/Units 11:14 POC Glucose (mg/dL) 251 H (70-110) mg/dL
[2024-11-03 16:22] LABS: Glucose,Whole Blood 186 mg/dL (70-110)
[2024-11-03] MEDS: DAPTOmycin 500 MG in SODIUM CHLORIDE 0.9% 50 ML IVPB SCH (16:30)
[2024-11-03 20:36] LABS: Glucose,Whole Blood 249 mg/dL (70-110)
[2024-11-04 06:12] LABS: Glucose,Whole Blood 188 mg/dL (70-110)
[2024-11-04 08:17] LABS: Magnesium 1.6 mg/dL (1.5-2.4)
[2024-11-04 08:47] LABS: Blood Urea Nitrogen 20.8 mg/dL (9.0-27.0); Calcium 8.2 mg/dL (8.7-10.3); Carbon Dioxide 21.6 mmol/L (21.6-31.8); Chloride 107 mmol/L (96-109); Glucose 253 mg/dL (70-110); Potassium 4.7 mmol/L (3.5-5.5); Sodium 139 mmol/L (135-145)
--- NOTE | 2024-11-04 10:39 | P.PN ---
Subjective Patient is seen in follow-up for acute kidney injury and chronic kidney disease. Renal function better. Oral intake is good. Has been voiding. No active complaints. Vital signs are stable. General: No acute distress. HEENT: Head exam is unremarkable. LUNGS: No audible rhonchi or wheezes. HEART: Rate and Rhythm are regular. ABDOMEN: Nontender. EXTREMITITES: No edema. Wound VAC noted. Objective - Vital Signs Vital signs: Vital Signs Temp 97.8 F 11/04/24 07:51 Pulse 65 11/04/24 07:51 Resp 18 11/04/24 07:51 BP 172/83 11/04/24 07:51 Pulse Ox 97 11/04/24 07:51 FiO2 Intake & Output 11/03/24 11/04/24 11/04/24 18:59 06:59 18:59 Other: Voiding Method Bedside Commode # Voids 7 1 - Labs CBC & Chem 7: 10/30/24 09:46 11/04/24 02:38 Labs: Abnormal Lab Results - Last 24 Hours (Table) 11/03/24 11/03/24 11/03/24 Range/Units 11:14 16:19 20:34 Est GFR (CKD-EPI) (>=60) Glucose (70-110) mg/dL POC Glucose (mg/dL) 251 H 186 H 249 H (70-110) mg/dL Calcium (8.7-10.3) mg/dL 11/04/24 11/04/24 Range/Units 02:38 06:00 Est GFR (CKD-EPI) 57 L (>=60) Glucose 253 H (70-110) mg/dL POC Glucose (mg/dL) 188 H (70-110) mg/dL Calcium 8.2 L (8.7-10.3) mg/dL Assessment and Plan Plan: Assessment: 1. Acute kidney injury secondary to ATN secondary to severe sepsis. Renal function better with creatinine 1.3. Ultrasound from December 2023 showed no evidence of hydronephrosis. 2. Chronic kidney disease stage IIIb with baseline creatinine 1.4-1.5 secondary to nephrosclerosis. 3. History of A-fib. 4. Recent right fifth toe amputation with cellulitis/OM on antibiotics. 5. Metabolic acidosis secondary to IV fluids. On oral bicarb. 6. Hypomagnesemia from PPI and further worsened with the use of voriconazole. On oral magnesium oxide. Better. Plan: Remains off IV fluids. Encouraged oral intake. Avoid nephrotoxins. Resume home dose nifedipine. Follow-up outpatient 1 week postdischarge.
[2024-11-04 11:37] LABS: Glucose,Whole Blood 149 mg/dL (70-110)
--- NOTE | 2024-11-04 12:52 | P.PN ---
Subjective Progress Note Date: 11/04/24 Principal diagnosis: Reason for follow-up is right foot wound infection/osteo Patient is a 74-year-old male with a past medical history significant for CVA TIA diabetes mellitus [place] in this patient who is status post recent right fifth toe amputation completed on 09/30/2024, presented to hospital with worsening wound to the right fifth toe amputation site. Patient is status post sharp excisional debridement of the right foot lateral border wound down to the border along with a wound VAC application on 10/28/2024 On today's evaluation that is 11/04/2024,the patient denies any fever or any chills, patient is breathing comfortably on room air, the patient denies chest pain shortness of breath and no significant cough, patient denies abdominal pain, no nausea vomiting or diarrhea. Patient mention improvement in his rash no new lesion. Patient did have a creatinine 1.3 Objective - Vital Signs Vital signs: Vital Signs Temp 97.8 F 11/04/24 07:51 Pulse 65 11/04/24 07:51 Resp 18 11/04/24 07:51 BP 172/83 11/04/24 07:51 Pulse Ox 97 11/04/24 07:51 FiO2 Intake & Output 11/03/24 11/04/24 11/04/24 18:59 06:59 18:59 Other: Voiding Method Bedside Commode # Voids 7 1 - Exam GENERAL DESCRIPTION: An elderly male lying in bed in no distress RESPIRATORY SYSTEM: Unlabored breathing , decreased breath sounds at bases HEART: S1 S2 regular rate and rhythm , ABDOMEN: Soft , no tenderness EXTREMITIES: Right foot wound is covered with a wound VAC SKIN: Generalized desquamative rash - Labs CBC & Chem 7: 10/30/24 09:46 11/04/24 02:38 Labs: Abnormal Lab Results - Last 24 Hours (Table) 11/03/24 11/03/24 11/04/24 Range/Units 16:19 20:34 02:38 Est GFR (CKD-EPI) 57 L (>=60) Glucose 253 H (70-110) mg/dL POC Glucose (mg/dL) 186 H 249 H (70-110) mg/dL Calcium 8.2 L (8.7-10.3) mg/dL 11/04/24 11/04/24 Range/Units 06:00 11:35 Est GFR (CKD-EPI) (>=60) Glucose (70-110) mg/dL POC Glucose (mg/dL) 188 H 149 H (70-110) mg/dL Calcium (8.7-10.3) mg/dL Assessment and Plan (1) Cellulitis of right foot Current Visit: Yes Status: Acute Code(s): L03.115 - CELLULITIS OF RIGHT LOWER LIMB SNOMED Code(s): 00878784750740579 (2) Diabetic infection of right foot Current Visit: No Status: Acute Code(s): E11.628 - TYPE 2 DIABETES MELLITUS WITH OTHER SKIN COMPLICATIONS; L08.9 - LOCAL INFECTION OF THE SKIN AND SUBCUTANEOUS TISSUE, UNSP SNOMED Code(s): 531422492 (3) Diabetic ulcer of right foot Current Visit: No Status: Acute Code(s): E11.621 - TYPE 2 DIABETES MELLITUS WITH FOOT ULCER; L97.519 - NON-PRS CHRONIC ULCER OTH PRT RIGHT FOOT W UNSP SEVERITY SNOMED Code(s): 701163933 (4) Failure of outpatient treatment Current Visit: No Status: Acute Code(s): Z78.9 - OTHER SPECIFIED HEALTH STATUS SNOMED Code(s): 368426586 (5) Drug rash Current Visit: Yes Status: Acute Code(s): L27.0 - GEN SKIN ERUPTION DUE TO DRUGS AND MEDS TAKEN INTERNALLY SNOMED Code(s): 58584490 Plan: 1patient being admitted to the hospital with a worsening wound to the right fifth toe amputation site concerning for osteomyelitis on the basis of a bnormality seen on the x-ray and will need to cover for resistant gram-positive as well as gram-negative as the patient has been out of the hospital 2-patient is status post surgical debridement of the right foot lateral border wound down to the bone confirming osteomyelitis 3-patient culture done on admission positive for MSSA also growing Prevotella and Kell glabrata 4patient has developed desquamative rash could be related to cefazolin has been discontinued some improvement in the rash 5-patient to continue with daptomycin, oral Flagyl and voriconazole, awaiting outpatient IV antibiotic arrangement before discharge Dictation was produced using [employer] dictation software. please excuse any grammatical, word or spelling errors.
--- NOTE | 2024-11-04 12:58 | P.DS ---
Providers Date of admission: 10/26/24 18:01 Attending physician: Pancho Mccarty MD Consults: 10/26/24 18:23 Consult Physician Urgent Consulting Provider: Patria Car Consult Reason/Comments: Right foot wound Do you want consulting provider notified?: Yes Consult Physician Urgent Consulting Provider: Lashell Alexis Consult Reason/Comments: Right foot cellulitis Do you want consulting provider notified?: Yes 10/29/24 10:49 Consult Physician Routine Consulting Provider: Tiana Rojo Consult Reason/Comments: ZAIN on CKD Do you want consulting provider notified?: Yes Primary care physician: Quoc Be Hospital Course: Discharge Diagnosis: Sepsis secondary to right 5th digit OM Status post debridement with Dr. 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 twice daily), CKD IIIB, and CVA. He presented to the ED for purulent discharge and erythema at the site of amputation. Upon arrival to our facility, patient underwent evaluation in the emergency department. Vital signs upon arrival show blood pressure 126/80, heart rate 82, respiratory rate 18, temp 97.9 degrees. SpO2 of 96% on room air. X-ray right foot showing postsurgical changes from the 2nd and 5th digit amputation with some lucency involving the 5th metatarsal concerning for OM. CBC, CMP significant for RBC 3.91, Hg 12.2, Hct 35, Na 133, K 5.4, bicarb 21, BUN 37, Cr 1.44, glu 253, alk phos 225. Lactic acid 2.4-1.0. Patient admitted under services with consultation to infectious disease and vascular surgery. Started on Cefepime, Flagyl and Vancomycin. WCx presumptive staph aureus. ID consulted, Vancomycin switched to Daptomycin discontinued due to ZAIN. Will be discharged home with home care became confused and hypotensive overnight on 10/27, he was bolused 2L NS and CT head was obtained which was negative for acute process. He underwent debridement with Dr. Baron on 10/28. Nephrology was consulted for ZAIN on CKD due to sepsis which has been improving with IV hydration. OR cultures growing marcel glabarata and prevotella timonensis. Dr. Alexis recommends Cefzolin 2g IV TID, Flagyl 500 mg PO TID, Voriconazole 200 mg PO BID on discharge. 11/02: Doing well, no active complaints, patient's present at bedside during exam, updated, PICC line in place. Continue cefazolin 2 g every 8 hours IV, Flagyl 500 mg p.o. 3 times daily voriconazole 200 mg p.o. every 12 hours 11/03 Home care supplies ready, antibiotics ordered by ID, cefazoline was switc hed to daptomycin due to desquamative moss, 11/04: antibiotics and supplies are ready, patient to be discharged home with home care, f/u with PCP, ID, nephro, podiatry, vascular surgery. Lisinopril ho lding at discharge, prescribed Procardia XL 30, instructed to check BP regularly. Patient seen and examined at bedside. Vital signs reviewed and stable. General: [nontoxic], [no distress], [appears at stated age] Derm: [warm], very dry Head: [atraumatic], [normocephalic], [symmetric] Eyes: [EOMI], [no lid lag], [anicteric sclera] Mouth: [no lip lesion], [mucus membranes moist] Cardiovascular: [S1S2 reg], [no murmur] Lungs: [CTA bilateral], [no rhonchi, no rales] , [no accessory muscle use] Abdominal: [soft], [ nontender to palpation], [no guarding], [no appreciable organomegaly] Ext: [no gross muscle atrophy], [no edema], [no contractures] R foot dressing c/d/i Neuro: [ CN II-XI grossly intact], [no focal neuro deficits] Psych: [Alert], [oriented], [appropriate affect] A total of 40 minutes of time were spent preparing this complex discharge summary. Patient was discharged on 11/04/24. Plan - Discharge Summary Discharge Rx Participant: No New Discharge Prescriptions: New metroNIDAZOLE [Flagyl] 500 mg PO TID #45 tab Pantoprazole [Protonix] 40 mg PO AC-BRKFST #30 tab Voriconazole [Vfend] 200 mg PO Q12HR #30 tab NIFEdipine XL [Procardia Xl] 30 mg PO DAILY #30 tab DAPTOmycin [Cubicin] 500 mg IV DAILY #38 each Magnesium Oxide [Mag-Ox] 400 mg PO DAILY #30 tab Sodium Bicarbonate Tab 650 mg PO BID #30 tab Continue PARoxetine [Paxil] 10 mg PO DAILY Mirabegron [Myrbetriq] 50 mg PO DAILY Apixaban [Eliquis] 5 mg PO BID Insulin Glargine,Hum.rec.anlog [Lantus Solostar Pen] 15 units SQ HS Metoprolol Tartrate [Lopressor] 25 mg PO BID Acetaminophen Tab [Tylenol] 650 mg PO Q6HR PRN tab PRN Reason: Pain Scale 1 To 5 Empagliflozin [Jardiance] 25 mg PO DAILY Aspirin EC [Ecotrin Low Dose] 81 mg PO DAILY glipiZIDE [Glucotrol] 5 mg PO BID-W/MEALS Atorvastatin [Lipitor] 80 mg PO HS Discontinued lisinopriL [Prinivil] 10 mg PO DAILY Discharge Medication List Apixaban [Eliquis] 5 mg PO BID 01/02/24 [History] Aspirin EC [Ecotrin Low Dose] 81 mg PO DAILY 01/02/24 [History] Mirabegron [Myrbetriq] 50 mg PO DAILY 01/02/24 [History] PARoxetine [Paxil] 10 mg PO DAILY 01/02/24 [History] Insulin Glargine,Hum.rec.anlog [Lantus Solostar Pen] 15 units SQ HS 04/24/24 [History] Metoprolol Tartrate [Lopressor] 25 mg PO BID 04/24/24 [History] Acetaminophen Tab [Tylenol] 650 mg PO Q6HR PRN tab 07/09/24 [Rx] Atorvastatin [Lipitor] 80 mg PO HS 10/26/24 [History] Empagliflozin [Jardiance] 25 mg PO DAILY 10/26/24 [History] glipiZIDE [Glucotrol] 5 mg PO BID-W/MEALS 10/26/24 [History] DAPTOmycin [Cubicin] 500 mg IV DAILY #38 each 11/03/24 [Rx] Magnesium Oxide [Mag-Ox] 400 mg PO DAILY #30 tab 11/03/24 [Rx] NIFEdipine XL [Procardia Xl] 30 mg PO DAILY #30 tab 11/03/24 [Rx] Pantoprazole [Protonix] 40 mg PO AC-BRKFST #30 tab 11/03/24 [Rx] Sodium Bicarbonate Tab 650 mg PO BID #30 tab 11/03/24 [Rx] Voriconazole [Vfend] 200 mg PO Q12HR #30 tab 11/03/24 [Rx] metroNIDAZOLE [Flagyl] 500 mg PO TID #45 tab 11/03/24 [Rx] Follow up Appointment(s)/Referral[facility]s): [facility] - As Needed [facility] [NON-STAFF] - As Needed (wheelchair) Houston Gaona DO [Doctor of Osteopathic Medicine] - 1 Week [facility] [REFERRING] - As Needed [facility] [NON-STAFF] - As Needed Patria Car DO [STAFF PHYSICIAN] - 2 Weeks Flako Frazier DO [STAFF PHYSICIAN] - 1 Week Qouc Be DO [Primary Care Provider] - 1-2 days Lashell Alexis MD [STAFF PHYSICIAN] - 1 Week Activity/Diet/Wound Care/Special Instructions: Keep wound VAC in place, change dressing Wednesdays and Fridays Aquacel dressing to right plantar wound change Wednesdays and Fridays Nonweightbearing on right foot except when toileting May use right heel for balance Please, follow-up with your primary care physician, vascular surgery, infectious disease specialist, health concierge, design sales consultant. Check your blood pressure and blood sugar regularly and keep a log of the readings to discuss with your primary care physician
[2024-11-04] MEDS: NIFEdipine XL 30 MG TAB.ER.24 PO SCH (14:19)
[2024-11-04 16:09] VITALS: PULSE 41; TEMP 97.7
[2024-11-04 16:10] VITALS: BP 176/96; RESP 17
== END 2024-11-04 16:50 | disposition home health service (06) | DRG 463 ==
LOC: SUPCPDRO 15:28 → EC 15:28 → 4SSUR 18:01
PROVIDERS: ADMIT Family Medicine; ATTEND Family Medicine
PROC: 0QBN0ZZ Excision of Right Metatarsal, Open Approach (ICD-10-PCS; 2024-10-28)
PROC: 0JBQ0ZZ Excision of Right Foot Subcutaneous Tissue and Fascia, Open Approach (ICD-10-PCS; principal; 2024-10-28 14:30)
PROC: 02HV33Z Insertion of Infusion Device into Superior Vena Cava, Percutaneous Approach (ICD-10-PCS; 2024-11-02)
DX: T87.43 Infection of amputation stump, right lower extremity (principal); A41.01 Sepsis due to Methicillin susceptible Staphylococcus aureus; N17.0 Acute kidney failure with tubular necrosis; R65.20 Severe sepsis without septic shock; B37.7 Candidal sepsis; A41.89 Other specified sepsis; E87.1 Hypo-osmolality and hyponatremia; D63.1 Anemia in chronic kidney disease; I48.91 Unspecified atrial fibrillation; M86.8X7 Other osteomyelitis, ankle and foot; L03.115 Cellulitis of right lower limb; B95.61 Methicillin susceptible Staphylococcus aureus infection as the cause of diseases classified elsewhere; E11.22 Type 2 diabetes mellitus with diabetic chronic kidney disease; N18.32 Chronic kidney disease, stage 3b; I12.9 Hypertensive chronic kidney disease with stage 1 through stage 4 chronic kidney disease, or unspecified chronic kidney disease; I48.92 Unspecified atrial flutter; E87.20 Acidosis, unspecified; E11.69 Type 2 diabetes mellitus with other specified complication; Z79.4 Long term (current) use of insulin; E11.621 Type 2 diabetes mellitus with foot ulcer; L97.519 Non-pressure chronic ulcer of other part of right foot with unspecified severity; E11.628 Type 2 diabetes mellitus with other skin complications; E11.65 Type 2 diabetes mellitus with hyperglycemia; I25.10 Atherosclerotic heart disease of native coronary artery without angina pectoris; E83.42 Hypomagnesemia; L27.0 Generalized skin eruption due to drugs and medicaments taken internally; T36.1X5A Adverse effect of cephalosporins and other beta-lactam antibiotics, initial encounter; T47.1X5A Adverse effect of other antacids and anti-gastric-secretion drugs, initial encounter; Y83.5 Amputation of limb(s) as the cause of abnormal reaction of the patient, or of later complication, without mention of misadventure at the time of the procedure; Z95.1 Presence of aortocoronary bypass graft; Z86.73 Personal history of transient ischemic attack (TIA), and cerebral infarction without residual deficits; Z85.828 Personal history of other malignant neoplasm of skin; Z85.46 Personal history of malignant neoplasm of prostate; Z79.84 Long term (current) use of oral hypoglycemic drugs; Z79.899 Other long term (current) drug therapy; Z79.82 Long term (current) use of aspirin; I25.2 Old myocardial infarction; Z95.5 Presence of coronary angioplasty implant and graft; Z85.820 Personal history of malignant melanoma of skin; Z79.01 Long term (current) use of anticoagulants
CPT/HCPCS: 36415; 36573; 70450; 71045; 76770; 80048; 80053; 83036; 83605; 83735; 85025; 85027; 85610; 87040; 87070; 87075; 87077; 87186; 87205; 96365; 96367; 99284

== ENCOUNTER 2024-12-15 09:03 | Day surgery (SDC) | payer OTHER ==
[2024-12-14 10:11] VITALS: BMI 26.9
[~2024-12-15 09:03] MED LIST changes: -DEXAMETHASONE SOD PHOSPHATE 4 MG/ML 1 ML VIAL IV ONE; +MIDAZOLAM 2 MG/2 ML VIAL IV PRN; -ONDANSETRON 4 MG/2 ML VIAL IVP ONE; +fentaNYL (PF) 50 MCG/ML 2 ML AMP IVP PRN
[2024-12-15 10:40] VITALS: RESP 16; TEMP 97
[2024-12-15] MEDS: ONDANSETRON 4 MG/2 ML VIAL IVP ONE (10:45)
[2024-12-15] MEDS: LACTATED RINGERS 1,000 ML IV SCH (10:45)
[2024-12-15] MEDS: DEXAMETHASONE SOD PHOSPHATE 4 MG/ML 1 ML VIAL IV ONE (10:46)
[2024-12-15 10:50] LABS: Glucose,Whole Blood 250 mg/dL (70-110)
[2024-12-15] MEDS: INSULIN LISPRO (HumaLOG) 100 UNIT/ML 10 mL VL SQ ONE (10:54)
[2024-12-15] MEDS: IV FLUID CONTINUATION 1,000 ML IV ONE (11:00)
[2024-12-15] MEDS ORDERED: PROPOFOL 10 MG/ML 20 ML VIAL IV ONE (11:26)
[2024-12-15] MEDS ORDERED: fentaNYL (PF) 50 MCG/ML 2 ML AMP ONE (11:26)
[2024-12-15] MEDS ORDERED: MIDAZOLAM 2 MG/2 ML VIAL ONE (11:26)
[2024-12-15] MEDS: ceFAZolin 2 GM in DEXTROSE 5% IN WATER 50 ML IVPB PRN (11:31)
[2024-12-15 12:30] VITALS: BP 142/91
[2024-12-15 12:52] VITALS: PULSE 82
--- NOTE | 2024-12-17 15:10 | P.OP ---
Date of Procedure: 12/15/24 Description of Procedure: Preoperative diagnosis: Nonhealing right lateral foot wound, bone exposure Postoperative diagnosis: Same Procedure: Revision of fourth toe amputation Sharp excisional nonhealing foot wound with curette measurements 6 x 3.5 x 1 cm to bone Placement of Affinity 2.5 x 2.5 skin substitute Placement of wound VAC Surgeon: Patria Baron D.O. EBL: 5 cc see records] IV fluids: See records Urine output: Not measured Drains: None Complications: None immediately apparent Condition: Stable Operative indication and findings: Patient is a 74-year-old male here for debridement and revision of his amputation due to exposed bone. Risks and benefits of the procedure were discussed he seemed understand and was willing to proceed Procedure in detail: Patient was brought to the operative suite placed in supine position. The right foot was prepped and draped in usual sterile fashion. A p reprocedural timeout was performed, all parties were in agreement. The area of exposed bone was transected with a bone cutter. The bone at this level did appear healthy. The subcutaneous tissues were then debrided using a curette. Area was copiously irrigated. Affinity 2.5 x 2.5 cm was placed at the level of the bone and surrounding tissue PuraPly was placed. A wound VAC was then placed with good seal. The patient was allowed to awaken from anesthesia and transferred to recovery in stable condition
== END 2024-12-15 13:30 | disposition home or self-care (01) ==
LOC: OR 09:03
PROVIDERS: ATTEND Surgery
DX: T87.89 Other complications of amputation stump (principal); E11.51 Type 2 diabetes mellitus with diabetic peripheral angiopathy without gangrene; I25.10 Atherosclerotic heart disease of native coronary artery without angina pectoris; I25.2 Old myocardial infarction; Z95.1 Presence of aortocoronary bypass graft; Z95.5 Presence of coronary angioplasty implant and graft; I48.92 Unspecified atrial flutter; Z79.82 Long term (current) use of aspirin; Z79.2 Long term (current) use of antibiotics; Z79.84 Long term (current) use of oral hypoglycemic drugs; Z79.01 Long term (current) use of anticoagulants; Z79.899 Other long term (current) drug therapy; Z86.73 Personal history of transient ischemic attack (TIA), and cerebral infarction without residual deficits; Z85.46 Personal history of malignant neoplasm of prostate
CPT/HCPCS: 28820; 15275; 15004; J2250; J1100; J0690; J2405; J3010; J2704

== ENCOUNTER 2025-01-15 16:10 | Inpatient (IN) | payer OTHER, MEDICARE ==
[2025-01-15] MEDS: SODIUM CHLORIDE 0.9% 500 ML 500 ML IV ONE (17:05)
[2025-01-15 17:14] LABS: Basophils # (A) 0.01 10*3/uL (0.00-0.10); Basophils % (A) 0.1 %; Eosinophils # (A) 0.01 10*3/uL (0.04-0.35); Eosinophils % (A) 0.1 %; HCT 35.4 % (39.6-50.0); HGB 12.7 g/dL (13.0-17.0); Lymphocytes # (A) 0.90 10*3/uL (0.90-5.00); Lymphocytes % (A) 9.3 %; MCH 31.8 pg (27.0-32.0); MCHC 35.9 g/dL (32.0-37.0); MCV 88.7 fL (80.0-97.0); Monocytes # (A) 1.19 10*3/uL (0.20-1.00); Monocytes % (A) 12.3 %; Neutrophils # (A) 7.54 10*3/uL (1.80-7.70); Neutrophils % (A) 77.9 %; Platelet Count 255 10*3/uL (140-440); RBC 3.99 10*6/uL (4.40-5.60); RDW 14.9 % (11.5-14.5); WBC 9.68 10*3/uL (4.50-10.00)
[2025-01-15 17:23] LABS: Bilirubin,Urine Negative (Negative); Blood,Urine Trace (Negative); Color,Urine Light Yellow; Glucose,Urine (UA) 4+ (Negative); Ketones,Urine Negative (Negative); Leukocyte Esterase,Urine Negative (Negative); Nitrite,Urine Negative (Negative); PH, Urine 5.5 (5.0-8.0); Protein,Urine 1+ (Negative); RBC,Urine 1 /hpf (0-5); Specific Gravity,Urine 1.019 (1.001-1.035); Urobilinogen,Urine <2.0 mg/dL (<2.0); WBC,Urine 2 /hpf (0-5)
[2025-01-15 17:35] LABS: ALT 22 U/L (4-49); AST 52 U/L (17-59); African American GFR (CKD) 61 (>60 ml/min/1.73 sqM); Albumin 3.7 g/dL (3.5-5.0); Alkaline Phosphatase 386 U/L (38-126); Amylase 55 U/L (30-110); Anion Gap 15 mmol/L; Blood Urea Nitrogen 39 mg/dL (9-20); Calcium 9.0 mg/dL (8.4-10.2); Carbon Dioxide 23 mmol/L (22-30); Chloride 92 mmol/L (98-107); Glucose 259 mg/dL (74-99); Lipase 300 U/L (23-300); Non-African American GFR(CKD) 53 (>60 ml/min/1.73 sqM); Potassium 3.9 mmol/L (3.5-5.1); Sodium 130 mmol/L (137-145); Total Protein 6.7 g/dL (6.3-8.2)
--- NOTE | 2025-01-15 18:17 | US ---
EXAMINATION TYPE: US abdomen limited DATE OF EXAM: 01/15/2025 COMPARISON: Renal ultrasound 11/02/2024 CLINICAL INDICATION: Male, 74 years old with history of RUQ pain; Pain TECHNIQUE: Grayscale and color Doppler imaging of the right upper quadrant was performed. FINDINGS: EXAM MEASUREMENTS: Liver Length: 18.4 cm Gallbladder Wall: 0.8 cm CBD: 0.7 cm Right Kidney: 10.2 x 5.5 x 5.5 cm Pancreas: Not well seen Liver: Enlarged in size Gallbladder: Enlarged in size= 10.2 cm. Mobile stones and sludge. Wall thickening. Fluid seen adj acent to gallbladder. Evidence for sonographic Long's sign: neg CBD: wnl Right Kidney: No hydronephrosis or masses seen Borderline enlarged liver. Noncirrhotic morphology. No focal lesion identified. Pancreas is obscured by overlying bowel gas. Hydropic gallbladder with multiple stones and sludge. There is prominent wall thickening with pericholecystic fluid. Common bile duct is within normal limits. Right kidney demons trates no hydronephrosis, solid mass, shadowing calculus. IMPRESSION: 1. Findings concerning for acute cholecystitis with hydropic gallbladder, gallstone/sludge, wall thi ckening, and pericardial fluid. However negative sonographic Long sign. Correlate clinically. Consi vicki further evaluation nuclear medicine HIDA scan. 2. Borderline enlarged liver. [facility], , 01/15/2025 6:15 PM
[2025-01-15] MEDS ORDERED: NALOXONE 0.4 MG/ML 1 ML VIAL IV PRN (18:36)
[2025-01-15] MEDS: FAMOTIDINE 20 MG/2 ML VIAL IV STA (18:38)
[2025-01-15] MEDS: MAG HYDROX/AL HYDROX/SIMETH 30 ML CUP PO STA (18:38)
--- NOTE | 2025-01-15 18:46 | ED ---
Abdominal Pain HPI - General Chief Complaint: Abdominal Pain Stated Complaint: unable to eat Time Seen by Provider: 01/15/25 16:39 Source: patient, family Mode of arrival: wheelchair - History of Present Illness Initial Comments: 74-year-old male presented with chief complaint of abdominal pain. Patient reports aching epigastric pain when he eats. He states that after a few bites starts getting pain, it seems to be alleviated after drinking cool water, but restarts when he starts eating again. He says he is lost 10 pounds recently because of it. Pain has been ongoing for a week. He reports that when the pain first started he did have an episode of vomiting, he has not had any continued nausea or vomiting. He denies any chest pain or difficulty breathing. No fever or chills. No change in bowel movements. He did have a toe amputation revision on 12/15. - Related Data Home Medications Medication Instructions Recorded Confirmed Apixaban [Eliquis] 5 mg PO BID 01/02/24 01/15/25 Aspirin EC [Ecotrin Low Dose] 81 mg PO DAILY 01/02/24 01/15/25 Mirabegron [Myrbetriq] 50 mg PO DAILY 01/02/24 01/15/25 PARoxetine [Paxil] 10 mg PO DAILY 01/02/24 01/15/25 Insulin Glargine,Hum.rec.anlog 20 units SQ HS 04/24/24 01/15/25 [Lantus Solostar Pen] Metoprolol Tartrate [Lopressor] 25 mg PO BID 04/24/24 01/15/25 Atorvastatin [Lipitor] 80 mg PO HS 10/26/24 01/15/25 Empagliflozin [Jardiance] 25 mg PO DAILY 10/26/24 01/15/25 glipiZIDE [Glucotrol] 10 mg PO BID-W/MEALS 01/15/25 01/15/25 Previous Rx's Medication Instructions Recorded NIFEdipine XL [Procardia Xl] 30 mg PO DAILY #30 tab 11/03/24 Allergies Allergy/AdvReac Type Severity Reaction Status Date / Time No Known Allergies Allergy Verified 01/15/25 19:22 Review of Systems ROS Statement: Those systems with pertinent positive or pertinent negative responses have been documented in the HPI. ROS Other: All systems not noted in ROS Statement are negative. Past Medical History Past Medical History: Cancer, CVA/TIA, Diabetes Mellitus, Hypertension, Myocardial Infarction ([place]), Skin Disorder Additional Past Medical History / Comment(s): See Dr Yasir Fraga H&P. Hx prostate cancer 2004, hx melanoma, hx CVA or petite mal in 2006, with no residual deficits and no problems since, hx [place] X2. Last Myocardial Infarction Date:: 2011 History of Any Multi-Drug Resistant Organisms: None Reported Past Surgical History: Coronary Bypass/CABG, Heart Catheterization With Stent Additional Past Surgical History / Comment(s): Triple bypass, 4 stents that failed, radical prostectomy, skin cancer removal, amputation of 2nd right toe and 5th right toe, bilateral cataract surgery. Past Anesthesia/Blood Transfusion Reactions: No Reported Reaction Date of Last Stent Placement:: 2011 Past Psychological History: No Psychological Hx Reported Smoking Status: Never smoker - Past Family History Mother Family Medical History: No Reported History Father Family Medical History: Cancer Additional Family Medical History / Comment(s): Liver cancer. Brother(s) Family Medical History: Cancer Additional Family Medical History / Comment(s): Bladder cancer. General Exam Limitations: no limitations General appearance: alert, in no apparent distress Head exam: Present: atraumatic, normocephalic, normal inspection Eye exam: Present: normal appearance, EOMI Neck exam: Present: normal inspection. Absent: meningismus Respiratory exam: Present: normal lung sounds bilaterally. Absent: respiratory distress, wheezes, rales, rhonchi, stridor Cardiovascular Exam: Present: regular rate, normal rhythm, normal heart sounds. Absent: systolic murmur, diastolic murmur, rubs, gallop, clicks GI/Abdominal exam: Present: soft, tenderness (Right upper quadrant), guarding (Right upper quadrant). Absent: distended, rebound, rigid Neurological exam: Present: alert, oriented X3 Psychiatric exam: Present: normal affect, normal mood Skin exam: Present: warm, dry, normal color Course Vital Signs 01/15/25 01/15/25 01/15/25 16:28 18:12 20:00 Temperature 99.2 F Pulse Rate 96 79 82 Respiratory 18 18 18 Rate Blood Pressure 107/71 135/65 138/76 O2 Sat by Pulse 99 97 97 Oximetry Medical Decision Making - Medical Decision Making EKG shows atrial flutter ventricular rate 84. QRS 88 QT 376 QTc 417 Was pt. sent in by a medical professional or institution (, [facility], TYPE PROOF REPRODUCER, urgent care, hospital, or [facility]...) When possible be specific @ -No Did you speak to anyone other than the patient for history (EMS, parent, family, police, friend...)? What history was obtained from this source @ - Did you review nursing and triage notes (agree or disagree)? Why? @ -I reviewed and agree with nursing and triage notes Were old charts reviewed (outside hosp., previous admission, EMS record, old EKG, old radiological studies, urgent care reports/EKG's, [facility] records)? Report findings @ -No old charts were reviewed Differential Diagnosis (chest pain, altered mental status, abdominal pain women, abdominal pain men, vaginal bleeding, weakness, fever, dyspnea, syncope, headac he, dizziness, GI bleed, back pain, seizure, CVA, palpatations, mental health, musculoskeletal)? @ -MDM Differential Abdominal Pain Men: Appendicitis, cholecystitis, diverticulosis, ischemic bowel, pancreatitis, hepatitis, UTI, gastroenteritis, AAA, incarcerated hernia, bowel obstruction, constipation, inflammatory bowel, hepatitis, peptic ulcer disease, splenic infarction, perforated viscus, testicular torsion... This is not meant to be an all-inclusive list EKG interpreted by me (3pts min.). @ -As above X-rays interpreted by me (1pt min.). @ -None done CT interpreted by me (1pt min.). @ -None done U/S interpreted by me (1pt. min.). @ -Ultrasound shows findings concerning for acute cholecystitis with hydropic gallbladder, gallstone/sludge, wall thickening, and pericholecystic fluid. Borderline enlarged liver. What testing was considered but not performed or refused? (CT, X-rays, U/S, labs)? Why? @ -None What meds were considered but not given or refused? Why? @ -None Did you discuss the management of the patient with other professionals (professionals i.e. DIANELYS Vyas, TYPE PROOF REPRODUCER, lab, RT, psych nurse, renal social worker, pitch flaker, teacher, county health officer, case planner)? Give summary @ -Spoke with Dr. Jones for admission Was smoking cessation discussed for >3mins.? @ -No Was critical care preformed (if so, how long)? @ -No Were there social determinants of health that impacted care today? How? (Homelessness, low income, unemployed, alcoholism, drug addiction, transportation, low edu. Level, literacy, decrease access to med. care, care home, rehab)? @ -No Was there de-escalation of care discussed even if they declined (Discuss DNR or withdrawal of care, Hospice)? DNR status @ -No What co-morbidities impacted this encounter? (DM, HTN, Smoking, COPD, CAD, Cancer, CVA, ARF, Chemo, Hep., AIDS, mental health diagnosis, sleep apnea, morbid obesity)? @ -None Was patient admitted / discharged? Hospital course, mention meds given and route, prescriptions, significant lab abnormalities, going to OR and other pertinent info. @ -74-year-old male presenting with chief complaint of abdominal pain. No leukocytosis. Hemoglobin 12.7. Creatinine 1.3 BUN 39, seems to be consistent with the patient's baseline. Alkaline phosphatase 386, patient seems to be chronically elevated. Lipase is WNL. Ultrasound shows evidence of acute cholecystitis. Patient is placed on Rocephin and metronidazole. He is NPO. Provided with IV fluids, pain meds, antiemetics. He is educated on today's findings and the need for admission, he is agreeable with this plan. I discussed this case with my attending Dr. Varela Undiagnosed new problem with uncertain prognosis? @ -No Drug Therapy requiring intensive monitoring for toxicity (Heparin, Nitro, Insulin, Cardizem)? @ -No Were any procedures done? @ -No Diagnosis/symptom? @ -Acute cholecystitis Acute, or Chronic, or Acute on Chronic? @ -Acute Uncomplicated (without systemic symptoms) or Complicated (systemic symptoms)? @ -Complicated Side effects of treatment? @ -No Exacerbation, Progression, or Severe Exacerbation? @ -No Poses a threat to life or bodily function? How? (Chest pain, [place], [place], pneumonia, PE, COPD, DKA, ARF, appy, cholecystitis, CVA, Diverticulitis, Homicidal, Suicidal, threat to staff... and all critical care pts) @ -Yes - Lab Data Result diagrams: 01/15/25 16:55 01/15/25 16:55 Lab Results 01/15/25 01/15/25 01/15/25 Range/Units 16:55 16:55 16:55 WBC 9.68 (4.50-10.00) 10*3/uL RBC 3.99 L (4.40-5.60) 10*6/uL Hgb 12.7 L (13.0-17.0) g/dL Hct 35.4 L (39.6-50.0) % MCV 88.7 (80.0-97.0) fL MCH 31.8 (27.0-32.0) pg MCHC 35.9 (32.0-37.0) g/dL Plt Count 255 (140-440) 10*3/uL MPV 9.8 (9.5-12.2) fL Immature Gran % (Auto) 0.3 % Neutrophils % 77.9 % Lymphocytes % 9.3 % Monocytes % 12.3 % Eosinophils % 0.1 % Basophils % 0.1 % Immature Gran # 0.03 (0.00-0.04) 10*3/uL Neutrophils # 7.54 (1.80-7.70) 10*3/uL Lymphocytes # 0.90 (0.90-5.00) 10*3/uL Monocytes # 1.19 H (0.20-1.00) 10*3/uL Eosinophils # 0.01 L (0.04-0.35) 10*3/uL Basophils # 0.01 (0.00-0.10) 10*3/uL Sodium 130 L (137-145) mmol/L Potassium 3.9 (3.5-5.1) mmol/L Chloride 92 L (98-107) mmol/L Carbon Dioxide 23 (22-30) mmol/L Anion Gap 15 mmol/L BUN 39 H (9-20) mg/dL Creatinine 1.30 H (0.66-1.25) mg/dL Est GFR (CKD-EPI)AfAm 61 (>60 ml/min/1.73 sqM) Est GFR (CKD-EPI)NonAf 53 (>60 ml/min/1.73 sqM) Glucose 259 H (74-99) mg/dL Plasma Lactic Acid Riley 1.9 (0.7-2.0) mmol/L Calcium 9.0 (8.4-10.2) mg/dL Total Bilirubin 1.2 (0.2-1.3) mg/dL AST 52 (17-59) U/L ALT 22 (4-49) U/L Alkaline Phosphatase 386 H (38-126) U/L Troponin I (0.000-0.034) ng/mL Total Protein 6.7 (6.3-8.2) g/dL Albumin 3.7 (3.5-5.0) g/dL Amylase 55 (30-110) U/L Lipase 300 (23-300) U/L Urine Color Urine Appearance (Clear) Urine pH (5.0-8.0) Ur Specific [place] (1.001-1.035) Urine Protein (Negative) Urine Glucose (UA) (Negative) Urine Ketones (Negative) Urine Blood (Negative) Urine Nitrite (Negative) Urine Bilirubin (Negative) Urine Urobilinogen (<2.0) mg/dL Ur Leukocyte Esterase (Negative) Urine RBC (0-5) /hpf Urine WBC (0-5) /hpf 01/15/25 01/15/25 Range/Units 16:55 17:04 WBC (4.50-10.00) 10*3/uL RBC (4.40-5.60) 10*6/uL Hgb (13.0-17.0) g/dL Hct (39.6-50.0) % MCV (80.0-97.0) fL MCH (27.0-32.0) pg MCHC (32.0-37.0) g/dL Plt Count (140-440) 10*3/uL MPV (9.5-12.2) fL Immature Gran % (Auto) % Neutrophils % % Lymphocytes % % Monocytes % % Eosinophils % % Basophils % % Immature Gran # (0.00-0.04) 10*3/uL Neutrophils # (1.80-7.70) 10*3/uL Lymphocytes # (0.90-5.00) 10*3/uL Monocytes # (0.20-1.00) 10*3/uL Eosinophils # (0.04-0.35) 10*3/uL Basophils # (0.00-0.10) 10*3/uL Sodium (137-145) mmol/L Potassium (3.5-5.1) mmol/L Chloride (98-107) mmol/L Carbon Dioxide (22-30) mmol/L Anion Gap mmol/L BUN (9-20) mg/dL Creatinine (0.66-1.25) mg/dL Est GFR (CKD-EPI)AfAm (>60 ml/min/1.73 sqM) Est GFR (CKD-EPI)NonAf (>60 ml/min/1.73 sqM) Glucose (74-99) mg/dL Plasma Lactic Acid Riley (0.7-2.0) mmol/L Calcium (8.4-10.2) mg/dL Total Bilirubin (0.2-1.3) mg/dL AST (17-59) U/L ALT (4-49) U/L Alkaline Phosphatase (38-126) U/L Troponin I 0.026 (0.000-0.034) ng/mL Total Protein (6.3-8.2) g/dL Albumin (3.5-5.0) g/dL Amylase (30-110) U/L Lipase (23-300) U/L Urine Color Light Yellow Urine Appearance Clear (Clear) Urine pH 5.5 (5.0-8.0) Ur Specific [place] 1.019 (1.001-1.035) Urine Protein 1+ H (Negative) Urine Glucose (UA) 4+ H (Negative) Urine Ketones Negative (Negative) Urine Blood Trace H (Negative) Urine Nitrite Negative (Negative) Urine Bilirubin Negative (Negative) Urine Urobilinogen <2.0 (<2.0) mg/dL Ur Leukocyte Esterase Negative (Negative) Urine RBC 1 (0-5) /hpf Urine WBC 2 (0-5) /hpf Disposition Clinical Impression: Acute cholecystitis Disposition: ADMITTED IP TO THIS HOSP Condition: Fair Time of Disposition: 18:46
[2025-01-15] MEDS: SODIUM CHLORIDE 0.9% 1,000 ML IV SCH (18:47)
[2025-01-15] MEDS: metroNIDAZOLE-NS PMX 500 MG in SALINE 1 100ML.BAG IVPB STA (19:57)
[2025-01-15 20:49] LABS: Glucose,Whole Blood 175 mg/dL (70-110)
--- NOTE | 2025-01-16 00:24 | P.CONS ---
History of Present Illness - Reason for Consult Consult date: 01/15/25 Medical condition - Chief Complaint Abdominal pain - History of Present Illness This is a 74-year-old male patient with a past medical history of coronary artery disease status post triple bypass, history of PCI with stenting, essential hypertension, insulin-dependent type 2 diabetes mellitus, history of CVA/TIA, history of amputation of the second right toe and recently had toe amputation revision on December 18 his right fifth toe with wound VAC in place presented with epigastric pain. Patient is admitted under general surgery. Patient reports that he is having epigastric pain whenever he eats. He lost 10 pounds recently. Has been associated with emesis that is nonbloody nonbilious. No reports of chest pain or difficulty breathing. Vital signs are stable. Labs did not show leukocytosis, hemoglobin 12.2, creatinine 1.3, BUN of 39 and its consistent with patient's baseline, alk phos 386 and seems to be chronically elevated, lipase within normal limit, ultrasound showing evidence of acute cholecystitis. Patient is n.p.o. and was placed on Rocephin and Flagyl. Patient admitted under general surgery and hospitalist consulted for medical management. EKG was done showing atrial flutter with controlled rate. Patient does take a rate control medication and he is chronically anticoagulated on Eliquis. He denies having any shortness of breath or chest pain. Review of system : Negative except for mentioned HPI PE : General: nontoxic, no distress, appears at stated age Derm: warm, dry, intact Head: atraumatic, normocephalic, symmetric Eyes: EOMI, anicteric sclera Mouth: no lip lesion, mucus membranes moist Cardiovascular: S1 S2 reg, no murmur, rubs, or gallops . Regular rate Lungs: CTA bilateral, no rales, no accessory muscle use Abdominal: Right upper quadrant tenderness on palpation Extremities: Right lower extremity with wound VAC in place Assessment and plan : - Acute cholecystitis : General surgery consulted plan for surgery Patient denies having any shortness of breath, chest pain or palpitation. His revised cardiac risk index for preoperative risk is 2 points which is 5% risk of major cardiac event. However his functional capacity is considered good Continue with IV fluids and pain management -Chronic atrial flutter/A-fib: Rate controlled with metoprolol tartrate 25 mg twice daily Hold Eliquis for now in anticipation for surgery tomorrow -Insulin-dependent type 2 diabetes mellitus: Will keep patient on low-dose insulin sliding scale for now Resume Lantus tomorrow HbA1c -Essential hypertension: Continue with Procardia and metoprolol -History of CVA/TIA: Continue statin therapy Will hold aspirin for now -CAD status post triple bypass and PCI with stenting : Patient is usually on aspirin and statin Continue with statin therapy and will hold aspirin for now CODE STATUS is full code DVT prophylaxis on SCD Thank you for the consult and will continue to follow Time spent: 55 min Past Medical History Past Medical History: Cancer, CVA/TIA, Diabetes Mellitus, Hypertension, Myocardial Infarction ([place]), Skin Disorder Additional Past Medical History / Comment(s): See Dr Yasir Mckee O's H&P. Hx prostate cancer 2004, hx melanoma, hx CVA or petite mal in 2006, with no residual deficits and no problems since, hx [place] X2. Last Myocardial Infarction Date:: 2011 History of Any Multi-Drug Resistant Organisms: None Reported Past Surgical History: Coronary Bypass/CABG, Heart Catheterization With Stent Additional Past Surgical History / Comment(s): Triple bypass, 4 stents that failed, radical prostectomy, skin cancer removal, amputation of 2nd right toe and 5th right toe, bilateral cataract surgery. Past Anesthesia/Blood Transfusion Reactions: No Reported Reaction Date of Last Stent Placement:: 2011 Past Psychological History: No Psychological Hx Reported Smoking Status: Never smoker - Past Family History Mother Family Medical History: No Reported History Father Family Medical History: Cancer Additional Family Medical History / Comment(s): Liver cancer. Brother(s) Family Medical History: Cancer Additional Family Medical History / Comment(s): Bladder cancer. Medications and Allergies Home Medications Medication Instructions Recorded Confirmed Type Apixaban [Eliquis] 5 mg PO BID 01/02/24 01/15/25 History Aspirin EC [Ecotrin Low Dose] 81 mg PO DAILY 01/02/24 01/15/25 History Mirabegron [Myrbetriq] 50 mg PO DAILY 01/02/24 01/15/25 History PARoxetine [Paxil] 10 mg PO DAILY 01/02/24 01/15/25 History Insulin Glargine,Hum.rec.anlog 20 units SQ HS 04/24/24 01/15/25 History [Lantus Solostar Pen] Metoprolol Tartrate [Lopressor] 25 mg PO BID 04/24/24 01/15/25 History Atorvastatin [Lipitor] 80 mg PO HS 10/26/24 01/15/25 History Empagliflozin [Jardiance] 25 mg PO DAILY 10/26/24 01/15/25 History NIFEdipine XL [Procardia Xl] 30 mg PO DAILY #30 tab 11/03/24 01/15/25 Rx glipiZIDE [Glucotrol] 10 mg PO BID-W/MEALS 01/15/25 01/15/25 History Allergies Allergy/AdvReac Type Severity Reaction Status Date / Time No Known Allergies Allergy Verified 01/15/25 19:22 Physical Exam Vitals: Vital Signs Temp Pulse Pulse Resp BP BP Pulse Ox 01/15/25 20:45 98.3 F 84 18 146/71 100 01/15/25 20:00 82 18 138/76 97 01/15/25 18:12 79 18 135/65 97 01/15/25 16:28 99.2 F 96 18 107/71 99 Intake and Output 01/15/25 01/15/25 01/16/25 14:59 22:59 06:59 Other: Voiding Method Urinal Weight 77.111 kg Results CBC & Chem 7: 01/15/25 16:55 01/15/25 16:55 Labs: Abnormal Lab Results - Last 24 Hours (Table) 01/15/25 01/15/25 01/15/25 Range/Units 16:55 16:55 17:04 RBC 3.99 L (4.40-5.60) 10*6/uL Hgb 12.7 L (13.0-17.0) g/dL Hct 35.4 L (39.6-50.0) % Monocytes # 1.19 H (0.20-1.00) 10*3/uL Eosinophils # 0.01 L (0.04-0.35) 10*3/uL Sodium 130 L (137-145) mmol/L Chloride 92 L (98-107) mmol/L BUN 39 H (9-20) mg/dL Creatinine 1.30 H (0.66-1.25) mg/dL Glucose 259 H (74-99) mg/dL POC Glucose (mg/dL) (70-110) mg/dL Alkaline Phosphatase 386 H (38-126) U/L Urine Protein 1+ H (Negative) Urine Glucose (UA) 4+ H (Negative) Urine Blood Trace H (Negative) 01/15/25 Range/Units 20:47 RBC (4.40-5.60) 10*6/uL Hgb (13.0-17.0) g/dL Hct (39.6-50.0) % Monocytes # (0.20-1.00) 10*3/uL Eosinophils # (0.04-0.35) 10*3/uL Sodium (137-145) mmol/L Chloride (98-107) mmol/L BUN (9-20) mg/dL Creatinine (0.66-1.25) mg/dL Glucose (74-99) mg/dL POC Glucose (mg/dL) 175 H (70-110) mg/dL Alkaline Phosphatase (38-126) U/L Urine Protein (Negative) Urine Glucose (UA) (Negative) Urine Blood (Negative)
[2025-01-16] MEDS: ACETAMINOPHEN TAB 500 MG TAB PO PRN (01:34)
[2025-01-16 02:02] LABS: Basophils # (A) 0.01 10*3/uL (0.00-0.10); Basophils % (A) 0.1 %; Eosinophils # (A) 0.02 10*3/uL (0.04-0.35); Eosinophils % (A) 0.3 %; HCT 33.0 % (39.6-50.0); HGB 11.6 g/dL (13.0-17.0); Lymphocytes # (A) 0.66 10*3/uL (0.90-5.00); Lymphocytes % (A) 8.9 %; MCH 31.6 pg (27.0-32.0); MCHC 35.2 g/dL (32.0-37.0); MCV 89.9 fL (80.0-97.0); Monocytes # (A) 1.16 10*3/uL (0.20-1.00); Monocytes % (A) 15.7 %; Neutrophils # (A) 5.51 10*3/uL (1.80-7.70); Neutrophils % (A) 74.7 %; Platelet Count 209 10*3/uL (140-440); RBC 3.67 10*6/uL (4.40-5.60); RDW 14.8 % (11.5-14.5); WBC 7.38 10*3/uL (4.50-10.00)
[2025-01-16 02:33] LABS: ALT 20 U/L (4-49); AST 45 U/L (17-59); African American GFR (CKD) 65 (>60 ml/min/1.73 sqM); Albumin 3.2 g/dL (3.5-5.0); Albumin/Globulin Ratio 1.3; Alkaline Phosphatase 355 U/L (38-126); Anion Gap 14 mmol/L; Blood Urea Nitrogen 34 mg/dL (9-20); Calcium 8.5 mg/dL (8.4-10.2); Carbon Dioxide 22 mmol/L (22-30); Chloride 97 mmol/L (98-107); Globulin 2.5 g/dL; Glucose 97 mg/dL (74-99); Non-African American GFR(CKD) 57 (>60 ml/min/1.73 sqM); Potassium 3.3 mmol/L (3.5-5.1); Sodium 133 mmol/L (137-145); Total Protein 5.7 g/dL (6.3-8.2)
[2025-01-16 05:42] LABS: Glucose,Whole Blood 124 mg/dL (70-110)
[2025-01-16] MEDS: INSULIN LISPRO (HumaLOG) 100 UNIT/ML 10 mL VL SQ SCH (06:22)
[2025-01-16] MEDS: POTASSIUM CHLORIDE 10 MEQ in WATER FOR INJECTION 1 100ML.BAG IVPB SCH (06:25)
--- NOTE | 2025-01-16 08:28 | P.GSHP ---
History of Present Illness H&P Date: 01/16/25 74-year-old male presented to the emergency department with complaint of epigastric pain. The pain was radiating to the right upper quadrant. Ultrasound of the abdomen with findings concerning for acute cholecystitis. Normal bilirubin level noted. Patient does have history of taking anticoagulat ion with history of coronary artery bypass, PCI with stenting and CVA/TIA. His last dose was yesterday morning. Patient was started on IV antibiotics. Being followed by medicine service. - Review of Systems All systems: negative Past Medical History Past Medical History: Cancer, CVA/TIA, Diabetes Mellitus, Hypertension, Myocardial Infarction ([place]), Skin Disorder Additional Past Medical History / Comment(s): See Dr Yasir Fraga H&P. Hx prostate cancer 2004, hx melanoma, hx CVA or petite mal in 2006, with no residual deficits and no problems since, hx [place] X2. Last Myocardial Infarction Date:: 2011 History of Any Multi-Drug Resistant Organisms: None Reported Past Surgical History: Coronary Bypass/CABG, Heart Catheterization With Stent Additional Past Surgical History / Comment(s): Triple bypass, 4 stents that failed, radical prostectomy, skin cancer removal, amputation of 2nd right toe and 5th right toe, bilateral cataract surgery. Past Anesthesia/Blood Transfusion Reactions: No Reported Reaction Date of Last Stent Placement:: 2011 Past Psychological History: No Psychological Hx Reported Smoking Status: Never smoker - Past Family History Mother Family Medical History: No Reported History Father Family Medical History: Cancer Additional Family Medical History / Comment(s): Liver cancer. Brother(s) Family Medical History: Cancer Additional Family Medical History / Comment(s): Bladder cancer. Medications and Allergies Home Medications Medication Instructions Recorded Confirmed Type Apixaban [Eliquis] 5 mg PO BID 01/02/24 01/15/25 History Aspirin EC [Ecotrin Low Dose] 81 mg PO DAILY 01/02/24 01/15/25 History Mirabegron [Myrbetriq] 50 mg PO DAILY 01/02/24 01/15/25 History PARoxetine [Paxil] 10 mg PO DAILY 01/02/24 01/15/25 History Insulin Glargine,Hum.rec.anlog 20 units SQ HS 04/24/24 01/15/25 History [Lantus Solostar Pen] Metoprolol Tartrate [Lopressor] 25 mg PO BID 10/11/24 07/04/25 History Atorvastatin [Lipitor] 80 mg PO HS 10/26/24 01/15/25 History Empagliflozin [Jardiance] 25 mg PO DAILY 10/26/24 01/15/25 History NIFEdipine XL [Procardia Xl] 30 mg PO DAILY #30 tab 11/03/24 01/15/25 Rx glipiZIDE [Glucotrol] 10 mg PO BID-W/MEALS 01/15/25 01/15/25 History Allergies Allergy/AdvReac Type Severity Reaction Status Date / Time No Known Allergies Allergy Verified 01/15/25 19:22 Surgical - Exam Osteopathic Statement: *. No significant issues noted on an osteopathic structural exam other than those noted in the History and Physical/Consult. Vital Signs Temp Pulse Resp BP Pulse Ox 99.2 F 96 18 107/71 99 01/15/25 16:28 01/15/25 16:28 01/15/25 16:28 01/15/25 16:28 01/15/25 16:28 - General no distress - Eyes normal ocular movement - ENT no hearing loss - Neck trachea midline - Respiratory normal respiratory effort - Abdomen Soft, mild tenderness in right upper quadrant, nondistended - Psychiatric oriented to time, oriented to person, oriented to place Results - Labs 01/16/25 01:41 01/16/25 01:41 Abnormal Lab Results - Last 24 Hours (Table) 01/15/25 01/15/25 01/15/25 Range/Units 16:55 16:55 17:04 RBC 3.99 L (4.40-5.60) 10*6/uL Hgb 12.7 L (13.0-17.0) g/dL Hct 35.4 L (39.6-50.0) % RDW (11.5-14.5) % Lymphocytes # (0.90-5.00) 10*3/uL Monocytes # 1.19 H (0.20-1.00) 10*3/uL Eosinophils # 0.01 L (0.04-0.35) 10*3/uL Sodium 130 L (137-145) mmol/L Potassium (3.5-5.1) mmol/L Chloride 92 L (98-107) mmol/L BUN 39 H (9-20) mg/dL Creatinine 1.30 H (0.66-1.25) mg/dL Glucose 259 H (74-99) mg/dL POC Glucose (mg/dL) (70-110) mg/dL Alkaline Phosphatase 386 H (38-126) U/L Total Protein (6.3-8.2) g/dL Albumin (3.5-5.0) g/dL Urine Protein 1+ H (Negative) Urine Glucose (UA) 4+ H (Negative) Urine Blood Trace H (Negative) 01/15/25 01/16/25 01/16/25 Range/Units 20:47 01:41 01:41 RBC 3.67 L (4.40-5.60) 10*6/uL Hgb 11.6 L (13.0-17.0) g/dL Hct 33.0 L (39.6-50.0) % RDW 14.8 H (11.5-14.5) % Lymphocytes # 0.66 L (0.90-5.00) 10*3/uL Monocytes # 1.16 H (0.20-1.00) 10*3/uL Eosinophils # 0.02 L (0.04-0.35) 10*3/uL Sodium 133 L (137-145) mmol/L Potassium 3.3 L (3.5-5.1) mmol/L Chloride 97 L (98-107) mmol/L BUN 34 H (9-20) mg/dL Creatinine (0.66-1.25) mg/dL Glucose (74-99) mg/dL POC Glucose (mg/dL) 175 H (70-110) mg/dL Alkaline Phosphatase 355 H (38-126) U/L Total Protein 5.7 L (6.3-8.2) g/dL Albumin 3.2 L (3.5-5.0) g/dL Urine Protein (Negative) Urine Glucose (UA) (Negative) Urine Blood (Negative) 01/16/25 Range/Units 05:40 RBC (4.40-5.60) 10*6/uL Hgb (13.0-17.0) g/dL Hct (39.6-50.0) % RDW (11.5-14.5) % Lymphocytes # (0.90-5.00) 10*3/uL Monocytes # (0.20-1.00) 10*3/uL Eosinophils # (0.04-0.35) 10*3/uL Sodium (137-145) mmol/L Potassium (3.5-5.1) mmol/L Chloride (98-107) mmol/L BUN (9-20) mg/dL Creatinine (0.66-1.25) mg/dL Glucose (74-99) mg/dL POC Glucose (mg/dL) 124 H (70-110) mg/dL Alkaline Phosphatase (38-126) U/L Total Protein (6.3-8.2) g/dL Albumin (3.5-5.0) g/dL Urine Protein (Negative) Urine Glucose (UA) (Negative) Urine Blood (Negative) Diabetes panel 01/15/25 01/16/25 Range/Units 16:55 01:41 Sodium 130 L 133 L (137-145) mmol/L Potassium 3.9 3.3 L (3.5-5.1) mmol/L Chloride 92 L 97 L (98-107) mmol/L Carbon Dioxide 23 22 (22-30) mmol/L BUN 39 H 34 H (9-20) mg/dL Creatinine 1.30 H 1.24 (0.66-1.25) mg/dL Glucose 259 H 97 (74-99) mg/dL Calcium 9.0 8.5 (8.4-10.2) mg/dL AST 52 45 (17-59) U/L ALT 22 20 (4-49) U/L Alkaline Phosphatase 386 H 355 H (38-126) U/L Total Protein 6.7 5.7 L (6.3-8.2) g/dL Albumin 3.7 3.2 L (3.5-5.0) g/dL Calcium panel 01/15/25 01/16/25 Range/Units 16:55 01:41 Calcium 9.0 8.5 (8.4-10.2) mg/dL Albumin 3.7 3.2 L (3.5-5.0) g/dL Pituitary panel 01/15/25 01/16/25 Range/Units 16:55 01:41 Sodium 130 L 133 L (137-145) mmol/L Potassium 3.9 3.3 L (3.5-5.1) mmol/L Chloride 92 L 97 L (98-107) mmol/L Carbon Dioxide 23 22 (22-30) mmol/L BUN 39 H 34 H (9-20) mg/dL Creatinine 1.30 H 1.24 (0.66-1.25) mg/dL Glucose 259 H 97 (74-99) mg/dL Calcium 9.0 8.5 (8.4-10.2) mg/dL Adrenal panel 01/15/25 01/16/25 Range/Units 16:55 01:41 Sodium 130 L 133 L (137-145) mmol/L Potassium 3.9 3.3 L (3.5-5.1) mmol/L Chloride 92 L 97 L (98-107) mmol/L Carbon Dioxide 23 22 (22-30) mmol/L BUN 39 H 34 H (9-20) mg/dL Creatinine 1.30 H 1.24 (0.66-1.25) mg/dL Glucose 259 H 97 (74-99) mg/dL Calcium 9.0 8.5 (8.4-10.2) mg/dL Total Bilirubin 1.2 1.0 (0.2-1.3) mg/dL AST 52 45 (17-59) U/L ALT 22 20 (4-49) U/L Alkaline Phosphatase 386 H 355 H (38-126) U/L Total Protein 6.7 5.7 L (6.3-8.2) g/dL Albumin 3.7 3.2 L (3.5-5.0) g/dL Assessment and Plan Plan: 74-year-old male with concern for acute cholecystitis. Okay for clear liquid diet with n.p.o. after midnight with anticipated cholecystectomy. Cardiology consultation has been placed for cardiac risk stratification. Medicine consult is noted for diabetes and medical management. Continue IV antibiotics.
[2025-01-16] MEDS: AMPICILLIN-SULBACTAM 3 GM in SODIUM CHLORIDE 0.9% 100 ML IVPB SCH (11:00)
[2025-01-16 12:04] LABS: Glucose,Whole Blood 133 mg/dL (70-110)
[2025-01-16] MEDS: NIFEdipine XL 30 MG TAB.ER.24 PO SCH (12:21)
[2025-01-16] MEDS: METOPROLOL TARTRATE 25 MG TAB PO SCH (12:21)
--- NOTE | 2025-01-16 13:30 | P.CRDCN ---
History of Present Illness Consult date: 01/16/25 Consult reason: pre-op evaluation Chief complaint: abdominal pain History of present illness: i History of present illness: Herber is a pleasant 74-year-old male with significant past medical history of CAD status post PCI and triple bypass in 2019, hypertension, hyperlipidemia, atrial flutter, diabetes, history of CVA, history of amputation of the second right toe with wound VAC placement who presented with complaints of abdominal pain. He does follow with Dr. Herrera in the office. Cardiology was consulted for preoperative evaluation prior to cholecystectomy. He states he has been having abdominal pain for the past 1 week and has not been able to eat. He has lost 10 pounds. No chest pain or pressure. No shortness of breath. He is limited in activities due to wound vac on foot for the past few months. Last stress test was believed to be within the past 1 year and was unremarkable. He states he has not had any issues since. EKG shows atrial flutter with rate control 84 bpm. Patient is asymptomatic with this. REVIEW OF SYSTEMS: No fever or chills. No cough or expectoration. No diaphoresis. Patient denies headache, dizziness, blurred vision, double vision. No hematochezia. No hematemesis. Denies any black stools or blood in his stools. Denies dysuria or hematuria. No muscle weakness or numbness. No chest pain or pressure. Reports abdominal pain. PHYSICAL EXAMINATION: This is a 74-year-old male in no apparent distress at the time of my examination. HEENT: Head is atraumatic, normocephalic. Pupils are equal, round. Sclerae anicteric. Conjunctivae are clear. Mucous membranes of the mouth are moist. Neck is supple. There is no jugular venous distention. No carotid bruit is heard. CHEST EXAMINATION: Lungs are clear to auscultation. No chest wall tenderness is noted on palpation or with deep breathing. HEART EXAMINATION: Heart regular rate and rhythm. S1, S2 heard. No murmurs, gallops or rub. ABDOMEN: Soft, nontender. Bowel sounds are heard. EXTREMITIES: 2+ peripheral pulses with no evidence of peripheral edema and no calf tenderness noted. NEUROLOGIC EXAMINATION: Patient is awake, alert and oriented x3. IMPRESSION AND PLAN: CAD s/p PCI and CABG in 2019 Hypertension Hyperlipidemia Atrial flutter Diabetes type 2 History of CVA History of toe amputation with wound VAC placement Preoperative evaluation for cholecystectomy PLAN: OK to hold Eliquis for surgery, resume once cleared by surgeon post procedure. Patient is cleared for surgery from a cardiac standpoint with mo derate risk as benefits outweigh risks. I am dictating on behalf of Dr. Sigifredo Krause's history/physical and assessment/plan. Past Medical History Past Medical History: Cancer, CVA/TIA, Diabetes Mellitus, Hypertension, Myocardial Infarction ([place]), Skin Disorder Additional Past Medical History / Comment(s): See Dr Yasir Collado's H&P. Hx prostate cancer 2004, hx melanoma, hx CVA or petite mal in 2006, with no residual deficits and no problems since, hx [place] X2. Last Myocardial Infarction Date:: 2011 History of Any Multi-Drug Resistant Organisms: None Reported Past Surgical History: Coronary Bypass/CABG, Heart Catheterization With Stent Additional Past Surgical History / Comment(s): Triple bypass, 4 stents that failed, radical prostectomy, skin cancer removal, amputation of 2nd right toe and 5th right toe, bilateral cataract surgery. Past Anesthesia/Blood Transfusion Reactions: No Reported Reaction Date of Last Stent Placement:: 2011 Past Psychological History: No Psychological Hx Reported Smoking Status: Never smoker - Past Family History Mother Family Medical History: No Reported History Father Family Medical History: Cancer Additional Family Medical History / Comment(s): Liver cancer. Brother(s) Family Medical History: Cancer Additional Family Medical History / Comment(s): Bladder cancer. Medications and Allergies Home Medications Medication Instructions Recorded Confirmed Type Apixaban [Eliquis] 5 mg PO BID 01/02/24 01/15/25 History Aspirin EC [Ecotrin Low Dose] 81 mg PO DAILY 01/02/24 01/15/25 History Mirabegron [Myrbetriq] 50 mg PO DAILY 01/02/24 01/15/25 History PARoxetine [Paxil] 10 mg PO DAILY 01/02/24 01/15/25 History Insulin Glargine,Hum.rec.anlog 20 units SQ HS 04/24/24 01/15/25 History [Lantus Solostar Pen] Metoprolol Tartrate [Lopressor] 25 mg PO BID 04/24/24 01/15/25 History Atorvastatin [Lipitor] 80 mg PO HS 10/26/24 01/15/25 History Empagliflozin [Jardiance] 25 mg PO DAILY 10/26/24 01/15/25 History NIFEdipine XL [Procardia Xl] 30 mg PO DAILY #30 tab 11/03/24 01/15/25 Rx glipiZIDE [Glucotrol] 10 mg PO BID-W/MEALS 01/15/25 01/15/25 History Allergies Allergy/AdvReac Type Severity Reaction Status Date / Time No Known Allergies Allergy Verified 01/15/25 19:22 Physical Exam Vitals: Vital Signs Temp Pulse Pulse Pulse Resp BP BP 01/16/25 08:00 80 88 18 01/16/25 07:11 98.2 F 80 18 117/58 01/16/25 04:10 98.5 F 01/16/25 01:10 101.1 F H 88 17 121/69 01/15/25 20:45 98.3 F 84 18 146/71 01/15/25 20:00 82 18 138/76 01/15/25 18:12 79 18 135/65 01/15/25 16:28 99.2 F 96 18 107/71 Pulse Ox 01/16/25 08:00 01/16/25 07:11 100 01/16/25 04:10 01/16/25 01:10 97 01/15/25 20:45 100 01/15/25 20:00 97 01/15/25 18:12 97 01/15/25 16:28 99 Intake and Output 01/15/25 01/16/25 01/16/25 22:59 06:59 14:59 Intake Total 180 Balance 180 Intake: Oral 180 Other: Voiding Method Urinal Urinal # Voids 1 2 Weight 77.111 kg Results 01/16/25 01:41 01/16/25 01:41 Cardiac Enzymes 01/15/25 01/15/25 01/16/25 Range/Units 16:55 16:55 01:41 AST 52 45 (17-59) U/L Troponin I 0.026 (0.000-0.034) ng/mL CBC 01/15/25 01/16/25 Range/Units 16:55 01:41 WBC 9.68 7.38 (4.50-10.00) 10*3/uL RBC 3.99 L 3.67 L (4.40-5.60) 10*6/uL Hgb 12.7 L 11.6 L (13.0-17.0) g/dL Hct 35.4 L 33.0 L (39.6-50.0) % Plt Count 255 209 (140-440) 10*3/uL Comprehensive Metabolic Panel 01/15/25 01/16/25 Range/Units 16:55 01:41 Sodium 130 L 133 L (137-145) mmol/L Potassium 3.9 3.3 L (3.5-5.1) mmol/L Chloride 92 L 97 L (98-107) mmol/L Carbon Dioxide 23 22 (22-30) mmol/L BUN 39 H 34 H (9-20) mg/dL Creatinine 1.30 H 1.24 (0.66-1.25) mg/dL Glucose 259 H 97 (74-99) mg/dL Calcium 9.0 8.5 (8.4-10.2) mg/dL AST 52 45 (17-59) U/L ALT 22 20 (4-49) U/L Alkaline Phosphatase 386 H 355 H (38-126) U/L Total Protein 6.7 5.7 L (6.3-8.2) g/dL Albumin 3.7 3.2 L (3.5-5.0) g/dL Current Medications Generic Name Dose Route Start Last Admin Trade Name Freq PRN Reason Stop Dose Admin Acetaminophen 500 mg 01/16/25 01:22 01/16/25 01:34 Acetaminophen Tab 500 Mg Tab PO 500 mg Q6HR PRN Administration Fever and/ or Pain Sodium Chloride 1,000 mls @ 75 mls/hr 01/15/25 18:45 01/15/25 18:47 Saline 0.9% IV 75 mls/hr .[id number] BRUNO Administration Ampicillin Sodium/Sulbactam 100 mls @ 200 mls/hr 01/16/25 08:00 01/16/25 11:00 Sodium 3 gm/ Sodium Chloride IVPB 200 mls/hr Q8HR BRUNO Administration Protocol Insulin Human Lispro 0 unit 01/16/25 07:30 01/16/25 06:22 Insulin Lispro (Humalog) 100 Unit/Ml 10 Ml Vl SQ Not Given AC-TID BRUNO Protocol Metoprolol Tartrate 25 mg 01/16/25 09:00 Metoprolol Tartrate 25 Mg Tab PO BID BRUNO Morphine Sulfate 4 mg 01/15/25 16:50 Morphine Sulfate 4 Mg/Ml Syringe IVP Q4HR PRN Pain Naloxone HCl 0.2 mg 01/15/25 18:36 Naloxone 0.4 Mg/Ml 1 Ml Vial IV Q2M PRN Opioid Reversal Nifedipine 30 mg 01/16/25 09:00 Nifedipine Xl 30 Mg Tab.Er.24 PO DAILY [facility] Ondansetron HCl 4 mg 01/15/25 18:36 Ondansetron 4 Mg/2 Ml Vial IVP Q8HR PRN Nausea And Vomiting Trazodone HCl 50 mg 01/16/25 01:22 01/16/25 01:32 Trazodone Hcl 50 Mg Tab PO 50 mg HS PRN Administration insomnia Intake and Output 01/15/25 01/16/25 01/16/25 22:59 06:59 14:59 Intake Total 180 Balance 180 Intake: Oral 180 Other: Voiding Method Urinal Urinal # Voids 1 2 Weight 77.111 kg 01/16/25 01:41 01/16/25 01:41
--- NOTE | 2025-01-16 13:56 | P.PN ---
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 He presented to the hospital on 01/15/2025 with a chief complaint of epigastric/abdominal pain accompanied by n ausea and vomiting. Upon arrival to our facility, patient underwent evaluation in the emergency department. Vital signs upon arrival show blood pressure 107/71, heart rate 96, respiratory rate 18, temp 99.2 F, and SpO2 of 99% on room air. Shortly after arrival temperature elevating to 101.1 F. EKG completed showing atrial fibrillation with a controlled ventricular rate of 84 bpm with nonspecific T wave abnormalities throughout inferior, anterior and lateral leads. Labs were completed and reviewed. CBC showing stable normocytic anemia with hemoglobin of 12.7. BMP showing hyponatremia with sodium of 130, chloride of 92, and consistent with known CKD stage IIIb with BUN of 39, creatinine of 1.30, GFR 53 which appears to be at patient's baseline. Blood glucose elevated at 259. Lactic acid 1.9. Liver profile showing elevated alkaline phosphatase of 386. Troponin was 0.026. Amylase and lipase normal findings. Urinalysis positive for protein, glucose, and trace blood negative f or infection. Abdominal ultrasound completed showing concerns for acute cholecystitis with hydropic gallbladder, gallstone sludge, wall thickening, pericardial fluid with borderline enlarged liver. Patient was started on IV antibiotics with Rocephin and Flagyl and admitted under general surgery team. We were consulted for medical management and cardiology was consulted for cardiac clearance. Physical exam: Vital signs reviewed and stable. General: Nontoxic, no distress and appears stated age. Derm: Skin warm and dry, normal coloration for ethnicity. Head: Atraumatic, normocephalic and symmetric. Eyes: EOM's intact, no lid lag, and anicteric sclera Mouth: no lip lesions, mucus membranes moist Cardiovascular: Irregularly irregular, systolic murmur, positive posterior tibial pulses bilaterally, and cap refill < 2 seconds. Lungs: Respirations even, regular, and unlabored on room air. Lungs CTA bilaterally, no rhonchi, no rales, no wheezing, and no accessory muscle usage. Abdominal: soft, tenderness upon palpation to epigastric, right upper quadrant, and upper right lower quadrant, no guarding, no appreciable organomegaly Ext: ROM intact. No gross muscle atrophy, no edema, no contractures. Wound VAC in place right foot. Neuro: Speech clear, face symmetrical and CN II-XII grossly intact with no noted focal neuro deficits Psych: Alert and oriented to person, place, time, and situation. Appropriate and pleasant affect. Assessment and Plan of Care: Acute cholecystitis Sepsis on arrival, secondary to above -Patient admitted under general surgery team with plans for laparoscopic cholecystectomy tomorrow morning. -Sepsis as evidenced by heart rate 96, elevated temp up to 101.1 F, and known infection from acute cholecystitis -Continue IV antibiotics with Unasyn 3 g every 8 hours -Follow-up on blood culture results -Continue close monitoring of CBC and CMP with repeat a.m. labs. -Symptomatic care and pain management with Tylenol 500 mg every 6 hours as needed for mild pain and/or fever, [place] 5/325 mg tablets every 4 hours as needed for moderate pain, and morphine 4 mg IVP every 4 hours as needed for severe pain. Insulin-dependent diabetes mellitus with hyperglycemia Continue Jardiance 25 mg daily, Lantus 20 units nightly, and patient placed on glycemic protocol with Humalog sliding scale. Hemoglobin A1c 8.4%. CAD with previous stenting followed by CABG x 3 Chronic atrial fibrillation Hypertension History of CVA without residual deficits -Hold Eliquis and aspirin pending completion of surgery, recommend resumption once cleared by general surgery team to resume. -Continue cardiac medication regimen with atorvastatin 80 mg nightly, Jardiance 25 mg daily, metoprolol 25 mg twice daily, and nifedipine 30 mg daily. -Cardiology was consulted for cardiac clearance to undergo laparoscopic cholecystectomy. Discussed with cardiac BAKER SECOND stating patient is cleared to undergo planned procedure from cardiac standpoint with no absolute contraindications. Status post recent toe amputation of 2nd and 5th digits of right foot on 12/15/2024 - Continue wound VAC Data and imaging reviewed: Morning labs reviewed. CBC showing normocytic anemia with hemoglobin of 11.6. BMP showing hypochloremic hyponatremia with sodium of 133, chloride 97 and hypokalemia with potassium of 3.3. Renal function remained stable and at baseline with BUN of 34, creatinine 1.24, GFR 57. Liver profile showing elevated alkaline phosphatase of 355. Procalcitonin was elevated at 1.88. Vital signs reviewed. Blood pressure 117/58, heart rate 80, respiratory rate 18, temp 98.2 F, SpO2 100% on room air. Temperature high over the past 24 hours is 101.1 F. Thank you for allowing us to participate in the care of this pleasant patient. Do not hesitate to contact us with questions. Someone can be reached from the [facility] hospitalist group all hours of the day at [phone] or via [employer]. Patient was seen independently by Nurse Pracitioner. This document was prepared using [employer] dictation software. Please allow for errors in chief crna, while rare they do occur. Magdiel Calderon NP rendered care for this patient independently, reviewed the findin gs and plan as documented in the note above and agree with plan. I did not physically speak with or examine the patient on this date. Objective - Vital Signs Vital signs: Vital Signs Temp 98.2 F 01/16/25 07:11 Pulse 80 01/16/25 07:11 Resp 18 01/16/25 07:11 BP 117/58 01/16/25 07:11 Pulse Ox 100 01/16/25 07:11 FiO2 Intake & Output 01/15/25 01/16/25 01/16/25 18:59 06:59 18:59 Intake Total 180 Balance 180 Weight 77.111 kg 77.111 kg Intake: Oral 180 Other: Voiding Method Urinal # Voids 2 - Labs CBC & Chem 7: 01/16/25 01:41 01/16/25 01:41 Labs: Abnormal Lab Results - Last 24 Hours (Table) 01/15/25 01/15/25 01/15/25 Range/Units 16:55 16:55 17:04 RBC 3.99 L (4.40-5.60) 10*6/uL Hgb 12.7 L (13.0-17.0) g/dL Hct 35.4 L (39.6-50.0) % RDW (11.5-14.5) % Lymphocytes # (0.90-5.00) 10*3/uL Monocytes # 1.19 H (0.20-1.00) 10*3/uL Eosinophils # 0.01 L (0.04-0.35) 10*3/uL Sodium 130 L (137-145) mmol/L Potassium (3.5-5.1) mmol/L Chloride 92 L (98-107) mmol/L BUN 39 H (9-20) mg/dL Creatinine 1.30 H (0.66-1.25) mg/dL Glucose 259 H (74-99) mg/dL POC Glucose (mg/dL) (70-110) mg/dL Alkaline Phosphatase 386 H (38-126) U/L Total Protein (6.3-8.2) g/dL Albumin (3.5-5.0) g/dL Urine Protein 1+ H (Negative) Urine Glucose (UA) 4+ H (Negative) Urine Blood Trace H (Negative) 01/15/25 01/16/25 01/16/25 Range/Units 20:47 01:41 01:41 RBC 3.67 L (4.40-5.60) 10*6/uL Hgb 11.6 L (13.0-17.0) g/dL Hct 33.0 L (39.6-50.0) % RDW 14.8 H (11.5-14.5) % Lymphocytes # 0.66 L (0.90-5.00) 10*3/uL Monocytes # 1.16 H (0.20-1.00) 10*3/uL Eosinophils # 0.02 L (0.04-0.35) 10*3/uL Sodium 133 L (137-145) mmol/L Potassium 3.3 L (3.5-5.1) mmol/L Chloride 97 L (98-107) mmol/L BUN 34 H (9-20) mg/dL Creatinine (0.66-1.25) mg/dL Glucose (74-99) mg/dL POC Glucose (mg/dL) 175 H (70-110) mg/dL Alkaline Phosphatase 355 H (38-126) U/L Total Protein 5.7 L (6.3-8.2) g/dL Albumin 3.2 L (3.5-5.0) g/dL Urine Protein (Negative) Urine Glucose (UA) (Negative) Urine Blood (Negative) 01/16/25 Range/Units 05:40 RBC (4.40-5.60) 10*6/uL Hgb (13.0-17.0) g/dL Hct (39.6-50.0) % RDW (11.5-14.5) % Lymphocytes # (0.90-5.00) 10*3/uL Monocytes # (0.20-1.00) 10*3/uL Eosinophils # (0.04-0.35) 10*3/uL Sodium (137-145) mmol/L Potassium (3.5-5.1) mmol/L Chloride (98-107) mmol/L BUN (9-20) mg/dL Creatinine (0.66-1.25) mg/dL Glucose (74-99) mg/dL POC Glucose (mg/dL) 124 H (70-110) mg/dL Alkaline Phosphatase (38-126) U/L Total Protein (6.3-8.2) g/dL Albumin (3.5-5.0) g/dL Urine Protein (Negative) Urine Glucose (UA) (Negative) Urine Blood (Negative)
[2025-01-16 17:12] LABS: Glucose,Whole Blood 169 mg/dL (70-110)
[2025-01-16 19:53] LABS: Glucose,Whole Blood 139 mg/dL (70-110)
[2025-01-16] MEDS: ATORVASTATIN 80 MG TAB PO SCH (20:06)
[2025-01-16] MEDS: INSULIN GLARGINE (LANTUS) 100 UNIT/ML SYR SQ SCH (20:06)
[2025-01-17 06:17] LABS: Glucose,Whole Blood 77 mg/dL (70-110)
[2025-01-17] MEDS: DAPAGLIFLOZIN PROPANEDIOL 10 MG TABLET PO SCH (07:56)
[2025-01-17] MEDS: PARoxetine 10 MG TAB PO SCH (07:57)
[2025-01-17 08:55] LABS: HCT 34.0 % (39.6-50.0); HGB 11.6 g/dL (13.0-17.0); MCH 30.8 pg (27.0-32.0); MCHC 34.1 g/dL (32.0-37.0); MCV 90.2 FL (80.0-97.0); NRBC Per 100 WBC 0 X 10*3/uL (0.00-0.01); Platelet Count 237 X 10*3/uL (140-440); RBC 3.77 X 10*6/uL (4.40-5.60); RDW 14.9 % (11.5-14.5); WBC 7.03 X 10*3/uL (4.50-10.00)
[2025-01-17 09:04] LABS: BUN/Creat Ratio 21.92 Ratio (12.00-20.00); Blood Urea Nitrogen 26.3 mg/dL (9.0-27.0); Chloride 100 mmol/L (96-109); Glucose 81 mg/dL (70-110); Magnesium 2.0 mg/dL (1.5-2.4); Potassium 2.9 mmol/L (3.5-5.5); Sodium 136 mmol/L (135-145)
[2025-01-17 09:05] LABS: ALT 18 U/L (10-49); AST 35 U/L (14-35); Albumin 3.2 g/dL (3.8-4.9); Albumin/Globulin Ratio 1.39 Ratio (1.60-3.17); Alkaline Phosphatase 422 U/L (41-126); Anion Gap 15.60 mmol/L (4.00-12.00); Calcium 8.1 mg/dL (8.7-10.3); Carbon Dioxide 20.4 mmol/L (21.6-31.8); Globulin 2.3 g/dL (1.6-3.3); Total Protein 5.5 g/dL (6.2-8.2)
[2025-01-17] MEDS: POTASSIUM CHLORIDE ER 20 MEQ TAB.ER PO SCH (10:37)
[2025-01-17] MEDS: INDOCYANINE GREEN 25 MG VIAL IV STA (10:53)
[2025-01-17 11:02] LABS: Glucose,Whole Blood 76 mg/dL (70-110)
[2025-01-17] MEDS ORDERED: POTASSIUM CHLORIDE 20 MEQ in WATER FOR INJECTION 1 100ML.BAG IVPB STA (11:05)
[2025-01-17] MEDS: POTASSIUM CHLORIDE 10 MEQ in WATER FOR INJECTION 1 100ML.BAG IVPB SCH (11:21)
[2025-01-17] MEDS ORDERED: fentaNYL (PF) 50 MCG/ML 2 ML AMP ONE (11:41)
[2025-01-17] MEDS ORDERED: LIDOCAINE 1% INJ 10MG/ML (20 ML MDV) ONE (11:41)
[2025-01-17] MEDS ORDERED: ePHEDrine 50 MG/ML 1 ML VIAL ONE (11:41)
[2025-01-17] MEDS ORDERED: SUCCINYLCHOLINE CHLORIDE 200 MG/10 ML VIAL IV ONE (11:41)
[2025-01-17] MEDS ORDERED: NEOSTIGMINE 1 MG/ML 10 ML VIAL ONE (11:41)
[2025-01-17] MEDS ORDERED: PROPOFOL 10 MG/ML 20 ML VIAL IV ONE (11:41)
[2025-01-17] MEDS ORDERED: GLYCOPYRROLATE 0.2 MG/ML 2 ML VIAL ONE (11:41)
[2025-01-17] MEDS ORDERED: ROCURONIUM 10 MG/ML (5 ML VIAL) IV ONE (11:41)
[2025-01-17] MEDS ORDERED: HEPARIN SODIUM,PORCINE 5,000 UNIT/ML 1 ML VIAL ONE (11:41)
[2025-01-17] MEDS: SODIUM CHLORIDE 0.9% 1,000 ML IV ONE ×2 (11:45→12:58)
[2025-01-17] MEDS: LIDOCAINE 1%-EPI 1:100,000 20 ML VIAL SQ ONE ×2 (12:12)
--- NOTE | 2025-01-17 13:23 | P.OP ---
Date of Procedure: 01/17/25 Preoperative Diagnosis: Acute cholecystitis Postoperative Diagnosis: Acute gangrenous cholecystitis Procedure(s) Performed: Robotic cholecystectomy FRANCES drain placement Anesthesia: LAWRENCE Surgeon: Ankur Jones Pathology: other (Gallbladder and contents) Condition: stable Disposition: floor Indications for Procedure: 74-year-old male presented to the emergency department with complaint of abdominal pain. He was found to have acute cholecystitis based on ultrasound. Plan is for robotic cholecystectomy. He did have evaluation by cardiology prior to surgical intervention. Risks, benefits and alternatives provided to the patient prior to attending the operating suite. Operative Findings: Gangrenous cholecystitis with purulent output from gallbladder Description of Procedure: Patient was brought to the operating suite and placed in supine position on the operating table. Sedation was provided by anesthesia and the patient underwent endotracheal intubation. The patient was then prepped and draped in regular sterile fashion. An infraumbilical incision was made and dissection was carried to the fascia. The fascia was incised and an 8 mm trocar was placed. Pneumoperitoneum was achieved. The patient was then placed in appropriate posit ion. 2 additional 8 mm trocars were placed in the right upper quadrant and 1 in the left upper quadrant. Robot was then docked. The gallbladder was then grasped and retracted superiorly and laterally. The gallbladder appeared gangrenous and did tear with superior retraction with output of purulent material. Dissection was carried along the infundibulum towards the cystic duct and the cystic duct was skeletonized. The cystic artery was similarly skeletonized and critical view was obtained. ICG was used to evaluate anatomy, however gallbladder did not appear green as expected, likely secondary to cystic duct obstruction.. 2 clips were placed proximally on the cystic duct and 1 was placed distally and the cystic duct was ligated. Similarly, 2 clips were placed proximally on the cystic artery and 1 was placed distally and the cystic artery was ligated. Cautery was then used to dissect the gallbladder off of the gallbladder fossa. The gallbladder was then placed in an Endo Catch bag and removed from the abdomen from the infraumbilical incision site. Copious amounts of irrigation was placed in the right upper quadrant and suctioned.. Hemostasis was noted to be maintained. No bile leakage was noted. The infraumbilical fascial incision was closed under direct visualization using an 0 Vicryl suture and Arnaldo-Nain device. Pneumoperitoneum was released. All ports removed from the abdomen. All port sites were closed with 4-0 Vicryl subcuticular suture. Sterile dressing was applied. The patient was taken to postanesthesia care unit in stable condition. Sponge and instrument count correct x 2.
[2025-01-17 13:37] LABS: Glucose,Whole Blood 87 mg/dL (70-110)
--- NOTE | 2025-01-17 14:26 | P.PN ---
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 He presented to the hospital on 01/15/2025 with a chief complaint of epigastric/abdominal pain accompanied by n ausea and vomiting. Upon arrival to our facility, patient underwent evaluation in the emergency department. Vital signs upon arrival show blood pressure 107/71, heart rate 96, respiratory rate 18, temp 99.2 F, and SpO2 of 99% on room air. Shortly after arrival temperature elevating to 101.1 F. EKG completed showing atrial fibrillation with a controlled ventricular rate of 84 bpm with nonspecific T wave abnormalities throughout inferior, anterior and lateral leads. Labs were completed and reviewed. CBC showing stable normocytic anemia with hemoglobin of 12.7. BMP showing hyponatremia with sodium of 130, chloride of 92, and consistent with known CKD stage IIIb with BUN of 39, creatinine of 1.30, GFR 53 which appears to be at patient's baseline. Blood glucose elevated at 259. Lactic acid 1.9. Liver profile showing elevated alkaline phosphatase of 386. Troponin was 0.026. Amylase and lipase normal findings. Urinalysis positive for protein, glucose, and trace blood negative f or infection. Abdominal ultrasound completed showing concerns for acute cholecystitis with hydropic gallbladder, gallstone sludge, wall thickening, pericardial fluid with borderline enlarged liver. Patient was admitted under general surgery team. We were consulted for medical management throughout hospitalization. Physical exam: Patient seen and fully evaluated at bedside shortly after returning from completion of laparoscopic robotic cholecystectomy. Patient reports having moderate postoperative diffuse abdominal pain worse around incision sites and drain site. Abdomen is soft. FRANCES drain with moderate serosanguineous fluid in tubing. Patient reports mild postoperative nausea but denies any vomiting. He denies experiencing any chest pain, palpitations, shortness of breath, or any other complaints at this time. Vital signs reviewed and stable. General: Nontoxic, no distress and appears stated age. Derm: Skin warm and dry, normal coloration for ethnicity. Head: Atraumatic, normocephalic and symmetric. Eyes: EOM's intact, no lid lag, and anicteric sclera Mouth: no lip lesions, mucus membranes moist Cardiovascular: Irregularly irregular, systolic murmur, positive posterior tibial pulses bilaterally, and cap refill < 2 seconds. Lungs: Respirations even, regular, and unlabored on supplemental oxygen. Lungs CTA bilaterally, no rhonchi, no rales, no wheezing, and no accessory muscle usage. Abdominal: soft, tenderness surrounding laparoscopic incision sites and FRANCES drain. Ext: ROM intact. No gross muscle atrophy, no edema, no contractures. Wound VAC in place right foot. Neuro: Speech clear, face symmetrical and CN II-XII grossly intact with no noted focal neuro deficits Psych: Alert and oriented to person, place, time, and situation. Appropriate and pleasant affect. Assessment and Plan of Care: Acute cholecystitis Sepsis on arrival, secondary to above -Patient admitted under general surgery team and underwent laparoscopic robotic cholecystectomy. -Sepsis on arrival as evidenced by heart rate 96, elevated temp up to 101.1 F, and known infection from acute cholecystitis -Continue IV antibiotics with Unasyn 3 g every 8 hours -Blood cultures showing no growth to date -Continue close monitoring of CBC and CMP with repeat a.m. labs. -Symptomatic care and pain management with Tylenol 500 mg every 6 hours as needed for mild pain and/or fever, [place] 5/325 mg tablets every 4 hours as needed for moderate pain, and morphine 4 mg IVP every 4 hours as needed for lenora re pain. Hypokalemia Potassium 2.9 orders placed for K-Dur 40 mEq p.o. x 2 doses. Will continue to monitor closely with repeat a.m. labs to monitor for improvement/resolution. Insulin-dependent diabetes mellitus with hyperglycemia Continue Jardiance 25 mg daily, Lantus 20 units nightly, along with glycemic protocol with Humalog sliding scale. Hemoglobin A1c 8.4%. CAD with previous stenting followed by CABG x 3 Chronic atrial fibrillation Hypertension History of CVA without residual deficits -Hold Eliquis and aspirin pending completion of surgery, recommend resumption once cleared by general surgery team to resume. -Continue cardiac medication regimen with atorvastatin 80 mg nightly, Jardiance 25 mg daily, metoprolol 25 mg twice daily, and nifedipine 30 mg daily. -Cardiology was consulted for cardiac clearance to undergo laparoscopic cholecystectomy. Discussed with cardiac COMPLIANCE CLERK stating patient is cleared to undergo planned procedure from cardiac standpoint with no absolute contraindications. Status post recent toe amputation of 2nd and 5th digits of right foot on 12/15/2024 - Continue wound VAC Data and imaging reviewed: Morning labs reviewed. CBC showing normocytic anemia with hemoglobin of 11.6. BMP showing hypokalemia with potassium of 2.9 and high anion gap metabolic acidosis with chloride of 100, bicarb of 20.4, and anion gap of 15.60. Blood glucose 81. Magnesium 2.0. Liver profile showing elevated alkaline phosphatase of 422 otherwise normal findings. Vital signs reviewed. Blood pressure 144/77, heart rate 81, respiratory rate 15, temp 96.8 F and SpO2 of 100% on 3 L nasal cannula. Thank you for allowing us to participate in the care of this pleasant patient. Do not hesitate to contact us with questions. Someone can be reached from the [facility] hospitalist group all hours of the day at [phone] or via [employer]. Patient was seen independently by Nurse Pracitioner. This document was prepared using [employer] dictation software. Please allow for errors in shirt operator, while rare they do occur. Magdiel Calderon, COMPLIANCE CLERK rendered care for this patient independently, reviewed the findings and plan as documented in the note above and agree with plan. I did not physically speak with or examine the patient on this date. Objective - Vital Signs Vital signs: Vital Signs Temp 98.5 F 01/17/25 07:02 Pulse 78 01/17/25 07:02 Resp 18 01/17/25 07:02 BP 135/68 01/17/25 07:02 Pulse Ox 100 01/17/25 07:02 FiO2 Intake & Output 01/16/25 01/17/25 01/17/25 18:59 06:59 18:59 Intake Total 600 Balance 600 Intake: Oral 600 Other: Voiding Method Urinal Toilet Toilet Urinal Urinal # Voids 3 3 - Labs CBC & Chem 7: 01/17/25 04:52 01/17/25 04:52 Labs: Abnormal Lab Results - Last 24 Hours (Table) 01/15/25 01/16/25 01/16/25 Range/Units 16:55 01:41 12:02 RBC (4.40-5.60) X 10*6/uL Hgb (13.0-17.0) g/dL Hct (39.6-50.0) % RDW (11.5-14.5) % Potassium (3.5-5.5) mmol/L Carbon Dioxide (21.6-31.8) mmol/L Anion Gap (4.00-12.00) mmol/L BUN/Creatinine Ratio (12.00-20.00) Ratio POC Glucose (mg/dL) 133 H (70-110) mg/dL Hemoglobin A1c 8.4 H (<=6.0) % Calcium (8.7-10.3) mg/dL Alkaline Phosphatase (41-126) U/L Total Protein (6.2-8.2) g/dL Albumin (3.8-4.9) g/dL Albumin/Globulin Ratio (1.60-3.17) Ratio Procalcitonin 1.88 H (0.02-0.50) ng/mL 01/16/25 01/16/25 01/17/25 Range/Units 17:11 19:51 04:52 RBC 3.77 L (4.40-5.60) X 10*6/uL Hgb 11.6 L (13.0-17.0) g/dL Hct 34.0 L (39.6-50.0) % RDW 14.9 H (11.5-14.5) % Potassium (3.5-5.5) mmol/L Carbon Dioxide (21.6-31.8) mmol/L Anion Gap (4.00-12.00) mmol/L BUN/Creatinine Ratio (12.00-20.00) Ratio POC Glucose (mg/dL) 169 H 139 H (70-110) mg/dL Hemoglobin A1c (<=6.0) % Calcium (8.7-10.3) mg/dL Alkaline Phosphatase (41-126) U/L Total Protein (6.2-8.2) g/dL Albumin (3.8-4.9) g/dL Albumin/Globulin Ratio (1.60-3.17) Ratio Procalcitonin (0.02-0.50) ng/mL 01/17/25 Range/Units 04:52 RBC (4.40-5.60) X 10*6/uL Hgb (13.0-17.0) g/dL Hct (39.6-50.0) % RDW (11.5-14.5) % Potassium 2.9 L (3.5-5.5) mmol/L Carbon Dioxide 20.4 L (21.6-31.8) mmol/L Anion Gap 15.60 H (4.00-12.00) mmol/L BUN/Creatinine Ratio 21.92 H (12.00-20.00) Ratio POC Glucose (mg/dL) (70-110) mg/dL Hemoglobin A1c (<=6.0) % Calcium 8.1 L (8.7-10.3) mg/dL Alkaline Phosphatase 422 H (41-126) U/L Total Protein 5.5 L (6.2-8.2) g/dL Albumin 3.2 L (3.8-4.9) g/dL Albumin/Globulin Ratio 1.39 L (1.60-3.17) Ratio Procalcitonin (0.02-0.50) ng/mL
[2025-01-17] MEDS: MORPHINE SULFATE 4 MG/ML SYRINGE IVP PRN (14:32)
[2025-01-17] MEDS: ONDANSETRON 4 MG/2 ML VIAL IVP PRN (14:37)
[2025-01-17] MEDS: HYDROmorphone 0.5 MG/0.5 ML SYRINGE IVP STA (15:21)
[2025-01-17 17:11] LABS: Glucose,Whole Blood 110 mg/dL (70-110)
[2025-01-17 20:19] LABS: Glucose,Whole Blood 103 mg/dL (70-110)
[2025-01-17] MEDS: POTASSIUM CHLORIDE ER 20 MEQ TAB.ER PO ONE (20:46)
[2025-01-18 06:06] LABS: Glucose,Whole Blood 99 mg/dL (70-110)
[2025-01-18] MEDS: HYDROcodone/APAP 5-325MG 1 EACH TAB PO PRN (08:07)
[2025-01-18 08:27] LABS: HCT 33.5 % (39.6-50.0); HGB 11.2 g/dL (13.0-17.0); MCH 30.9 pg (27.0-32.0); MCHC 33.4 g/dL (32.0-37.0); MCV 92.3 FL (80.0-97.0); NRBC Per 100 WBC 0 X 10*3/uL (0.00-0.01); Platelet Count 275 X 10*3/uL (140-440); RBC 3.63 X 10*6/uL (4.40-5.60); RDW 15.0 % (11.5-14.5); WBC 7.83 X 10*3/uL (4.50-10.00)
[2025-01-18 08:55] LABS: Magnesium 2.1 mg/dL (1.5-2.4)
[2025-01-18 09:04] LABS: ALT 24 U/L (10-49); AST 68 U/L (14-35); Albumin 3.1 g/dL (3.8-4.9); Albumin/Globulin Ratio 1.24 Ratio (1.60-3.17); Alkaline Phosphatase 432 U/L (41-126); Anion Gap 14.40 mmol/L (4.00-12.00); BUN/Creat Ratio 25.42 Ratio (12.00-20.00); Blood Urea Nitrogen 30.5 mg/dL (9.0-27.0); Calcium 8.2 mg/dL (8.7-10.3); Carbon Dioxide 19.6 mmol/L (21.6-31.8); Chloride 104 mmol/L (96-109); Globulin 2.5 g/dL (1.6-3.3); Glucose 94 mg/dL (70-110); Potassium 4.0 mmol/L (3.5-5.5); Sodium 138 mmol/L (135-145); Total Protein 5.6 g/dL (6.2-8.2)
[2025-01-18 11:56] VITALS: BMI 24.3
[2025-01-18 12:28] LABS: Glucose,Whole Blood 126 mg/dL (70-110)
--- NOTE | 2025-01-18 14:06 | P.PN ---
Progress Note - Text Progress Note Date: 01/18/25 No acute events overnight. Tolerating CLD. Pain is controlled. Denies fevers, chills, nausea, and vomiting VSS General-NAD CVS-RRR Lungs-NLB Abdomen-soft, NTND, FRANCES-serosang, Incisions C/D/I 74 year old male s/p Robotic Cholecystectomy for Gangrenous Cholecystitis -Advance to Regular Diet -OOB, ambulate, IS -Continue Antibiotics -Monitor FRANCES -AM labs [facility] [phone]
--- NOTE | 2025-01-18 15:16 | P.PN ---
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 He presented to the hospital on 01/15/2025 with a chief complaint of epigastric/abdominal pain accompanied by n ausea and vomiting. Upon arrival to our facility, patient underwent evaluation in the emergency department. Vital signs upon arrival show blood pressure 107/71, heart rate 96, respiratory rate 18, temp 99.2 F, and SpO2 of 99% on room air. Shortly after arrival temperature elevating to 101.1 F. EKG completed showing atrial fibrillation with a controlled ventricular rate of 84 bpm with nonspecific T wave abnormalities throughout inferior, anterior and lateral leads. Labs were completed and reviewed. CBC showing stable normocytic anemia with hemoglobin of 12.7. BMP showing hyponatremia with sodium of 130, chloride of 92, and consistent with known CKD stage IIIb with BUN of 39, creatinine of 1.30, GFR 53 which appears to be at patient's baseline. Blood glucose elevated at 259. Lactic acid 1.9. Liver profile showing elevated alkaline phosphatase of 386. Troponin was 0.026. Amylase and lipase normal findings. Urinalysis positive for protein, glucose, and trace blood negative f or infection. Abdominal ultrasound completed showing concerns for acute cholecystitis with hydropic gallbladder, gallstone sludge, wall thickening, pericardial fluid with borderline enlarged liver. Patient was admitted under general surgery team. We were consulted for medical management throughout hospitalization. Physical exam: Patient seen and fully evaluated at bedside this morning. Patient's at bedside. Patient reports continued postoperative abdominal pain/discomfort and mild nausea. He denies any episodes of vomiting. He does report improvement of pain with current pain medication regimen. He denies having any chest pain, shortness of breath, cough or congestion, or any other complaints. Patient reports just feeling tired. Vital signs reviewed and stable. General: Nontoxic, no distress and appears stated age. Derm: Skin warm and dry, normal coloration for ethnicity. Head: Atraumatic, normocephalic and symmetric. Eyes: EOM's intact, no lid lag, and anicteric sclera Mouth: no lip lesions, mucus membranes moist Cardiovascular: Irregularly irregular, systolic murmur, positive posterior tibial pulses bilaterally, and cap refill < 2 seconds. Lungs: Respirations even, regular, and unlabored on supplemental oxygen. Lungs CTA bilaterally, no rhonchi, no rales, no wheezing, and no accessory muscle usage. Abdominal: soft, tenderness surrounding laparoscopic incision sites and FRANCES drain. Ext: ROM intact. No gross muscle atrophy, no edema, no contractures. Wound VAC in place right foot. Neuro: Speech clear, face symmetrical and CN II-XII grossly intact with no noted focal neuro deficits Psych: Alert and oriented to person, place, time, and situation. Appropriate and pleasant affect. Assessment and Plan of Care: Acute cholecystitis Sepsis on arrival, secondary to above Transaminitis -Patient admitted under general surgery team and underwent laparoscopic robotic cholecystectomy. -Sepsis on arrival as evidenced by heart rate 96, elevated temp up to 101.1 F, and known infection from acute cholecystitis -Continue IV antibiotics with Unasyn 3 g every 8 hours -Blood cultures showing no growth to date -Continue close monitoring of CBC and CMP with repeat a.m. labs. -Symptomatic care and pain management with Tylenol 500 mg every 6 hours as needed for mild pain and/or fever, [place] 5/325 mg tablets every 4 hours as needed for moderate pain, and morphine 4 mg IVP every 4 hours as needed for severe pain. Hypokalemia, resolved Repeat morning potassium showing resolution of hypokalemia with potassium of 4.0. Will continue to monitor closely with repeat a.m. labs to monitor for improvement/resolution. Insulin-dependent diabetes mellitus with hyperglycemia Continue Jardiance 25 mg daily, Lantus 20 units nightly, along with glycemic protocol with Humalog sliding scale. Hemoglobin A1c 8.4%. CAD with previous stenting followed by CABG x 3 Chronic atrial fibrillation Hypertension History of CVA without residual deficits -Hold Eliquis and aspirin pending completion of surgery, recommend resumption once cleared by general surgery team to resume. -Continue cardiac medication regimen with atorvastatin 80 mg nightly, Jardiance 25 mg daily, metoprolol 25 mg twice daily, and nifedipine 30 mg daily. -Cardiology was consulted for cardiac clearance to undergo laparoscopic ch olecystectomy. Discussed with cardiac HEALTH OCCUPATIONS TEACHER stating patient is cleared to undergo planned procedure from cardiac standpoint with no absolute contraindications. Status post recent toe amputation of 2nd and 5th digits of right foot on 12/15/2024 - Continue wound VAC Data and imaging reviewed: Morning labs reviewed. CBC showing normocytic anemia with hemoglobin of 11.2. BMP showing high anion gap metabolic acidosis with chloride of 104, bicarb of 19.6, and anion gap of 14.40. Blood glucose 94. Magnesium 2.1. Liver profile showing transaminitis with AST of 68, ALT of 24, alkaline phosphatase of 432. Vital signs reviewed. Blood pressure 133/81, heart rate 112, respiratory rate 16, temp 98.4 F, and SpO2 of 97% on room air Thank you for allowing us to participate in the care of this pleasant patient. Do not hesitate to contact us with questions. Someone can be reached from the [facility] hospitalist group all hours of the day at [phone] or via [employer]. Patient was seen independently by Nurse Pracitioner. This document was prepared using [employer] dictation software. Please allow for errors in channel development director, while rare they do occur. Magdiel Calderon, HEALTH OCCUPATIONS TEACHER rendered care for this patient independently, reviewed the f indings and plan as documented in the note above and agree with plan. I did not physically speak with or examine the patient on this date. Objective - Vital Signs Vital signs: Vital Signs Temp 98.4 F 01/18/25 07:00 Pulse 121 H 01/18/25 07:00 Resp 16 01/18/25 07:00 BP 133/81 01/18/25 07:00 Pulse Ox 97 01/18/25 07:00 FiO2 Intake & Output 01/17/25 01/18/25 01/18/25 18:59 06:59 18:59 Intake Total 700 Output Total 62 55 Balance 638 -55 Intake: IV 700 Output: Drainage 25 55 Right Abdomen 25 55 Estimated Blood Loss 37 Other: Voiding Method Toilet Toilet Urinal Urinal # Voids 1 - Labs CBC & Chem 7: 01/18/25 05:30 01/18/25 05:30 Labs: Abnormal Lab Results - Last 24 Hours (Table) 01/17/25 01/18/25 Range/Units 04:52 05:30 RBC 3.63 L (4.40-5.60) X 10*6/uL Hgb 11.2 L (13.0-17.0) g/dL Hct 33.5 L (39.6-50.0) % RDW 15.0 H (11.5-14.5) % Potassium 2.9 L (3.5-5.5) mmol/L Carbon Dioxide 20.4 L (21.6-31.8) mmol/L Anion Gap 15.60 H (4.00-12.00) mmol/L BUN/Creatinine Ratio 21.92 H (12.00-20.00) Ratio Calcium 8.1 L (8.7-10.3) mg/dL Alkaline Phosphatase 422 H (41-126) U/L Total Protein 5.5 L (6.2-8.2) g/dL Albumin 3.2 L (3.8-4.9) g/dL Albumin/Globulin Ratio 1.39 L (1.60-3.17) Ratio Microbiology - Last 24 Hours (Table) 01/16/25 01:41 Blood Culture - Preliminary Blood
[2025-01-18 17:24] LABS: Glucose,Whole Blood 203 mg/dL (70-110)
[2025-01-18 22:18] LABS: Glucose,Whole Blood 241 mg/dL (70-110)
[2025-01-19 05:58] LABS: Glucose,Whole Blood 229 mg/dL (70-110)
[2025-01-19 08:38] LABS: HCT 31.3 % (39.6-50.0); HGB 10.3 g/dL (13.0-17.0); MCH 30.7 pg (27.0-32.0); MCHC 32.9 g/dL (32.0-37.0); MCV 93.2 FL (80.0-97.0); NRBC Per 100 WBC 0 X 10*3/uL (0.00-0.01); Platelet Count 248 X 10*3/uL (140-440); RBC 3.36 X 10*6/uL (4.40-5.60); RDW 15.3 % (11.5-14.5); WBC 4.88 X 10*3/uL (4.50-10.00)
[2025-01-19 08:53] LABS: Magnesium 2.0 mg/dL (1.5-2.4)
[2025-01-19 09:16] LABS: ALT 21 U/L (10-49); AST 49 U/L (14-35); Albumin 2.8 g/dL (3.8-4.9); Albumin/Globulin Ratio 1.17 Ratio (1.60-3.17); Alkaline Phosphatase 390 U/L (41-126); Anion Gap 12.30 mmol/L (4.00-12.00); BUN/Creat Ratio 23.64 Ratio (12.00-20.00); Blood Urea Nitrogen 26.0 mg/dL (9.0-27.0); Calcium 8.0 mg/dL (8.7-10.3); Carbon Dioxide 20.7 mmol/L (21.6-31.8); Chloride 105 mmol/L (96-109); Globulin 2.4 g/dL (1.6-3.3); Glucose 196 mg/dL (70-110); Potassium 3.8 mmol/L (3.5-5.5); Sodium 138 mmol/L (135-145); Total Protein 5.2 g/dL (6.2-8.2)
[2025-01-19 09:22] LABS: Bilirubin,Unconjugated 0.1 mg/dL (0.2-1.0)
--- NOTE | 2025-01-19 12:22 | P.PN ---
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 He presented to the hospital on 01/15/2025 with a chief complaint of epigastric/abdominal pain accompanied by n ausea and vomiting. Upon arrival to our facility, patient underwent evaluation in the emergency department. Vital signs upon arrival show blood pressure 107/71, heart rate 96, respiratory rate 18, temp 99.2 F, and SpO2 of 99% on room air. Shortly after arrival temperature elevating to 101.1 F. EKG completed showing atrial fibrillation with a controlled ventricular rate of 84 bpm with nonspecific T wave abnormalities throughout inferior, anterior and lateral leads. Labs were completed and reviewed. CBC showing stable normocytic anemia with hemoglobin of 12.7. BMP showing hyponatremia with sodium of 130, chloride of 92, and consistent with known CKD stage IIIb with BUN of 39, creatinine of 1.30, GFR 53 which appears to be at patient's baseline. Blood glucose elevated at 259. Lactic acid 1.9. Liver profile showing elevated alkaline phosphatase of 386. Troponin was 0.026. Amylase and lipase normal findings. Urinalysis positive for protein, glucose, and trace blood negative f or infection. Abdominal ultrasound completed showing concerns for acute cholecystitis with hydropic gallbladder, gallstone sludge, wall thickening, pericardial fluid with borderline enlarged liver. Patient was admitted under general surgery team. We were consulted for medical management throughout hospitalization. Physical exam: Patient seen and fully evaluated at bedside this morning. Patient is day 2 postop laparoscopic robotic cholecystectomy with drain placement. He reports feeling much better today, stating pain has significantly improved. He reports eating three quarters of his breakfast without any difficulties and denies hav ing any nausea or vomiting. Patient reports a rough denies passing flatus or bowel movement since surgical procedure. He reports having an episode of nausea overnight but states doing well today. Patient denies having any chest pain, palpitations, shortness of breath, or any other complaints. Vital signs reviewed and stable. General: Nontoxic, no distress and appears stated age. Derm: Skin warm and dry, normal coloration for ethnicity. Head: Atraumatic, normocephalic and symmetric. Eyes: EOM's intact, no lid lag, and anicteric sclera Mouth: no lip lesions, mucus membranes moist Cardiovascular: Irregularly irregular, systolic murmur, positive posterior tibial pulses bilaterally, and cap refill < 2 seconds. Lungs: Respirations even, regular, and unlabored on supplemental oxygen. Lungs CTA bilaterally, no rhonchi, no rales, no wheezing, and no accessory muscle usage. Abdominal: soft distended, tenderness surrounding laparoscopic incision sites and FRANCES drain. Hypoactive bowel sounds. Ext: ROM intact. No gross muscle atrophy, no edema, no contractures. Wound VAC in place right foot. Neuro: Speech clear, face symmetrical and CN II-XII grossly intact with no noted focal neuro deficits Psych: Alert and oriented to person, place, time, and situation. Appropriate and pleasant affect. Assessment and Plan of Care: Acute gangrenous cholecystitis Sepsis on arrival, secondary to above Transaminitis -Patient admitted under general surgery team and underwent laparoscopic robotic cholecystectomy. -Sepsis on arrival as evidenced by heart rate 96, elevated temp up to 101.1 F, and known infection from acute cholecystitis -Continue IV antibiotics with Unasyn 3 g every 8 hours -Blood cultures showing no growth to date -Continue close monitoring of CBC and CMP with repeat a.m. labs. -Symptomatic care and pain management with Tylenol 500 mg every 6 hours as needed for mild pain and/or fever, [place] 5/325 mg tablets every 4 hours as neede d for moderate pain, and morphine 4 mg IVP every 4 hours as needed for severe pain. Hypokalemia, resolved Resolved. Will continue to monitor closely with repeat a.m. labs to monitor for improvement/resolution. Insulin-dependent diabetes mellitus with hyperglycemia Continue Jardiance 25 mg daily, Lantus 20 units nightly, along with glycemic p rotocol with Humalog sliding scale. Hemoglobin A1c 8.4%. CAD with previous stenting followed by CABG x 3 Chronic atrial fibrillation Hypertension History of CVA without residual deficits -Hold Eliquis and aspirin pending completion of surgery, recommend resumption once cleared by general surgery team to resume. -Continue cardiac medication regimen with atorvastatin 80 mg nightly, Jardiance 25 mg daily, metoprolol 25 mg twice daily, and nifedipine 30 mg daily. -Cardiology was consulted for cardiac clearance to undergo laparoscopic cholecystectomy. Discussed with cardiac CLOUD ENGINEER stating patient is cleared to undergo planned procedure from cardiac standpoint with no absolute contraindications. Status post recent toe amputation of 2nd and 5th digits of right foot on 12/15/2024 - Continue wound VAC Data and imaging reviewed: Morning labs reviewed. CBC showing normocytic anemia with hemoglobin of 10.3. BMP showing high anion gap metabolic acidosis with chloride of 105, bicarb of 20.7, and anion gap of 12.30. Blood glucose 196. Magnesium 2.0. Liver profile showing transaminitis with AST of 49, ALT of 21, alkaline phosphatase of 390. Vital signs reviewed. Blood pressure 146/77, heart rate 80, respiratory rate 17, temp 97.3 F, and SpO2 of 93% on room air. Thank you for allowing us to participate in the care of this pleasant patient. Do not hesitate to contact us with questions. Someone can be reached from the [facility] hospitalist group all hours of the day at [phone] or via [employer]. Patient was seen independently by Nurse Pracitioner. This document was prepared using [employer] dictation software. Please allow for errors in livestock nutritionist, while rare they do occur. Magdiel Calderon, CLOUD ENGINEER rendered care for this patient independently, reviewed the findings and plan as documented in the note above and agree with plan. I did not physically speak with or examine the patient on this date. Objective - Vital Signs Vital signs: Vital Signs Temp 97.3 F L 01/19/25 07:32 Pulse 80 01/19/25 07:32 Resp 17 01/19/25 07:32 BP 146/77 01/19/25 07:32 Pulse Ox 93 L 01/19/25 07:32 FiO2 Intake & Output 01/18/25 01/19/25 01/19/25 18:59 06:59 18:59 Intake Total 740 Output Total 10 5 Balance 730 -5 Weight 77.111 kg Intake: Intake, IV Titration 500 Amount Sodium Chloride 0.9% 1, 500 000 ml @ 0 mls/hr IV .[employer] [facility] Rx#:[id number] Oral 240 Output: Drainage 10 5 Right Abdomen 10 5 Other: # Voids 2 2 - Labs CBC & Chem 7: 01/19/25 05:43 01/19/25 05:43 Labs: Abnormal Lab Results - Last 24 Hours (Table) 01/18/25 01/18/25 01/18/25 Range/Units 12:27 17:22 22:17 RBC (4.40-5.60) X 10*6/uL Hgb (13.0-17.0) g/dL Hct (39.6-50.0) % RDW (11.5-14.5) % Carbon Dioxide (21.6-31.8) mmol/L Anion Gap (4.00-12.00) mmol/L BUN/Creatinine Ratio (12.00-20.00) Ratio Glucose (70-110) mg/dL POC Glucose (mg/dL) 126 H 203 H 241 H (70-110) mg/dL Calcium (8.7-10.3) mg/dL AST (14-35) U/L Alkaline Phosphatase (41-126) U/L Total Protein (6.2-8.2) g/dL Albumin (3.8-4.9) g/dL Albumin/Globulin Ratio (1.60-3.17) Ratio 01/19/25 01/19/25 01/19/25 Range/Units 05:43 05:43 05:56 RBC 3.36 L (4.40-5.60) X 10*6/uL Hgb 10.3 L (13.0-17.0) g/dL Hct 31.3 L (39.6-50.0) % RDW 15.3 H (11.5-14.5) % Carbon Dioxide 20.7 L (21.6-31.8) mmol/L Anion Gap 12.30 H (4.00-12.00) mmol/L BUN/Creatinine Ratio 23.64 H (12.00-20.00) Ratio Glucose 196 H (70-110) mg/dL POC Glucose (mg/dL) 229 H (70-110) mg/dL Calcium 8.0 L (8.7-10.3) mg/dL AST 49 H (14-35) U/L Alkaline Phosphatase 390 H (41-126) U/L Total Protein 5.2 L (6.2-8.2) g/dL Albumin 2.8 L (3.8-4.9) g/dL Albumin/Globulin Ratio 1.17 L (1.60-3.17) Ratio Microbiology - Last 24 Hours (Table) 01/16/25 01:41 Blood Culture - Preliminary Blood
[2025-01-19 12:25] LABS: Glucose,Whole Blood 303 mg/dL (70-110)
--- NOTE | 2025-01-19 12:43 | P.PN ---
Subjective Progress Note Date: 01/19/25 Patient seen and examined at bedside. No acute events. States pain is improving. FRANCES drain with minimal serosanguineous output. Objective - Vital Signs Vital signs: Vital Signs Temp 97.3 F L 01/19/25 07:32 Pulse 80 01/19/25 07:32 Resp 17 01/19/25 07:32 BP 146/77 01/19/25 07:32 Pulse Ox 93 L 01/19/25 07:32 FiO2 Intake & Output 01/18/25 01/19/25 01/19/25 18:59 06:59 18:59 Intake Total 740 740 Output Total 10 5 Balance 730 -5 740 Weight 77.111 kg Intake: Intake, IV Titration 500 Amount Sodium Chloride 0.9% 1, 500 000 ml @ 0 mls/hr IV .[employer] [facility] Rx#:[id number] Oral 240 740 Output: Drainage 10 5 Right Abdomen 10 5 Other: # Voids 2 2 - Constitutional General appearance: Present: cooperative, no acute distress - Gastrointestinal Gastrointestinal Comment(s): Soft, nontender, nondistended, incision sites are healing well, FRANCES drain in place - Psychiatric Psychiatric: Present: A&O x's 3 - Labs CBC & Chem 7: 01/19/25 05:43 01/19/25 05:43 Labs: Abnormal Lab Results - Last 24 Hours (Table) 01/18/25 01/18/25 01/19/25 Range/Units 17:22 22:17 05:43 RBC 3.36 L (4.40-5.60) X 10*6/uL Hgb 10.3 L (13.0-17.0) g/dL Hct 31.3 L (39.6-50.0) % RDW 15.3 H (11.5-14.5) % Carbon Dioxide (21.6-31.8) mmol/L Anion Gap (4.00-12.00) mmol/L BUN/Creatinine Ratio (12.00-20.00) Ratio Glucose (70-110) mg/dL POC Glucose (mg/dL) 203 H 241 H (70-110) mg/dL Calcium (8.7-10.3) mg/dL Unconjugated Bilirubin (0.2-1.0) mg/dL AST (14-35) U/L Alkaline Phosphatase (41-126) U/L Total Protein (6.2-8.2) g/dL Albumin (3.8-4.9) g/dL Albumin/Globulin Ratio (1.60-3.17) Ratio 01/19/25 01/19/25 01/19/25 Range/Units 05:43 05:56 12:22 RBC (4.40-5.60) X 10*6/uL Hgb (13.0-17.0) g/dL Hct (39.6-50.0) % RDW (11.5-14.5) % Carbon Dioxide 20.7 L (21.6-31.8) mmol/L Anion Gap 12.30 H (4.00-12.00) mmol/L BUN/Creatinine Ratio 23.64 H (12.00-20.00) Ratio Glucose 196 H (70-110) mg/dL POC Glucose (mg/dL) 229 H 303 H (70-110) mg/dL Calcium 8.0 L (8.7-10.3) mg/dL Unconjugated Bilirubin 0.1 L (0.2-1.0) mg/dL AST 49 H (14-35) U/L Alkaline Phosphatase 390 H (41-126) U/L Total Protein 5.2 L (6.2-8.2) g/dL Albumin 2.8 L (3.8-4.9) g/dL Albumin/Globulin Ratio 1.17 L (1.60-3.17) Ratio Microbiology - Last 24 Hours (Table) 01/16/25 01:41 Blood Culture - Preliminary Blood Assessment and Plan Plan: Postoperative day #2, robotic cholecystectomy. Patient with significant pain improvement. Tolerating diet. FRANCES in place with minimal serosanguineous output. Likely discharge in 24 hours. Continue medical recommendations.
[2025-01-19 17:10] LABS: Glucose,Whole Blood 123 mg/dL (70-110)
[2025-01-19 19:52] LABS: Glucose,Whole Blood 210 mg/dL (70-110)
[2025-01-20 06:27] LABS: Glucose,Whole Blood 162 mg/dL (70-110)
[2025-01-20 07:52] VITALS: BP 164/85; PULSE 96; RESP 17; TEMP 97.4
--- NOTE | 2025-01-20 08:03 | P.DS ---
Providers Date of admission: 01/15/25 19:20 Attending physician: Ankur Jones DO Consults: 01/15/25 18:36 Consult Physician Urgent Consulting Provider: Joon Rain Consult Reason/Comments: medical mgmt Do you want consulting provider notified?: Yes 01/19/25 13:13 Consult Physician Routine Consulting Provider: Patria Car Consult Reason/Comments: pt known to you, right foot wound vac Do you want consulting provider notified?: Yes Primary care physician: [facility] Course: 74-year-old male presented to the emergency department with complaint of abdominal pain. He was found to have acute cholecystitis. He was taken for robotic cholecystectomy and was found to have gangrenous cholecystitis. Postoperatively, patient did improve. He began increasing activity and tolerating diet. Having bowel function. FRANCES drain in place with minimal serosanguineous output. Plan for discontinuing FRANCES drain prior to his discharge. Postoperative instructions were provided. All questions answered. Surgically stable for discharge. Procedures: Robotic cholecystectomy Patient Condition at Discharge: Fair Plan - Discharge Summary New Discharge Prescriptions: New HYDROcodone/APAP 5-325MG [[place] 5-325] 1 each PO Q4HR PRN #12 tab PRN Reason: Moderate Pain (Scale 4 To 6) Continue PARoxetine [Paxil] 10 mg PO DAILY Mirabegron [Myrbetriq] 50 mg PO DAILY Apixaban [Eliquis] 5 mg PO BID Insulin Glargine,Hum.rec.anlog [Lantus Solostar Pen] 20 units SQ HS Metoprolol Tartrate [Lopressor] 25 mg PO BID Empagliflozin [Jardiance] 25 mg PO DAILY NIFEdipine XL [Procardia XL] 30 mg PO DAILY #30 tab Aspirin EC [Ecotrin Low Dose] 81 mg PO DAILY Atorvastatin [Lipitor] 80 mg PO HS glipiZIDE [Glucotrol] 10 mg PO BID-W/MEALS Discharge Medication List Apixaban [Eliquis] 5 mg PO BID 01/02/24 [History] Aspirin EC [Ecotrin Low Dose] 81 mg PO DAILY 01/02/24 [History] Mirabegron [Myrbetriq] 50 mg PO DAILY 01/02/24 [History] PARoxetine [Paxil] 10 mg PO DAILY 06/20/24 [History] Insulin Glargine,Hum.rec.anlog [Lantus Solostar Pen] 20 units SQ HS 04/24/24 [History] Metoprolol Tartrate [Lopressor] 25 mg PO BID 04/24/24 [History] Atorvastatin [Lipitor] 80 mg PO HS 10/26/24 [History] Empagliflozin [Jardiance] 25 mg PO DAILY 10/26/24 [History] NIFEdipine XL [Procardia XL] 30 mg PO DAILY #30 tab 11/03/24 [Rx] glipiZIDE [Glucotrol] 10 mg PO BID-W/MEALS 01/15/25 [History] HYDROcodone/APAP 5-325MG [[place] 5-325] 1 each PO Q4HR PRN #12 tab 01/19/25 [Rx] Follow up Appointment(s)/Referral(s): [facility]idential [facility] [NON-STAFF] - As Needed [place] DO [Primary Care Provider] - 1-2 days Ankur Jones DO [Doctor of Osteopathic Medicine] - 2 Weeks Patient Instructions/Handouts: Laparoscopic Cholecystectomy (DC) Activity/Diet/Wound Care/Special Instructions: Stay on low-fat diet No lifting greater than 10 pounds Take pain medication as needed Okay to shower Discharge Disposition: HOME SELF-CARE
[2025-01-20 08:19] LABS: ALT 23 U/L (10-49); AST 42 U/L (14-35); Albumin 3.0 g/dL (3.8-4.9); Albumin/Globulin Ratio 1.36 Ratio (1.60-3.17); Alkaline Phosphatase 448 U/L (41-126); Anion Gap 11.20 mmol/L (4.00-12.00); BUN/Creat Ratio 21.10 Ratio (12.00-20.00); Blood Urea Nitrogen 21.1 mg/dL (9.0-27.0); Calcium 8.0 mg/dL (8.7-10.3); Carbon Dioxide 20.8 mmol/L (21.6-31.8); Chloride 106 mmol/L (96-109); Globulin 2.2 g/dL (1.6-3.3); Glucose 146 mg/dL (70-110); Potassium 3.5 mmol/L (3.5-5.5); Sodium 138 mmol/L (135-145); Total Protein 5.2 g/dL (6.2-8.2)
[2025-01-20 08:32] LABS: Basophils # (A) 0.02 X 10*3/uL (0.00-0.10); Basophils % (A) 0.5 %; Eosinophils # (A) 0.11 X 10*3/uL (0.04-0.35); Eosinophils % (A) 2.8 %; HCT 31.4 % (39.6-50.0); HGB 10.8 g/dL (13.0-17.0); Immature Grans, Automated 1.00 %; Lymphocytes # (A) 0.73 X 10*3/uL (0.90-5.00); Lymphocytes % (A) 18.9 %; MCH 31.2 pg (27.0-32.0); MCHC 34.4 g/dL (32.0-37.0); MCV 90.8 FL (80.0-97.0); Monocytes # (A) 0.62 X 10*3/uL (0.20-1.00); Monocytes % (A) 16.1 %; NRBC Per 100 WBC 0 X 10*3/uL (0.00-0.01); Neutrophils # (A) 2.34 X 10*3/uL (1.80-7.70); Neutrophils % (A) 60.7 %; Platelet Count 268 X 10*3/uL (140-440); RBC 3.46 X 10*6/uL (4.40-5.60); RDW 14.7 % (11.5-14.5); WBC 3.86 X 10*3/uL (4.50-10.00)
[2025-01-20] MEDS: POTASSIUM CHLORIDE ER 20 MEQ TAB.ER PO STA (09:26)
--- NOTE | 2025-01-20 12:27 | P.PN ---
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 He presented to the hospital on 01/15/2025 with a chief complaint of epigastric/abdominal pain accompanied by n ausea and vomiting. Upon arrival to our facility, patient underwent evaluation in the emergency department. Vital signs upon arrival show blood pressure 107/71, heart rate 96, respiratory rate 18, temp 99.2 F, and SpO2 of 99% on room air. Shortly after arrival temperature elevating to 101.1 F. EKG completed showing atrial fibrillation with a controlled ventricular rate of 84 bpm with nonspecific T wave abnormalities throughout inferior, anterior and lateral leads. Labs were completed and reviewed. CBC showing stable normocytic anemia with hemoglobin of 12.7. BMP showing hyponatremia with sodium of 130, chloride of 92, and consistent with known CKD stage IIIb with BUN of 39, creatinine of 1.30, GFR 53 which appears to be at patient's baseline. Blood glucose elevated at 259. Lactic acid 1.9. Liver profile showing elevated alkaline phosphatase of 386. Troponin was 0.026. Amylase and lipase normal findings. Urinalysis positive for protein, glucose, and trace blood negative f or infection. Abdominal ultrasound completed showing concerns for acute cholecystitis with hydropic gallbladder, gallstone sludge, wall thickening, pericardial fluid with borderline enlarged liver. Patient was admitted under general surgery team. We were consulted for medical management throughout hospitalization. Physical exam: Patient seen and fully evaluated at bedside this morning. Patient is day 3 postop laparoscopic robotic cholecystectomy with drain placement. He was sitting up in the chair visiting with his at bedside. He reports feeling good today, stating pain continues to improve. He denies any nausea vomiting reports tolerating oral intake and occasionally getting a little pain/twinge in epigastric region after eating but otherwise states resolves without intervention. FRANCES drain remains in place. Patient reports passing flatus but denies having any bowel movements at this time. He continues to deny having any chest pain, palpitations, shortness of breath, cough or congestion or any other complaints. He reports vascular surgery, Dr. Baron did come and evaluate his wound VAC earlier this morning and recommended no changes at this time. Vital signs reviewed and stable. General: Nontoxic, no distress and appears stated age. Derm: Skin warm and dry, normal coloration for ethnicity. Head: Atraumatic, normocephalic and symmetric. Eyes: EOM's intact, no lid lag, and anicteric sclera Mouth: no lip lesions, mucus membranes moist Cardiovascular: Irregularly irregular, systolic murmur, positive posterior tibial pulses bilaterally, and cap refill < 2 seconds. Lungs: Respirations even, regular, and unlabored on supplemental oxygen. Lungs CTA bilaterally, no rhonchi, no rales, no wheezing, and no accessory muscle usage. Abdominal: soft distended, tenderness surrounding laparoscopic incision sites and FRANCES drain. Hypoactive bowel sounds. Ext: ROM intact. No gross muscle atrophy, no edema, no contractures. Wound VAC in place right foot. Neuro: Speech clear, face symmetrical and CN II-XII grossly intact with no noted focal neuro deficits Psych: Alert and oriented to person, place, time, and situation. Appropriate and pleasant affect. Assessment and Plan of Care: Acute gangrenous cholecystitis Sepsis on arrival, secondary to above Transaminitis, secondary to above Bicytopenia, reactive secondary to above -Patient admitted under general surgery team and underwent laparoscopic robotic cholecystectomy on 01/17/2025 -Sepsis on arrival as evidenced by heart rate 96, elevated temp up to 101.1 F, and known infection from acute cholecystitis -Continue IV antibiotics with Unasyn 3 g every 8 hours -Blood cultures showing no growth to date -Continue close monitoring of CBC and CMP with repeat a.m. labs. -Symptomatic care and pain management with Tylenol 500 mg every 6 hours as needed for mild pain and/or fever, [place] 5/325 mg tablets every 4 hours as needed for moderate pain, and morphine 4 mg IVP every 4 hours as needed for severe pain. Hypokalemia, resolved Resolved. Will continue to monitor closely with repeat a.m. labs to monitor for improvement/resolution. Insulin-dependent diabetes mellitus with hyperglycemia Continue Jardiance 25 mg daily, Lantus 20 units nightly, along with glycemic protocol with Humalog sliding scale. Hemoglobin A1c 8.4%. CAD with previous stenting followed by CABG x 3 Chronic atrial fibrillation Hypertension History of CVA without residual deficits -Hold Eliquis and aspirin pending clearance by general surgery team to resume. -Continue cardiac medication regimen with atorvastatin 80 mg nightly, Jardiance 25 mg daily, metoprolol 25 mg twice daily, and nifedipine 30 mg daily. -Cardiology was consulted for cardiac clearance to undergo laparoscopic cholecystectomy. Discussed with cardiac SUPERVISOR BRIAR SHOP stating patient is cleared to un dergo planned procedure from cardiac standpoint with no absolute contraindications. Status post recent toe amputation of 2nd and 5th digits of right foot on 12/15/2024 - Continue wound VAC and vascular surgery consulted for management of wound VAC Data and imaging reviewed: Morning labs reviewed. CBC showing bicytopenia with WBC count of 3.86 and hemoglobin of 10.8. BMP showing hypocarbia with bicarb of 20.8 otherwise normal findings. Blood glucose 146. Liver profile showing elevated AST of 42 and alkaline phosphatase of 448. Vital signs reviewed. Blood pressure 164/85, heart rate 96, respiratory rate 17, temp 97.4 F, and SpO2 of 95% on room air. Thank you for allowing us to participate in the care of this pleasant patient. Do not hesitate to contact us with questions. Someone can be reached from the [facility] hospitalist group all hours of the day at [phone] or via [employer]. Patient was seen independently by Nurse Pracitioner. This document was prepared using [employer] dictation software. Please allow for errors in offset lithographic press setter, while rare they do occur. Magdiel Calderon SUPERVISOR BRIAR SHOP rendered care for this patient independently, reviewed the findings and plan as documented in the note above and agree with plan. I did not physically speak with or examine the patient on this date. Objective - Vital Signs Vital signs: Vital Signs Temp 97.4 F L 01/20/25 07:29 Pulse 96 01/20/25 07:29 Resp 17 01/20/25 07:29 BP 164/85 01/20/25 07:29 Pulse Ox 95 01/20/25 07:29 FiO2 Intake & Output 01/19/25 01/20/25 01/20/25 18:59 06:59 18:59 Intake Total 1920 Output Total 30 Balance 1920 -30 Intake: Intake, IV Titration 700 Amount Ampicillin-Sulbactam 3 gm 100 In Sodium Chloride 0.9% 100 ml @ 200 mls/hr IVPB Q8HR BRUNO Rx#:[id number] Sodium Chloride 0.9% 1, 600 000 ml @ 75 mls/hr IV . [id number] BRUNO Rx#:[id number] Oral 1220 Output: Drainage 30 Right Abdomen 30 Other: # Voids 3 3 - Labs CBC & Chem 7: 01/20/25 04:44 01/20/25 04:44 Labs: Abnormal Lab Results - Last 24 Hours (Table) 01/19/25 01/19/25 01/19/25 Range/Units 05:43 12:22 17:00 WBC (4.50-10.00) X 10*3/uL RBC (4.40-5.60) X 10*6/uL Hgb (13.0-17.0) g/dL Hct (39.6-50.0) % RDW (11.5-14.5) % Lymphocytes # (0.90-5.00) X 10*3/uL Carbon Dioxide 20.7 L (21.6-31.8) mmol/L Anion Gap 12.30 H (4.00-12.00) mmol/L BUN/Creatinine Ratio 23.64 H (12.00-20.00) Ratio Glucose 196 H (70-110) mg/dL POC Glucose (mg/dL) 303 H 123 H (70-110) mg/dL Calcium 8.0 L (8.7-10.3) mg/dL Unconjugated Bilirubin 0.1 L (0.2-1.0) mg/dL AST 49 H (14-35) U/L Alkaline Phosphatase 390 H (41-126) U/L Total Protein 5.2 L (6.2-8.2) g/dL Albumin 2.8 L (3.8-4.9) g/dL Albumin/Globulin Ratio 1.17 L (1.60-3.17) Ratio 01/19/25 01/20/25 01/20/25 Range/Units 19:50 04:44 04:44 WBC 3.86 L (4.50-10.00) X 10*3/uL RBC 3.46 L (4.40-5.60) X 10*6/uL Hgb 10.8 L (13.0-17.0) g/dL Hct 31.4 L (39.6-50.0) % RDW 14.7 H (11.5-14.5) % Lymphocytes # 0.73 L (0.90-5.00) X 10*3/uL Carbon Dioxide 20.8 L (21.6-31.8) mmol/L Anion Gap (4.00-12.00) mmol/L BUN/Creatinine Ratio 21.10 H (12.00-20.00) Ratio Glucose 146 H (70-110) mg/dL POC Glucose (mg/dL) 210 H (70-110) mg/dL Calcium 8.0 L (8.7-10.3) mg/dL Unconjugated Bilirubin (0.2-1.0) mg/dL AST 42 H (14-35) U/L Alkaline Phosphatase 448 H (41-126) U/L Total Protein 5.2 L (6.2-8.2) g/dL Albumin 3.0 L (3.8-4.9) g/dL Albumin/Globulin Ratio 1.36 L (1.60-3.17) Ratio 01/20/25 Range/Units 06:26 WBC (4.50-10.00) X 10*3/uL RBC (4.40-5.60) X 10*6/uL Hgb (13.0-17.0) g/dL Hct (39.6-50.0) % RDW (11.5-14.5) % Lymphocytes # (0.90-5.00) X 10*3/uL Carbon Dioxide (21.6-31.8) mmol/L Anion Gap (4.00-12.00) mmol/L BUN/Creatinine Ratio (12.00-20.00) Ratio Glucose (70-110) mg/dL POC Glucose (mg/dL) 162 H (70-110) mg/dL Calcium (8.7-10.3) mg/dL Unconjugated Bilirubin (0.2-1.0) mg/dL AST (14-35) U/L Alkaline Phosphatase (41-126) U/L Total Protein (6.2-8.2) g/dL Albumin (3.8-4.9) g/dL Albumin/Globulin Ratio (1.60-3.17) Ratio Microbiology - Last 24 Hours (Table) 01/16/25 01:41 Blood Culture - Preliminary Blood
--- NOTE | 2025-01-20 12:51 | P.GSCN ---
History of Present Illness Consult date: 01/20/25 History of present illness: Lewis is a 74-year-old male admitted for right lower extremity lateral foot wound and previous amputations. He is currently undergoing wound care through my office and has a wound VAC in place. Since being in the hospital has re mained in place without any issues or concerns Past Medical History Past Medical History: Cancer, CVA/TIA, Diabetes Mellitus, Hypertension, Myocardi al Infarction (CO), Skin Disorder Additional Past Medical History / Comment(s): See Dr Yasir Collado's H&P. Hx prostate cancer 2004, hx melanoma, hx CVA or petite mal in 2006, with no residual deficits and no problems since, hx CO X2. Last Myocardial Infarction Date:: 2011 History of Any Multi-Drug Resistant Organisms: None Reported Past Surgical History: Coronary Bypass/CABG, Heart Catheterization With Stent Additional Past Surgical History / Comment(s): Triple bypass, 4 stents that failed, radical prostectomy, skin cancer removal, amputation of 2nd right toe and 5th right toe, bilateral cataract surgery. Past Anesthesia/Blood Transfusion Reactions: No Reported Reaction Date of Last Stent Placement:: 2011 Past Psychological History: No Psychological Hx Reported Smoking Status: Never smoker - Past Family History Mother Family Medical History: No Reported History Father Family Medical History: Cancer Additional Family Medical History / Comment(s): Liver cancer. Brother(s) Family Medical History: Cancer Additional Family Medical History / Comment(s): Bladder cancer. Medications and Allergies Home Medications Medication Instructions Recorded Confirmed Type Apixaban [Eliquis] 5 mg PO BID 01/02/24 01/15/25 History Aspirin EC [Ecotrin Low Dose] 81 mg PO DAILY 01/02/24 01/15/25 History Mirabegron [Myrbetriq] 50 mg PO DAILY 01/02/24 01/15/25 History PARoxetine [Paxil] 10 mg PO DAILY 01/02/24 01/15/25 History Insulin Glargine,Hum.rec.anlog 20 units SQ HS 04/24/24 01/15/25 History [Lantus Solostar Pen] Metoprolol Tartrate [Lopressor] 25 mg PO BID 04/24/24 01/15/25 History Atorvastatin [Lipitor] 80 mg PO HS 10/26/24 01/15/25 History Empagliflozin [Jardiance] 25 mg PO DAILY 10/26/24 01/15/25 History NIFEdipine XL [Procardia XL] 30 mg PO DAILY #30 tab 11/03/24 01/15/25 Rx glipiZIDE [Glucotrol] 10 mg PO BID-W/MEALS 01/15/25 01/15/25 History HYDROcodone/APAP 5-325MG [[place] 1 each PO Q4HR PRN #12 tab 01/19/25 Rx 5-325] Allergies Allergy/AdvReac Type Severity Reaction Status Date / Time No Known Allergies Allergy Verified 01/15/25 19:22 Surgical - Exam Vital Signs Temp Pulse Resp BP Pulse Ox 99.2 F 96 18 107/71 99 01/15/25 16:28 01/15/25 16:28 01/15/25 16:28 01/15/25 16:28 01/15/25 16:28 General pleasant male no acute distress. Eating breakfast abdomen is soft. Appropriate surgical scarring. Extremities show no clubbing, cyanosis or edema. Wound VAC in place with good suction Results - Labs 01/20/25 04:44 01/20/25 04:44 Abnormal Lab Results - Last 24 Hours (Table) 01/19/25 01/19/25 01/19/25 Range/Units 05:43 05:43 12:22 RBC 3.36 L (4.40-5.60) X 10*6/uL Hgb 10.3 L (13.0-17.0) g/dL Hct 31.3 L (39.6-50.0) % RDW 15.3 H (11.5-14.5) % Carbon Dioxide 20.7 L (21.6-31.8) mmol/L Anion Gap 12.30 H (4.00-12.00) mmol/L BUN/Creatinine Ratio 23.64 H (12.00-20.00) Ratio Glucose 196 H (70-110) mg/dL POC Glucose (mg/dL) 303 H (70-110) mg/dL Calcium 8.0 L (8.7-10.3) mg/dL Unconjugated Bilirubin 0.1 L (0.2-1.0) mg/dL AST 49 H (14-35) U/L Alkaline Phosphatase 390 H (41-126) U/L Total Protein 5.2 L (6.2-8.2) g/dL Albumin 2.8 L (3.8-4.9) g/dL Albumin/Globulin Ratio 1.17 L (1.60-3.17) Ratio 01/19/25 01/19/25 01/20/25 Range/Units 17:00 19:50 04:44 RBC (4.40-5.60) X 10*6/uL Hgb (13.0-17.0) g/dL Hct (39.6-50.0) % RDW (11.5-14.5) % Carbon Dioxide 20.8 L (21.6-31.8) mmol/L Anion Gap (4.00-12.00) mmol/L BUN/Creatinine Ratio 21.10 H (12.00-20.00) Ratio Glucose 146 H (70-110) mg/dL POC Glucose (mg/dL) 123 H 210 H (70-110) mg/dL Calcium 8.0 L (8.7-10.3) mg/dL Unconjugated Bilirubin (0.2-1.0) mg/dL AST 42 H (14-35) U/L Alkaline Phosphatase 448 H (41-126) U/L Total Protein 5.2 L (6.2-8.2) g/dL Albumin 3.0 L (3.8-4.9) g/dL Albumin/Globulin Ratio 1.36 L (1.60-3.17) Ratio 01/20/25 Range/Units 06:26 RBC (4.40-5.60) X 10*6/uL Hgb (13.0-17.0) g/dL Hct (39.6-50.0) % RDW (11.5-14.5) % Carbon Dioxide (21.6-31.8) mmol/L Anion Gap (4.00-12.00) mmol/L BUN/Creatinine Ratio (12.00-20.00) Ratio Glucose (70-110) mg/dL POC Glucose (mg/dL) 162 H (70-110) mg/dL Calcium (8.7-10.3) mg/dL Unconjugated Bilirubin (0.2-1.0) mg/dL AST (14-35) U/L Alkaline Phosphatase (41-126) U/L Total Protein (6.2-8.2) g/dL Albumin (3.8-4.9) g/dL Albumin/Globulin Ratio (1.60-3.17) Ratio Microbiology - Last 24 Hours (Table) 01/16/25 01:41 Blood Culture - Preliminary Blood Diabetes panel 01/19/25 01/20/25 Range/Units 05:43 04:44 Sodium 138 138 (135-145) mmol/L Potassium 3.8 3.5 (3.5-5.5) mmol/L Chloride 105 106 (96-109) mmol/L Carbon Dioxide 20.7 L 20.8 L (21.6-31.8) mmol/L BUN 26.0 21.1 (9.0-27.0) mg/dL Creatinine 1.1 1.0 (0.6-1.5) mg/dL Glucose 196 H 146 H (70-110) mg/dL Calcium 8.0 L 8.0 L (8.7-10.3) mg/dL AST 49 H 42 H (14-35) U/L ALT 21 23 (10-49) U/L Alkaline Phosphatase 390 H 448 H (41-126) U/L Total Protein 5.2 L 5.2 L (6.2-8.2) g/dL Albumin 2.8 L 3.0 L (3.8-4.9) g/dL Calcium panel 01/19/25 01/20/25 Range/Units 05:43 04:44 Calcium 8.0 L 8.0 L (8.7-10.3) mg/dL Albumin 2.8 L 3.0 L (3.8-4.9) g/dL Pituitary panel 01/19/25 01/20/25 Range/Units 05:43 04:44 Sodium 138 138 (135-145) mmol/L Potassium 3.8 3.5 (3.5-5.5) mmol/L Chloride 105 106 (96-109) mmol/L Carbon Dioxide 20.7 L 20.8 L (21.6-31.8) mmol/L BUN 26.0 21.1 (9.0-27.0) mg/dL Creatinine 1.1 1.0 (0.6-1.5) mg/dL Glucose 196 H 146 H (70-110) mg/dL Calcium 8.0 L 8.0 L (8.7-10.3) mg/dL Adrenal panel 01/19/25 01/20/25 Range/Units 05:43 04:44 Sodium 138 138 (135-145) mmol/L Potassium 3.8 3.5 (3.5-5.5) mmol/L Chloride 105 106 (96-109) mmol/L Carbon Dioxide 20.7 L 20.8 L (21.6-31.8) mmol/L BUN 26.0 21.1 (9.0-27.0) mg/dL Creatinine 1.1 1.0 (0.6-1.5) mg/dL Glucose 196 H 146 H (70-110) mg/dL Calcium 8.0 L 8.0 L (8.7-10.3) mg/dL Total Bilirubin 0.3 0.3 (0.3-1.2) mg/dL AST 49 H 42 H (14-35) U/L ALT 21 23 (10-49) U/L Alkaline Phosphatase 390 H 448 H (41-126) U/L Total Protein 5.2 L 5.2 L (6.2-8.2) g/dL Albumin 2.8 L 3.0 L (3.8-4.9) g/dL Assessment and Plan Assessment: Right lower extremity wound Peripheral arterial disease Previous amputations Plan: I had the pleasure of seeing Lewis. We discussed the plan going forward, he may be discharged in regards to his primary and surgical consultants. He will contact his home health care and have them change the wound VAC dressing 3 times weekly and plan to see us in follow-up at the office in 1 week. If there is any issues in the meantime he will let us know. Continue offloading as best he can. He seemingly understands the plan and is willing to proceed.
== END 2025-01-20 12:05 | disposition home health service (06) | DRG 854 ==
LOC: EC 16:10 → 6NMEDSUR 19:19 → OBSVTOIN 19:20 → 6NMEDSUR 20:01
PROVIDERS: ADMIT Surgery; ATTEND Surgery
PROC: 8E0W4CZ Robotic Assisted Procedure of Trunk Region, Percutaneous Endoscopic Approach (ICD-10-PCS; 2025-01-17)
PROC: 0FT44ZZ Resection of Gallbladder, Percutaneous Endoscopic Approach (ICD-10-PCS; principal; 2025-01-17 11:00)
DX: A41.9 Sepsis, unspecified organism (principal); E87.1 Hypo-osmolality and hyponatremia; K82.1 Hydrops of gallbladder; K82.A1 Gangrene of gallbladder in cholecystitis; D63.1 Anemia in chronic kidney disease; E11.22 Type 2 diabetes mellitus with diabetic chronic kidney disease; N18.32 Chronic kidney disease, stage 3b; I12.9 Hypertensive chronic kidney disease with stage 1 through stage 4 chronic kidney disease, or unspecified chronic kidney disease; I48.92 Unspecified atrial flutter; I48.20 Chronic atrial fibrillation, unspecified; K81.0 Acute cholecystitis; K82.0 Obstruction of gallbladder; E11.42 Type 2 diabetes mellitus with diabetic polyneuropathy; E11.51 Type 2 diabetes mellitus with diabetic peripheral angiopathy without gangrene; E11.65 Type 2 diabetes mellitus with hyperglycemia; Z79.4 Long term (current) use of insulin; I25.10 Atherosclerotic heart disease of native coronary artery without angina pectoris; Z95.1 Presence of aortocoronary bypass graft; Z95.5 Presence of coronary angioplasty implant and graft; Z79.01 Long term (current) use of anticoagulants; Z86.73 Personal history of transient ischemic attack (TIA), and cerebral infarction without residual deficits; E78.5 Hyperlipidemia, unspecified; I25.2 Old myocardial infarction; Z79.82 Long term (current) use of aspirin; Z79.84 Long term (current) use of oral hypoglycemic drugs; Z79.899 Other long term (current) drug therapy; Z89.429 Acquired absence of other toe(s), unspecified side; Z80.52 Family history of malignant neoplasm of bladder; Z80.0 Family history of malignant neoplasm of digestive organs
CPT/HCPCS: 36415; 76705; 80053; 81001; 82150; 82248; 83036; 83605; 83690; 83735; 84145; 84484; 85025; 85027; 87040; 88304; 93005; 96361; 96365; 96375; 99285